=== PATIENT | female | born 1990 | race Caucasian/White ===

== ENCOUNTER 2017-03-21 13:21 | Emergency (ER) | payer BC, MEDICAID, SELFPAY ==
[2017-03-21 13:29] VITALS: BMI 22.3
[2017-03-21 13:32] VITALS: BP 115/68; PULSE 62; RESP 18; TEMP 36.4; O2SAT 97; BMI 22.3
[2017-03-21 13:39] LABS: POC Glucose,Bedside 328 mg/dL
--- NOTE | 2017-03-21 13:42 | HMH.EDGENADL ---
ED Disposition Clinical Impression: Hyperglycemia Disposition: Home, Self-Care Condition on Discharge: Good Instructions: DI for Hyperglycemia -- Adult Additional Instructions: Manage your blood sugar as per instructions from your repair mechanic and call them for follow-up. - Critical Care Critical Care Time: No Attestation: On 03/21/17, the high probability of a clinically significant, sudden or life threatening deterioration of the following system(s) required my full and direct attention, intervention and personal management. The time I documented below is in addition to time spent performing reported procedures but includes the following listed in this critical care notation. Medical Decision Making Vital Signs: 03/21/17 13:32 Temperature 97.6 F Temperature Source Oral Pulse Rate [Right Brachial] 62 Respiratory Rate 18 Blood Pressure [Right Arm] 115/68 Blood Pressure Mean [Right Arm] 83 Blood Pressure Source [Right Arm] Automatic Cuff Blood Pressure Position [Right Arm] Sitting 02 Sat by Pulse Oximetry 97 - Lab Data Lab Results 03/21/17 13:30: POC Glucose 328 03/21/17 13:34: Urine Color Yellow, Urine Appearance Sl cloudy, Urine pH 6.0, Ur Specific [place] 1.015, Urine Protein Negative, Urine Glucose (UA) 3+, Urine Ketones Trace, Urine Blood 1+, Urine Nitrate Negative, Urine Bilirubin Negative, Urine Urobilinogen 0.2, Ur Leukocyte Esterase Negative, Urine WBC Occasional, Ur Squamous Epith Cells 10-20, Urine Bacteria Trace 03/21/17 13:34: Urine HCG, Qual Negative, Influenza Type A Ag Negative, Influenza Type B Ag Negative 03/21/17 13:34: Sodium 137, Potassium 3.9, Chloride 102, Carbon Dioxide 29, Anion Gap 9.9, BUN 11, Creatinine 0.81, Estimated Creat Clear 99, Estimated GFR 86, Est GFR ( Amer) 104, Glucose 336 H, Calcium 8.9, Total Bilirubin 0.9, AST 15, ALT 21, Alkaline Phosphatase 89, Total Protein 7.1, Albumin 4.1, Globulin 3.0, Albumin/Globulin Ratio 1.4 03/21/17 13:34: Acetone Level None detected 03/21/17 13:34: WBC 7.5, RBC 4.56, Hgb 12.9, Hct 39.3, MCV 86.2, MCH 28.3, MCHC 32.8, RDW 12.4, Plt Count 220, MPV 7.7, Neut % (Auto) 71.8, Lymph % (Auto) 22.0, [place] % (Auto) 3.7, Eos % (Auto) 1.9, Baso % (Auto) 0.7, Neut # (Auto) 5.4, Lymph # (Auto) 1.6, [place] # (Auto) 0.3, Eos # (Auto) 0.1, Baso # (Auto) 0.1 03/21/17 13:34: Phosphorus 2.8, Magnesium 1.5 03/21/17 14:30: VBG pH 7.34, VBG pCO2 44.3, VBG pO2 48.5 H, VBG HCO3 23.5, VBG Total CO2 24.8, VBG O2 Saturation 84.1 H, VBG Base Excess -2.3 Result diagrams: 03/21/17 13:34 03/21/17 13:34 Orders (Tests/Meds): ED MEDICATIONS Discontinued Medications Generic Name Dose Route Start Last Admin Trade Name Lorenza PRN Reason Stop Dose Admin Insulin Human Lispro 5 unit 03/21/17 14:10 03/21/17 15:11 Humalog 100 Units/Ml 3ml Vial (Ssi) SQ 03/21/17 14:11 Not Given ONCE ONE Sodium Chloride 1,000 ml 03/21/17 14:10 03/21/17 14:28 Sod Chloride 0.9% 1000ml Bag IV 03/21/17 14:11 1,000 ml BOLUS ONE Administration ORDERS Category Date Time Status POC Glucose,Bedside Stat Lab 03/21/17 13:30 Ordered Venous Blood Gas Stat RT 03/21/17 13:41 Ordered - Raz Inquiry Pt receiving controlled substance: No Medical Decision Making Narrative: Patient states that sugar for her current blood sugar of 336 would be 5 units. 3:15 PM: The patient's blood sugar is 250. She says she feels she can manage this from home. She feels better. General Adult HPI - General Chief complaint: Weakness Stated complaint: high blood sugar Mode of Arrival: Ambulatory Limitations: No Limitations Description of Symptoms (Recalled from ER Triage Doc. by RN): large amount of ketones yesterday; possible flu - History of Present Illness HPI narrative: The patient complains of elevated blood sugar and body aches for the past couple of days. She is a type I diabetic and has an insulin pump. She has changed her insulin, giving herself addition
[2017-03-21 13:50] LABS: Microscopic, Urine URINE MICROSCOPIC (MICROSCOPIC)
[2017-03-21 13:52] LABS: Appearance,Urine SL CLOUDY (Clear); Bilirubin,Urine Negative (Negative); Blood, Urine 1+ (Negative); Color,Urine YELLOW (Yellow); Glucose,Urine (UA) 3+ (Negative); Ketones,Urine TRACE (Negative); Leukocyte Esterase,Urine Negative (Negative); Nitrate,Urine Negative (Negative); Protein,Urine Negative (Negative); Specific Gravity, Urine 1.015 (1.005-1.030); Urobilinogen,Urine 0.2 EU/dl (0.2)
[2017-03-21 13:55] LABS: Basophils # 0.1 K/mm3 (0-0.2); Basophils % 0.7 % (0.1-2.0); Eosinophils # 0.1 K/mm3 (0.0-0.4); Eosinophils % 1.9 % (0.1-12.0); Hematocrit 39.3 % (37.0-47.0); Hemoglobin 12.9 g/dL (12.2-16.2); Lymphocytes # 1.6 K/mm3 (0.7-4.5); Mean Corpuscular HGB Conc 32.8 g/dL (31.8-35.4); Mean Corpuscular Hemoglobin 28.3 pg (27.0-31.2); Mean Corpuscular Volume 86.2 fl (81-99); Mean Platelet Volume 7.7 fl (7.4-10.4); Monocytes # 0.3 K/mm3 (0.1-1.0); Monocytes % 3.7 % (1.7-9.3); Neutrophils # 5.4 K/mm3 (1.8-7.8); Neutrophils % 71.8 % (37.0-80.0); Platelet Count 220 K/mm3 (142-424); Red Blood Count 4.56 M/mm3 (4.20-5.40); Red Cell Distribution Width 12.4 % (11.5-17.5); White Blood Count 7.5 K/mm3 (4.8-10.8)
[2017-03-21 13:58] LABS: Bacteria,Urine Trace /lpf; WBC,Urine Occasional #/hpf (0-3)
[2017-03-21 14:00] LABS: Magnesium 1.5 mg/dL (1.4-2.2); Phosphorous 2.8 mg/dL (2.4-4.9); Urine Pregnancy, HCG Qual. Negative (Negative)
[2017-03-21 14:04] LABS: Alanine Aminotransferase 21 U/L (12-78); Albumin Level 4.1 gm/dL (3.4-5.0); Albumin/Globulin Ratio 1.4 (1.1-1.8); Alkaline Phosphatase 89 U/L (46-116); Anion Gap 9.9 mEq/L (5-15); Aspartate Amino Transferase 15 U/L (15-37); Bilirubin,Total 0.9 mg/dL (0.2-1.0); Blood Urea Nitrogen 11 mg/dL (7-18); Calcium 8.9 mg/dL (8.5-10.1); Carbon Dioxide 29 mmol/L (21.0-32.0); Chloride 102 mmol/L (98-107); Creatinine Clearance Estimated 99 mL/min (0-300); Creatinine,Serum 0.81 mg/dL (0.55-1.02); Estimated Glomerular Filt Rate 86 ml/min (>60); GFR (African American) 104 ML/MIN (>60); Glucose 336 mg/dL (74-106); Potassium 3.9 mmoL/L (3.5-5.1); Sodium 137 mmol/L (136-145); Total Protein,Serum 7.1 gm/dL (6.4-8.2)
[2017-03-21 14:05] LABS: Acetone, Serum (Rapid) None Detected (None Detect)
[2017-03-21 15:03] LABS: VBG Base Excess -2.3 mmol/L (-2.4-2.3); VBG HCO3 23.5 mmol/L (23-30); VBG Oxygen Saturation 84.1 % (50-70); VBG PCO2 44.3 mmol/L (35-51); VBG PH 7.34 mmol/L (7.31-7.41); VBG PO2 48.5 mmol/L (28-40); VBG Total CO2 24.8 mmol/L (23-27)
[2017-03-21 15:22] VITALS: BP 132/85; PULSE 75; RESP 18; TEMP 37
[2017-03-21 15:23] LABS: POC Glucose,Bedside 251 mg/dL
== END 2017-03-21 15:21 | disposition home or self-care (01) ==
PROVIDERS: Emergency Provider Emergency Medicine; Family Provider Internal Medicine Adolescent Medicine
DX: E11.65 Type 2 diabetes mellitus with hyperglycemia (principal); Z79.4 Long term (current) use of insulin; F17.210 Nicotine dependence, cigarettes, uncomplicated; Z88.0 Allergy status to penicillin; Z88.6 Allergy status to analgesic agent; Z91.040 Latex allergy status
CPT/HCPCS: 80053; 81001; 81025; 82009; 82803; 82962; 83735; 84100; 85025; 87275; 87276; 96365; 99282

== ENCOUNTER → 2017-05-19 14:41 | Outpatient (CLI) | payer BC, MEDICAID, SELFPAY ==
[2017-05-19 15:08] LABS: Basophils # 0.1 K/mm3 (0-0.2); Basophils % 0.7 % (0.1-2.0); Eosinophils # 0.1 K/mm3 (0.0-0.4); Eosinophils % 1.1 % (0.1-12.0); Hematocrit 39.9 % (37.0-47.0); Hemoglobin 13.1 g/dL (12.2-16.2); Lymphocytes # 2.1 K/mm3 (0.7-4.5); Mean Corpuscular HGB Conc 32.9 g/dL (31.8-35.4); Mean Corpuscular Hemoglobin 29.1 pg (27.0-31.2); Mean Corpuscular Volume 88.3 fl (81-99); Mean Platelet Volume 7.7 fl (7.4-10.4); Monocytes # 0.4 K/mm3 (0.1-1.0); Monocytes % 4.3 % (1.7-9.3); Neutrophils # 5.6 K/mm3 (1.8-7.8); Neutrophils % 67.9 % (37.0-80.0); Platelet Count 286 K/mm3 (142-424); Red Blood Count 4.52 M/mm3 (4.20-5.40); Red Cell Distribution Width 12.3 % (11.5-17.5); White Blood Count 8.2 K/mm3 (4.8-10.8)
[2017-05-19 19:31] LABS: Thyroid Stimulating Hormone 2.13 uIU/ml (0.358-3.740)
[2017-05-19 19:43] LABS: Hemoglobin A1C 6.4 % (0.0-7.0)
[2017-05-19 22:06] LABS: Amphetamine/Metha Screen,Urine Negative ng/mL (<1000); Barbiturates Screen,Urine Negative ng/mL (<200); Benzodiazepines Screen,Urine Negative ng/mL (200); Cannabinoid Screen,Urine Negative ng/mL (<50); Cocaine Screen,Urine Negative ng/g (<300); Methadone Screen,Urine Negative ng/mL (<300); Opiate Screen,Urine Negative ng/mL (<300); Phencyclidine Screen,Urine Negative ng/mL (<25)
[2017-05-21 08:25] LABS: HIV Screen 4th Generation wRfx Non Reactive (Non Reactive)
[2017-05-22 15:11] LABS: Hepatitis B Surface Antigen Negative (Negative); Rubella Antibodies, IgG 1.53 index (Immune >0.99)
== END ==
PROVIDERS: Family Provider Internal Medicine Adolescent Medicine; PCP Internal Medicine Adolescent Medicine; Visit Provider Obstetrics & Gynecology
DX: Z34.90 Encounter for supervision of normal pregnancy, unspecified, unspecified trimester (principal); N94.89 Other specified conditions associated with female genital organs and menstrual cycle; N93.0 Postcoital and contact bleeding
CPT/HCPCS: 36415; 80305; 83036; 84443; 85025; 86703; 86762; 86850; 87340; G0432

== ENCOUNTER → 2017-05-26 13:54 | Outpatient (CLI) | payer BC, MEDICAID, SELFPAY ==
[2017-05-26 15:41] LABS: HCG,Quantitative 11814 mIU/mL
== END ==
PROVIDERS: Family Provider Internal Medicine Adolescent Medicine; PCP Internal Medicine Adolescent Medicine; Visit Provider Obstetrics & Gynecology
DX: Z34.90 Encounter for supervision of normal pregnancy, unspecified, unspecified trimester (principal)
CPT/HCPCS: 36415; 84702

== ENCOUNTER 2017-05-28 21:25 | Emergency (ER) | payer BC, MEDICAID, SELFPAY ==
[2017-05-28 21:39] VITALS: BP 126/70; PULSE 106; RESP 20; TEMP 36.7; O2SAT 100; BMI 23.1
[2017-05-28 21:51] LABS: Microscopic, Urine URINE MICROSCOPIC (MICROSCOPIC)
[2017-05-28 21:52] LABS: Appearance,Urine CLEAR (Clear); Bilirubin,Urine Negative (Negative); Blood, Urine Negative (Negative); Color,Urine YELLOW (Yellow); Glucose,Urine (UA) 2+ (Negative); Ketones,Urine Negative (Negative); Leukocyte Esterase,Urine Negative (Negative); Nitrate,Urine Negative (Negative); Protein,Urine Negative (Negative); Specific Gravity, Urine 1.015 (1.005-1.030); Urobilinogen,Urine 0.2 EU/dl (0.2)
[2017-05-28 21:55] LABS: Strep Scrn Group A (Rapid) Positive (Negative)
[2017-05-28 22:05] LABS: Bacteria,Urine Trace /lpf; Squamous Epithelial Cell,Urine 20-50 #/hpf (0-5); WBC,Urine Occasional #/hpf (0-3)
--- NOTE | 2017-05-28 22:08 | HMH.EDFEV ---
ED Disposition Clinical Impression: Acute streptococcal pharyngitis, First trimester , IDDM (insulin dependent diabetes mellitus), Penicillin allergy Disposition: Home, Self-Care Condition on Discharge: Fair Additional Instructions: 1- star zithromax . 2- follow up with Dr Salvador in AM for a trans vag as scheduled. 3- return if abdominal pain or vaginal bleeding starts. 4- drink plenty of liquids and water. I discussed the above with Dr Lomas agrees with the treatment plan and follow up Prescriptions: Azithromycin [Zithromax 250mg tab] 250 mg PO DIRECTED #6 tab Referrals: Rao Olson MD [Primary Care Provider] - - Critical Care Critical Care Time: No Attestation: On 05/28/17, the high probability of a clinically significant, sudden or life threatening deterioration of the following system(s) required my full and direct attention, intervention and personal management. The time I documented below is in addition to time spent performing reported procedures but includes the following listed in this critical care notation. Medical Decision Making - Raz Inquiry Pt receiving controlled substance: No Raz was queried for this patient: No Vital Signs: 05/28/17 21:39 Temperature 98.0 F Temperature Source Oral Pulse Rate [Right Radial] 106 H Respiratory Rate 20 Blood Pressure [Right Arm] 126/70 Blood Pressure Mean [Right Arm] 88 02 Sat by Pulse Oximetry 100 - Lab Data Lab Results 05/28/17 21:45: Urine Color Yellow, Urine Appearance Clear, Urine pH 7.0, Ur Specific [place] 1.015, Urine Protein Negative, Urine Glucose (UA) 2+, Urine Ketones Negative, Urine Blood Negative, Urine Nitrate Negative, Urine Bilirubin Negative, Urine Urobilinogen 0.2, Ur Leukocyte Esterase Negative, Urine RBC None, Urine WBC Occasional, Ur Squamous Epith Cells 20-50, Urine Bacteria Trace 05/28/17 21:45: Influenza Type A Ag Negative, Influenza Type B Ag Negative, Group A Strep Rapid Positive A Medical Decision Narrative: Patient was tested positive for strep throat. Fever HPI - General Chief Complaint: Fever Stated Complaint: 7 WK PREG, SORE THROAT,FEVER Time Seen by Provider: 05/28/17 22:00 Mode of Arrival: Family Vehicle Limitations: No Limitations Description of Symptoms (Recalled from ER Triage Doc. by RN): fever, sore throat. pt states she is being seen in the morning by ob for a possible tubal . - History of Present Illness HPI Narrative: 27 years old white female IDDM, 4 a 3 para 0. Is currently 7 weeks being followed by Dr. Salvador with serial quantitative hCG and transvaginal ultrasound scheduled for tomorrow at 1 PM. The patient has multiple medication allergies including penicillin. Today at 10 am, she developed sore throat and 2 hours ago she developed fever of 103. She took Tylenol and came to the ED. She denies having abdominal pain or vaginal bleeding. MD complaint: fever Onset (ago): hour(s) (2 hours.) Context: sick contacts Associated symptoms: other (sore throat. ) Relieving factors: acetaminophen Exacerbating factors: nothing Treatments prior to arrival fever: acetaminophen - Related Data Home Medications Medication Instructions Recorded Confirmed escitalopram 10 mg tablet 10 mg PO QDAY 03/30/17 insulin lispro protamine-lispro 50 unit SUB-Q QDAY ml 03/30/17 100 unit/mL (50-50) subcutaneous pen ondansetron HCl 4 mg tablet 4 mg PO ONCE PRN tab 03/30/17 docusate sodium 100 mg capsule 100 mg PO QHS 05/19/17 1 tab PO QHS 05/19/17 vitamin,calcium,edxsonnz-kxeg-tvosx acid tablet Previous Rx's Medication Instructions Recorded ferrous sulfate 325 mg (65 mg 325 mg PO DAILY 30 Days #30 tab 05/19/17 iron) tablet Azithromycin [Zithromax 250mg 250 mg PO DIRECTED #6 tab 05/28/17 tab] Allergies Allergy/AdvReac Type Severity Reaction Status Date / Time codeine [CODEINE] Donavon
--- NOTE | 2017-05-28 22:12 | ED_ITS ---
ED Disposition Clinical Impression: Acute streptococcal pharyngitis, First trimester , IDDM (insulin dependent diabetes mellitus), Penicillin allergy Disposition: Home, Self-Care Condition on Discharge: Fair Additional Instructions: 1- star zithromax . 2- follow up with Dr Salvador in AM for a trans vag as scheduled. 3- return if abdominal pain or vaginal bleeding starts. 4- drink plenty of liquids and water. I discussed the above with Dr Lomas agrees with the treatment plan and follow up Prescriptions: Azithromycin [Zithromax 250mg tab] 250 mg PO DIRECTED #6 tab Referrals: Rao Olson MD [Primary Care Provider] - - Critical Care Critical Care Time: No Attestation: On 05/28/17, the high probability of a clinically significant, sudden or life threatening deterioration of the following system(s) required my full and direct attention, intervention and personal management. The time I documented below is in addition to time spent performing reported procedures but includes the following listed in this critical care notation. Medical Decision Making - Raz Inquiry Pt receiving controlled substance: No Raz was queried for this patient: No Vital Signs: 05/28/17 21:39 Temperature 98.0 F Temperature Source Oral Pulse Rate [Right Radial] 106 H Respiratory Rate 20 Blood Pressure [Right Arm] 126/70 Blood Pressure Mean [Right Arm] 88 02 Sat by Pulse Oximetry 100 - Lab Data Lab Results 05/28/17 21:45: Urine Color Yellow, Urine Appearance Clear, Urine pH 7.0, Ur Specific [place] 1.015, Urine Protein Negative, Urine Glucose (UA) 2+, Urine Ketones Negative, Urine Blood Negative, Urine Nitrate Negative, Urine Bilirubin Negative, Urine Urobilinogen 0.2, Ur Leukocyte Esterase Negative, Urine RBC None , Urine WBC Occasional, Ur Squamous Epith Cells 20-50, Urine Bacteria Trace 05/28/17 21:45: Influenza Type A Ag Negative, Influenza Type B Ag Negative, Group A Strep Rapid Positive A Medical Decision Narrative: Patient was tested positive for strep throat. Fever HPI - General Chief Complaint: Fever Stated Complaint: 7 WK PREG, SORE THROAT,FEVER Time Seen by Provider: 05/28/17 22:00 Mode of Arrival: Family Vehicle Limitations: No Limitations Description of Symptoms (Recalled from ER Triage Doc. by RN): fever, sore throat. pt states she is being seen in the morning by ob for a possible tubal . - History of Present Illness HPI Narrative: 27 years old white female IDDM, 4 a 3 para 0. Is currently 7 weeks being followed by Dr. Salvador with serial quantitative hCG and transvaginal ultrasound scheduled for tomorrow at 1 PM. The patient has multiple medication allergies including penicillin. Today at 10 am, she developed sore throat and 2 hours ago she developed fever of 103. She took Tylenol and came to the ED. She denies having abdominal pain or vaginal bleeding. MD complaint: fever Onset (ago): hour(s) (2 hours.) Context: sick contacts Associated symptoms: other (sore throat. ) Relieving factors: acetaminophen Exacerbating factors: nothing Treatments prior to arrival fever: acetaminophen - Related Data Home Medications Medication Instructions Recorded Confirmed escitalopram 10 mg tablet 10 mg PO QDAY 03/30/17 insulin lispro protamine-lispro 50 unit SUB-Q QDAY ml 03/30/17 100 unit/mL (50-50)
[2017-05-28 22:27] VITALS: BP 133/77; PULSE 94; RESP 18; TEMP 36.8; O2SAT 98
== END 2017-05-28 22:29 | disposition home or self-care (01) ==
PROVIDERS: Emergency Provider Emergency Medicine; Family Provider Internal Medicine Adolescent Medicine; PCP Internal Medicine Adolescent Medicine
DX: J02.0 Streptococcal pharyngitis (principal); E11.9 Type 2 diabetes mellitus without complications; Z34.90 Encounter for supervision of normal pregnancy, unspecified, unspecified trimester; Z79.84 Long term (current) use of oral hypoglycemic drugs; Z88.0 Allergy status to penicillin; Z88.6 Allergy status to analgesic agent; Z91.040 Latex allergy status
CPT/HCPCS: 81001; 87275; 87276; 87430; 99282

== ENCOUNTER → 2017-05-29 12:59 | Outpatient (CLI) | payer BC, MEDICAID, SELFPAY ==
--- NOTE | 2017-05-29 13:15 | US_ITS ---
US transvaginal HISTORY: ITS.REASON: w/ possible threatened ORDERING PHYSICIAN: Cesar Salvador MD PATIENT AGE: 27 years COMPARISON: None FINDINGS: There is an intrauterine gestational sac which measures 1.5 x 1.2 cm. No pole or yolk sac is evident. There is some fluid noted around the gestational sac and may be related to some blood. No adnexal mass or cul-de-sac fluid apparent. IMPRESSION: There is an empty gestational sac suggestion of fluid around the gestational sac which could be due to surrounding blood. Cannot confirm viability. Consider follow-up ultrasound and serial beta hCGs for confirmation
[2017-05-29 14:21] LABS: HCG,Quantitative 13477 mIU/mL
== END ==
PROVIDERS: Family Provider Internal Medicine Adolescent Medicine; PCP Internal Medicine Adolescent Medicine; Visit Provider Obstetrics & Gynecology
DX: O20.0 Threatened abortion (principal)
CPT/HCPCS: 36415; 76830; 84702

== ENCOUNTER 2017-06-01 10:30 | Day surgery (SDC) | payer BC, MEDICAID, SELFPAY ==
[2017-06-01] VITALS (13 sets, daily range): BP systolic 91–116; BP diastolic 47–71; PULSE 74–89; RESP 16–18; TEMP 36.3–37.2; O2SAT 97–99; BMI 23.1
[2017-06-01 11:18] LABS: POC Glucose,Bedside 98 mg/dL (70-110)
--- NOTE | 2017-06-01 12:19 | SUR.PREOP ---
Addendum entered by Domonique Petersen RN 06/01/17 12:45: PT ASSISTED TO BR, VOIDED W/OUT DIFF, NO C/O'S VOICED 06/01/17 AT 1230 Original Note: PT DOING WELL, NO C/O'S, FAMILY AT BEDSIDE. O2 SAT 96%RA
[2017-06-01 13:13] LABS: POC Glucose,Bedside 52 mg/dL (70-110)
[2017-06-01 14:00] LABS: POC Glucose,Bedside 114 mg/dL (70-110)
[2017-06-01 14:38] LABS: POC Glucose,Bedside 124 mg/dL (70-110)
--- NOTE | 2017-06-01 15:17 | P.PN_ITS ---
[facility] Anesthesia Checklist - Patient Identification Patient Identification: Arm Band - Structural Data Admitted From: Home Planned Operative Procedure/s: d&e Consent for Planned Operative Procedure(s) Verified: Yes Verified Documents: Surgical Consent, History and Physical - Additional verifications Anesthesia Reactions: No - Airway Assessment C-Spine Mobility Assessed: Yes (mp2) TMJ Mobility Assessed: Yes Dentition: Good Dentition - Neurological Assessment Level of Consciousness: Awake, Alert - Anesthesia Plan Anesthesia Risk discussed: Yes Anesthesia Plan: Verified ASA Class: III Anesthesia Type: General [facility] Anesthesia HX I have reviewed the patient's past medical history: Yes Medical History: Reports:: Diabetes Mellitus Type 1 (IDDM-HAS PUMP), Gastroesophageal Reflux Disease(GERD) Denies:: Cancer, Internal Pacemaker, MRSA, Seizures Other Medical History: Reports: Other Other Surgeries: Yes: Dilation and Curettage, Hernia Repair, Other. No: Pacemaker Amputation: No Fractures: Yes *Family Hx:: Hypertension, Heart Attack, Stroke, Cancer
--- NOTE | 2017-06-01 15:17 | HMH.ANESI ---
[facility] Anesthesia Record Part I Intake, IV Amount: 800 Estimated blood loss (mL): 100 Urine output (mL): 100 Blood Pressure: 116/71 SaO2: 99 Pulse Rate: 82 Respiratory Rate: 16 Temperature: 97.4 F Patient is:: Drowsy, Stable Stable to PACU at:: 14:30
--- NOTE | 2017-06-01 15:18 | HMH.ANESII ---
[facility] Anesthesia Record Part II Discharge Time: 15:00 Destination: [facility] PACU nurse assessment reviewed?: Yes Patient Condition:: Good Anesthesia Complications:: None
--- NOTE | 2017-06-01 15:19 | P.PN_ITS ---
[facility] Anesthesia Record Part II Discharge Time: 15:00 Destination: [facility] PACU nurse assessment reviewed?: Yes Patient Condition:: Good Anesthesia Complications:: None
--- NOTE | 2017-06-01 15:25 | HMH.OPNOTE ---
Date of procedure: 06/01/17 Pre-op Diagnosis:: Missed spontaneous Post-op Diagnosis:: Missed spontaneous Procedure performed:: Dilatation and suction curettage Surgeon:: Cesar Salvador MD SENIOR PLANNING ANALYST:: Gutierrez Nguyen Anesthesia: GETA Estimated blood loss (mL): 100 Operative findings:: Missed spontaneous Operative note:: After the patient was prepped and draped in the usual fashion, and general anesthesia was administered examination under anesthesia revealed an 8 week size boggy uterus, with no adnexal masses. A weighted speculum was placed within the posterior fourchette of the vagina, and the anterior lip of the cervix was grasped with a single-tooth tenaculum. The uterus was sounded in an anteverted direction to 9 cm, and easily dilated to #20 Hegar dilators. A sharp curette was introduced into the endometrial cavity, with retrieval of a moderate amount of products of conception. This was followed by suction with a #7 curved suction tip, and again by sharp curettage and suction, until it was felt that the cavity was clean. The instruments were then removed. Intravenous Pitocin was begun, and the uterus was involuting well at the close of the procedure. The sponge and needle count was correct. Estimated blood loss was 100 cc. The patient tolerated the procedure well, and was taken to PACU in excellent condition. Her blood type is O Rh+, and therefore she is not a candidate for RhoGam. She will be discharged today, if her vital signs are stable. Condition: stable Disposition: same day Specimens:: Products of conception Complications:: None
--- NOTE | 2017-06-01 15:28 | P.OP_ITS ---
Date of procedure: 06/01/17 Pre-op Diagnosis:: Missed spontaneous Post-op Diagnosis:: Missed spontaneous Procedure performed:: Dilatation and suction curettage Surgeon:: Cesar Salvador MD CASH APPLICATION CLERK:: Gutierrez Nguyen Anesthesia: GETA Estimated blood loss (mL): 100 Operative findings:: Missed spontaneous Operative note:: After the patient was prepped and draped in the usual fashion, and general anesthesia was administered examination under anesthesia revealed an 8 week size boggy uterus, with no adnexal masses. A weighted speculum was placed within the posterior fourchette of the vagina, and the anterior lip of the cervix was grasped with a single-tooth tenaculum. The uterus was sounded in an anteverted direction to 9 cm, and easily dilated to #20 Hegar dilators. A sharp curette was introduced into the endometrial cavity, with retrieval of a moderate amount of products of conception. This was followed by suction with a #7 curved suction tip, and again by sharp curettage and suction, until it was felt that the cavity was clean. The instruments were then removed. Intravenous Pitocin was begun, and the uterus was involuting well at the close of the procedure. The sponge and needle count was correct. Estimated blood loss was 100 cc. The patient tolerated the procedure well, and was taken to PACU in excellent condition. Her blood type is O Rh+, and therefore she is not a candidate for RhoGam. She will be discharged today, if her vital signs are stable. Condition: stable Disposition: same day Specimens:: Products of conception Complications:: None
[2017-06-01 15:39] LABS: Hematocrit 31.4 % (37.0-47.0); Hemoglobin 10.5 g/dL (12.2-16.2)
--- NOTE | 2017-06-01 15:45 | PC.NURSE ---
straight in/out catheter performed during prep prior to procedure
--- NOTE | 2017-06-01 15:49 | PC.NURSE ---
06/01/17 1509 Pt may popsicle well with no n/v while in PACU. Pt's FSBS was checked upon arrival to PACU with result of 124/ NON PROFIT JOB TITLES aware/no new orders
== END 2017-06-01 15:55 | disposition home or self-care (01) ==
LOC: OR 10:31
PROVIDERS: Family Provider Internal Medicine Adolescent Medicine; PCP Internal Medicine Adolescent Medicine; Visit Provider Obstetrics & Gynecology
PROC: (CPT 59812; principal; 2017-06-01 12:30)
DX: O02.1 Missed abortion (principal)
CPT/HCPCS: 59812; 36415; 82962; 85014; 85018; 96374; J0131; J1956; J2405

== ENCOUNTER → 2017-06-03 12:29 | Outpatient (CLI) | payer BC, MEDICAID, SELFPAY ==
--- NOTE | 2017-06-03 12:35 | NVE_ITS ---
Venous Exam Indications: 729.5 Pain in limb. IMPRESSIONS 1. There is no evidence of significant reflux. 2. Deep vein thrombosis involving the deep vein of the left upper extremity basilic vein. History: Risk factors: Recent surgery: RECENT IV L FOREARM. Left upper extremity venous duplex. Doppler flow study including spectral analysis, color and lee scale imaging. Location: Vascular laboratory. Patient status: Outpatient. CRITICAL FINDINGS - Reported to: Madeleine - Read back and verified. - 06/03/17 - 1250 - Dvt basilic vein. Patient taken to ED for tx per Dr. Salvador Tables: Venous flow and imaging: + + + Location Flow properties + + + Left internal jugular Normal phasicity; spontaneous; compressible + + + Left subclavian Normal phasicity; spontaneous; normal augmentation; compressible + + + Left axillary Normal phasicity; spontaneous; normal augmentation; compressible + + + Left brachial Normal phasicity; spontaneous; normal augmentation; compressible + + + Left cephalic Normal phasicity; spontaneous; normal augmentation; compressible + + + Left basilic Diminished phasicity; diminished spontaneity; diminished augmentation; partially compressible + + + Left radial Compressible + + + Left ulnar Compressible + + + Right subclavian Normal phasicity; spontaneous; normal augmentation; compressible + + + (Report amended ) Electronically signed by: Bernabe Diana [id number]
== END ==
PROVIDERS: PCP Internal Medicine Adolescent Medicine; Visit Provider Emergency Medicine
DX: I82.A12 Acute embolism and thrombosis of left axillary vein (principal)
CPT/HCPCS: 93971

== ENCOUNTER 2017-06-03 12:59 | Emergency (ER) | payer BC, MEDICAID, SELFPAY ==
[2017-06-03 13:02] VITALS: BP 125/73; PULSE 87; RESP 18; TEMP 36.9; O2SAT 96; BMI 22.3
--- NOTE | 2017-06-03 13:23 | HMH.EDGENADL ---
ED Disposition Clinical Impression: Deep venous thrombosis of left upper extremity Qualifiers: Affected thrombotic vein of extremity: axillary Chronicity: acute Qualified Code(s): I82.A12 - Acute embolism and thrombosis of left axillary vein Disposition: Admitted As Inpatient Condition on Discharge: Good Additional Instructions: Please follow-up with Dr. Olson in the office on Thursday, call today in order to schedule a follow-up appointment. Prosper (in the pharmacy) will follow up with you on Thursday, as you are now enrolled in the coumadin clinic. Prescriptions: Enoxaparin Sodium [Lovenox 100mg/mL syringe] 90 mg SQ DAILY 2 Days #2 syringe Oxycodone HCl/Acetaminophen [Percocet 7.5/325mg tablet] 1 tab PO QIDP PRN #8 tab PRN Reason: Moderate Pain Warfarin Sodium [Coumadin 5mg tablet] 5 mg PO DAILY #3 tab Referrals: Rao Olson MD [Primary Care Provider] - Time of Disposition: 13:48 - Critical Care Critical Care Time: No Attestation: On 06/03/17, the high probability of a clinically significant, sudden or life threatening deterioration of the following system(s) required my full and direct attention, intervention and personal management. The time I documented below is in addition to time spent performing reported procedures but includes the following listed in this critical care notation. Medical Decision Making - Medical Records Medical records reviewed: Yes: I reviewed the patient's medical records. - Raz Inquiry Pt receiving controlled substance: No Vital Signs: 06/03/17 13:02 06/03/17 14:11 Temperature 98.5 F 98.5 F Temperature Source Temporal Artery Scan Pulse Rate 79 Pulse Rate [Right Brachial] 87 Respiratory Rate 18 16 Blood Pressure 127/78 Blood Pressure [Right Arm] 125/73 Blood Pressure Mean [Right Arm] 90 Blood Pressure Source [Right Arm] Automatic Cuff Blood Pressure Position [Right Arm] Sitting 02 Sat by Pulse Oximetry 96 Oxygen Delivery Method Room Air - Lab Data Lab results reviewed: Yes: I reviewed the patient's lab results. Lab Results 06/03/17 13:45: PT 10.5, INR 0.97, APTT 27.3 Orders (Tests/Meds): ED MEDICATIONS Discontinued Medications Generic Name Dose Route Start Last Admin Trade Name Freq PRN Reason Stop Dose Admin Enoxaparin Sodium 60 mg 06/03/17 13:38 06/03/17 14:00 Lovenox 60mg/0.6ml Syringe SQ 06/03/17 13:39 Not Given ONCE ONE Enoxaparin Sodium 90 mg 06/04/17 09:00 Lovenox 100mg/Ml Syringe 1.5 mg/kg (90 mg) 07/04/17 08:59 SQ DAILY [place] Enoxaparin Sodium 90 mg 06/04/17 14:01 Lovenox 100mg/Ml Syringe 1.5 mg/kg (90 mg) 06/04/17 14:02 SQ DAILY ONE Enoxaparin Sodium 90 mg 06/03/17 14:06 06/03/17 14:07 Lovenox 100mg/Ml Syringe SQ 06/03/17 14:07 90 mg ONCE ONE Administration Warfarin Sodium 5 mg 06/03/17 13:39 06/03/17 13:59 Coumadin 5mg Tablet PO 06/03/17 13:40 5 mg ONCE ONE Administration - Physician Consults Physician Consulted: Dr Salvador Time: 13:40 Reason -: Pt condition, Gynocological Eval/Care Comment/Response: Advised of my findings and presentation, recommend to consult with Dr. Olson. The jail keeper recommended there is no contraindication to starting oral anticoagulation (Coumadin), given the current context (s/p D&E). Additional Consult: Dr Olson Time: 13:43 Reason -: Pt condition Comment/Response: recommended to bridge Lovenox with Coumadin, and get the patient into the coumadin clinic. case d/w Cristobal in the Coumadin clinic, will overlap 1.5mg/kg of Lovenox, and Coumadin 5mg daily, to see Dr Olson on Thursday. - Reevaluation(s) Time: 13:45 Reevaluation #1: Medically stable, no acute distress, complaining with left upper extremity pain. General Adult HPI - General Chief complaint: PAIN Stated complaint: blood clot in left arm Time Seen by Provider: 06/03/17 13:26 Mode of Arrival: Ambulatory Limitations: No Limitations Description of
--- NOTE | 2017-06-03 13:26 | ED_ITS ---
ED Disposition Clinical Impression: Deep venous thrombosis of left upper extremity Qualifiers: Affected thrombotic vein of extremity: axillary Chronicity: acute Qualified Code(s): I82.A12 - Acute embolism and thrombosis of left axillary vein Disposition: Admitted As Inpatient Condition on Discharge: Good Additional Instructions: Please follow-up with Dr. Olson in the office on Thursday, call today in order to schedule a follow-up appointment. Prosper (in the pharmacy) will follow up with you on Thursday, as you are now enrolled in the coumadin clinic. Prescriptions: Enoxaparin Sodium [Lovenox 100mg/mL syringe] 90 mg SQ DAILY 2 Days #2 syringe Oxycodone HCl/Acetaminophen [Percocet 7.5/325mg tablet] 1 tab PO QIDP PRN # 8 tab PRN Reason: Moderate Pain Warfarin Sodium [Coumadin 5mg tablet] 5 mg PO DAILY #3 tab Referrals: Rao Olson MD [Primary Care Provider] - Time of Disposition: 13:48 - Critical Care Critical Care Time: No Attestation: On 06/03/17, the high probability of a clinically significant, sudden or life threatening deterioration of the following system(s) required my full and direct attention, intervention and personal management. The time I documented below is in addition to time spent performing reported procedures but includes the following listed in this critical care notation. Medical Decision Making - Medical Records Medical records reviewed: Yes: I reviewed the patient's medical records. - Raz Inquiry Pt receiving controlled substance: No Vital Signs: 06/03/17 13:02 06/03/17 14:11 Temperature 98.5 F 98.5 F Temperature Source Temporal Artery Scan Pulse Rate 79 Pulse Rate [Right Brachial] 87 Respiratory Rate 18 16 Blood Pressure 127/78 Blood Pressure [Right Arm] 125/73 Blood Pressure Mean [Right Arm] 90 Blood Pressure Source [Right Arm] Automatic Cuff Blood Pressure Position [Right Arm] Sitting 02 Sat by Pulse Oximetry 96 Oxygen Delivery Method Room Air - Lab Data Lab results reviewed: Yes: I reviewed the patient's lab results. Lab Results 06/03/17 13:45: PT 10.5, INR 0.97, APTT 27.3 Orders (Tests/Meds): ED MEDICATIONS Discontinued Medications Generic Name Dose Route Start Last Admin Trade Name Freq PRN Reason Stop Dose Admin Enoxaparin Sodium 60 mg 06/03/17 13:38 06/03/17 14:00 Lovenox 60mg/0.6ml Syringe SQ 06/03/17 13:39 Not Given ONCE ONE Enoxaparin Sodium 90 mg 06/04/17 09:00 Lovenox 100mg/Ml Syringe 1.5 mg/kg (90 mg) 07/04/17 08:59 SQ DAILY [place] Enoxaparin Sodium 90 mg 06/04/17 14:01 Lovenox 100mg/Ml Syringe 1.5 mg/kg (90 mg) 06/04/17 14:02 SQ DAILY ONE Enoxaparin Sodium 90 mg 06/03/17 14:06 06/03/17 14:07 Lovenox 100mg/Ml Syringe SQ 06/03/17 14:07 90 mg ONCE ONE Administration Warfarin Sodium 5 mg 06/03/17 13:39 06/03/17 13:59 Coumadin 5mg Tablet PO 06/03/17 13:40 5 mg ONCE ONE Administration - Physician Consults Physician Consulted: Dr Salvador Time: 13:40 Reason -: Pt condition, Gynocological Eval/Care Comment/Response: Advised of my findings and presentation, recommend to consult with Dr. Olson. The women's lacrosse coach recommended there is no contraindication to starting oral anticoagulation (Coumadin), given the
--- NOTE | 2017-06-03 13:28 | PC.NURSE ---
speaking with Dr Salvador at this time
--- NOTE | 2017-06-03 13:29 | PC.NURSE ---
Nurse speaking with Dr. Olson's office at this time. Dr Salvador advised ER MD to speak with him concerning treatment
[2017-06-03 14:11] VITALS: BP 127/78; PULSE 79; RESP 16; TEMP 36.9; O2SAT 97
[2017-06-03 14:17] LABS: Activated Partial Thrombo Time 27.3 seconds (23.6-34.0); INR 0.97 (0.9-1.1); Prothrombin Time 10.5 seconds (9.4-11.8)
== END 2017-06-03 14:13 | disposition admitted as inpatient to this hospital (09) ==
PROVIDERS: Emergency Provider Emergency Medicine; Family Provider Internal Medicine Adolescent Medicine; PCP Internal Medicine Adolescent Medicine
DX: I82.A12 Acute embolism and thrombosis of left axillary vein (principal); K21.9 Gastro-esophageal reflux disease without esophagitis; E10.9 Type 1 diabetes mellitus without complications; Z88.0 Allergy status to penicillin; Z91.040 Latex allergy status; Z88.6 Allergy status to analgesic agent
CPT/HCPCS: 85610; 85730; 96372; 99282

== ENCOUNTER 2017-06-05 10:51 | Outpatient (CLI) | payer BC, MEDICAID, SELFPAY ==
[2017-06-05 12:12] LABS: PHA INR Fingerstick 1.2 (0.9-1.1)
== END 2017-06-05 13:23 | disposition home or self-care (01) ==
LOC: ACC 10:51
PROVIDERS: PCP Internal Medicine Adolescent Medicine; Visit Provider Internal Medicine Adolescent Medicine
DX: Z79.01 Long term (current) use of anticoagulants (principal); Z51.81 Encounter for therapeutic drug level monitoring; I82.622 Acute embolism and thrombosis of deep veins of left upper extremity
CPT/HCPCS: 85610; 99211; G0463

== ENCOUNTER 2017-06-08 11:26 | Outpatient (POV) | payer BC, MEDICAID, SELFPAY ==
[2017-06-08 14:01] LABS: PHA INR Fingerstick 2.3 (0.9-1.1)
== END 2017-06-08 14:53 | disposition home or self-care (01) ==
LOC: SC 11:27
PROVIDERS: Family Provider Internal Medicine Adolescent Medicine; PCP Internal Medicine Adolescent Medicine; Visit Provider Nurse Practitioner Acute Care
DX: Z51.81 Encounter for therapeutic drug level monitoring (principal); Z79.01 Long term (current) use of anticoagulants; I82.622 Acute embolism and thrombosis of deep veins of left upper extremity
CPT/HCPCS: 85610; 99211; G0463

== ENCOUNTER 2017-06-11 14:49 | Outpatient (CLI) | payer BC, MEDICAID, SELFPAY ==
[2017-06-11 15:50] LABS: PHA INR Fingerstick 2.6 (0.9-1.1)
== END 2017-06-12 14:57 | disposition home or self-care (01) ==
PROVIDERS: PCP Internal Medicine Adolescent Medicine; Visit Provider Internal Medicine Adolescent Medicine
DX: Z79.01 Long term (current) use of anticoagulants (principal); Z51.81 Encounter for therapeutic drug level monitoring; I82.A12 Acute embolism and thrombosis of left axillary vein
CPT/HCPCS: 85610; 99211; G0463

== ENCOUNTER → 2017-06-12 15:12 | Outpatient (CLI) | payer BC, MEDICAID, SELFPAY ==
[2017-06-12 15:40] LABS: Basophils # 0.1 K/mm3 (0-0.2); Basophils % 0.7 % (0.1-2.0); Eosinophils # 0.1 K/mm3 (0.0-0.4); Eosinophils % 2.1 % (0.1-12.0); Hematocrit 39.7 % (37.0-47.0); Hemoglobin 13.1 g/dL (12.2-16.2); Lymphocytes # 1.9 K/mm3 (0.7-4.5); Lymphocytes % 29.7 K/mm3 (10-50); Mean Corpuscular Hemoglobin 29.1 pg (27.0-31.2); Mean Corpuscular Volume 88.3 fl (81-99); Mean Platelet Volume 7.9 fl (7.4-10.4); Monocytes # 0.3 K/mm3 (0.1-1.0); Monocytes % 4.1 % (1.7-9.3); Neutrophils # 4.1 K/mm3 (1.8-7.8); Neutrophils % 63.4 % (37.0-80.0); Platelet Count 269 K/mm3 (142-424); Red Cell Distribution Width 12.2 % (11.5-17.5); White Blood Count 6.5 K/mm3 (4.8-10.8)
[2017-06-12 18:07] LABS: Alanine Aminotransferase 95 U/L (12-78); Albumin Level 3.8 gm/dL (3.4-5.0); Albumin/Globulin Ratio 1.1 (1.1-1.8); Alkaline Phosphatase 107 U/L (46-116); Aspartate Amino Transferase 32 U/L (15-37); Bilirubin,Total 0.2 mg/dL (0.2-1.0); Blood Urea Nitrogen 11 mg/dL (7-18); Carbon Dioxide 29 mmol/L (21.0-32.0); Chloride 101 mmol/L (98-107); Creatinine,Serum 0.69 mg/dL (0.55-1.02); Estimated Glomerular Filt Rate 103 ml/min (>60); GFR (African American) 124 ML/MIN (>60); Globulin 3.6 gm/dl (1.3-3.2); Glucose 216 mg/dL (74-106); Sodium 139 mmol/L (136-145); Total Protein,Serum 7.4 gm/dL (6.4-8.2)
[2017-06-16 15:05] LABS: Antinuclear Antibodies, IFA Negative (.)
== END ==
PROVIDERS: Family Provider Internal Medicine Adolescent Medicine; PCP Internal Medicine Adolescent Medicine; Visit Provider Nurse Practitioner Family
DX: I82.622 Acute embolism and thrombosis of deep veins of left upper extremity (principal); N96 Recurrent pregnancy loss
CPT/HCPCS: 36415; 80053; 81241; 85025; 86038; 86148

== ENCOUNTER 2017-06-18 10:41 | Outpatient (CLI) | payer BC, MEDICAID, SELFPAY ==
--- NOTE | 2017-06-18 10:53 | FL_ITS ---
FL hysterosalpingography CLINICAL INDICATION: ITS.REASON: frequent miscarriages ORDERING PHYSICIAN: Cesar Salvador MD PATIENT AGE: 27 years Fluoroscopy time: 1 minute and 11 seconds FINDINGS: The exam is performed by Dr. Salvador. Airborne Operations Superintendent exam is unremarkable. Contrast is injected into the cervical os showing normal-appearing uterus. The fallopian tubes have an unremarkable appearance with no immediate spillage into the peritoneum. The uterus has normal shape. No evidence of uterine didelphys. There is some minimal irregularity along the uterine fundus on the left but may be related to incomplete filling IMPRESSION: Essentially unremarkable hysterosalpingogram
[2017-06-18 12:05] LABS: Prothrombin Time 59.3 seconds (9.4-11.8)
[2017-06-18 13:45] LABS: PHA INR Fingerstick 4.6 (0.9-1.1)
== END 2017-06-18 13:48 | disposition home or self-care (01) ==
PROVIDERS: Family Provider Internal Medicine Adolescent Medicine; PCP Internal Medicine Adolescent Medicine; Visit Provider Obstetrics & Gynecology
DX: O03.9 Complete or unspecified spontaneous abortion without complication (principal)
CPT/HCPCS: 36415; 74740; 85610; 99211; G0463

== ENCOUNTER 2017-06-25 16:09 | Outpatient (CLI) | payer BC, MEDICAID, SELFPAY ==
[2017-06-25 16:32] LABS: PHA INR Fingerstick 1.7 (0.9-1.1)
== END 2017-06-25 16:33 | disposition home or self-care (01) ==
LOC: ACC 16:11
PROVIDERS: PCP Internal Medicine Adolescent Medicine; Visit Provider Internal Medicine Adolescent Medicine
DX: Z79.01 Long term (current) use of anticoagulants (principal); Z51.81 Encounter for therapeutic drug level monitoring; I82.A12 Acute embolism and thrombosis of left axillary vein
CPT/HCPCS: 85610; 99211; G0463

== ENCOUNTER 2017-07-07 13:26 | Outpatient (CLI) | payer BC, MEDICAID, SELFPAY ==
[2017-07-07 14:13] LABS: PHA INR Fingerstick 1.8 (0.9-1.1)
== END 2017-07-07 14:15 | disposition home or self-care (01) ==
LOC: ACC 13:26
PROVIDERS: Family Provider Internal Medicine Adolescent Medicine; PCP Internal Medicine Adolescent Medicine; Visit Provider Internal Medicine Adolescent Medicine
DX: Z79.01 Long term (current) use of anticoagulants (principal); Z51.81 Encounter for therapeutic drug level monitoring; Z86.718 Personal history of other venous thrombosis and embolism
CPT/HCPCS: 85610; 99211; G0463

== ENCOUNTER → 2017-07-23 16:02 | Outpatient (CLI) | payer BC, MEDICAID, SELFPAY ==
[2017-07-24 08:33] LABS: PHA INR Fingerstick 1.7 (0.9-1.1)
== END ==
PROVIDERS: Family Provider Internal Medicine Adolescent Medicine; PCP Internal Medicine Adolescent Medicine; Visit Provider Internal Medicine Adolescent Medicine
DX: Z79.01 Long term (current) use of anticoagulants (principal); Z51.81 Encounter for therapeutic drug level monitoring; I82.622 Acute embolism and thrombosis of deep veins of left upper extremity
CPT/HCPCS: 85610; 99211; G0463

== ENCOUNTER 2017-08-05 09:21 | Outpatient (CLI) | payer BC, MEDICAID, SELFPAY ==
[2017-08-05 10:29] LABS: PHA INR Fingerstick 1.2 (0.9-1.1)
== END 2017-08-05 11:28 | disposition home or self-care (01) ==
LOC: ACC 09:22
PROVIDERS: Family Provider Internal Medicine Adolescent Medicine; PCP Internal Medicine Adolescent Medicine; Visit Provider Internal Medicine Adolescent Medicine
DX: Z79.01 Long term (current) use of anticoagulants (principal); Z51.81 Encounter for therapeutic drug level monitoring; I82.622 Acute embolism and thrombosis of deep veins of left upper extremity
CPT/HCPCS: 85610; 99211; G0463

== ENCOUNTER → 2017-08-10 16:21 | Outpatient (CLI) | payer BC, MEDICAID, SELFPAY ==
[2017-08-10 19:08] LABS: Hemoglobin A1C 6.2 % (0.0-7.0)
[2017-08-10 20:34] LABS: HCG,Quantitative 855 mIU/mL
[2017-08-13 06:26] LABS: Protein S Antigen, Total 55 % (60-150); Protein S, Free 55 % (57-157)
[2017-08-14 15:46] LABS: Protein C Antigen 98 % (60-150)
== END ==
PROVIDERS: Visit Provider Obstetrics & Gynecology
DX: Z34.90 Encounter for supervision of normal pregnancy, unspecified, unspecified trimester (principal)
CPT/HCPCS: 36415; 83036; 84702; 85302; 85305

== ENCOUNTER → 2017-08-24 12:18 | Outpatient (CLI) | payer BC, MEDICAID, SELFPAY ==
[2017-08-24 12:36] LABS: Basophils % 0.7 % (0.1-2.0); Eosinophils # 0.1 K/mm3 (0.0-0.4); Eosinophils % 1.7 % (0.1-12.0); Hematocrit 39.5 % (37.0-47.0); Hemoglobin 12.9 g/dL (12.2-16.2); Lymphocytes # 1.4 K/mm3 (0.7-4.5); Lymphocytes % 24.4 K/mm3 (10-50); Mean Corpuscular HGB Conc 32.7 g/dL (31.8-35.4); Mean Corpuscular Hemoglobin 28.1 pg (27.0-31.2); Mean Corpuscular Volume 85.9 fl (81-99); Mean Platelet Volume 7.8 fl (7.4-10.4); Monocytes # 0.2 K/mm3 (0.1-1.0); Monocytes % 4.1 % (1.7-9.3); Neutrophils # 3.9 K/mm3 (1.8-7.8); Neutrophils % 69.2 % (37.0-80.0); Platelet Count 214 K/mm3 (142-424); Red Cell Distribution Width 13.4 % (11.5-17.5); White Blood Count 5.7 K/mm3 (4.8-10.8)
[2017-08-24 14:47] LABS: Anion Gap 15.9 mEq/L (5-15); Blood Urea Nitrogen 9 mg/dL (7-18); Calcium 9.7 mg/dL (8.5-10.1); Carbon Dioxide 24 mmol/L (21.0-32.0); Chloride 103 mmol/L (98-107); Creatinine,Serum 0.57 mg/dL (0.55-1.02); Estimated Glomerular Filt Rate 128 ml/min (>60); GFR (African American) 155 ML/MIN (>60); Glucose 177 mg/dL (74-106); Potassium 3.9 mmoL/L (3.5-5.1); Sodium 139 mmol/L (136-145)
[2017-08-24 15:16] LABS: HCG,Quantitative 4480 mIU/mL
== END ==
PROVIDERS: Visit Provider Obstetrics & Gynecology
DX: C34.90 Malignant neoplasm of unspecified part of unspecified bronchus or lung (principal)
CPT/HCPCS: 36415; 80048; 84702; 85025

== ENCOUNTER → 2017-08-28 09:46 | Outpatient (CLI) | payer BC, MEDICAID, SELFPAY ==
[2017-08-28 12:27] LABS: HCG,Quantitative 24978 mIU/mL
== END ==
PROVIDERS: Visit Provider Obstetrics & Gynecology
DX: Z34.90 Encounter for supervision of normal pregnancy, unspecified, unspecified trimester (principal); O20.0 Threatened abortion
CPT/HCPCS: 36415; 84702

== ENCOUNTER 2017-09-17 10:28 | Outpatient (CLI) | payer BC, MEDICAID, SELFPAY ==
[2017-09-17 10:43] VITALS: BMI 25.9
[2017-09-17 10:44] VITALS: BP 124/70; PULSE 90; RESP 16; TEMP 36.9; O2SAT 100; BMI 25.9
[2017-09-17 11:14] LABS: Basophils % 0.3 % (0.1-2.0); Eosinophils # 0.1 K/mm3 (0.0-0.4); Eosinophils % 1.1 % (0.1-12.0); Hematocrit 39.4 % (37.0-47.0); Hemoglobin 12.6 g/dL (12.2-16.2); Lymphocytes # 1.8 K/mm3 (0.7-4.5); Lymphocytes % 21.1 K/mm3 (10-50); Mean Corpuscular Hemoglobin 27.1 pg (27.0-31.2); Mean Corpuscular Volume 84.6 fl (81-99); Mean Platelet Volume 7.8 fl (7.4-10.4); Monocytes # 0.4 K/mm3 (0.1-1.0); Monocytes % 4.3 % (1.7-9.3); Neutrophils # 6.3 K/mm3 (1.8-7.8); Neutrophils % 73.2 % (37.0-80.0); Platelet Count 225 K/mm3 (142-424); Red Blood Count 4.65 M/mm3 (4.20-5.40); Red Cell Distribution Width 13.1 % (11.5-17.5); White Blood Count 8.7 K/mm3 (4.8-10.8)
[2017-09-17 11:31] LABS: Anion Gap 14.5 mEq/L (5-15); Blood Urea Nitrogen 7 mg/dL (7-18); Carbon Dioxide 25 mmol/L (21.0-32.0); Chloride 105 mmol/L (98-107); Creatinine Clearance Estimated 168 mL/min (0-300); Creatinine,Serum 0.55 mg/dL (0.55-1.02); Estimated Glomerular Filt Rate 134 ml/min (>60); GFR (African American) 162 ML/MIN (>60); Glucose 57 mg/dL (74-106); Potassium 3.5 mmoL/L (3.5-5.1); Sodium 141 mmol/L (136-145)
== END 2017-09-17 11:50 | disposition home or self-care (01) ==
LOC: OBOUT 10:30 → OB 10:32
PROVIDERS: Visit Provider Obstetrics & Gynecology
DX: O21.0 Mild hyperemesis gravidarum (principal); Z3A.10 10 weeks gestation of pregnancy; E16.2 Hypoglycemia, unspecified
CPT/HCPCS: 80048; 85025; 96360; 96367

== ENCOUNTER 2017-09-21 17:12 | Observation (INO) ==
[2017-09-21 17:55] LABS: Basophils % 0.4 % (0.1-2.0); Eosinophils # 0.1 K/mm3 (0.0-0.4); Eosinophils % 0.9 % (0.1-12.0); Hematocrit 37.3 % (37.0-47.0); Hemoglobin 12.1 g/dL (12.2-16.2); Lymphocytes % 19.5 K/mm3 (10-50); Mean Corpuscular HGB Conc 32.5 g/dL (31.8-35.4); Mean Corpuscular Volume 83.3 fl (81-99); Mean Platelet Volume 7.6 fl (7.4-10.4); Monocytes # 0.5 K/mm3 (0.1-1.0); Monocytes % 4.8 % (1.7-9.3); Neutrophils # 7.6 K/mm3 (1.8-7.8); Neutrophils % 74.3 % (37.0-80.0); Platelet Count 232 K/mm3 (142-424); Red Blood Count 4.47 M/mm3 (4.20-5.40); Red Cell Distribution Width 13.1 % (11.5-17.5); White Blood Count 10.3 K/mm3 (4.8-10.8)
[2017-09-21 18:05] LABS: Albumin Level 3.8 gm/dL (3.4-5.0); Anion Gap 12.6 mEq/L (5-15); Bilirubin,Total 0.3 mg/dL (0.2-1.0); Calcium 9.3 mg/dL (8.5-10.1); Globulin 3.9 gm/dl (1.3-3.2); Potassium 3.6 mmoL/L (3.5-5.1); Total Protein,Serum 7.7 gm/dL (6.4-8.2)
--- NOTE | 2017-09-21 18:35 | Consult Report ---
*Admission Date: 09/21/17 *Chief complaint: Hyperemesis gravidarum-consult for glucose management *History of present illness: 27-year-old white female with type 1 diabetes, currently maintained on insulin pump through endocrinology at [facility]. She is currently 12 weeks , was treated at [facility] office today, vomiting was noted, mild dehydration symptoms noted, admitted to hospital for hyperemesis gravidarum. Reports vomiting when she tries to eat most anything. Has been very concerned with nocturnal hypoglycemia in the 40 range. Reports that she has been bolusing herself before eating as she has been instructed on her pump but then is unable to finish her meals and then become somewhat weak. [facility] History Medical History: Reports:: Anxiety, Diabetes Mellitus Type 1, Gastroesophageal Reflux Disease(GERD) Denies:: Cancer, Diabetes Mellitus Type 2, Internal Pacemaker, MRSA, Seizures Other Medical History: Reports: Other Other Surgeries: Yes: Dilation and Curettage, Hernia Repair, Other. No: C- section, Pacemaker Amputation: No Fractures: Yes - *Social History Educational Level: Completed High School Smoking Status: Never smoker Tobacco Type: cigarettes # Packs/Day (cigarettes): 1 Alcohol Intake: never Alcohol Intake Frequency:: a few times a month Substance Use Type: denies use Occupational Status: employed Housing: house Household Members: significant other - Psychiatric History Expresses thoughts of harming self/others: None Suicide Plan Description: No Plan Pschychiatric History:: Reports:: Anxiety *Family Hx:: No significant family history, Heart Attack, Hypertension Review of Systems - Review of Systems Review of systems:: pertinent systems reviewed and negative unless documented below - Constitutional Denies body ache(s), Denies chills, Denies fever(s) - Eyes Denies blind spots, Denies blurry vision - ENT Denies bleeding gums - *Cardiovascular Denies chest pain, Denies chest pain at rest, Denies shortness of breath when lying down - *Respiratory Denies change in phlegm color, Denies chest congestion - *Gastrointestinal Reports abdominal pain, Reports belching, Reports heartburn, Reports feeling full early, Denies coffee ground vomit, Denies incontinent of stools, Denies vomiting blood, Denies bright, red blood in stools, Denies pain with swallowing Meds Home Medications Medication Instructions Recorded Confirmed Type Insulin Lispro [HumaLOG 100 100 units SQ CONT 06/01/17 06/01/17 History units/mL 3mL vial (SSI)] enoxaparin 100 mg/mL subcutaneous 100 mg SUB-Q DAILY ml 08/10/17 History syringe Allergies Allergy/AdvReac Type Severity Reaction Status Date / Time morphine Allergy Severe Chest Pain Verified 09/21/17 15:50 codeine [CODEINE] Allergy Unknown I-HIVES Verified 09/21/17 15:50 latex [LATEX] Allergy Unknown I-RASH Verified 09/21/17 15:50 Penicillins [PENICILLINS] Allergy Unknown I-HIVES Verified 09/21/17 15:50 Exam Vital signs and Labs for Last 24 Hours: Laboratory Results - last 24 hr 09/21/17 17:40: WBC 10.3, RBC 4.47, Hgb 12.1 L, Hct 37.3, MCV 83.3, MCH 27.0, MCHC 32.5, RDW 13.1, Plt Count 232, MPV 7.6, Neut % (Auto) 74.3, Lymph % (Auto) 19.5, [place] % (Auto) 4.8, Eos % (Auto) 0.9, Baso % (Auto) 0.4, Neut # (Auto) 7.6 , Lymph # (Auto) 2.0, [place] # (Auto) 0.5, Eos # (Auto) 0.1, Baso # (Auto) 0.0 09/21/17 17:40: Sodium 142, Potassium 3.6, Chloride 106, Carbon Dioxide 27, Anion Gap 12.6, BUN 7, Creatinine 0.57, Estimated Creat Clear 161, Estimated GFR 128, Est GFR ( Amer) 155, Glucose 95, Calcium 9.3, Total Bilirubin 0.3, AST 11 L, ALT 30, Alkaline Phosphatase 86, Total Protein 7.7, Albumin 3.8, Globulin 3.9 H, Albumin/Globulin Ratio 1.0 L 09/21/17 17:40: Hemoglobin A1c 6.2 I & O for Last 24 hours: Intake & Output 09/19/17 09/20/17 09/21/17 09/22/17 11:59 11:59 11:59 11:59 Weight 150 lb Narrative: Patient is alert, lying in bed with her significant other. Heart rate regular. Oropharynx clear, no JVD. Anterior lung fitzpatrick are clear, insulin pump site looks good. Abdomen is soft, slightly tender in the diffuse muscular regions from vomiting. No rebound or guarding. No distal edema or clubbing. Of note she has just eaten a chicken salad sandwich and potato chips and has felt slightly sick. Internal Medicine - CN: Reslt - Labs CBC & Chem 7: 09/21/17 17:40 09/21/17 17:40 Labs: Short CBC 09/21/17 Range/Units 17:40 WBC 10.3 (4.8-10.8) K/mm3 Hgb 12.1 L (12.2-16.2) g/dL Hct 37.3 (37.0-47.0) % Plt Count 232 (142-424) K/mm3 BMP 09/21/17 17:40 Sodium 142 Potassium 3.6 Chloride 106 Carbon Dioxide 27 BUN 7 Creatinine 0.57 Glucose 95 Calcium 9.3 Liver Function 09/21/17 Range/Units 17:40 Total Bilirubin 0.3 (0.2-1.0) mg/dL AST 11 L (15-37) U/L ALT 30 (12-78) U/L Alkaline Phosphatase 86 (46-116) U/L Albumin 3.8 (3.4-5.0) gm/dL Assessment and Plan (1) Diabetes type 1, controlled Current visit: Yes Status: Acute Qualifiers: Qualified Code(s): E10.9 - Type 1 diabetes mellitus without complications Category: Medical Code(s): E10.9 - Type 1 diabetes mellitus without complications I reviewed labs. A1c is 6.2%, glucose level 95. CBC unremarkable. I recommend clear liquids overnight. I had patient turned down her bolus insulin pump to 40 units over a 24-hour period instead of 48. We will monitor fingerstick blood sugar every 6 hours. Overall I think her strategy with the hyperemesis should be to not prebolus with insulin but await bolusing until after the meal to see what her actual carbohydrate intake is.
--- NOTE | 2017-09-21 22:19 | Progress Note ---
Internal Medicine - PN: Subj *Date: 09/21/17 *Time: 22:17 (This 27-year-old white female at 10 weeks of gestation was admitted with hyperemesis gravidarum. She is a type I diabetic. Her blood sugar is 91 at this time. She is being treated with intravenous fluids, clear liquids, and IV Phenergan as needed. Her primary care physician, Dr. Olson, is monitoring her blood sugar and electrolytes. She is scheduled for a screening ultrasound tomorrow morning.) Exam Vital signs and Labs for Last 24 Hours: Temp Pulse Resp BP Pulse Ox 98.5 F 71 18 120/60 99 09/21/17 21:34 09/21/17 21:34 09/21/17 21:34 09/21/17 21:34 09/21/17 21:34 Laboratory Results - last 24 hr 09/21/17 17:40: WBC 10.3, RBC 4.47, Hgb 12.1 L, Hct 37.3, MCV 83.3, MCH 27.0, MCHC 32.5, RDW 13.1, Plt Count 232, MPV 7.6, Neut % (Auto) 74.3, Lymph % (Auto) 19.5, [place] % (Auto) 4.8, Eos % (Auto) 0.9, Baso % (Auto) 0.4, Neut # (Auto) 7.6 , Lymph # (Auto) 2.0, [place] # (Auto) 0.5, Eos # (Auto) 0.1, Baso # (Auto) 0.0 09/21/17 17:40: Sodium 142, Potassium 3.6, Chloride 106, Carbon Dioxide 27, Anion Gap 12.6, BUN 7, Creatinine 0.57, Estimated Creat Clear 161, Estimated GFR 128, Est GFR ( Amer) 155, Glucose 95, Calcium 9.3, Total Bilirubin 0.3, AST 11 L, ALT 30, Alkaline Phosphatase 86, Total Protein 7.7, Albumin 3.8, Globulin 3.9 H, Albumin/Globulin Ratio 1.0 L 09/21/17 17:40: Hemoglobin A1c 6.2 I & O for Last 24 hours: Intake & Output 09/19/17 09/20/17 09/21/17 09/22/17 11:59 11:59 11:59 11:59 Weight 150 lb Assessment and Plan (1) Diabetes type 1, controlled Current visit: Yes Status: Acute Qualifiers: Qualified Code(s): E10.9 - Type 1 diabetes mellitus without complications Category: Medical Code(s): E10.9 - Type 1 diabetes mellitus without complications
--- NOTE | 2017-09-22 06:37 | Progress Note ---
Internal Medicine - PN: Subj *Date: 09/22/17 *Time: 06:36 (The patient is somewhat less nauseous and has tolerated chicken soup. Her insulin pump has been adjusted per Dr. Olson. An OB ultrasound is ordered this morning. Impression: Improving.) Exam Vital signs and Labs for Last 24 Hours: Temp Pulse Resp BP Pulse Ox 98.5 F 71 18 120/60 99 09/21/17 21:34 09/21/17 21:34 09/21/17 21:34 09/21/17 21:34 09/21/17 21:34 Laboratory Results - last 24 hr 09/21/17 17:40: WBC 10.3, RBC 4.47, Hgb 12.1 L, Hct 37.3, MCV 83.3, MCH 27.0, MCHC 32.5, RDW 13.1, Plt Count 232, MPV 7.6, Neut % (Auto) 74.3, Lymph % (Auto) 19.5, [place] % (Auto) 4.8, Eos % (Auto) 0.9, Baso % (Auto) 0.4, Neut # (Auto) 7.6 , Lymph # (Auto) 2.0, [place] # (Auto) 0.5, Eos # (Auto) 0.1, Baso # (Auto) 0.0 09/21/17 17:40: Sodium 142, Potassium 3.6, Chloride 106, Carbon Dioxide 27, Anion Gap 12.6, BUN 7, Creatinine 0.57, Estimated Creat Clear 161, Estimated GFR 128, Est GFR ( Amer) 155, Glucose 95, Calcium 9.3, Total Bilirubin 0.3, AST 11 L, ALT 30, Alkaline Phosphatase 86, Total Protein 7.7, Albumin 3.8, Globulin 3.9 H, Albumin/Globulin Ratio 1.0 L 09/21/17 17:40: Hemoglobin A1c 6.2 I & O for Last 24 hours: Intake & Output 09/19/17 09/20/17 09/21/17 09/22/17 11:59 11:59 11:59 11:59 Weight 150 lb Assessment and Plan (1) Diabetes type 1, controlled Current visit: Yes Status: Acute Qualifiers: Qualified Code(s): E10.9 - Type 1 diabetes mellitus without complications Category: Medical Code(s): E10.9 - Type 1 diabetes mellitus without complications
[2017-09-22 07:20] LABS: Albumin Level 3.3 gm/dL (3.4-5.0); Anion Gap 11.5 mEq/L (5-15); Bilirubin,Total 0.3 mg/dL (0.2-1.0); Calcium 8.7 mg/dL (8.5-10.1); Globulin 3.4 gm/dl (1.3-3.2); Potassium 3.5 mmoL/L (3.5-5.1); Total Protein,Serum 6.7 gm/dL (6.4-8.2)
[2017-09-22 07:34] LABS: Basophils % 0.5 % (0.1-2.0); Eosinophils # 0.2 K/mm3 (0.0-0.4); Eosinophils % 1.9 % (0.1-12.0); Hematocrit 38.8 % (37.0-47.0); Hemoglobin 12.5 g/dL (12.2-16.2); Lymphocytes # 2.1 K/mm3 (0.7-4.5); Lymphocytes % 24.5 K/mm3 (10-50); Mean Corpuscular HGB Conc 32.2 g/dL (31.8-35.4); Mean Corpuscular Hemoglobin 27.3 pg (27.0-31.2); Mean Corpuscular Volume 84.8 fl (81-99); Mean Platelet Volume 7.5 fl (7.4-10.4); Monocytes # 0.4 K/mm3 (0.1-1.0); Monocytes % 4.9 % (1.7-9.3); Neutrophils # 5.8 K/mm3 (1.8-7.8); Neutrophils % 68.2 % (37.0-80.0); Platelet Count 230 K/mm3 (142-424); Red Blood Count 4.58 M/mm3 (4.20-5.40); Red Cell Distribution Width 13.3 % (11.5-17.5); White Blood Count 8.4 K/mm3 (4.8-10.8)
--- NOTE | 2017-09-22 12:47 | Progress Note ---
Internal Medicine - PN: Subj *Date: 09/22/17 *Time: 12:46 (The patient is feeling better, with less nausea. Dr. Olson has adjusted her insulin. The patient will be discharged today. She is to remain at home for the rest of this week and has been given a work note. She is going to have a prescription for Diclegis and is to continue on her iron and vitamins. She has an appointment at with Dr. Peterson in 1 week and is to return to my office in 2 weeks.) Exam Vital signs and Labs for Last 24 Hours: Temp Pulse Resp BP Pulse Ox 98.5 F 71 18 120/60 99 09/21/17 21:34 09/21/17 21:34 09/21/17 21:34 09/21/17 21:34 09/21/17 21:34 Laboratory Results - last 24 hr 09/21/17 17:40: WBC 10.3, RBC 4.47, Hgb 12.1 L, Hct 37.3, MCV 83.3, MCH 27.0, MCHC 32.5, RDW 13.1, Plt Count 232, MPV 7.6, Neut % (Auto) 74.3, Lymph % (Auto) 19.5, [place] % (Auto) 4.8, Eos % (Auto) 0.9, Baso % (Auto) 0.4, Neut # (Auto) 7.6 , Lymph # (Auto) 2.0, [place] # (Auto) 0.5, Eos # (Auto) 0.1, Baso # (Auto) 0.0 09/21/17 17:40: Sodium 142, Potassium 3.6, Chloride 106, Carbon Dioxide 27, Anion Gap 12.6, BUN 7, Creatinine 0.57, Estimated Creat Clear 161, Estimated GFR 128, Est GFR ( Amer) 155, Glucose 95, Calcium 9.3, Total Bilirubin 0.3, AST 11 L, ALT 30, Alkaline Phosphatase 86, Total Protein 7.7, Albumin 3.8, Globulin 3.9 H, Albumin/Globulin Ratio 1.0 L 09/21/17 17:40: Hemoglobin A1c 6.2 09/22/17 06:56: WBC 8.4, RBC 4.58, Hgb 12.5, Hct 38.8, MCV 84.8, MCH 27.3, MCHC 32.2, RDW 13.3, Plt Count 230, MPV 7.5, Neut % (Auto) 68.2, Lymph % (Auto) 24.5 , [place] % (Auto) 4.9, Eos % (Auto) 1.9, Baso % (Auto) 0.5, Neut # (Auto) 5.8, Lymph # (Auto) 2.1, [place] # (Auto) 0.4, Eos # (Auto) 0.2, Baso # (Auto) 0.0 09/22/17 06:56: Sodium 141, Potassium 3.5, Chloride 106, Carbon Dioxide 27, Anion Gap 11.5, BUN 5 L D, Creatinine 0.51 L, Estimated Creat Clear 180, Estimated GFR 146, Est GFR ( Amer) 176, Glucose 41 L D, Calcium 8.7, Total Bilirubin 0.3, AST 10 L, ALT 28, Alkaline Phosphatase 76, Total Protein 6.7, Albumin 3.3 L D, Globulin 3.4 H, Albumin/Globulin Ratio 1.0 L 09/22/17 07:48: POC Glucose 97 I & O for Last 24 hours: Intake & Output 09/20/17 09/21/17 09/22/17 09/23/17 11:59 11:59 11:59 11:59 Weight 150 lb Assessment and Plan (1) Diabetes type 1, controlled Current visit: Yes Status: Acute Qualifiers: Qualified Code(s): E10.9 - Type 1 diabetes mellitus without complications Category: Medical Code(s): E10.9 - Type 1 diabetes mellitus without complications
--- NOTE | 2017-09-22 13:00 | Discharge Summary ---
General - General Admission date:: 09/21/17 Discharge date: 09/22/17 (This 27-year-old white female was admitted at 10 weeks of gestation with severe nausea and vomiting, refractory to Phenergan, either oral or by rectal suppository. She was treated with IV fluids and IV Phenergan. An ultrasound revealed a normal single viable intrauterine , appropriate for dates. Her lab work was essentially normal, but her blood sugar was quite low (she a type I diabetic with an insulin pump). Dr. Olson was consulted and adjusted her parameters. She is now feeling somewhat better and is being discharged on likely just 10 mg twice a day on her iron and vitamins. She is being given appropriate instructions as to diabetic diet, and is to stay off work the remainder of this week. She has an appointment with Dr. Peterson and in 1 week, and is to follow-up with me in 2 weeks. She is not a smoker.) HPI HPI: 27-year-old white female with type 1 diabetes, currently maintained on insulin pump through endocrinology at [facility]. She is currently 12 weeks , was treated at [facility] office today, vomiting was noted, mild dehydration symptoms noted, admitted to hospital for hyperemesis gravidarum. Reports vomiting when she tries to eat most anything. Has been very concerned with nocturnal hypoglycemia in the 40 range. Reports that she has been bolusing herself before eating as she has been instructed on her pump but then is unable to finish her meals and then become somewhat weak. Objective Vital signs: Temp Pulse Resp BP Pulse Ox 98.5 F 71 18 120/60 99 09/21/17 21:34 09/21/17 21:34 09/21/17 21:34 09/21/17 21:34 09/21/17 21:34 Results Labs on day of discharge: Labs from last 24 hours 09/22/17 09/22/17 09/22/17 07:48 06:56 06:56 WBC 8.4 RBC 4.58 Hgb 12.5 Hct 38.8 MCV 84.8 MCH 27.3 MCHC 32.2 RDW 13.3 Plt Count 230 MPV 7.5 Neut % (Auto) 68.2 Lymph % (Auto) 24.5 [place] % (Auto) 4.9 Eos % (Auto) 1.9 Baso % (Auto) 0.5 Neut # (Auto) 5.8 Lymph # (Auto) 2.1 [place] # (Auto) 0.4 Eos # (Auto) 0.2 Baso # (Auto) 0.0 Sodium 141 Potassium 3.5 Chloride 106 Carbon Dioxide 27 Anion Gap 11.5 BUN 5 L D Creatinine 0.51 L Estimated Creat Clear 180 Estimated GFR 146 Est GFR ( Amer) 176 Glucose 41 L D POC Glucose 97 Hemoglobin A1c Calcium 8.7 Total Bilirubin 0.3 AST 10 L ALT 28 Alkaline Phosphatase 76 Total Protein 6.7 Albumin 3.3 L D Globulin 3.4 H Albumin/Globulin Ratio 1.0 L 09/21/17 09/21/17 09/21/17 17:40 17:40 17:40 WBC 10.3 RBC 4.47 Hgb 12.1 L Hct 37.3 MCV 83.3 MCH 27.0 MCHC 32.5 RDW 13.1 Plt Count 232 MPV 7.6 Neut % (Auto) 74.3 Lymph % (Auto) 19.5 [place] % (Auto) 4.8 Eos % (Auto) 0.9 Baso % (Auto) 0.4 Neut # (Auto) 7.6 Lymph # (Auto) 2.0 [place] # (Auto) 0.5 Eos # (Auto) 0.1 Baso # (Auto) 0.0 Sodium 142 Potassium 3.6 Chloride 106 Carbon Dioxide 27 Anion Gap 12.6 BUN 7 Creatinine 0.57 Estimated Creat Clear 161 Estimated GFR 128 Est GFR ( Amer) 155 Glucose 95 POC Glucose Hemoglobin A1c 6.2 Calcium 9.3 Total Bilirubin 0.3 AST 11 L ALT 30 Alkaline Phosphatase 86 Total Protein 7.7 Albumin 3.8 Globulin 3.9 H Albumin/Globulin Ratio 1.0 L DS: Diagnosis - Discharge Diagnosis (1) Diabetes type 1, controlled Status: Acute Discharge Plan - Patient Discharge Instructions DIET: diabetic diet - Follow up Plan Disposition: Home, Self-[facility] Medications: Home Medications Medication Instructions Recorded Confirmed Type Insulin Lispro [HumaLOG 100 100 units SQ CONT 06/01/17 09/22/17 History units/mL 3mL vial (SSI)] enoxaparin 100 mg/mL subcutaneous 100 mg SUB-Q DAILY ml 08/10/17 09/22/17 History syringe Vit #76/Iron,Carb/FA 1 each PO DAILY 09/21/17 09/22/17 History [Prenatabs Rx Tablet] Pyridoxine HCl (Vitamin B6) 25 mg PO TID 09/21/17 09/22/17 History [Vitamin B-6] Prescriptions/Medication Reconciliation: Continue enoxaparin 100 mg/mL subcutaneous syringe 100 mg SUB-Q DAILY ml Doxylamine/Pyridoxine HCl [Diclegis 10mg-10mg tablet] 1 each PO BID #60 tablet. Insulin Lispro [HumaLOG 100 units/mL 3mL vial (SSI)] 100 units SQ CONT Vit #76/Iron,Carb/FA [Prenatabs Rx Tablet] 1 each PO DAILY Discontinued promethazine 25 mg rectal suppository 25 mg AK Q6H PRN #12 each PRN Reason: nausea and vomiting Pyridoxine HCl (Vitamin B6) [Vitamin B-6] 25 mg PO TID
--- NOTE | 2017-09-23 09:18 | Progress Note ---
Internal Medicine - PN: Subj *Date: 09/22/17 *Time: 09:15 Interval history: Late Entry: Saw patient in the AM of 09/22 - much better, no vomiting. FSBS is better and no hypoglycemia noted. Exam Vital signs and Labs for Last 24 Hours: Temp Pulse Resp BP Pulse Ox 98.5 F 71 18 120/60 99 09/21/17 21:34 09/21/17 21:34 09/21/17 21:34 09/21/17 21:34 09/21/17 21:34 I & O for Last 24 hours: Intake & Output 09/20/17 09/21/17 09/22/17 09/23/17 11:59 11:59 11:59 11:59 Weight 150 lb - Constitutional no acute distress - *Routine Respiratory Exam Present: CTA bilaterally - *Routine Cardiovascular Exam Present: RRR, Normal S1, Normal S2 Assessment and Plan (1) Diabetes type 1, controlled Status: Acute Qualifiers: Qualified Code(s): E10.9 - Type 1 diabetes mellitus without complications Category: Medical Code(s): E10.9 - Type 1 diabetes mellitus without complications - Assessment and plan all Dx Assessment and Plan for all problems:: Better - discussed with patient lowering her daily pump infusion to 36 units per day and bolusing AFTER meals instead of before to gauge her PO intake. Agree with d/c and f.u with CREDIT SUPPORT COUNSELOR next week.
== END 2017-09-22 14:20 | disposition home or self-care (01) ==
LOC: OB
PROVIDERS: ADMIT Obstetrics & Gynecology; ATTEND Obstetrics & Gynecology
CPT/HCPCS: 36415; 76830; 80053; 82962; 83036; 85025; 96360; 96361; 96367; G0378

== ENCOUNTER → 2017-11-02 13:38 | Outpatient (CLI) | payer BC, MEDICAID, SELFPAY ==
[2017-11-06 00:08] LABS: AFP Value 21.7 ng/mL (.); DIA MoM 0.82 (.); DIA Value 135.61 pg/mL (.); DSR (Second Trimester) 1 IN 3186 (.); Gest. Age on Collection Date 16.6 WEEKS (.); Maternal Age At EDD 26.9 yr (.); OSBR Risk 1 IN 10000 (.); Results Report (.); hCG MoM 0.92 (.); hCG Value 30621 mIU/mL (.); uE3 MoM 0.76 (.); uE3 Value 0.68 ng/mL (.)
[2017-11-06 13:13] LABS: Gestat. Age Based On EDD (.)
== END ==
PROVIDERS: Family Provider Internal Medicine Adolescent Medicine; PCP Internal Medicine Adolescent Medicine; Visit Provider Obstetrics & Gynecology
DX: O26.20 Pregnancy care for patient with recurrent pregnancy loss, unspecified trimester (principal); Z34.90 Encounter for supervision of normal pregnancy, unspecified, unspecified trimester; Z3A.16 16 weeks gestation of pregnancy
CPT/HCPCS: 36415; 82106

== ENCOUNTER 2017-12-15 16:18 | Outpatient (CLI) | payer BC, MEDICAID, SELFPAY ==
[2017-12-15 16:26] VITALS: BP 122/75; PULSE 78; RESP 18; TEMP 36.7; O2SAT 100; BMI 26.6
[2017-12-15 17:00] LABS: Fetal Membrane Rupture (Rapid) Negative (Negative)
== END 2017-12-15 17:24 | disposition home or self-care (01) ==
LOC: OBOUT 16:20 → OB 16:21
PROVIDERS: PCP Internal Medicine Adolescent Medicine; Visit Provider Obstetrics & Gynecology
DX: O26.892 Other specified pregnancy related conditions, second trimester (principal); Z3A.22 22 weeks gestation of pregnancy
CPT/HCPCS: 59025; 84112

== ENCOUNTER → 2018-04-20 15:13 | Outpatient (CLI) | payer BC, MEDICAID, SELFPAY ==
[2018-04-20 15:43] LABS: INR 2.49 (0.9-1.1)
== END ==
PROVIDERS: PCP Internal Medicine Medical Oncology; Visit Provider Internal Medicine Hematology & Oncology
DX: D68.59 Other primary thrombophilia (principal)
CPT/HCPCS: 36415; 85610

== ENCOUNTER 2019-07-21 20:22 | Emergency (ER) | payer MEDICAID, SELFPAY ==
[2019-07-21 20:36] VITALS: BP 124/87; PULSE 79; RESP 18; TEMP 36.8; O2SAT 97; BMI 28.3
[2019-07-21 20:36] LABS: Apearance,Urine Cloudy (Clear); Color,Urine Dark Yellow (Yellow); PH,Urine 5.5 (5.0-8.5)
[2019-07-21 20:37] LABS: Bilirubin,Urine Negative (Negative); Blood, Urine 1+ (Negative); Glucose,Urine (UA) Negative (Negative); Ketones,Urine Negative (Negative); Protein,Urine Negative (Negative); UTC Leukocyte Esterase,Urine 1+ (Negative); UTC Nitrate,Urine Positive (Negative); Urobilinogen,Urine 0.2 EU/dl (0.2)
--- NOTE | 2019-07-21 20:41 | HMH.EDUTC ---
[facility] [place] Clinical Impression: UTI (urinary tract infection) Qualifiers: Urinary tract infection type: site unspecified Hematuria presence: with hematuria Qualified Code(s): N39.0 - Urinary tract infection, site not specified Disposition: Home, Self-Care Condition on Discharge: Good Instructions: Urinary Tract Infection Additional Instructions: Drink plenty of fluids. Take tylenol or ibuprofen for pain or fever. Take the medications as directed. Follow up with your regular doctor. GO TO THE ER FOR ANY WORSENING SYMPTOMS Prescriptions: Ondansetron [Zofran 4mg ODT] 4 mg PO Q8HP PRN #10 tab.rapdis PRN Reason: Nausea Transmission Status: Received by [id number] Sulfamethoxazole/Trimethoprim [Bactrim DS tablet] 1 each PO BID 7 Days #14 tab Transmission Status: Received by [facility] Fluconazole [Diflucan 150mg tab] 150 mg PO ONCE #1 tab Transmission Status: Received by [facility] Phenazopyridine HCl [Pyridium 200mg Tablet] 200 pow PO TID #6 tab Transmission Status: Received by [id number] Referrals: Rao Olson MD [Primary Care Provider] - Time of Disposition: 20:47 Medical Decision Making - Medical Records Medical records reviewed: No: I reviewed the patient's medical records. - Raz Inquiry Pt receiving controlled substance: No Vital Signs: 07/21/19 20:36 07/21/19 20:50 Temperature 98.2 F 98.2 F Temperature Source Oral Pulse Rate 79 Pulse Rate [Right Radial] 79 Respiratory Rate 18 18 Blood Pressure 124/87 Blood Pressure [Right Arm] 124/87 Blood Pressure Mean [Right Arm] 99 Blood Pressure Source [Right Arm] Automatic Cuff Blood Pressure Position [Right Arm] Sitting 02 Sat by Pulse Oximetry 97 Oxygen Delivery Method Room Air - Lab Data Lab results reviewed: Yes: I reviewed the patient's lab results. Lab Results 07/21/19 20:36: Urine Color Dark yellow, Urine Appearance Cloudy, Urine pH 5.5, Ur Specific [place] 1.030, Urine Protein Negative, Urine Glucose (UA) Negative, Urine Ketones Negative, Urine Blood 1+, Urine Nitrate Positive A, Urine Bilirubin Negative, Urine Urobilinogen 0.2, Ur Leukocyte Esterase 1+ A Orders (Tests/Meds): ED MEDICATIONS Discontinued Medications Generic Name Dose Route Start Last Admin Trade Name Lorenza PRN Reason Stop Dose Admin Ondansetron HCl 4 mg 07/21/19 20:43 07/21/19 20:49 Zofran 4mg Odt SL 07/21/19 20:44 4 mg ONCE ONE Administration Phenazopyridine HCl 200 mg 07/21/19 20:40 07/21/19 20:49 Pyridium 200mg Tablet PO 07/21/19 20:41 200 mg ONCE ONE Administration Trimethoprim/Sulfamethoxazole 1 each 07/21/19 20:40 07/21/19 20:49 Bactrim Ds Tablet PO 07/21/19 20:41 1 each ONCE ONE Administration Protocol [facility] [place] - General Stated complaint: back pain,possible UTI Time Seen by Provider: 07/21/19 20:41 Mode of Arrival: Ambulatory Source of Information: Patient Limitations: No Limitations Description of Symptoms (Recalled from Triage Doc. by RN): PT C/O POSSIBLE UTI HEENT Symptoms (Recalled from RN notes): No Resp Symptoms (Recalled from RN notes): No Skin Symptoms (Recalled from RN notes): No MS Symptoms (Recalled from RN notes): No Functional Status (Recalled from RN notes): N/A - History of Present Illness Provider Complaint: She c/o low back pain on the left side and burning while urinating. Her symptoms began yesterday, but they have got worse this evening. She is a type 1 diabetic. - Related Data Home Medications Medication Instructions Recorded Confirmed Insulin Lispro [HumaLOG 100 100 units SQ CONT 06/01/17 04/15/18 units/mL 3mL vial (SSI)] Vit,Calc76/Iron/Folic 1 each PO DAILY 09/21/17 04/15/18 [Prenatabs Rx Tablet] aspirin 81 mg tablet,delayed 81 mg PO DAILY 10/12/17 04/15/18 release heparin (porcine) 5,000 unit/mL (1 5,000 unit SQ Q12H 04/15/18 04/15/18 mL) injection cartridge me
[2019-07-21 20:50] VITALS: BP 124/87; PULSE 79; RESP 18; TEMP 36.8; O2SAT 97
== END 2019-07-21 20:52 | disposition home or self-care (01) ==
PROVIDERS: Emergency Provider Nurse Practitioner Family; PCP Internal Medicine Adolescent Medicine
DX: N30.00 Acute cystitis without hematuria (principal); K21.9 Gastro-esophageal reflux disease without esophagitis; E10.9 Type 1 diabetes mellitus without complications; Z79.4 Long term (current) use of insulin; Z88.0 Allergy status to penicillin; Z88.5 Allergy status to narcotic agent; Z91.040 Latex allergy status; Z90.49 Acquired absence of other specified parts of digestive tract
CPT/HCPCS: 81003; 87086; 87088; 87186; 99201

== ENCOUNTER 2019-08-16 10:20 | Emergency (ER) | payer MEDICAID, SELFPAY ==
[2019-08-16 10:22] VITALS: BP 131/92; PULSE 89; RESP 18; TEMP 36.2; O2SAT 97; BMI 25.7
--- NOTE | 2019-08-16 10:40 | PC.NURSE ---
fsbs 275
[2019-08-16 10:55] LABS: Basophils # 0.1 K/mm3 (0-0.2); Basophils % 0.9 % (0.1-2.0); Eosinophils # 0.2 K/mm3 (0.0-0.4); Eosinophils % 3.2 % (0.1-12.0); Hematocrit 38.5 % (37.0-47.0); Hemoglobin 12.6 g/dL (12.2-16.2); Lymphocytes # 1.8 K/mm3 (0.7-4.5); Lymphocytes % 27.9 % (10-50); Mean Corpuscular HGB Conc 32.8 g/dL (31.8-35.4); Mean Corpuscular Hemoglobin 27.7 pg (27.0-31.2); Mean Corpuscular Volume 84.3 fl (81-99); Mean Platelet Volume 7.5 fl (7.4-10.4); Monocytes # 0.3 K/mm3 (0.1-1.0); Monocytes % 4.3 % (1.7-9.3); Neutrophils # 4.1 K/mm3 (1.8-7.8); Neutrophils % 63.9 % (37.0-80.0); Platelet Count 263 K/mm3 (142-424); Red Blood Count 4.57 M/mm3 (4.20-5.40); Red Cell Distribution Width 13.4 % (11.5-17.5); White Blood Count 6.4 K/mm3 (4.8-10.8)
--- NOTE | 2019-08-16 10:55 | PC.NURSE ---
BLOOD AND URINE SENT TO LAB
[2019-08-16 10:57] LABS: Microscopic, Urine URINE MICROSCOPIC (MICROSCOPIC)
[2019-08-16 10:59] LABS: Appearance,Urine CLEAR (Clear); Bilirubin,Urine Negative (Negative); Blood, Urine TRACE-I (Negative); Color,Urine YELLOW (Yellow); Glucose,Urine (UA) 3+ (Negative); Ketones,Urine 1+ (Negative); Leukocyte Esterase,Urine Negative (Negative); Nitrate,Urine Negative (Negative); Protein,Urine Negative (Negative); Specific Gravity, Urine 1.015 (1.005-1.030); Urobilinogen,Urine 0.2 EU/dl (0.2)
[2019-08-16 11:02] LABS: Acetone, Serum (Rapid) None Detected (None Detect)
[2019-08-16 11:09] LABS: Chloride 100 mmol/L (98-107)
[2019-08-16 11:10] LABS: Potassium 3.9 mmoL/L (3.5-5.1); Sodium 135 mmol/L (136-145)
[2019-08-16 11:12] LABS: Blood Urea Nitrogen 10 mg/dl (7-17); Creatinine Clearance Estimated 129 mL/min (50-200); Estimated Glomerular Filt Rate 100 ml/min (>60); GFR (African American) 121 ML/MIN (>60)
[2019-08-16 11:13] LABS: Alanine Aminotransferase 25 U/L (12-78); Albumin Level 4.3 g/dl (3.5-5.0); Albumin/Globulin Ratio 1.6 (1.1-1.8); Alkaline Phosphatase 101 U/L (38-126); Anion Gap 13.9 mEq/L (5-15); Aspartate Amino Transferase 25 U/L (14-36); Bilirubin,Total 0.7 mg/dl (0.2-1.3); Calcium 9.1 mg/dl (8.4-10.2); Carbon Dioxide 25 mmol/L (22.0-30.0); Globulin 2.7 g/dL (1.3-3.2); Glucose 283 mg/dl (74-100)
[2019-08-16 11:14] LABS: Bacteria,Urine Trace /lpf
--- NOTE | 2019-08-16 11:23 | HMH.EDGENADL ---
ED Disposition Clinical Impression: Hyperglycemia, Ketonuria Disposition: Home, Self-Care Condition on Discharge: Good Instructions: DI for Hyperglycemia -- Adult Additional Instructions: Contact your picker/puller for further management of your insulin/diabetes. Referrals: Rao Olson MD [Primary Care Provider] - - Critical Care Critical Care Time: No Attestation: On 08/16/19, the high probability of a clinically significant, sudden or life threatening deterioration of the following system(s) required my full and direct attention, intervention and personal management. The time I documented below is in addition to time spent performing reported procedures but includes the following listed in this critical care notation. Medical Decision Making - Medical Records Medical records reviewed: Yes: I reviewed the patient's medical records. - Raz Inquiry Pt receiving controlled substance: No Vital Signs: 08/16/19 10:22 08/16/19 11:56 Temperature 97.2 F L 97.9 F Temperature Source Oral Pulse Rate 76 Pulse Rate [Radial] 89 Respiratory Rate 18 16 Blood Pressure 118/73 Blood Pressure [Right Arm] 131/92 H Blood Pressure Mean [Right Arm] 105 Blood Pressure Source [Right Arm] Automatic Cuff Blood Pressure Position [Right Arm] Sitting 02 Sat by Pulse Oximetry 97 Oxygen Delivery Method Room Air - Lab Data Lab results reviewed: Yes: I reviewed the patient's lab results. Lab Results 08/16/19 10:44: WBC 6.4, RBC 4.57, Hgb 12.6, Hct 38.5, MCV 84.3, MCH 27.7, MCHC 32.8, RDW 13.4, Plt Count 263, MPV 7.5, Neut % (Auto) 63.9, Lymph % (Auto) 27.9, Kay % (Auto) 4.3, Eos % (Auto) 3.2, Baso % (Auto) 0.9, Neut # (Auto) 4.1, Lymph # (Auto) 1.8, Kay # (Auto) 0.3, Eos # (Auto) 0.2, Baso # (Auto) 0.1 08/16/19 10:44: Sodium 135 L, Potassium 3.9, Chloride 100, Carbon Dioxide 25, Anion Gap 13.9, BUN 10, Creatinine 0.70, Estimated Creat Clear 129, Estimated GFR 100, Est GFR ( Amer) 121, Glucose 283 H, Calcium 9.1, Total Bilirubin 0.7, AST 25, ALT 25, Alkaline Phosphatase 101, Total Protein 7.0, Albumin 4.3, Globulin 2.7, Albumin/Globulin Ratio 1.6, Acetone Level None detected 08/16/19 10:50: Urine Color Yellow, Urine Appearance Clear, Urine pH 6.0, Ur Specific [place] 1.015, Urine Protein Negative, Urine Glucose (UA) 3+, Urine Ketones 1+, Urine Blood Trace-i, Urine Nitrate Negative, Urine Bilirubin Negative, Urine Urobilinogen 0.2, Ur Leukocyte Esterase Negative, Urine RBC 3-5, Urine WBC 5-10, Ur Squamous Epith Cells 5-10, Urine Bacteria Trace Result diagrams: 08/16/19 10:44 08/16/19 10:44 Orders (Tests/Meds): ED MEDICATIONS Discontinued Medications Generic Name Dose Route Start Last Admin Trade Name Casimiroq PRN Reason Stop Dose Admin Sodium Chloride 1,000 mls @ 999 mls/hr 08/16/19 11:05 08/16/19 11:05 Sod Chlor 0.9% 1000ml Bag IV 08/16/19 12:05 999 mls/hr .Q1H1M ONE Administration General Adult HPI - General Chief complaint: Hyper/Hypoglycemia Stated complaint: high ketones and high blood sugar Time Seen by Provider: 08/16/19 11:24 Mode of Arrival: Ambulatory Limitations: No Limitations Description of Symptoms (Recalled from ER Triage Doc. by RN): States her glucose has been elevated for a couple days. It is going down but says she has ketones. States she had a wisdom tooth taken out last week. - History of Present Illness HPI narrative: Patient states that she is type I diabetic with an insulin pump and has been having trouble controlling her blood sugar for the past 2 to 3 days, it has been as high as 5-600. She says that this morning she also had large ketones in her urine, so she gave herself an injection of 10 units of insulin with a syringe in addition to the insulin being infused with her pump. She says she has a call into her picker/puller. She says that because of her urine ketones she knew she needed to come in and get flushed out . She says she had her wisdom tooth
[2019-08-16 11:56] VITALS: BP 118/73; PULSE 76; RESP 16; TEMP 36.6; O2SAT 98
[2019-08-17 06:31] LABS: POC Glucose,Bedside 275 (70-110)
== END 2019-08-16 11:58 | disposition home or self-care (01) ==
PROVIDERS: Emergency Provider Emergency Medicine; PCP Internal Medicine Adolescent Medicine
DX: E11.65 Type 2 diabetes mellitus with hyperglycemia (principal); K31.84 Gastroparesis; K21.9 Gastro-esophageal reflux disease without esophagitis; F41.9 Anxiety disorder, unspecified; Z90.49 Acquired absence of other specified parts of digestive tract; Z79.4 Long term (current) use of insulin; Z79.899 Other long term (current) drug therapy; Z88.0 Allergy status to penicillin; Z88.5 Allergy status to narcotic agent; Z91.040 Latex allergy status
CPT/HCPCS: 80053; 81001; 82009; 82962; 85025; 96365; 99282

== ENCOUNTER 2019-08-29 16:36 | Emergency (ER) | payer MEDICAID, SELFPAY ==
[2019-08-29 16:37] VITALS: BP 139/87; PULSE 78; RESP 20; TEMP 36.8; O2SAT 100; BMI 25.7
--- NOTE | 2019-08-29 16:59 | HMH.EDUTC ---
[facility] – [place] Disposition Clinical Impression: Positive blood test Disposition: Home, Self-Care Condition on Discharge: Good Instructions: Eating for Appropriate Weight Gain During , Common Discomforts and Bodily Changes During , Home and Clinic Tests Additional Instructions: Follow up with [facility] as advised by your OBGYN Return if needed Straight to ER if any life threatening symptoms Follow up with OBGYN as needed/instructed by OBGYN Referrals: Rao Olson MD [Primary Care Provider] - As needed Time of Disposition: 17:21 Medical Decision Making - Raz Inquiry Pt receiving controlled substance: No Raz was queried for this patient: No Vital Signs: 08/29/19 16:37 08/29/19 17:21 Temperature 98.3 F 98.3 F Temperature Source Oral Oral Pulse Rate 78 Pulse Rate [Right Radial] 78 Respiratory Rate 20 20 Blood Pressure 139/87 Blood Pressure [Right Arm] 139/87 Blood Pressure Mean [Right Arm] 104 Blood Pressure Source Automatic Cuff Blood Pressure Source [Right Arm] Automatic Cuff Blood Pressure Position Sitting Blood Pressure Position [Right Arm] Sitting 02 Sat by Pulse Oximetry 100 Oxygen Delivery Method Room Air Room Air - Lab Data Lab results reviewed: Yes: I reviewed the patient's lab results. Lab Results 08/29/19 16:49: Serum HCG, Qual Positive Orders (Tests/Meds): ORDERS Category Date Time Status Beta HCG, Quant [HCG,Quantitative] Stat Lab 08/29/19 17:16 Ordered - Reevaluation(s) Time: 17:25 Reevaluation #1: Discussed results with patient and requested Quant. Quant ordered and patient states that she was unable to wait for results she would call back for results/ Patient instructed to call OBGYN at and follow further instructions per them. [facility] – [place] HPI - General Stated complaint: blood preg test Time Seen by Provider: 08/29/19 16:59 Mode of Arrival: Ambulatory Source of Information: Patient Limitations: No Limitations Description of Symptoms (Recalled from Triage Doc. by RN): PT STATES THAT SHE HAD A FAINT POSITIVE URINE PREG THIS AM AND IS REQUESTING A BLOOD TEST D/T A BLOOD CLOTTING DISORDER THAT REQUIRES HER TO BE PLACED ON BLOOD THINNERS DURING HEENT Symptoms (Recalled from RN notes): No Resp Symptoms (Recalled from RN notes): No Skin Symptoms (Recalled from RN notes): No MS Symptoms (Recalled from RN notes): No Functional Status (Recalled from RN notes): N/A - History of Present Illness Provider Complaint: Patient states she took a home test at home this morning and showed a faint positive State that she has a clotting disorder and if she is she has to take Lovenox injections and she spoke to her OBGYN and they told her to come to the [facility] and get a blood test and if it is positive to call the office and come to to get started on injections - Related Data Home Medications Medication Instructions Recorded Confirmed Insulin Lispro [HumaLOG 100 100 units SQ CONT 06/01/17 04/15/18 units/mL 3mL vial (SSI)] Vit,Calc76/Iron/Folic 1 each PO DAILY 09/21/17 04/15/18 [Prenatabs Rx Tablet] aspirin 81 mg tablet,delayed 81 mg PO DAILY 10/12/17 04/15/18 release heparin (porcine) 5,000 unit/mL (1 5,000 unit SQ Q12H 04/15/18 04/15/18 mL) injection cartridge metoclopramide HCl 10 mg tablet 10 mg PO Q6H 04/15/18 04/15/18 sertraline 50 mg tablet 50 mg PO DAILY 04/15/18 04/15/18 Previous Rx's Medication Instructions Recorded Azithromycin [Z-Jeison 250mg Tab*] 250 mg PO UD DOSE PK #6 tab 12/09/17 Azithromycin [Z-Jeison 250mg Tab*] 250 mg PO UD DOSE PK #6 tab 05/06/18 Fluconazole [Diflucan 150mg tab] 150 mg PO ONCE #1 tab 07/21/19 Ondansetron [Zofran 4mg ODT] 4 mg PO Q8HP PRN #10 tab.rapdis 07/21/19 Phenazopyridine HCl [Pyridium 200 pow PO TID #6 tab 07/21/19 200mg Tablet] Sulfamethoxazole/Trimethoprim 1 each PO BID 7 Days #14 tab 07/21/19 [Bactrim DS tablet]
[2019-08-29 17:14] LABS: HCG Qualitative, Serum Positive (Negative)
[2019-08-29 17:21] VITALS: BP 139/87; PULSE 78; RESP 20; TEMP 36.8; O2SAT 100
[2019-08-29 17:43] LABS: HCG,Quantitative 28 mIU/ml (0-5.42)
== END 2019-08-29 17:29 | disposition home or self-care (01) ==
PROVIDERS: Emergency Provider Nurse Practitioner; PCP Internal Medicine Adolescent Medicine
DX: Z32.01 Encounter for pregnancy test, result positive (principal); E10.9 Type 1 diabetes mellitus without complications; Z79.4 Long term (current) use of insulin; K21.9 Gastro-esophageal reflux disease without esophagitis; Z91.040 Latex allergy status; Z90.49 Acquired absence of other specified parts of digestive tract; Z79.899 Other long term (current) drug therapy; Z88.0 Allergy status to penicillin; Z88.5 Allergy status to narcotic agent
CPT/HCPCS: 84702; 84703; 99201

== ENCOUNTER 2019-08-31 13:37 | Emergency (ER) | payer MEDICAID, SELFPAY ==
[2019-08-31 13:38] VITALS: BP 124/78; PULSE 79; RESP 18; TEMP 36.8; O2SAT 98; BMI 30.9
[2019-08-31 14:23] LABS: HCG,Quantitative 91 mIU/ml (0-5.42)
[2019-08-31 14:30] VITALS: BP 124/78; PULSE 79; RESP 18; TEMP 36.8; O2SAT 98
--- NOTE | 2019-08-31 14:35 | HMH.EDUTC ---
[facility] – [place] Disposition Clinical Impression: Qualifiers: Weeks of gestation: less than 8 weeks Qualified Code(s): Z3A.01 - Less than 8 weeks gestation of Disposition: Home, Self-Care Condition on Discharge: Good Instructions: Diet Additional Instructions: Follow up with your ob doctor. We will send her the results of your blood test. Referrals: Rao Olson MD [Primary Care Provider] - Time of Disposition: 14:37 Medical Decision Making - Medical Records Medical records reviewed: No: I reviewed the patient's medical records. - Raz Inquiry Pt receiving controlled substance: No Vital Signs: 08/31/19 13:38 08/31/19 14:30 Temperature 98.3 F 98.3 F Temperature Source Oral Pulse Rate 79 Pulse Rate [Right Radial] 79 Respiratory Rate 18 18 Blood Pressure 124/78 Blood Pressure [Right Arm] 124/78 Blood Pressure Mean [Right Arm] 93 Blood Pressure Source [Right Arm] Automatic Cuff Blood Pressure Position [Right Arm] Sitting 02 Sat by Pulse Oximetry 98 Oxygen Delivery Method Room Air - Lab Data Lab results reviewed: Yes: I reviewed the patient's lab results. Lab Results 08/31/19 13:47: HCG, Quant 91 H [facility] – [place] HPI - General Stated complaint: blood work per Ирина SALGADO Dr Time Seen by Provider: 08/31/19 13:40 Mode of Arrival: Ambulatory Source of Information: Patient Limitations: No Limitations Description of Symptoms (Recalled from Triage Doc. by RN): PT NEEDING REPEAT HCG QUANT LEVEL DRAWN HEENT Symptoms (Recalled from RN notes): No Resp Symptoms (Recalled from RN notes): No Skin Symptoms (Recalled from RN notes): No MS Symptoms (Recalled from RN notes): No Functional Status (Recalled from RN notes): N/A - History of Present Illness Provider Complaint: She is here to have her quantified beta HCG drawn. 2 days ago it was 28. 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 She denies any complaints. She denies any vaginal bleeding or abdominal or back pain. - Related Data Home Medications Medication Instructions Recorded Confirmed Insulin Lispro [HumaLOG 100 100 units SQ CONT 06/01/17 04/15/18 units/mL 3mL vial (SSI)] Vit,Calc76/Iron/Folic 1 each PO DAILY 09/21/17 04/15/18 [Prenatabs Rx Tablet] aspirin 81 mg tablet,delayed 81 mg PO DAILY 10/12/17 04/15/18 release heparin (porcine) 5,000 unit/mL (1 5,000 unit SQ Q12H 04/15/18 04/15/18 mL) injection cartridge metoclopramide HCl 10 mg tablet 10 mg PO Q6H 04/15/18 04/15/18 sertraline 50 mg tablet 50 mg PO DAILY 04/15/18 04/15/18 Previous Rx's Medication Instructions Recorded Azithromycin [Z-Jeison 250mg Tab*] 250 mg PO UD DOSE PK #6 tab 12/09/17 Azithromycin [Z-Jeison 250mg Tab*] 250 mg PO UD DOSE PK #6 tab 05/06/18 Fluconazole [Diflucan 150mg tab] 150 mg PO ONCE #1 tab 07/21/19 Ondansetron [Zofran 4mg ODT] 4 mg PO Q8HP PRN #10 tab.rapdis 07/21/19 Phenazopyridine HCl [Pyridium 200 pow PO TID #6 tab 07/21/19 200mg Tablet] Sulfamethoxazole/Trimethoprim 1 each PO BID 7 Days #14 tab 07/21/19 [Bactrim DS tablet] Allergies Allergy/AdvReac Type Severity Reaction Status Date / Time morphine Allergy Severe Chest Pain Verified 07/05/18 12:49 codeine [CODEINE] Allergy Unknown I-HIVES Verified 07/05/18 12:49 latex [LATEX] Allergy Unknown I-RASH Verified 07/05/18 12:49 Penicillins [PENICILLINS] Allergy Unknown I-HIVES Verified 07/05/18 12:49 - Worker's Comp Is this a Worker's Comp case?: No [facility] History - Hepatitis A Screen Drug use history?: No High risk sexual behaviors?: No History of sexually transmitted infection?: No Currently employed?: No Childcare worker?: No Do you have indoor plumbing?: Yes Do you have electricity?: Yes Attestation statement:: This patient has been screened for Hepatitis A risk factors. I have reviewed the patient's past medical history: Yes Medical History: Reports:: Anxiety, Diabetes
== END 2019-08-31 14:30 | disposition home or self-care (01) ==
PROVIDERS: Emergency Provider Nurse Practitioner Family; PCP Internal Medicine Adolescent Medicine
DX: Z34.01 Encounter for supervision of normal first pregnancy, first trimester (principal); F41.9 Anxiety disorder, unspecified; E10.9 Type 1 diabetes mellitus without complications; K21.9 Gastro-esophageal reflux disease without esophagitis; Z90.49 Acquired absence of other specified parts of digestive tract; Z88.0 Allergy status to penicillin; Z88.5 Allergy status to narcotic agent
CPT/HCPCS: 84702; 99201

== ENCOUNTER 2020-02-19 10:09 | Outpatient (CLI) | payer MEDICAID, SELFPAY ==
[2020-02-19 10:28] VITALS: BMI 25.9
[2020-02-19 10:30] VITALS: BP 108/64; PULSE 87; RESP 20; TEMP 36.9; O2SAT 97
[2020-02-19 10:49] VITALS: BP 108/67; PULSE 89; RESP 18; TEMP 36.7; O2SAT 99; BMI 25.7
[2020-02-19 10:53] VITALS: BMI 25.7
[2020-02-19 11:09] LABS: Appearance,Urine CLEAR (Clear); Bilirubin,Urine Negative (Negative); Blood, Urine Negative (Negative); Color,Urine YELLOW (Yellow); Glucose,Urine (UA) Negative (Negative); Ketones,Urine Negative (Negative); Leukocyte Esterase,Urine Negative (Negative); Microscopic, Urine URINE MICROSCOPIC (MICROSCOPIC); Nitrate,Urine Negative (Negative); PH,Urine 8.5 (5.0-8.5); Protein,Urine Negative (Negative); Urobilinogen,Urine 0.2 EU/dl (0.2)
[2020-02-19 11:16] LABS: Bacteria,Urine 1+ /lpf
[2020-02-19 11:21] LABS: Barbiturates Screen,Urine Negative ng/ml (<200)
[2020-02-19 11:22] LABS: Amphetamine/Metha Screen,Urine Negative ng/ml (<1000); Benzodiazepines Screen,Urine Negative ng/ml (<200)
[2020-02-19 11:23] LABS: Cocaine Screen,Urine Negative ng/ml (<300)
[2020-02-19 11:24] LABS: Cannabinoid Screen,Urine Negative ng/ml (<50); Methadone Screen,Urine Negative ng/ml (<300)
[2020-02-19 11:25] LABS: Opiate Screen,Urine Negative ng/ml (<300)
[2020-02-19 11:26] LABS: Phencyclidine Screen,Urine Negative ng/ml (<25)
== END 2020-02-19 11:39 | disposition home or self-care (01) ==
LOC: OBOUT 10:12 → OB 10:13
PROVIDERS: PCP Physician Assistant; Visit Provider Obstetrics & Gynecology
DX: O26.892 Other specified pregnancy related conditions, second trimester (principal); Z3A.28 28 weeks gestation of pregnancy; R10.2 Pelvic and perineal pain
CPT/HCPCS: 59025; 80305; 81001; G0463

== ENCOUNTER 2020-03-14 20:06 | Emergency (ER) | payer MEDICAID, SELFPAY ==
[2020-03-14 20:16] VITALS: BP 122/75; PULSE 118; RESP 18; TEMP 36.9; O2SAT 100; BMI 25.7
--- NOTE | 2020-03-14 20:20 | PC.NURSE ---
heart tones noted at 155 BPM per Doppler
[2020-03-14 20:30] VITALS: BP 109/76; PULSE 110; RESP 17; O2SAT 99
[2020-03-14 20:36] LABS: Basophils # 0.2 K/mm3 (0-0.2); Basophils % 2.5 % (0.1-2.0); Eosinophils % 0.4 % (0.1-12.0); Hematocrit 31.6 % (37.0-47.0); Hemoglobin 10.5 g/dL (12.2-16.2); Lymphocytes # 2.1 K/mm3 (0.7-4.5); Lymphocytes % 26.3 % (10-50); Mean Corpuscular HGB Conc 33.3 g/dL (31.8-35.4); Mean Corpuscular Hemoglobin 25.7 pg (27.0-31.2); Mean Corpuscular Volume 77.2 fl (81-99); Mean Platelet Volume 10.6 fl (7.4-10.4); Monocytes # 0.3 K/mm3 (0.1-1.0); Monocytes % 4.3 % (1.7-9.3); Neutrophils # 5.3 K/mm3 (1.8-7.8); Neutrophils % 66.5 % (37.0-80.0); Platelet Count 236 K/mm3 (142-424); Red Blood Count 4.09 M/mm3 (4.20-5.40); Red Cell Distribution Width 16.5 % (11.5-17.5); White Blood Count 7.9 K/mm3 (4.8-10.8)
[2020-03-14 20:38] LABS: Chloride 104 mmol/L (98-107); Potassium 3.5 mmoL/L (3.5-5.1); Sodium 134 mmol/L (136-145)
[2020-03-14 20:41] LABS: Alanine Aminotransferase 12 U/L (12-78); Albumin Level 3.5 g/dl (3.5-5.0); Albumin/Globulin Ratio 1.1 (1.1-1.8); Alkaline Phosphatase 106 U/L (38-126); Anion Gap 9.5 mEq/L (5-15); Aspartate Amino Transferase 29 U/L (14-36); Bilirubin,Total 0.4 mg/dl (0.2-1.3); Blood Urea Nitrogen 5 mg/dl (7-17); Calcium 8.5 mg/dl (8.4-10.2); Carbon Dioxide 24 mmol/L (22.0-30.0); Creatinine Clearance Estimated 150 mL/min (50-200); Estimated Glomerular Filt Rate 119 ml/min (>60); GFR (African American) 144 ML/MIN (>60); Globulin 3.1 g/dL (1.3-3.2); Glucose 118 mg/dl (74-100); Total Protein,Serum 6.6 g/dl (6.3-8.2)
[2020-03-14 20:44] LABS: Amylase 59 U/L (30-110); Lipase 48 U/L (23-300)
[2020-03-14 20:44] LABS: Microscopic, Urine URINE MICROSCOPIC (MICROSCOPIC)
--- NOTE | 2020-03-14 20:47 | HMH.EDPREG ---
ED Disposition Clinical Impression: Tingling in extremities, IDDM (insulin dependent diabetes mellitus) Qualifiers: Weeks of gestation: 27 weeks Qualified Code(s): Z3A.27 - 27 weeks gestation of Disposition: Home, Self-Care Condition on Discharge: Good Instructions: DI for -- Discomforts and Remedies Additional Instructions: call ob in am Referrals: Chuck Agudelo PA [Primary Care Provider] - - Critical Care Critical Care Time: No Attestation: On 03/14/20, the high probability of a clinically significant, sudden or life threatening deterioration of the following system(s) required my full and direct attention, intervention and personal management. The time I documented below is in addition to time spent performing reported procedures but includes the following listed in this critical care notation. Medical Decision Making - Medical Records Medical records reviewed: Yes: I reviewed the patient's medical records. - Raz Inquiry Pt receiving controlled substance: No Vital Signs: 03/14/20 20:16 03/14/20 20:30 03/14/20 21:00 Temperature 98.5 F Temperature Source Oral Pulse Rate [Right] 118 H 110 H 104 H Respiratory Rate 18 17 18 Blood Pressure [Left Arm] 122/75 109/76 L 118/77 Blood Pressure Mean [Left Arm] 90 87 90 Blood Pressure Source [Left Arm] Automatic Cuff Automatic Cuff Automatic Cuff Blood Pressure Position [Left Arm] Supine Supine Supine 02 Sat by Pulse Oximetry 100 99 97 Oxygen Delivery Method Room Air Room Air Room Air 03/14/20 21:30 Temperature Temperature Source Pulse Rate [Right] 98 H Respiratory Rate 17 Blood Pressure [Left Arm] 119/74 Blood Pressure Mean [Left Arm] 89 Blood Pressure Source [Left Arm] Automatic Cuff Blood Pressure Position [Left Arm] Supine 02 Sat by Pulse Oximetry 98 Oxygen Delivery Method Room Air - Lab Data Lab results reviewed: Yes: I reviewed the patient's lab results. Lab Results 03/14/20 20:15: WBC 7.9, RBC 4.09 L, Hgb 10.5 L, Hct 31.6 L, MCV 77.2 L, MCH 25.7 L, MCHC 33.3, RDW 16.5, Plt Count 236, MPV 10.6 H, Neut % (Auto) 66.5, Lymph % (Auto) 26.3, [place] % (Auto) 4.3, Eos % (Auto) 0.4, Baso % (Auto) 2.5 H, Neut # (Auto) 5.3, Lymph # (Auto) 2.1, [place] # (Auto) 0.3, Eos # (Auto) 0.0, Baso # (Auto) 0.2 03/14/20 20:15: Sodium 134 L, Potassium 3.5, Chloride 104, Carbon Dioxide 24, Anion Gap 9.5, BUN 5 L, Creatinine 0.60, Estimated Creat Clear 150, Estimated GFR 119, Est GFR ( Amer) 144, Glucose 118 H, Calcium 8.5, Total Bilirubin 0.4, AST 29, ALT 12, Alkaline Phosphatase 106, Total Protein 6.6, Albumin 3.5, Globulin 3.1, Albumin/Globulin Ratio 1.1, HCG, Quant 01244 H 03/14/20 20:15: Amylase 59, Lipase 48 03/14/20 20:15: Acetone Level None detected 03/14/20 20:35: Urine Color Yellow, Urine Appearance Clear, Urine pH 7.0, Ur Specific [place] 1.010, Urine Protein Negative, Urine Glucose (UA) Negative, Urine Ketones Negative, Urine Blood Negative, Urine Nitrate Negative, Urine Bilirubin Negative, Urine Urobilinogen 0.2, Ur Leukocyte Esterase Negative, Urine WBC Occasional, Urine Bacteria 1+ 03/14/20 20:35: Urine Opiates Screen Negative, Urine Methadone Screen Negative, Ur Barbituates Screen Negative, Ur Phencyclidine Scrn Negative, Ur Amphetamines Screen Negative, U Benzodiazepines Scrn Negative, Urine Cocaine Screen Negative, U Marijuana (THC) Screen Negative Result diagrams: 03/14/20 20:15 03/14/20 20:15 Orders (Tests/Meds): ED MEDICATIONS Generic Name Dose Route Start Last Admin Trade Name Freq PRN Reason Stop Dose Admin Sodium Chloride 1,000 mls @ 999 mls/hr 03/14/20 20:45 03/14/20 20:46 Sod Chlor 0.9% 1000ml Bag IV 03/14/20 21:45 999 mls/hr .Q1H1M [place] Administration Discontinued Medications Generic Name Dose Route Start Last Admin Trade Name Freq PRN Reason Stop Dose Admin Ondansetron HCl 4 mg 03/14/20 20:42 03/14/20 20:46 Ondansetron 4mg/2ml Vial IV 03/14/20 20:43 4 mg ONCE O
[2020-03-14 20:57] LABS: Appearance,Urine CLEAR (Clear); Bilirubin,Urine Negative (Negative); Blood, Urine Negative (Negative); Color,Urine YELLOW (Yellow); Glucose,Urine (UA) Negative (Negative); Ketones,Urine Negative (Negative); Leukocyte Esterase,Urine Negative (Negative); Nitrate,Urine Negative (Negative); Protein,Urine Negative (Negative); Urobilinogen,Urine 0.2 EU/dl (0.2)
[2020-03-14 21:00] VITALS: BP 118/77; PULSE 104; RESP 18; O2SAT 97
[2020-03-14 21:08] LABS: Benzodiazepines Screen,Urine Negative ng/ml (<200)
[2020-03-14 21:09] LABS: Amphetamine/Metha Screen,Urine Negative ng/ml (<1000)
[2020-03-14 21:10] LABS: Barbiturates Screen,Urine Negative ng/ml (<200); Cannabinoid Screen,Urine Negative ng/ml (<50)
[2020-03-14 21:11] LABS: Cocaine Screen,Urine Negative ng/ml (<300)
[2020-03-14 21:12] LABS: Methadone Screen,Urine Negative ng/ml (<300); Opiate Screen,Urine Negative ng/ml (<300)
[2020-03-14 21:13] LABS: Phencyclidine Screen,Urine Negative ng/ml (<25)
[2020-03-14 21:30] VITALS: BP 119/74; PULSE 98; RESP 17; TEMP 36.9; O2SAT 98
[2020-03-14 21:32] LABS: Bacteria,Urine 1+ /lpf; WBC,Urine Occasional #/hpf (0-3)
[2020-03-14 21:35] LABS: Acetone, Serum (Rapid) None Detected (None Detect)
[2020-03-14 22:22] LABS: T4 (Thyroxine) 17.9 ug/dl (5.53-11.0)
[2020-03-14 22:36] LABS: Thyroid Stimulating Hormone 1.89 uIU/mL (0.465-4.68)
--- NOTE | 2020-03-14 23:56 | PC.NURSE ---
When this Rn went to have pt sign discharge paperwork pt was not in room and IV had been removed and was laying on the bed. Elmer and made aware.
[2020-03-15 00:59] LABS: POC Glucose,Bedside 75 (70-110)
== END 2020-03-14 21:31 | disposition home or self-care (01) ==
PROVIDERS: Emergency Provider Emergency Medicine; PCP Physician Assistant
DX: R20.2 Paresthesia of skin (principal); Z3A.27 27 weeks gestation of pregnancy; E10.69 Type 1 diabetes mellitus with other specified complication; Z79.4 Long term (current) use of insulin; F41.9 Anxiety disorder, unspecified; K21.9 Gastro-esophageal reflux disease without esophagitis; Z88.0 Allergy status to penicillin; Z88.5 Allergy status to narcotic agent; Z91.040 Latex allergy status
CPT/HCPCS: 80053; 80305; 81001; 82009; 82150; 82962; 83690; 84436; 84443; 84702; 85025; 96365; 96375; 99283; J2405

== ENCOUNTER 2020-03-19 16:51 | Outpatient (CLI) | payer MEDICAID, SELFPAY ==
[2020-03-19 17:10] VITALS: BMI 26.7
[2020-03-19 17:37] LABS: Microscopic, Urine URINE MICROSCOPIC (MICROSCOPIC)
[2020-03-19 17:41] LABS: Appearance,Urine CLEAR (Clear); Bilirubin,Urine Negative (Negative); Blood, Urine Negative (Negative); Color,Urine YELLOW (Yellow); Glucose,Urine (UA) 2+ (Negative); Ketones,Urine Negative (Negative); Leukocyte Esterase,Urine Negative (Negative); Nitrate,Urine Negative (Negative); PH,Urine 7.5 (5.0-8.5); Protein,Urine Negative (Negative); Specific Gravity, Urine 1.015 (1.005-1.030); Urobilinogen,Urine 0.2 EU/dl (0.2)
[2020-03-19 17:45] VITALS: RESP 20; TEMP 36.8; O2SAT 99; BMI 26.7
[2020-03-19 17:52] LABS: Barbiturates Screen,Urine Negative ng/ml (<200)
[2020-03-19 17:53] LABS: Amphetamine/Metha Screen,Urine Negative ng/ml (<1000); Benzodiazepines Screen,Urine Negative ng/ml (<200)
[2020-03-19 17:54] LABS: Methadone Screen,Urine Negative ng/ml (<300)
[2020-03-19 17:55] LABS: Cannabinoid Screen,Urine Negative ng/ml (<50); Cocaine Screen,Urine Negative ng/ml (<300)
[2020-03-19 17:56] LABS: Opiate Screen,Urine Negative ng/ml (<300)
[2020-03-19 17:57] LABS: Phencyclidine Screen,Urine Negative ng/ml (<25)
[2020-03-19 18:08] LABS: Bacteria,Urine 2+ /lpf
[2020-03-19 19:20] LABS: Fetal Fibronectin (Rapid) Negative (Negative)
== END 2020-03-19 20:15 | disposition home or self-care (01) ==
LOC: OBOUT 16:53 → OB 16:54
PROVIDERS: PCP Physician Assistant; Referring Provider Student in an Organized Health Care Education/Training Program; Visit Provider Nurse Practitioner Obstetrics & Gynecology
DX: O47.03 False labor before 37 completed weeks of gestation, third trimester (principal); Z3A.32 32 weeks gestation of pregnancy
CPT/HCPCS: 59025; 80305; 81001; 82731; 87086; 96365; 96367; G0463; J2405

== ENCOUNTER → 2020-03-23 17:04 | Outpatient (CLI) | payer MEDICAID, SELFPAY ==
[2020-03-23 17:50] LABS: Basophils % 0.5 % (0.1-2.0); Eosinophils # 0.1 K/mm3 (0.0-0.4); Hematocrit 32.8 % (37.0-47.0); Hemoglobin 10.4 g/dL (12.2-16.2); Lymphocytes % 26.4 % (10-50); Mean Corpuscular HGB Conc 31.8 g/dL (31.8-35.4); Mean Corpuscular Hemoglobin 25.1 pg (27.0-31.2); Mean Platelet Volume 9.2 fl (7.4-10.4); Monocytes # 0.4 K/mm3 (0.1-1.0); Monocytes % 5.6 % (1.7-9.3); Neutrophils # 4.9 K/mm3 (1.8-7.8); Neutrophils % 66.5 % (37.0-80.0); Platelet Count 213 K/mm3 (142-424); Red Blood Count 4.15 M/mm3 (4.20-5.40); Red Cell Distribution Width 14.8 % (11.5-17.5); White Blood Count 7.4 K/mm3 (4.8-10.8)
[2020-03-23 17:52] LABS: Creatinine,Urine Random 92 mg/dL (Not Estab.)
[2020-03-23 18:00] LABS: D-Dimer 1.67 ug/mL (0.0-0.5)
[2020-03-23 18:17] LABS: Activated Partial Thrombo Time 21.6 seconds (23.6-34.0); Fibrinogen 406 mg/dL (204-500); INR 0.92 (0.9-1.1); Prothrombin Time 10.3 seconds (9.4-11.8)
[2020-03-23 19:25] LABS: Anion Gap 9.2 mEq/L (5-15); Blood Urea Nitrogen 5 mg/dl (7-17); Carbon Dioxide 26 mmol/L (22.0-30.0); Chloride 101 mmol/L (98-107); Estimated Glomerular Filt Rate 100 ml/min (>60); GFR (African American) 121 ML/MIN (>60); Glucose 177 mg/dl (74-100); Potassium 4.2 mmoL/L (3.5-5.1); Sodium 132 mmol/L (136-145)
[2020-03-23 20:04] LABS: Alanine Aminotransferase 7 U/L (12-78); Aspartate Amino Transferase 20 U/L (14-36); Uric Acid 4.2 mg/dl (2.5-6.2)
== END ==
PROVIDERS: Visit Provider Student in an Organized Health Care Education/Training Program
DX: Z34.83 Encounter for supervision of other normal pregnancy, third trimester (principal); Z3A.33 33 weeks gestation of pregnancy
CPT/HCPCS: 36415; 80048; 82570; 84155; 84450; 84460; 84550; 85025; 85378; 85384; 85610; 85730

== ENCOUNTER 2020-03-31 17:25 | Outpatient (CLI) | payer MEDICAID, SELFPAY ==
[2020-03-31 18:12] VITALS: BMI 26.9
[2020-03-31 18:18] VITALS: BP 124/86; PULSE 101; RESP 18; TEMP 36.7; O2SAT 97; BMI 26.9
[2020-03-31 18:20] LABS: Microscopic, Urine URINE MICROSCOPIC (MICROSCOPIC)
[2020-03-31 18:22] LABS: Appearance,Urine CLEAR (Clear); Bilirubin,Urine Negative (Negative); Blood, Urine Negative (Negative); Color,Urine YELLOW (Yellow); Glucose,Urine (UA) Negative (Negative); Ketones,Urine Negative (Negative); Leukocyte Esterase,Urine Negative (Negative); Nitrate,Urine Negative (Negative); Protein,Urine Negative (Negative); Urobilinogen,Urine 0.2 EU/dl (0.2)
[2020-03-31 18:28] LABS: Bacteria,Urine 2+ /lpf; WBC,Urine Occasional #/hpf (0-3)
[2020-03-31 18:31] LABS: Fetal Membrane Rupture (Rapid) Negative (Negative)
[2020-03-31 18:35] LABS: Amphetamine/Metha Screen,Urine Negative ng/ml (<1000); Benzodiazepines Screen,Urine Negative ng/ml (<200)
[2020-03-31 18:36] LABS: Barbiturates Screen,Urine Negative ng/ml (<200)
[2020-03-31 18:37] LABS: Cannabinoid Screen,Urine Negative ng/ml (<50); Cocaine Screen,Urine Negative ng/ml (<300)
[2020-03-31 18:38] LABS: Methadone Screen,Urine Negative ng/ml (<300); Opiate Screen,Urine Negative ng/ml (<300)
[2020-03-31 18:39] LABS: Phencyclidine Screen,Urine Negative ng/ml (<25)
[2020-03-31 18:50] LABS: Fetal Fibronectin (Rapid) Negative (Negative)
== END 2020-03-31 20:35 | disposition home or self-care (01) ==
LOC: OBOUT 17:27 → OB 17:28
PROVIDERS: PCP Physician Assistant; Visit Provider Nurse Practitioner Obstetrics & Gynecology
DX: O47.03 False labor before 37 completed weeks of gestation, third trimester (principal); Z3A.34 34 weeks gestation of pregnancy
CPT/HCPCS: 59025; 80305; 81001; 82731; 84112; 87086; G0463

== ENCOUNTER 2020-06-18 11:45 | Emergency (ER) | payer MEDICAID, SELFPAY ==
[2020-06-18 11:45] VITALS: BP 139/77; PULSE 78; RESP 20; TEMP 37.1; O2SAT 98; BMI 25.0
--- NOTE | 2020-06-18 12:03 | HMH.EDUTC ---
[facility] – [place] Disposition Clinical Impression: Skin lesion of breast Disposition: Home, Self-Care Condition on Discharge: Good Instructions: Mupirocin Additional Instructions: Clean area with antibacterial soap and water and apply medication as prescribed Follow up with Family Doctor on Wed if no improvement and immediately if any worsening of symptoms Return if needed Straight to ER if any life threatening symptoms Prescriptions: Mupirocin Calcium [Mupirocin 2% Cream 15gm] 1 applicatio TP TID 10 Days #1 tube Transmission Status: Received by [id number] Referrals: Chuck Agudelo PA [Primary Care Provider] - As needed Time of Disposition: 12:24 Medical Decision Making - Raz Inquiry Pt receiving controlled substance: No Raz was queried for this patient: No Vital Signs: 06/18/20 11:45 06/18/20 12:25 Temperature 98.7 F 98.7 F Temperature Source Oral Pulse Rate 78 Pulse Rate [Right Brachial] 78 Respiratory Rate 20 20 Blood Pressure 139/77 Blood Pressure [Right Arm] 139/77 Blood Pressure Mean [Right Arm] 97 Blood Pressure Source [Right Arm] Automatic Cuff Blood Pressure Position [Right Arm] Sitting 02 Sat by Pulse Oximetry 98 Oxygen Delivery Method Room Air Medical Decision Narrative: Medication discussed with pharmacy and discussed with patient importance of follow up with PCP on Wed if no improvement and immediately if any worsening Discussed with patient that we could check blood work but patient had 2 small children with her and declined at this time States that she will try medication and follow up if no improvement and she will make appointment with OBGYN for follow up due to the spotting and irregular bleeding since giving [facility] – [place] HPI - General Stated complaint: sores on both breasts Time Seen by Provider: 06/18/20 12:03 Mode of Arrival: Ambulatory Source of Information: Patient Limitations: No Limitations Description of Symptoms (Recalled from Triage Doc. by RN): PATIENT STATES SHE HAS SORES ON BILATERAL BREAST X 1 MONTH. SHE IS CURRENTLY BREAST FEEDING 2 CHILDREN. ALSO C/O SPOTTING AND CRAMPING X 3 WEEKS. STATES FSBS HAVE BEEN HIGHER THAN NORMAL WELL HEENT Symptoms (Recalled from RN notes): No Resp Symptoms (Recalled from RN notes): No Skin Symptoms (Recalled from RN notes): Yes MS Symptoms (Recalled from RN notes): No Functional Status (Recalled from RN notes): WNL - History of Present Illness Provider Complaint: Patient state that she is a diabetic and has trouble healing with wounds at times State that she noticed on each side of her breast a small sore like area and she has been using over the counter Neosporin State that it has not healed and her FSBS has been a little elevated and she was worried they may have been infected so she came in wanting to have them checked and get on medication before the infection got worse States that she made appointment with OBGYN due to irregular spotting since giving 10 wks ago - Related Data Home Medications Medication Instructions Recorded Confirmed Insulin Lispro [HumaLOG 100 100 units SQ CONT 06/01/17 03/31/20 units/mL 3mL vial (SSI)] Vit,Calc76/Iron/Folic 1 each PO DAILY 09/21/17 03/31/20 [Prenatabs Rx Tablet] aspirin 81 mg tablet,delayed 81 mg PO DAILY 10/12/17 04/15/18 release heparin (porcine) 5,000 unit/mL (1 5,000 unit SQ TID 04/15/18 03/31/20 mL) injection cartridge metoclopramide HCl 10 mg tablet 10 mg PO Q6H 04/15/18 04/15/18 sertraline 50 mg tablet 50 mg PO DAILY 04/15/18 04/15/18 Ferrous Sulfate [Ferrous Sulfate 325 mg PO BID 03/31/20 03/31/20 325mg Tab] Previous Rx's Medication Instructions Recorded Azithromycin [Z-Jeison 250mg Tab*] 250 mg PO UD DOSE PK #6 tab 12/09/17 Azithromycin [Z-Jeison 250mg Tab*] 250 mg PO UD DOSE PK #6 tab 05/06/18 Fluconazole [Diflucan 150mg tab] 150 mg PO ONCE #1 tab 07/21/19 Ondansetron [Zofran 4mg ODT] 4 mg PO Q8HP PRN #10 tab.[place]ha
[2020-06-18 12:25] VITALS: BP 139/77; PULSE 78; RESP 20; TEMP 37.1; O2SAT 98
== END 2020-06-18 12:28 | disposition home or self-care (01) ==
PROVIDERS: Emergency Provider Nurse Practitioner; PCP Physician Assistant
DX: N64.9 Disorder of breast, unspecified (principal); E10.9 Type 1 diabetes mellitus without complications; K21.9 Gastro-esophageal reflux disease without esophagitis; Z79.4 Long term (current) use of insulin; Z88.0 Allergy status to penicillin; Z88.5 Allergy status to narcotic agent; Z91.040 Latex allergy status; Z79.899 Other long term (current) drug therapy
CPT/HCPCS: 99202; G0463

== ENCOUNTER 2020-07-06 20:48 | Emergency (ER) | payer MEDICAID, SELFPAY ==
[2020-07-06 20:56] VITALS: BP 119/75; PULSE 85; RESP 18; TEMP 37.2; O2SAT 99; BMI 24.9
--- NOTE | 2020-07-06 21:06 | HMH.EDUTC ---
[facility] [place] Disposition Clinical Impression: Pharyngitis Qualifiers: Pharyngitis/tonsillitis etiology: unspecified etiology Qualified Code(s): J02.9 - Acute pharyngitis, unspecified Disposition: Home, Self-Care Condition on Discharge: Good Instructions: Sore Throat, DI for Pharyngitis/Tonsillopharyngitis -- Adult Additional Instructions: Drink plenty of fluids. Take tylenol for pain or fever. Follow up with your regular doctor. GO TO THE ER FOR ANY WORSENING SYMPTOMS Prescriptions: Azithromycin [Z-Jeison 250mg Tab*] 250 mg PO UD DOSE PK #6 tab Transmission Status: Received by [id number] Referrals: Chuck Agudelo PA [Primary Care Provider] - Forms: Work/School Release Time of Disposition: 21:10 Medical Decision Making - Medical Records Medical records reviewed: No: I reviewed the patient's medical records. - Raz Inquiry Pt receiving controlled substance: No Vital Signs: 07/06/20 20:56 Temperature 99 F Temperature Source Oral Pulse Rate [Left] 85 Respiratory Rate 18 Blood Pressure [Right Arm] 119/75 Blood Pressure Mean [Right Arm] 89 Blood Pressure Source [Right Arm] Automatic Cuff Blood Pressure Position [Right Arm] Sitting 02 Sat by Pulse Oximetry 99 Oxygen Delivery Method Room Air - Lab Data Lab results reviewed: Yes: I reviewed the patient's lab results. Lab Results 07/06/20 21:05: Strep Scn Rapid Clinic Negative Orders (Tests/Meds): ORDERS Category Date Time Status Covid-19 Nasal PCR ([facility]) Routine Lab 07/06/20 21:05 Received Strep Screen Confirmation Stat Micro 07/06/20 21:05 Received [facility] [place] HPI - General Stated complaint: sore throat,body aches Time Seen by Provider: 07/06/20 21:06 Mode of Arrival: Ambulatory Source of Information: Patient Limitations: No Limitations Description of Symptoms (Recalled from Triage Doc. by RN): sore throat, body aches, OLIVEROS and chilling. HEENT Symptoms (Recalled from RN notes): Yes (sore throat and OLIVEROS) Resp Symptoms (Recalled from RN notes): No Skin Symptoms (Recalled from RN notes): No MS Symptoms (Recalled from RN notes): No Functional Status (Recalled from RN notes): body aches, chilling - History of Present Illness Provider Complaint: She states that she has had a sore throat for the past 1 day. She denies fever but she has been chilling. - Related Data Home Medications Medication Instructions Recorded Confirmed Insulin Lispro [HumaLOG 100 100 units SQ CONT 06/01/17 03/31/20 units/mL 3mL vial (SSI)] Vit,Calc76/Iron/Folic 1 each PO DAILY 09/21/17 03/31/20 [Prenatabs Rx Tablet] aspirin 81 mg tablet,delayed 81 mg PO DAILY 10/12/17 04/15/18 release heparin (porcine) 5,000 unit/mL (1 5,000 unit SQ TID 04/15/18 03/31/20 mL) injection cartridge metoclopramide HCl 10 mg tablet 10 mg PO Q6H 04/15/18 04/15/18 sertraline 50 mg tablet 50 mg PO DAILY 04/15/18 04/15/18 Ferrous Sulfate [Ferrous Sulfate 325 mg PO BID 03/31/20 03/31/20 325mg Tab] Previous Rx's Medication Instructions Recorded Azithromycin [Z-Jeison 250mg Tab*] 250 mg PO UD DOSE PK #6 tab 12/09/17 Azithromycin [Z-Jeison 250mg Tab*] 250 mg PO UD DOSE PK #6 tab 05/06/18 Fluconazole [Diflucan 150mg tab] 150 mg PO ONCE #1 tab 07/21/19 Ondansetron [Zofran 4mg ODT] 4 mg PO Q8HP PRN #10 tab.rapdis 07/21/19 Phenazopyridine HCl [Pyridium 200 pow PO TID #6 tab 07/21/19 200mg Tablet] Sulfamethoxazole/Trimethoprim 1 each PO BID 7 Days #14 tab 07/21/19 [Bactrim DS tablet] Mupirocin Calcium [Mupirocin 2% 1 applicatio TP TID 10 Days #1 tube 06/18/20 Cream 15gm] Azithromycin [Z-Jeison 250mg Tab*] 250 mg PO UD DOSE PK #6 tab 07/06/20 Allergies Allergy/AdvReac Type Severity Reaction Status Date / Time morphine Allergy Severe Chest Pain Verified 07/06/20 21:07 codeine [CODEINE] Allergy Unknown I-HIVES Verified 07/06/20 21:07 latex [LATEX] Allergy Unknown I-RASH Verified 07/06/20 21:07 Penicillins [PENICILLINS] Allergy Unk
[2020-07-06 21:09] LABS: UTC Strep Screen (Rapid) Negative (Negative)
[2020-07-06 21:12] VITALS: BP 117/72; PULSE 85; RESP 18; TEMP 37.2
== END 2020-07-06 21:13 | disposition home or self-care (01) ==
PROVIDERS: Emergency Provider Nurse Practitioner Family; PCP Physician Assistant
DX: J02.9 Acute pharyngitis, unspecified (principal); K21.9 Gastro-esophageal reflux disease without esophagitis; F41.9 Anxiety disorder, unspecified; E10.9 Type 1 diabetes mellitus without complications; Z88.5 Allergy status to narcotic agent; Z91.040 Latex allergy status; Z79.899 Other long term (current) drug therapy; Z88.0 Allergy status to penicillin
CPT/HCPCS: 87880; 99202; G0463; U0003

== ENCOUNTER → 2020-10-10 17:40 | Outpatient (CLI) | payer MEDICAID, SELFPAY | PROVIDERS: Visit Provider Nurse Practitioner Family | DX: Z20.822 Contact with and (suspected) exposure to COVID-19 (principal) | CPT/HCPCS: U0003 ==

== ENCOUNTER 2020-11-05 16:19 | Emergency (ER) | payer MEDICAID, SELFPAY ==
--- NOTE | 2020-11-05 17:02 | XR_ITS ---
PROCEDURE INFORMATION: Exam: XR Right Wrist Exam date and time: 11/05/2020 5:02 PM Age: 30 years old Clinical indication: Pain; Wrist; Right; Patient HX: Fall TECHNIQUE: Imaging protocol: XR Right wrist. Views: 3 or more views. COMPARISON: No relevant prior studies available. FINDINGS: Bones/joints: Bones appear intact and normally aligned with normal mineralization. No significant arthritic deformities. There are no lytic skeletal lesions seen. Soft tissues: Deep soft tissue swelling. No radiopaque foreign bodies. No pathologic soft tissue calcification. IMPRESSION: 1. No acute fracture or dislocation. 2. Deep soft tissue swelling, correlate for sprain or contusion.
[2020-11-05 17:15] VITALS: BP 131/86; PULSE 77; RESP 19; TEMP 37; O2SAT 98; BMI 25.7
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
[2020-11-05 17:43] VITALS: BP 131/86; PULSE 77; RESP 19; TEMP 37; O2SAT 98
== END 2020-11-05 17:54 | disposition home or self-care (01) ==
PROVIDERS: Emergency Provider Nurse Practitioner; PCP Physician Assistant
DX: S63.501A Unspecified sprain of right wrist, initial encounter (principal); W01.0XXA Fall on same level from slipping, tripping and stumbling without subsequent striking against object, initial encounter; Y92.480 Sidewalk as the place of occurrence of the external cause; E10.9 Type 1 diabetes mellitus without complications; F41.9 Anxiety disorder, unspecified; K21.9 Gastro-esophageal reflux disease without esophagitis; Z88.0 Allergy status to penicillin; Z88.5 Allergy status to narcotic agent; Z91.040 Latex allergy status
CPT/HCPCS: 29125; 73110; 99202; G0463

== ENCOUNTER 2020-11-17 10:15 | Emergency (ER) | payer MEDICAID, SELFPAY ==
[2020-11-17 10:49] VITALS: BP 104/74; PULSE 83; RESP 16; TEMP 36.6; O2SAT 98; BMI 25.7
[2020-11-17 10:58] LABS: Apearance,Urine Cloudy (Clear); Color,Urine Dark Yellow (Yellow)
[2020-11-17 10:59] LABS: Bilirubin,Urine 1+ (Negative); Blood, Urine Trace (Negative); Glucose,Urine (UA) Negative (Negative); Ketones,Urine TRACE (Negative); PH,Urine 5.5 (5.0-8.5); Protein,Urine 1+ (Negative); Specific Gravity, Urine > 1.030 (1.005-1.030); Urobilinogen,Urine 0.2 EU/dl (0.2)
[2020-11-17 11:00] LABS: UTC Leukocyte Esterase,Urine 1+ (Negative); UTC Nitrate,Urine Negative (Negative)
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
[2020-11-17 11:36] VITALS: BP 104/74; PULSE 83; RESP 18; TEMP 36.6
== END 2020-11-17 11:41 | disposition home or self-care (01) ==
PROVIDERS: Emergency Provider Nurse Practitioner Family; PCP Physician Assistant
DX: N30.00 Acute cystitis without hematuria (principal); B96.20 Unspecified Escherichia coli [E. coli] as the cause of diseases classified elsewhere; E10.9 Type 1 diabetes mellitus without complications; K21.9 Gastro-esophageal reflux disease without esophagitis; Z88.0 Allergy status to penicillin; Z88.5 Allergy status to narcotic agent; Z91.040 Latex allergy status
CPT/HCPCS: 81003; 87086; 87088; 87186; 99202; G0463

== ENCOUNTER 2020-12-22 20:30 | Emergency (ER) | payer MEDICAID, SELFPAY ==
[2020-12-22 20:54] VITALS: BP 116/66; PULSE 74; RESP 16; TEMP 36.7; O2SAT 100; BMI 25.7
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
[2020-12-22 21:18] LABS: Urine Pregnancy, HCG Qual. Negative (Negative)
[2020-12-22 22:31] VITALS: BP 110/75; PULSE 60; RESP 16; O2SAT 97
--- NOTE | 2020-12-22 22:40 | PC.NURSE ---
DR. OLIVARES IN TO SEE PATIENT.
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
[2020-12-22 23:09] VITALS: BP 110/75; PULSE 60; RESP 16; TEMP 36.7; O2SAT 97
== END 2020-12-22 23:10 | disposition home or self-care (01) ==
PROVIDERS: Emergency Provider Emergency Medicine; PCP Physician Assistant
DX: S06.0X0A Concussion without loss of consciousness, initial encounter (principal); S16.1XXA Strain of muscle, fascia and tendon at neck level, initial encounter; S20.219A Contusion of unspecified front wall of thorax, initial encounter; W17.89XA Other fall from one level to another, initial encounter; Y92.89 Other specified places as the place of occurrence of the external cause; K21.9 Gastro-esophageal reflux disease without esophagitis; E10.9 Type 1 diabetes mellitus without complications; Z88.0 Allergy status to penicillin; Z88.5 Allergy status to narcotic agent
CPT/HCPCS: 70450; 71045; 72125; 72170; 81025; 99282

== ENCOUNTER → 2021-01-01 10:49 | Outpatient (CLI) | payer MEDICAID, SELFPAY ==
--- NOTE | 2021-01-01 10:52 | US_ITS ---
PROCEDURE: US SOFT TISSUE HEAD AND NECK CLINICAL INDICATION: LYMPHADENOPATHY Patient states nodes swollen bilateral neck COMPARISON: CT CT CERVICAL SPINE WO CON from 12/22/2020 FINDINGS: Numerous sonographic images were obtained of the regions in question by the patient, demonstrating bilateral normal-sized lymph nodes. Limited images of the parotid and submandibular glands appear unremarkable. IMPRESSION: No evidence of lymphadenopathy in the neck. Dictated by: Jessica Rendon MD 01/02/2021 15:55 Jessica Rendon MD in [place] 01/02/2021 15:55
== END ==
PROVIDERS: PCP Physician Assistant; Visit Provider Physician Assistant
DX: R59.1 Generalized enlarged lymph nodes (principal)
CPT/HCPCS: 76536

== ENCOUNTER → 2021-01-10 20:07 | Outpatient (CLI) | payer MEDICAID, SELFPAY | PROVIDERS: Visit Provider Nurse Practitioner Family | DX: Z20.822 Contact with and (suspected) exposure to COVID-19 (principal); J02.9 Acute pharyngitis, unspecified | CPT/HCPCS: C9803; U0003; U0005 ==

== ENCOUNTER 2021-01-13 13:06 | Emergency (ER) | payer MEDICAID, SELFPAY ==
[2021-01-13 14:59] VITALS: BP 0/0; PULSE 0; RESP 0; TEMP -17.7; TEMP 0
== END 2021-01-13 15:00 | disposition left against medical advice (07) ==
LOC: UTC 13:07
PROVIDERS: Emergency Provider Nurse Practitioner Family; PCP Physician Assistant
DX: Z53.21 Procedure and treatment not carried out due to patient leaving prior to being seen by health care provider (principal)

== ENCOUNTER → 2021-01-13 13:15 | Outpatient (CLI) | payer MEDICAID, SELFPAY | PROVIDERS: PCP Physician Assistant; Visit Provider Nurse Practitioner Family | DX: Z20.822 Contact with and (suspected) exposure to COVID-19 (principal) | CPT/HCPCS: C9803; U0003; U0005 ==

== ENCOUNTER 2021-01-19 12:40 | Emergency (ER) | payer MEDICAID, SELFPAY ==
[2021-01-19 12:50] VITALS: BP 124/74; PULSE 64; RESP 19; TEMP 36.8; O2SAT 100; BMI 25.7
[2021-01-19 13:24] LABS: UTC Pregnancy Test, Urine Negative (Negative)
--- NOTE | 2021-01-19 13:25 | HMH.EDUTC ---
[facility] [place] Clinical Impression: Yeast infection of the vagina Disposition: Home, Self-Care Condition on Discharge: Good Instructions: DI for Vaginal Yeast Infection Additional Instructions: follow up with pcp if no improvement may need more testing if worsening return or be seen in ed Prescriptions: Mupirocin [Bactroban 2% Ointment 22gm tube] 1 applicatio TP BID 14 Days #1 gm Transmission Status: Pending to [id number] Fluconazole [Diflucan 150mg tab] 150 mg PO ONCE 1 Days #2 tab Transmission Status: Pending to [facility] Referrals: Chuck Agudelo PA [Primary Care Provider] - Time of Disposition: 13:44 Medical Decision Making - Raz Inquiry Pt receiving controlled substance: No Vital Signs: 01/19/21 12:50 Temperature 98.3 F Temperature Source Oral Pulse Rate [Right Brachial] 64 Respiratory Rate 19 Blood Pressure [Right Arm] 124/74 Blood Pressure Mean [Right Arm] 90 Blood Pressure Source [Right Arm] Automatic Cuff Blood Pressure Position [Right Arm] Sitting 02 Sat by Pulse Oximetry 100 Oxygen Delivery Method Room Air - Lab Data Lab Results 01/19/21 13:00: [facility]st Clinic Negative [facility] [place] - General Chief complaint: Urgent [facility] Stated complaint: possible yeast infection Time Seen by Provider: 01/19/21 13:25 Mode of Arrival: Ambulatory Source of Information: Patient Limitations: No Limitations Description of Symptoms (Recalled from Triage Doc. by RN): PATIENT C/O POSSIBLE YEAST INFECTION WITH SORES TO GENITAL AREA AND POSSIBLE HEENT Symptoms (Recalled from RN notes): No Resp Symptoms (Recalled from RN notes): No Skin Symptoms (Recalled from RN notes): No MS Symptoms (Recalled from RN notes): No Functional Status (Recalled from RN notes): WNL - History of Present Illness Provider Complaint: 30 yr old female presents for yeast infection and sores to vagina. pt states she could also be . pt states she is a dm and has freq yeast infections and this feels like her normal yeast infection - Related Data Home Medications Medication Instructions Recorded Confirmed Insulin Lispro [HumaLOG 100 100 units SQ CONT 06/01/17 01/10/21 units/mL 3mL vial (SSI)] aspirin 81 mg tablet,delayed 81 mg PO DAILY 10/12/17 01/10/21 release metoclopramide HCl 10 mg tablet 10 mg PO Q6H 04/15/18 01/10/21 sertraline 50 mg tablet 50 mg PO DAILY 04/15/18 01/10/21 Ferrous Sulfate [Ferrous Sulfate 325 mg PO BID 03/31/20 01/10/21 325mg Tab] enoxaparin 60 mg/0.6 mL 60 mg SQ DAILY 01/10/21 01/10/21 subcutaneous syringe Previous Rx's Medication Instructions Recorded azithromycin 250 mg tablet 250 mg PO QDAY 5 Days #6 tab 01/10/21 Fluconazole [Diflucan 150mg tab] 150 mg PO ONCE 1 Days #2 tab 01/19/21 Mupirocin [Bactroban 2% Ointment 1 applicatio TP BID 14 Days #1 gm 01/19/21 22gm tube] Allergies Allergy/AdvReac Type Severity Reaction Status Date / Time morphine Allergy Severe Chest Pain Verified 10/10/20 18:22 codeine [CODEINE] Allergy Unknown I-HIVES Verified 10/10/20 18:22 latex [LATEX] Allergy Unknown I-RASH Verified 10/10/20 18:22 Penicillins [PENICILLINS] Allergy Unknown I-HIVES Verified 10/10/20 18:22 - Worker's Comp Is this a Worker's Comp case?: No [facility] History - Hepatitis A Screen Drug use history?: No High risk sexual behaviors?: No History of sexually transmitted infection?: No Currently employed?: No Childcare worker?: No Do you have indoor plumbing?: Yes Do you have electricity?: Yes Attestation statement:: This patient has been screened for Hepatitis A risk factors. 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
[2021-01-19 13:40] VITALS: BP 124/74; PULSE 64; RESP 19; TEMP 36.8; O2SAT 100
== END 2021-01-19 13:45 | disposition home or self-care (01) ==
PROVIDERS: Emergency Provider Nurse Practitioner Family; PCP Physician Assistant
DX: B37.3 Candidiasis of vulva and vagina (principal); E10.9 Type 1 diabetes mellitus without complications; Z32.02 Encounter for pregnancy test, result negative; F41.9 Anxiety disorder, unspecified; K21.9 Gastro-esophageal reflux disease without esophagitis; Z88.0 Allergy status to penicillin; Z88.5 Allergy status to narcotic agent; Z79.4 Long term (current) use of insulin
CPT/HCPCS: 81025; 99202; G0463

== ENCOUNTER → 2021-01-22 13:55 | Outpatient (CLI) | payer MEDICAID, SELFPAY ==
--- NOTE | 2021-01-22 13:59 | XR_ITS ---
PROCEDURE: XR CHEST PORTABLE CLINICAL HISTORY: COVID TESTING The COMPARISON: CR CXR1 CHEST-PORTABLE from 05/25/2015 CR CXR CHEST(2 VIEWS-NOT PORTABLE) from 05/20/[address] angio chest from 06/02/2017 CR XR CHEST AP from 12/22/2020 FINDINGS: The cardiomediastinal silhouette and pulmonary vascularity are within normal limits. Lungs are clear. No acute bony findings. IMPRESSION: No acute findings. Dictated by: Bernabe Diana MD 01/22/2021 14:31 Bernabe Diana MD in [place] 01/22/2021 14:31
== END ==
PROVIDERS: PCP Physician Assistant; Visit Provider Physician Assistant
DX: R06.02 Shortness of breath (principal); R05.9 Cough, unspecified
CPT/HCPCS: 71045

== ENCOUNTER 2021-03-12 16:41 | Emergency (ER) | payer MEDICAID, SELFPAY ==
[2021-03-12 17:25] VITALS: BP 118/77; PULSE 71; RESP 20; TEMP 37; O2SAT 98; BMI 25.7
--- NOTE | 2021-03-12 17:52 | HMH.EDUTC ---
[facility] [place] Clinical Impression: UTI (urinary tract infection) Qualifiers: Urinary tract infection type: site unspecified Hematuria presence: without hematuria Qualified Code(s): N39.0 - Urinary tract infection, site not specified Disposition: Home, Self-Care Condition on Discharge: Good Instructions: DI for Urinary Tract Infection (UTI), Nitrofurantoin Additional Instructions: *Increase fluids. Water not Soda or Tea *Start antibiotic immediately and be sure to take as ordered for the FULL length of time although you should start to see improvement over the next 48 hours *Be SURE to follow up anytime for new or worsening symptoms with your family doctor. AND in 48 hours for urine culture results with your family doctor, if you do not have a doctor then you may call back to the [facility] for urine culture results and further treatment. We do recommend that you choose and establish care with a Primary Care Physician. AND follow up with them in 10-14 days to repeat UA to ensure infection is resolved and blood no longer present *Be sure to let your PCP know that we sent urine cultures from the [facility] so they can follow up to ensure that you area the on the correct antibiotic Call your doctor office and make appointment for 48 hours (2 days from today) to follow up and get the results of your urine culture and further treatment Prescriptions: Nitrofurantoin Monohyd/M-Cryst [Macrobid 100 mg Capsule] 100 mg PO BID 5 Days #10 cap Transmission Status: Pending to [id number] Referrals: Chuck Agudelo PA [Primary Care Provider] - As needed Time of Disposition: 18:02 Medical Decision Making - Raz Inquiry Pt receiving controlled substance: No Raz was queried for this patient: No Vital Signs: 03/12/21 17:25 Temperature 98.6 F Temperature Source Oral Pulse Rate [Right Brachial] 71 Respiratory Rate 20 Blood Pressure [Right Arm] 118/77 Blood Pressure Mean [Right Arm] 90 Blood Pressure Source [Right Arm] Automatic Cuff Blood Pressure Position [Right Arm] Sitting 02 Sat by Pulse Oximetry 98 Oxygen Delivery Method Room Air Medical Decision Narrative: Patient states that she has taken Macrobid in the past without reaction or complication Denies history of Kidney stones discussed about transfer to the ED and patient declined at this time and denies pain in abdomen [facility] [place] - General Stated complaint: Possible UTI,Back and stomach pain Time Seen by Provider: 03/12/21 17:52 Mode of Arrival: Ambulatory Source of Information: Patient Limitations: No Limitations Description of Symptoms (Recalled from Triage Doc. by RN): PATIENT C/O LOWER BACK AND LOWER ABDOMINAL PAIN HEENT Symptoms (Recalled from RN notes): No Resp Symptoms (Recalled from RN notes): No Skin Symptoms (Recalled from RN notes): No MS Symptoms (Recalled from RN notes): No Functional Status (Recalled from RN notes): WNL - History of Present Illness Provider Complaint: Patient states that she gets UTI's often and states that yesterday she notice she was having achy like pain in her right flank area State that feels like it does when she is getting a UTI State that she has taken otc AZO but still having the achy like pain like she gets with UTI and feeling of urgency and frequency States that she is a diabetic and wanted to come in and get treated before it got too bad - Related Data Home Medications Medication Instructions Recorded Confirmed Insulin Lispro [HumaLOG 100 100 units SQ CONT 06/01/17 01/28/21 units/mL 3mL vial (SSI)] aspirin 81 mg tablet,delayed 81 mg PO DAILY 10/12/17 01/28/21 release metoclopramide HCl 10 mg tablet 10 mg PO Q6H 04/15/18 01/28/21 sertraline 50 mg tablet 50 mg PO DAILY 04/15/18 01/28/21 Ferrous Sulfate [Ferrous Sulfate 325 mg PO BID 03/31/20 01/28/21 325mg Tab] enoxaparin 60 mg/0.6 mL 60 mg SQ DAILY 01/10/21 01/28/21 subcutaneous syringe Previous Rx's Medication Instructions Recorded Ramiro
[2021-03-12 18:06] VITALS: BP 118/77; PULSE 71; RESP 20; TEMP 37; O2SAT 98
[2021-03-12 19:41] LABS: Apearance,Urine Clear (Clear); Blood, Urine Negative (Negative); Color,Urine Dark Yellow (Yellow); Glucose,Urine (UA) Negative (Negative); Ketones,Urine Negative (Negative); PH,Urine 6.5 (5.0-8.5); Protein,Urine Negative (Negative); Specific Gravity, Urine >= 1.030 (1.005-1.030)
[2021-03-12 19:42] LABS: Bilirubin,Urine Negative (Negative); UTC Leukocyte Esterase,Urine Negative (Negative); UTC Nitrate,Urine Negative (Negative); Urobilinogen,Urine 1 EU/dl (0.2)
== END 2021-03-12 18:13 | disposition home or self-care (01) ==
PROVIDERS: Emergency Provider Nurse Practitioner; PCP Physician Assistant
DX: N39.0 Urinary tract infection, site not specified (principal); B02.9 Zoster without complications; Z88.0 Allergy status to penicillin; Z88.5 Allergy status to narcotic agent
CPT/HCPCS: 81003; 99202; G0463

== ENCOUNTER 2021-03-20 20:18 | Emergency (ER) | payer MEDICAID, SELFPAY ==
[2021-03-20 20:32] VITALS: BP 149/85; PULSE 80; RESP 16; TEMP 36.8; O2SAT 98; BMI 25.7
--- NOTE | 2021-03-20 20:56 | HMH.EDUTC ---
[facility] [place] Clinical Impression: Exposure to COVID-19 virus Disposition: Home, Self-Care Condition on Discharge: Good Instructions: DI for COVID-19 (Suspected or Confirmed ), Preventing the Spread of Coronavirus Discharge Instructions Additional Instructions: *Monitor Temp, Over the counter Motrin or Tylenol as directed/as needed Tylenol every 4 hours and Motrin every 6 hours (as long as your family doctor has told you that you can take it) for fever or pain. and straight to ER if unable to lower temp less than 101.0 after medication given *Warm salt water gargles may help to soothe the throat *Throat Lozenges *Warm fluids like tea with honey may help to soothe the throat *Sleep elevated *Humidifier/Vaporizer Follow up IMMEDIATELY for new or worsening symptoms or no Noticeable improvement over the next 48-72 hours. 911 for difficulty breathing or swallowing You were tested for today for COVID19 your test result should be back in the next 24-48 hours, you may check your results on the [facility] if you have trouble logging on you may call support to help you You was given a handout with instructions for Self Quarantine and Self isolation for while you wait on test results and what to do if they are positive If you are positive the Health Dept will be contacting you also Make sure to take your Vitamins Vit. C Vit D and Zinc if you can take them Referrals: Provider,Referral, [Primary Care Provider] - As needed Time of Disposition: 21:07 Medical Decision Making - Raz Inquiry Pt receiving controlled substance: No Raz was queried for this patient: No Vital Signs: 03/20/21 20:32 Temperature 98.3 F Temperature Source Temporal Artery Scan Pulse Rate [Left] 80 Respiratory Rate 16 Blood Pressure [Right Arm] 149/85 H Blood Pressure Mean [Right Arm] 106 02 Sat by Pulse Oximetry 98 - Lab Data Lab results reviewed: Yes: I reviewed the patient's lab results. Orders (Tests/Meds): ORDERS Category Date Time Status Covid-19 Nasal PCR ([facility]) Routine Lab 03/20/21 20:40 Received Medical Decision Narrative: Patient also requesting urine state that she was recently treated for shingles and UTI and still having some achy like feeling in her right side of back but rash is now gone [facility] [place] HPI - General Stated complaint: COVID TEST, WITH BODY ACHES,DIARRHEA EXPOSED Time Seen by Provider: 03/20/21 21:04 Mode of Arrival: Ambulatory Source of Information: Patient Limitations: No Limitations Description of Symptoms (Recalled from Triage Doc. by RN): pt states she was exposed to covid three days ago. pt c/o a OLIVEROS and body aches. HEENT Symptoms (Recalled from RN notes): Yes Resp Symptoms (Recalled from RN notes): No Skin Symptoms (Recalled from RN notes): No MS Symptoms (Recalled from RN notes): No Functional Status (Recalled from RN notes): wnl - History of Present Illness Provider Complaint: Patient state that she was around someone about 3 days ago that has since tested positive for COVID state that she is having body aches, headache and fatigue States that she was worried and wanted to get tested for COVID - Related Data Home Medications Medication Instructions Recorded Confirmed Insulin Lispro [HumaLOG 100 100 units SQ CONT 06/01/17 01/28/21 units/mL 3mL vial (SSI)] aspirin 81 mg tablet,delayed 81 mg PO DAILY 10/12/17 01/28/21 release metoclopramide HCl 10 mg tablet 10 mg PO Q6H 04/15/18 01/28/21 sertraline 50 mg tablet 50 mg PO DAILY 04/15/18 01/28/21 Ferrous Sulfate [Ferrous Sulfate 325 mg PO BID 03/31/20 01/28/21 325mg Tab] enoxaparin 60 mg/0.6 mL 60 mg SQ DAILY 01/10/21 01/28/21 subcutaneous syringe Previous Rx's Medication Instructions Recorded Fluconazole [Diflucan 150mg tab] 150 mg PO ONCE 1 Days #2 tab 01/19/21 Mupirocin [Bactroban 2% Ointment 1 applicatio TP BID 14 Days #1 gm 01/19/21 22gm tube] Acyclovir 800 mg PO 5XDAY 7 Days #35
[2021-03-20 20:57] VITALS: BP 149/85; PULSE 80; RESP 16; TEMP 36.8
[2021-03-20 21:01] LABS: UTC Pregnancy Test, Urine Negative (Negative)
[2021-03-20 21:02] LABS: Apearance,Urine Clear (Clear); Color,Urine Dark Yellow (Yellow)
[2021-03-20 21:03] LABS: Bilirubin,Urine Negative (Negative); Blood, Urine Trace (Negative); Glucose,Urine (UA) Negative (Negative); Ketones,Urine Negative (Negative); Protein,Urine Trace (Negative); UTC Leukocyte Esterase,Urine Negative (Negative); UTC Nitrate,Urine Negative (Negative); Urobilinogen,Urine 0.2 EU/dl (0.2)
== END 2021-03-20 21:20 | disposition home or self-care (01) ==
PROVIDERS: Emergency Provider Nurse Practitioner
DX: U07.1 COVID-19 (principal); N39.0 Urinary tract infection, site not specified; B02.9 Zoster without complications; F41.9 Anxiety disorder, unspecified; K21.9 Gastro-esophageal reflux disease without esophagitis; Z88.0 Allergy status to penicillin
CPT/HCPCS: 81003; 81025; 99203; C9803; G0463; U0003; U0005

== ENCOUNTER 2021-03-24 21:53 | Emergency (ER) | payer MEDICAID, SELFPAY ==
[2021-03-24 21:54] VITALS: BP 126/75; PULSE 104; RESP 16; TEMP 37.4; O2SAT 95; BMI 25.7
[2021-03-24 22:00] VITALS: BP 107/73; RESP 15; O2SAT 97
--- NOTE | 2021-03-24 22:02 | XR_ITS ---
PROCEDURE INFORMATION: Exam: XR Chest Exam date and time: 03/24/2021 10:02 PM Age: 30 years old Clinical indication: Pain; Fever and shortness of breath; Chest pressure; Patient HX: PT C/O fever, c. P. , SOB; Additional info: Chest pain with inspiration TECHNIQUE: Imaging protocol: XR of the chest. Views: 2 views. Total images: 2 COMPARISON: CR XR CHEST PORTABLE 01/22/2021 2:06 PM FINDINGS: Lungs: Mild peribronchial thickening and perihilar stranding suggesting possible bronchitis. Normal pulmonary expansion. Pulmonary vasculature grossly normal. No gross pulmonary infiltrates. Pleural spaces: No pleural effusion. No pneumothorax. Heart/Mediastinum: Heart size normal. No tracheal/mediastinal shift. Bones/joints: No acute osseous abnormalities are identified. IMPRESSION: Mild peribronchial thickening and perihilar stranding suggesting possible bronchitis. No gross pulmonary infiltrates.
--- NOTE | 2021-03-24 22:02 | ECG_ITS ---
APPROVED REPORT Exam: Resting ECG HR:101 bpm ECG Measurements Heart Rate 101 AXES ME 126 P 43 QRSd 74 QRS 18 QT 344 T 27 QTc 446 Conclusion Sinus tachycardia Otherwise normal ECG Electronically signed by : Rao Olson MD 03/26/2021 19:59:12
--- NOTE | 2021-03-24 22:06 | HMH.EDGENADL ---
ED Disposition Clinical Impression: COVID-19, Viral infection Disposition: Home, Self-Care Condition on Discharge: Good Additional Instructions: Please follow-up with your primary care provider, it is very important to continue to take your Lovenox shots at home. Referrals: Provider,Referral, [Primary Care Provider] - - Critical Care Critical Care Time: No Attestation: On , the high probability of a clinically significant, sudden or life threatening deterioration of the following system(s) required my full and direct attention, intervention and personal management. The time I documented below is in addition to time spent performing reported procedures but includes the following listed in this critical care notation. Medical Decision Making - Medical Records Medical records reviewed: Yes: I reviewed the patient's medical records. - Raz Inquiry Pt receiving controlled substance: No Vital Signs: 03/24/21 21:54 03/24/21 22:00 03/24/21 22:37 Temperature 99.3 F Temperature Source Oral Pulse Rate [Right Brachial] 104 H Respiratory Rate 16 15 25 H Blood Pressure 107/73 L 123/60 Blood Pressure [Right Arm] 126/75 Blood Pressure Mean [Right Arm] 92 Blood Pressure Source [Right Arm] Automatic Cuff Blood Pressure Position [Right Arm] Sitting 02 Sat by Pulse Oximetry 95 97 96 Oxygen Delivery Method Room Air Room Air Room Air - Lab Data Lab Results 03/24/21 21:55: SARS-CoV-2 (PCR) Detected A, Influenza A Untype (PCR) Not detected, Influenza Type B (PCR) Not detected 03/24/21 21:57: WBC 6.0, RBC 4.68, Hgb 12.9, Hct 40.6, MCV 86.7, MCH 27.5, MCHC 31.7 L, RDW 14.3, Plt Count 225, MPV 8.2, Neut % (Auto) 80.1 H, Lymph % (Auto) 9.3 L, [place] % (Auto) 8.5, Eos % (Auto) 0.7, Baso % (Auto) 1.3, Neut # (Auto) 4.8, Lymph # (Auto) 0.6 L, [place] # (Auto) 0.5, Eos # (Auto) 0.0, Baso # (Auto) 0.1 03/24/21 21:57: Sodium 137, Potassium 3.5, Chloride 102, Carbon Dioxide 26, Anion Gap 12.5, BUN 9, Creatinine 0.80, Estimated Creat Clear 111, Estimated GFR 85, Est GFR ( Amer) 103, Glucose 107 H, Calcium 9.4, Total Bilirubin 0.4, AST 45 H, ALT 31, Alkaline Phosphatase 113, Troponin I < 0.01, Total Protein 7.8, Albumin 4.9, Globulin 2.9, Albumin/Globulin Ratio 1.7 03/24/21 21:57: D-Dimer 0.82 H 03/24/21 21:57: Serum HCG, Qual Negative 03/24/21 22:16: Urine HCG, Qual Negative Result diagrams: 03/24/21 21:57 03/24/21 21:57 Orders (Tests/Meds): ED MEDICATIONS Discontinued Medications Generic Name Dose Route Start Last Admin Trade Name Freq PRN Reason Stop Dose Admin Iopamidol 70 ml 03/24/21 23:35 03/24/21 23:37 Iopamidol-370 (76%);100ml Bottle IV 03/24/21 23:36 70 ml ONCE ONE Administration Sodium Chloride 50 ml 03/24/21 23:35 03/24/21 23:36 0.9 % Sodium Chloride 50 Ml Vial IV 03/24/21 23:36 40 ml ONCE ONE Administration Sodium Chloride 10 ml 03/24/21 23:35 03/24/21 23:36 Sodium Chloride 0.9% 10ml Syr (Rad Only) IV 03/24/21 23:36 10 ml ONCE ONE Administration ORDERS Category Date Time Status Troponin I Q3H Lab 03/25/21 01:15 Ordered Troponin I Q3H Lab 03/25/21 04:15 Ordered Medical Decision Narrative: Patient is a 30-year-old female presents to the ED today for evaluation of atypical chest pain, shortness of breath, viral syndrome symptoms. Patient is well-appearing the nurse evaluation, initial vital signs showed mild tachycardia, patient with no hypoxia, no hypotension. Will further evaluate with CBC, CMP, troponin, EKG, chest x-ray, D-dimer, COVID-19 test. Patient is already on anticoagulation with Lovenox, however is at very high risk for DVT PE especially since she has had DVT and PE on Lovenox. D-dimer elevated, unable to rule out PE of the years criteria or age-adjusted D-dimer, given this we will obtain a CT image, patient has consented to this. CT image independently reviewed and interpreted with no evidence of pulmonary embolism. No evidence
[2021-03-24 22:09] LABS: Influenza A, PCR Not Detected (NotDetected); Influenza B, PCR Not Detected (NotDetected)
[2021-03-24 22:21] LABS: Basophils # 0.1 K/mm3 (0-0.2); Basophils % 1.3 % (0.1-2.0); Eosinophils % 0.7 % (0.1-12.0); Hematocrit 40.6 % (37.0-47.0); Hemoglobin 12.9 g/dL (12.2-16.2); Lymphocytes # 0.6 K/mm3 (0.7-4.5); Lymphocytes % 9.3 % (10-50); Mean Corpuscular HGB Conc 31.7 g/dL (31.8-35.4); Mean Corpuscular Hemoglobin 27.5 pg (27.0-31.2); Mean Corpuscular Volume 86.7 fl (81-99); Mean Platelet Volume 8.2 fl (7.4-10.4); Monocytes # 0.5 K/mm3 (0.1-1.0); Monocytes % 8.5 % (1.7-9.3); Neutrophils # 4.8 K/mm3 (1.8-7.8); Neutrophils % 80.1 % (37.0-80.0); Platelet Count 225 K/mm3 (142-424); Red Blood Count 4.68 M/mm3 (4.20-5.40); Red Cell Distribution Width 14.3 % (11.5-17.5)
[2021-03-24 22:23] LABS: Alanine Aminotransferase 31 U/L (12-78); Albumin Level 4.9 g/dl (3.5-5.0); Albumin/Globulin Ratio 1.7 (1.1-1.8); Alkaline Phosphatase 113 U/L (38-126); Anion Gap 12.5 mEq/L (5-15); Aspartate Amino Transferase 45 U/L (14-36); Bilirubin,Total 0.4 mg/dl (0.2-1.3); Blood Urea Nitrogen 9 mg/dl (7-17); Calcium 9.4 mg/dl (8.4-10.2); Carbon Dioxide 26 mmol/L (22.0-30.0); Chloride 102 mmol/L (98-107); Creatinine Clearance Estimated 111 mL/min (50-200); Estimated Glomerular Filt Rate 85 ml/min (>60); GFR (African American) 103 ML/MIN (>60); Globulin 2.9 g/dL (1.3-3.2); Glucose 107 mg/dl (74-100); Potassium 3.5 mmoL/L (3.5-5.1); Sodium 137 mmol/L (136-145); Total Protein,Serum 7.8 g/dl (6.3-8.2)
[2021-03-24 22:28] LABS: D-Dimer 0.82 ug/mL (0.0-0.5)
[2021-03-24 22:37] VITALS: BP 123/60; RESP 25; O2SAT 96
[2021-03-24 22:38] LABS: Coronavirus 19, PCR Detected (NotDetected)
[2021-03-24 22:38] LABS: Troponin I < 0.01 ng/ml (0.00-0.034)
--- NOTE | 2021-03-24 22:43 | CT_ITS ---
PROCEDURE INFORMATION: Exam: CTA Chest With Contrast Exam date and time: 03/24/2021 10:43 PM Age: 30 years old Clinical indication: Fever and shortness of breath; Patient HX: Covid , fever, SOB, c. P. ; Additional info: High dimer, HX of protein CS deficiency TECHNIQUE: Imaging protocol: Computed tomographic angiography of the chest with contrast. 3D rendering (Not supervised by radiologist): MIP and/or 3D reconstructed images were created by the technologist. Total images: 286 Radiation optimization: All CT scans at this facility use at least one of these dose optimization techniques: automated exposure control; mA and/or kV adjustment per patient size (includes targeted exams where dose is matched to clinical indication); or iterative reconstruction. Contrast material: ISOVUE 370; Contrast volume: 70 ml; Contrast route: INTRAVENOUS (IV); COMPARISON: [facility] CT angio chest 06/02/2017 11:47 PM FINDINGS: Pulmonary arteries: The pulmonary arteries enhance appropriately with no evidence of pulmonary embolism. Aorta: The aorta enhances appropriately without evidence of dissection or aneurysm. No mediastinal hematoma. Soft tissue density in the anterior mediastinum without mass effect, consistent with normal thymic tissue in this age group. Thyroid: The visualized thyroid gland demonstrates no gross abnormality. Lungs: No acute tracheobronchial abnormalities. No gross pulmonary infiltrates or edema pattern. Mild atelectasis in the lung bases. Granulomatous calcification in the posterolateral left pulmonary apex unchanged. No pulmonary mass lesions are identified. Pleural spaces: No pleural effusion. No pneumothorax. Heart: Heart size normal. No pericardial effusion. Mediastinal space: The esophagus is largely contracted but demonstrates no gross abnormality. Lymph nodes: No supraclavicular or axillary adenopathy. No mediastinal or hilar adenopathy. Liver: 2.1 x 1.9 cm indeterminate slightly hyperdense or hyperenhancing lesion in the right hepatic lobe on series 5, image 84. Nonemergent evaluation with multiphasic pre and postcontrast MRI of the liver recommended. Gallbladder and bile ducts: Prior cholecystectomy. Bones/joints: No acute osseous abnormalities are identified. Soft tissues: The soft tissues of the chest wall demonstrate no acute abnormality. IMPRESSION: 1. No evidence of pulmonary embolism or aortic dissection. No acute intrathoracic process is identified. 2. 2.1 x 1.9 cm indeterminate lesion in the right hepatic lobe. Recommend nonemergent evaluation with multiphasic pre and postcontrast MRI of the liver. 3. Additional nonemergent findings detailed above.
--- NOTE | 2021-03-24 22:46 | PC.NURSE ---
call placed to [facility] for notification of ct chest. requested preg test. serum added.
[2021-03-24 23:04] LABS: Urine Pregnancy, HCG Qual. Negative (Negative)
[2021-03-24 23:06] LABS: HCG Qualitative, Serum Negative (Negative)
[2021-03-24 23:37] VITALS: BP 111/69; PULSE 96; RESP 29; O2SAT 100
[2021-03-25] VITALS: BP 115/74; PULSE 100; RESP 18; O2SAT 98
[2021-03-25 00:25] VITALS: BP 113/74; PULSE 97; RESP 16; TEMP 36.7; O2SAT 99
== END 2021-03-25 00:30 | disposition home or self-care (01) ==
PROVIDERS: Emergency Provider Student in an Organized Health Care Education/Training Program
DX: U07.1 COVID-19 (principal); K21.9 Gastro-esophageal reflux disease without esophagitis; F41.9 Anxiety disorder, unspecified; E10.9 Type 1 diabetes mellitus without complications; Z88.0 Allergy status to penicillin; Z88.5 Allergy status to narcotic agent; Z91.040 Latex allergy status; Z86.718 Personal history of other venous thrombosis and embolism; Z79.01 Long term (current) use of anticoagulants
CPT/HCPCS: 71046; 71275; 80053; 81025; 84484; 84703; 85025; 85378; 93005; 96372; 99283; C9803; Q9967; U0003; U0005

== ENCOUNTER 2021-06-18 16:39 | Emergency (ER) | payer MEDICAID, SELFPAY ==
[2021-06-18 18:00] VITALS: BP 127/86; PULSE 86; RESP 22; TEMP 37; O2SAT 100; BMI 26.5
--- NOTE | 2021-06-18 19:09 | HMH.EDUTC ---
[facility] [place]: Follicul[place] Disposition: Home, Self-Care Condition on Discharge: Good Instructions: DI for Folliculitis Additional Instructions: Continue the antibiotics that were prescribed by your telemedicine visit. Follow up with your primary care physician. GO TO THE ER FOR ANY WORSENING SYMPTOMS OR CONCERNS Referrals: Chuck Agudelo PA [Primary Care Provider] - Time of Disposition: 19:26 Medical Decision Making - Medical Records Medical records reviewed: No: I reviewed the patient's medical records. - Raz Inquiry Pt receiving controlled substance: No Vital Signs: 06/18/21 18:00 06/18/21 19:24 Temperature 98.6 F 98.6 F Temperature Source Oral Pulse Rate 86 Pulse Rate [Right Brachial] 86 Respiratory Rate 22 22 Blood Pressure 127/86 Blood Pressure [Right Arm] 127/86 Blood Pressure Mean [Right Arm] 99 Blood Pressure Source [Right Arm] Automatic Cuff Blood Pressure Position [Right Arm] Sitting 02 Sat by Pulse Oximetry 100 Oxygen Delivery Method Room Air Orders (Tests/Meds): ORDERS Category Date Time Status Wound Culture and Gram Stain Stat Micro 06/18/21 19:27 [place]dered [facility] [place] - General Stated complaint: sores R arm & chest Time Seen by Provider: 06/18/21 18:30 Mode of Arrival: Ambulatory Source of Information: Patient Limitations: No Limitations Description of Symptoms (Recalled from Triage Doc. by RN): PATEINT C/O RASH TO RIGHT SHOULDER AND CHEST X 1 WEEK HEENT Symptoms (Recalled from RN notes): No Resp Symptoms (Recalled from RN notes): No Skin Symptoms (Recalled from RN notes): Yes MS Symptoms (Recalled from RN notes): No Functional Status (Recalled from RN notes): WNL - History of Present Illness Provider Complaint: She states that she has had multiple scabbed wounds on her right upper arm. She denies any known injury. She did a telemedicine call last night with her pcp and was started on mupirocin and bactrim. She is a type 1 diabetic. She denies any fever or chills. - Related Data Home Medications Medication Instructions Recorded Confirmed Insulin Lispro [HumaLOG 100 100 units SQ CONT 06/01/17 01/28/21 units/mL 3mL vial (SSI)] aspirin 81 mg tablet,delayed 81 mg PO DAILY 10/12/17 01/28/21 release metoclopramide HCl 10 mg tablet 10 mg PO Q6H 04/15/18 01/28/21 sertraline 50 mg tablet 50 mg PO DAILY 04/15/18 01/28/21 Ferrous Sulfate [Ferrous Sulfate 325 mg PO BID 03/31/20 01/28/21 325mg Tab] enoxaparin 60 mg/0.6 mL 60 mg SQ DAILY 01/10/21 01/28/21 subcutaneous syringe Previous Rx's Medication Instructions Recorded Fluconazole [Diflucan 150mg tab] 150 mg PO ONCE 1 Days #2 tab 01/19/21 Mupirocin [Bactroban 2% Ointment 1 applicatio TP BID 14 Days #1 gm 01/19/21 22gm tube] Acyclovir 800 mg PO 5XDAY 7 Days #35 tab 03/12/21 Nitrofurantoin Monohyd/M-Cryst 100 mg PO BID 5 Days #10 cap 03/12/21 [Macrobid 100 mg Capsule] Enoxaparin Sodium [Lovenox 60 mg SQ DAILY #20 ml 03/25/21 60mg/0.6mL syringe] Allergies Allergy/AdvReac Type Severity Reaction Status Date / Time morphine Allergy Severe Chest Pain Verified 01/28/21 17:22 codeine [CODEINE] Allergy Unknown I-HIVES Verified 01/28/21 17:22 latex [LATEX] Allergy Unknown I-RASH Verified 01/28/21 17:22 Penicillins [PENICILLINS] Allergy Unknown I-HIVES Verified 01/28/21 17:22 - Worker's Comp Is this a Worker's Comp case?: No [facility] History - Hepatitis A Screen Drug use history?: No High risk sexual behaviors?: No History of sexually transmitted infection?: No Currently employed?: No Childcare worker?: No Do you have indoor plumbing?: Yes Do you have electricity?: Yes Attestation statement:: This patient has been screened for Hepatitis A risk factors. I have reviewed the patient's past medical history: Yes Medical History: Reports:: Anxiety, Diabetes Mellitus Type 1, Gastroesophageal Reflux Disease(GERD) Denies:: Cancer, D
[2021-06-18 19:24] VITALS: BP 127/86; PULSE 86; RESP 22; TEMP 37; O2SAT 100
== END 2021-06-18 19:40 | disposition home or self-care (01) ==
PROVIDERS: Emergency Provider Nurse Practitioner Family; PCP Physician Assistant
DX: L02.421 Furuncle of right axilla (principal); L02.223 Furuncle of chest wall; E10.9 Type 1 diabetes mellitus without complications; K21.9 Gastro-esophageal reflux disease without esophagitis; F41.9 Anxiety disorder, unspecified; Z88.0 Allergy status to penicillin; Z79.899 Other long term (current) drug therapy
CPT/HCPCS: 87070; 87205; 99212; G0463

== ENCOUNTER → 2021-07-31 14:31 | Outpatient (CLI) | payer MEDICAID, SELFPAY ==
--- NOTE | 2021-07-31 14:38 | XR_ITS ---
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 Views: 4 or 5 views. COMPARISON: CR XR PELVIS 1-2V 12/22/2020 9:57 PM FINDINGS: Bones/joints: There is a normal count of 5 [id number] lumbar type vertebrae. Minimal roto levo scoliotic curvature in the lumbar spine. No evidence of spondylolysis. No acute fracture or listhesis. Minimal posterior disc space narrowing throughout. Very minimal anterior spondylosis L3-L4 . No significant arthritic deformities. Visualized pelvic bones are unremarkable. Soft tissues: No acute findings in the paraspinous soft tissues. Intraperitoneal space: A surgical clip projected over the right upper quadrant, correlate for cholecystectomy. Other findings: Electronic devices projected over the left lower pelvis. IMPRESSION: 1. No acute findings. No fracture or listhesis. 2. Minimal rotolevoscoliotic lumbar curvature, which could be chronic versus muscle spasm. Minimal degenerative changes. 3. Additional nonemergency and chronic findings as above.
== END ==
PROVIDERS: PCP Physician Assistant; Visit Provider Physician Assistant
DX: M54.42 Lumbago with sciatica, left side (principal); G89.29 Other chronic pain
CPT/HCPCS: 72110

== ENCOUNTER → 2021-08-23 13:43 | Outpatient (CLI) | payer MEDICAID, SELFPAY ==
--- NOTE | 2021-08-23 13:46 | US_ITS ---
FINAL REPORT TECHNIQUE: Ultrasound images of the kidneys and bladder were obtained. CLINICAL HISTORY: HEMATURIA FINDINGS: The right kidney measures 11.9 cm in length. It is normal in echogenicity. There is no hydronephrosis. The left kidney measures 11.0 cm in length. It is normal in echogenicity. There is no hydronephrosis. There is borderline splenomegaly measuring 12.7 cm. IMPRESSION: Borderline splenomegaly. Reviewed, Interpreted and Dictated by Joe Hankins III, MD Transcribed by Anne Huggins Authenticated and [facility]
== END ==
PROVIDERS: PCP Physician Assistant; Visit Provider Internal Medicine
DX: R31.9 Hematuria, unspecified (principal)
CPT/HCPCS: 76770

== ENCOUNTER 2021-08-30 16:07 | Emergency (ER) | payer MEDICAID, SELFPAY ==
[2021-08-30 16:20] VITALS: BP 122/74; PULSE 80; RESP 18; TEMP 36.9; O2SAT 97; BMI 25.7
--- NOTE | 2021-08-30 16:53 | HMH.EDUTC ---
[facility] [place] Disposition Clinical Impression: Exposure to COVID-19 virus, Viral upper respiratory infection Disposition: Home, Self-Care Condition on Discharge: Good Instructions: Sore Throat, DI for COVID-19 (Suspected or Confirmed ), Preventing the Spread of Coronavirus Discharge Instructions Additional Instructions: *Monitor Temp, Over the counter Motrin or Tylenol as directed/as needed Tylenol every 4 hours and Motrin every 6 hours (as long as your family doctor has told you that you can take it) for fever or pain. and straight to ER if unable to lower temp less than 101.0 after medication given *Warm salt water gargles may help to soothe the throat *Throat Lozenges *Warm fluids like tea with honey may help to soothe the throat *Sleep elevated *Humidifier/Vaporizer Your throat swab was sent for culture. Those results are typically sent to your primary care. Be sure to follow up in 2-3 days with your family doctor/primary care physician if no improvement so they can review those result and treat if necessary. If you don?t have a primary care doctor, I recommend you get one but in the mean time, you will have to return to a walk in clinic Follow up IMMEDIATELY for new or worsening symptoms or no Noticeable improvement over the next 48-72 hours. 911 for difficulty breathing or swallowing You were tested for today for COVID19 your test result should be back in the next 24-48 hours, you may check your results on the [facility] my Health Portal Make sure to take your Vitamins Vit. C Vit D and Zinc if you can take them Referrals: Provider,Referral, [Primary Care Provider] - As needed Time of Disposition: 16:56 Medical Decision Making - Raz Inquiry Pt receiving controlled substance: No Raz was queried for this patient: No Vital Signs: 08/30/21 16:20 Temperature 98.5 F Temperature Source Oral Pulse Rate [Left Brachial] 80 Respiratory Rate 18 Blood Pressure [Left Arm] 122/74 Blood Pressure Mean [Left Arm] 90 Blood Pressure Source [Left Arm] Automatic Cuff Blood Pressure Position [Left Arm] Sitting 02 Sat by Pulse Oximetry 97 Oxygen Delivery Method Room Air - Lab Data Lab results reviewed: Yes: I reviewed the patient's lab results. Lab Results 08/30/21 16:25: Group A Strep Rapid Negative Orders (Tests/Meds): ORDERS Category Date Time Status Covid-19 Nasal PCR ([facility]) Routine Lab 08/30/21 16:25 Received Strep Screen Confirmation Stat Micro 08/30/21 16:25 Received [facility] UTC HPI - General Stated complaint: FEVER SORE THROAT BODY ACHES RUNNY NOSE Time Seen by Provider: 08/30/21 16:53 Mode of Arrival: Ambulatory Source of Information: Patient Limitations: No Limitations Description of Symptoms (Recalled from Triage Doc. by RN): PATIENT C/O SORE THROAT, RUNNY NOSE, BODY ACHES, AND FEVER. RECENTLY EXPOSED TO COVID HEENT Symptoms (Recalled from RN notes): Yes Resp Symptoms (Recalled from RN notes): No Skin Symptoms (Recalled from RN notes): No MS Symptoms (Recalled from RN notes): No Functional Status (Recalled from RN notes): WNL - History of Present Illness Provider Complaint: Patient states that she was recently around someone that tested positive for COVID States that yesterday she started having symptoms States that she is having sorethroat, bodyaches, chills and headache States that she came in today wanted to get checked for COVID and strep throat - Related Data Home Medications Medication Instructions Recorded Confirmed Insulin Lispro [HumaLOG 100 100 units SQ CONT 06/01/17 01/28/21 units/mL 3mL vial (SSI)] aspirin 81 mg tablet,delayed 81 mg PO DAILY 10/12/17 01/28/21 release metoclopramide HCl 10 mg tablet 10 mg PO Q6H 04/15/18 01/28/21 sertraline 50 mg tablet 50 mg PO DAILY 04/15/18 01/28/21 Ferrous Sulfate [Ferrous Sulfate 325 mg PO BID 03/31/20 01/28/21 325mg Tab] enoxaparin 60 mg/0.6 mL 60 mg SQ DAILY 01/10/21 01/28/21 subcutaneous syringe Previous Rx's [facility]
[2021-08-30 16:54] LABS: Strep Scrn Group A (Rapid) Negative (Negative)
[2021-08-30 17:03] VITALS: BP 122/74; PULSE 80; RESP 18; TEMP 36.9; O2SAT 97
== END 2021-08-30 17:09 | disposition home or self-care (01) ==
PROVIDERS: Emergency Provider Nurse Practitioner
DX: U07.1 COVID-19; R50.9 Fever, unspecified; J02.9 Acute pharyngitis, unspecified; R09.89 Other specified symptoms and signs involving the circulatory and respiratory systems
CPT/HCPCS: 87430; 99212; C9803; G0463; U0003; U0005

== ENCOUNTER 2021-09-08 15:18 | Emergency (ER) | payer MEDICAID, SELFPAY ==
--- NOTE | 2021-09-08 15:43 | XR_ITS ---
PROCEDURE INFORMATION: Exam: XR Chest Exam date and time: 09/08/2021 3:41 PM Age: 31 years old Clinical indication: Cough; Additional info: Cough, pain TECHNIQUE: Imaging protocol: Radiologic exam of the chest. Views: 2 views. COMPARISON: CR XR CHEST 2V 03/24/2021 10:03 PM FINDINGS: Lungs: No acute pulmonary findings. No pulmonary consolidation. Lung volumes within normal limits. Pleural spaces: Unremarkable. No significant pleural effusion. No pneumothorax. Heart/Mediastinum: The cardiac silhouette is normal. Bones/joints: There is no evidence of acute fracture. Other findings: Overlying clothing artifacts. IMPRESSION: No acute findings.
--- NOTE | 2021-09-08 16:45 | HMH.EDUTC ---
[facility] [place] Clinical Impression: COVID-19, Bronchiolitis Type 1 diabetes Qualifiers: Diabetes mellitus complication status: without complication Qualified Code(s): E10.9 - Type 1 diabetes mellitus without complications Disposition: Home, Self-Care Condition on Discharge: Good Instructions: DI for Bronchiolitis, DI for COVID-19 (Suspected or Confirmed ), Preventing the Spread of Coronavirus Discharge Instructions Additional Instructions: Drink plenty of fluids. Take tylenol or ibuprofen for pain or fever. Take the medications as directed. Follow up with your regular doctor. GO TO THE ER FOR ANY WORSENING SYMPTOMS The cough medication (promethazine dm) will make you drowsy, so don't drive or operate heavy machinery after taking it. Prescriptions: Promethazine/Dextromethorphan [Promethazine-Dm Syrup] 5 ml PO Q6HP PRN #240 ml PRN Reason: Cough [facility] Ondansetron [Zofran 4mg ODT] 4 mg PO Q8HP PRN #12 tab PRN Reason: Nausea Transmission Status: Received by [facility] Benzonatate [Benzonatate 100mg cap] 100 mg PO TIDP PRN #30 cap PRN Reason: Cough Transmission Status: Received by [facility] Azithromycin [Z-Jeison 250mg Tab*] 250 mg PO UD DOSE PK #6 tab Transmission Status: Received by [id number] Referrals: Chuck Agudelo PA [Primary Care Provider] - Time of Disposition: 17:18 Medical Decision Making - Medical Records Medical records reviewed: No: I reviewed the patient's medical records. - Raz Inquiry Pt receiving controlled substance: No Vital Signs: 09/08/21 16:49 09/08/21 17:27 Temperature 98.2 F 98.2 F Temperature Source Oral Pulse Rate 61 Pulse Rate [Left] 61 Respiratory Rate 17 17 Blood Pressure 123/68 Blood Pressure [Right Arm] 123/68 Blood Pressure Mean [Right Arm] 86 02 Sat by Pulse Oximetry 100 - Lab Data Lab results reviewed: Yes: I reviewed the patient's lab results. [facility] [place] - General Stated complaint: congestion,cough Time Seen by Provider: 09/08/21 16:45 - History of Present Illness Provider Complaint: She was diagnosed with covid-19 last week. She states that she was starting to feel much better, but 2 days ago she began running a fever again. She is having body aches also. - Related Data Home Medications Medication Instructions Recorded Confirmed Insulin Lispro [HumaLOG 100 100 units SQ CONT 06/01/17 01/28/21 units/mL 3mL vial (SSI)] aspirin 81 mg tablet,delayed 81 mg PO DAILY 10/12/17 01/28/21 release metoclopramide HCl 10 mg tablet 10 mg PO Q6H 04/15/18 01/28/21 sertraline 50 mg tablet 50 mg PO DAILY 04/15/18 01/28/21 Ferrous Sulfate [Ferrous Sulfate 325 mg PO BID 03/31/20 01/28/21 325mg Tab] enoxaparin 60 mg/0.6 mL 60 mg SQ DAILY 01/10/21 01/28/21 subcutaneous syringe Previous Rx's Medication Instructions Recorded Fluconazole [Diflucan 150mg tab] 150 mg PO ONCE 1 Days #2 tab 01/19/21 Mupirocin [Bactroban 2% Ointment 1 applicatio TP BID 14 Days #1 gm 01/19/21 22gm tube] Acyclovir 800 mg PO 5XDAY 7 Days #35 tab 03/12/21 Nitrofurantoin Monohyd/M-Cryst 100 mg PO BID 5 Days #10 cap 03/12/21 [Macrobid 100 mg Capsule] Enoxaparin Sodium [Lovenox 60 mg SQ DAILY #20 ml 03/25/21 60mg/0.6mL syringe] Ondansetron [Zofran 4mg ODT] 4 mg PO Q8HP PRN #20 tab 07/13/21 Azithromycin [Z-Jeison 250mg Tab*] 250 mg PO UD DOSE PK #6 tab 09/08/21 Benzonatate [Benzonatate 100mg 100 mg PO TIDP PRN #30 cap 09/08/21 cap] Ondansetron [Zofran 4mg ODT] 4 mg PO Q8HP PRN #12 tab 09/08/21 Promethazine/Dextromethorphan 5 ml PO Q6HP PRN #240 ml 09/08/21 [Promethazine-Dm Syrup] Allergies Allergy/AdvReac Type Severity Reaction Status Date / Time morphine Allergy Severe Chest Pain Verified 09/08/21 16:56 codeine [CODEINE] Allergy Unknown I-HIVES Verified 09/08/21 16:56 latex [LATEX] Allergy Unknown I-RASH Verified
[2021-09-08 16:49] VITALS: BP 123/68; PULSE 61; RESP 17; TEMP 36.8; O2SAT 100; BMI 25.7
[2021-09-08 17:27] VITALS: BP 123/68; PULSE 61; RESP 17; TEMP 36.8
== END 2021-09-08 17:29 | disposition home or self-care (01) ==
PROVIDERS: Emergency Provider Nurse Practitioner Family; PCP Physician Assistant
DX: U07.1 COVID-19 (principal); J21.8 Acute bronchiolitis due to other specified organisms; E10.9 Type 1 diabetes mellitus without complications
CPT/HCPCS: 71046; 99212; G0463

== ENCOUNTER 2021-09-22 23:07 | Emergency (ER) | payer MEDICAID, SELFPAY ==
--- NOTE | 2021-09-22 23:00 | ECG_ITS ---
APPROVED REPORT Exam: Resting ECG HR:67 bpm ECG Measurements Heart Rate 67 AXES NC 144 P 65 QRSd 86 QRS 61 QT 382 T 63 QTc 397 Conclusion SINUS RHYTHM WITH SINUS ARRHYTHMIA NORMAL ECG UNCONFIRMED REPORT Electronically signed by : Rao Olson MD 09/23/2021 13:46:41
[2021-09-22 23:07] VITALS: BP 127/79; PULSE 69; RESP 18; TEMP 36.8; O2SAT 99; BMI 25.7
[2021-09-22 23:16] LABS: Coronavirus 19, PCR Not Detected (NotDetected); Influenza A, PCR Not Detected (NotDetected); Influenza B, PCR Not Detected (NotDetected)
[2021-09-22 23:22] LABS: Microscopic, Urine URINE MICROSCOPIC (MICROSCOPIC)
[2021-09-22 23:23] LABS: Appearance,Urine CLEAR (Clear); Bilirubin,Urine Negative (Negative); Blood, Urine TRACE-I (Negative); Color,Urine YELLOW (Yellow); Glucose,Urine (UA) Negative (Negative); Ketones,Urine Negative (Negative); Leukocyte Esterase,Urine Negative (Negative); Nitrate,Urine Negative (Negative); Protein,Urine Negative (Negative); Specific Gravity, Urine <= 1.005 (1.005-1.030); Urobilinogen,Urine 0.2 EU/dl (0.2)
--- NOTE | 2021-09-22 23:24 | PC.NURSE ---
at updating pt on POC
[2021-09-22 23:26] LABS: Urine Pregnancy, HCG Qual. Negative (Negative)
--- NOTE | 2021-09-22 23:26 | CT_ITS ---
PROCEDURE INFORMATION: Exam: CT Abdomen And Pelvis With Contrast Exam date and time: 09/22/2021 11:43 PM Age: 31 years old Clinical indication: Abdominal pain; Epigastric; Prior surgery; Surgery date: 6+ months; Surgery type: Gb; Additional info: Upper abd pain, n/v TECHNIQUE: Imaging protocol: Computed tomography of the abdomen and pelvis with contrast. Radiation optimization: All CT scans at this facility use at least one of these dose optimization techniques: automated exposure control; mA and/or kV adjustment per patient size (includes targeted exams where dose is matched to clinical indication); or iterative reconstruction. Contrast material: ISOVUE; Contrast volume: 75 ml; Contrast route: IV; [facility] con 06/02/2017 11:41 PM FINDINGS: Lungs: Unchanged right middle lobe nodule image 5 series 3. No further imaging follow-up is warranted for this. Minimal bibasilar atelectasis. Liver: Mild fatty infiltration of the liver along the falciform ligament. Gallbladder and bile ducts: Gallbladder is absent. Pancreas: Normal. No ductal dilation. Spleen: Normal. No splenomegaly. Adrenal glands: Normal. No mass. Kidneys and ureters: Normal. No hydronephrosis. Stomach and bowel: Unremarkable. No obstruction. No mucosal thickening. Appendix: No evidence of appendicitis. Intraperitoneal space: Unremarkable. No free air. No significant fluid collection. Vasculature: Unremarkable. No abdominal aortic aneurysm. Lymph nodes: Unremarkable. No enlarged lymph nodes. Urinary bladder: Nonspecific urinary bladder wall thickening. Reproductive: Unremarkable as visualized. Bones/joints: Unremarkable. No acute fracture. Soft tissues: Tiny fat containing umbilical hernia. IMPRESSION: Nonspecific urinary bladder wall thickening. Please exclude infection.
[2021-09-22 23:33] LABS: Basophils # 0.1 K/mm3 (0-0.2); Basophils % 0.7 % (0.1-2.0); Eosinophils # 0.2 K/mm3 (0.0-0.4); Eosinophils % 2.8 % (0.1-12.0); Hematocrit 34.6 % (37.0-47.0); Hemoglobin 11.7 g/dL (12.2-16.2); Lymphocytes # 2.5 K/mm3 (0.7-4.5); Lymphocytes % 33.1 % (10-50); Mean Corpuscular HGB Conc 33.9 g/dL (31.8-35.4); Mean Corpuscular Hemoglobin 27.8 pg (27.0-31.2); Mean Platelet Volume 7.4 fl (7.4-10.4); Monocytes # 0.4 K/mm3 (0.1-1.0); Monocytes % 4.9 % (1.7-9.3); Neutrophils # 4.5 K/mm3 (1.8-7.8); Neutrophils % 58.6 % (37.0-80.0); Platelet Count 264 K/mm3 (142-424); Red Blood Count 4.22 M/mm3 (4.20-5.40); Red Cell Distribution Width 12.9 % (11.5-17.5); White Blood Count 7.7 K/mm3 (4.8-10.8)
[2021-09-22 23:39] LABS: Alanine Aminotransferase 18 U/L (12-78); Albumin Level 4.2 g/dl (3.5-5.0); Alkaline Phosphatase 98 U/L (38-126); Aspartate Amino Transferase 35 U/L (14-36); Bilirubin,Unconjugated 0.3 mg/dL (0.0-1.1); Chloride 104 mmol/L (98-107); Potassium 3.4 mmoL/L (3.5-5.1); Sodium 139 mmol/L (136-145)
[2021-09-22 23:42] LABS: Amylase 39 U/L (30-110); Anion Gap 8.4 mEq/L (5-15); Blood Urea Nitrogen 14 mg/dl (7-17); Carbon Dioxide 30 mmol/L (22.0-30.0); Creatinine Clearance Estimated 126 mL/min (50-200); Estimated Glomerular Filt Rate 98 ml/min (>60); GFR (African American) 119 ML/MIN (>60); Lipase 33 U/L (23-300)
[2021-09-22 23:43] LABS: Calcium 9.7 mg/dl (8.4-10.2); Glucose 178 mg/dl (74-100)
--- NOTE | 2021-09-22 23:44 | HMH.EDCP ---
ED Disposition Clinical Impression: Atypical chest pain, Sphincter of Oddi dysfunction Disposition: Home, Self-Care Condition on Discharge: Good Instructions: DI for Atypical Chest Pain Additional Instructions: call pcp and gi for follow up Prescriptions: Dicyclomine HCl [Bentyl 10mg capsule] 10 mg PO TID #30 cap Transmission Status: Pending to [id number] Referrals: Provider,Referral, [Primary Care Provider] - - Critical Care Critical Care Time: No Attestation: On 09/22/21, the high probability of a clinically significant, sudden or life threatening deterioration of the following system(s) required my full and direct attention, intervention and personal management. The time I documented below is in addition to time spent performing reported procedures but includes the following listed in this critical care notation. Medical Decision Making - Medical Records Medical records reviewed: Yes: I reviewed the patient's medical records. - Raz Inquiry Pt receiving controlled substance: No Vital Signs: 09/22/21 23:07 09/23/21 00:07 09/23/21 00:37 Temperature 98.3 F Temperature Source Oral Pulse Rate 57 L 52 L Pulse Rate [Right] 69 Respiratory Rate 18 19 17 Blood Pressure 103/60 L 106/71 L Blood Pressure [Right Arm] 127/79 Blood Pressure Mean [Right Arm] 95 Blood Pressure Source [Right Arm] Automatic Cuff 02 Sat by Pulse Oximetry 99 96 97 Oxygen Delivery Method Room Air Room Air Room Air - Lab Data Lab results reviewed: Yes: I reviewed the patient's lab results. Lab Results 09/22/21 23:10: SARS-CoV-2 (PCR) Not detected, Influenza A Untype (PCR) Not detected, Influenza Type B (PCR) Not detected 09/22/21 23:14: WBC 7.7, RBC 4.22, Hgb 11.7 L, Hct 34.6 L, MCV 82.0, MCH 27.8, MCHC 33.9, RDW 12.9, Plt Count 264, MPV 7.4, Neut % (Auto) 58.6, Lymph % (Auto) 33.1, [place] % (Auto) 4.9, Eos % (Auto) 2.8, Baso % (Auto) 0.7, Neut # (Auto) 4.5, Lymph # (Auto) 2.5, [place] # (Auto) 0.4, Eos # (Auto) 0.2, Baso # (Auto) 0.1 09/22/21 23:14: Sodium 139, Potassium 3.4 L, Chloride 104, Carbon Dioxide 30, Anion Gap 8.4, BUN 14, Creatinine 0.70, Estimated Creat Clear 126, Estimated GFR 98, Est GFR ( Amer) 119, Glucose 178 H, Calcium 9.7, C-Reactive Protein 0.8, Amylase 39, Lipase 33 09/22/21 23:14: ESR 18 09/22/21 23:14: Total Bilirubin < 0.1 L, Direct Bilirubin 0.0, Conjugated Bilirubin 0.0, Indirect Bilirubin 0.1, Unconjugated Bilirubin 0.3, AST 35, ALT 18, Alkaline Phosphatase 98, Total Protein 7.0, Albumin 4.2, Procalcitonin < 0.030 09/22/21 23:17: Urine Color Yellow, Urine Appearance Clear, Urine pH 6.0, Ur Specific [place] <= 1.005, Urine Protein Negative, Urine Glucose (UA) Negative, Urine Ketones Negative, Urine Blood Trace-i, Urine Nitrate Negative, Urine Bilirubin Negative, Urine Urobilinogen 0.2, Ur Leukocyte Esterase Negative, Urine RBC 3-5, Urine WBC 10-20, Ur Squamous Epith Cells 3-5 09/22/21 23:17: Urine HCG, Qual Negative Result diagrams: 09/22/21 23:14 09/22/21 23:14 Orders (Tests/Meds): ED MEDICATIONS Generic Name Dose Route Start Last Admin Trade Name Freq PRN Reason Stop Dose Admin Sodium Chloride 1,000 mls @ 999 mls/hr 09/22/21 23:30 09/22/21 23:37 Sod Chlor 0.9% 1000ml Bag IV 09/23/21 00:30 999 mls/hr .Q1H1M [place] Administration Sodium Chloride 8 ml 09/22/21 23:26 09/22/21 23:37 Sodium Chloride 0.9% 10ml Vial IV 10/22/21 23:25 8 ml NEEDED PRN Administration dilute pepcid Discontinued Medications Generic Name Dose Route Start Last Admin Trade Name Freq PRN Reason Stop Dose Admin Famotidine 20 mg 09/22/21 23:26 09/22/21 23:37 Famotidine 20mg/2ml Vial IV 09/22/21 23:27 20 mg ONCE ONE Administration Metoclopramide HCl 10 mg 09/22/21 23:26 09/22/21 23:37 Metoclopramide Hcl 10mg/2ml Vial IVP 09/22/21 23:27 10 mg ONCE ONE Administration ORDERS Category Date Time Status Urine Culture Stat Micro 09/22/21 23:17
[2021-09-22 23:45] LABS: Bilirubin,Total < 0.1 mg/dl (0.2-1.3)
[2021-09-22 23:48] LABS: C-Reactive Protein 0.8 mg/L (0-4)
[2021-09-22 23:58] LABS: Procalcitonin < 0.030 ng/mL (0.0-2.0)
[2021-09-22 23:59] LABS: Bilirubin,Indirect 0.1 mg/dL (0.0-0.9); Erythrocyte Sedimentation Rate 18 mm/hr (0-20)
[2021-09-23 00:07] VITALS: BP 103/60; PULSE 57; RESP 19; O2SAT 96
[2021-09-23 00:37] VITALS: BP 106/71; PULSE 52; RESP 17; O2SAT 97
--- NOTE | 2021-09-23 00:52 | PC.NURSE ---
MD at BS speaking with pt about results and POC
[2021-09-23 01:13] VITALS: BP 111/67; PULSE 60; RESP 17; TEMP 36.7; O2SAT 98
== END 2021-09-23 01:26 | disposition home or self-care (01) ==
PROVIDERS: Emergency Provider Emergency Medicine
DX: R07.89 Other chest pain (principal); K83.4 Spasm of sphincter of Oddi; Z88.5 Allergy status to narcotic agent; Z88.0 Allergy status to penicillin; Z88.6 Allergy status to analgesic agent; Z91.040 Latex allergy status; K21.9 Gastro-esophageal reflux disease without esophagitis; F41.9 Anxiety disorder, unspecified; M51.26 Other intervertebral disc displacement, lumbar region; E10.43 Type 1 diabetes mellitus with diabetic autonomic (poly)neuropathy; K31.84 Gastroparesis
CPT/HCPCS: 74177; 80048; 80076; 81001; 81025; 82150; 83690; 84145; 85025; 85651; 86140; 87086; 93005; 96365; 96375; 99284; C9803; U0003; U0005

== ENCOUNTER → 2021-10-04 07:34 | Outpatient (CLI) | payer MEDICAID, SELFPAY ==
--- NOTE | 2021-10-04 07:41 | CT_ITS ---
FINAL REPORT TECHNIQUE: Axial imaging of the chest is obtained after the administration of contrast. 3-D MIP reformatted images were also obtained and reviewed per PE protocol. CLINICAL HISTORY: CHEST PAIN COMPARISON: CT abdomen and pelvis dated 09/23/2021. FINDINGS: The pulmonary arteries are well filled. There is no evidence of pulmonary embolus. There is no aortic dissection or intimal flap. There is no mediastinal, hilar, or axillary lymphadenopathy. There is a sub pleural right midlung pulmonary nodule on image 51 which is unchanged as compared to the recent abdomen and pelvis CT. The lungs are otherwise clear. There is no pleural or pericardial effusion. Limited evaluation of the upper abdomen is without acute abnormality. There is no acute osseous abnormality. IMPRESSION: No evidence of pulmonary embolism or aortic dissection. No acute intrathoracic abnormality. Pulmonary nodule, likely of no significance in a patient of this age. Reviewed, Interpreted and Dictated by Daisy Cordero MD Transcribed by Melissa Wen Authenticated and [facility]
== END ==
PROVIDERS: PCP Physician Assistant; Visit Provider Physician Assistant
DX: R07.9 Chest pain, unspecified (principal); R91.1 Solitary pulmonary nodule
CPT/HCPCS: 71275; Q9967

== ENCOUNTER 2021-10-11 16:41 | Emergency (ER) | payer MEDICAID, SELFPAY ==
[2021-10-11 17:00] VITALS: BP 131/76; PULSE 83; RESP 22; TEMP 36.8; O2SAT 98; BMI 23.5
[2021-10-11 17:17] LABS: UTC Strep Screen (Rapid) Negative (Negative)
--- NOTE | 2021-10-11 17:29 | HMH.EDUTC ---
[facility] [place] Disposition Clinical Impression: Throat irritation Disposition: Home, Self-Care Condition on Discharge: Good Instructions: Sore Throat Additional Instructions: *Monitor Temp, Over the counter Motrin or Tylenol as directed/as needed Tylenol every 4 hours and Motrin every 6 hours (as long as your family doctor has told you that you can take it) for fever or pain. and straight to ER if unable to lower temp less than 101.0 after medication given *Warm salt water gargles may help to soothe the throat *Throat Lozenges *Warm fluids like tea with honey may help to soothe the throat *Sleep elevated *Humidifier/Vaporizer Your throat swab was sent for culture. Those results are typically sent to your primary care. Be sure to follow up in 2-3 days with your family doctor/primary care physician if no improvement so they can review those result and treat if necessary. If you don?t have a primary care doctor, I recommend you get one but in the mean time, you will have to return to a walk in clinic Follow up IMMEDIATELY for new or worsening symptoms or no Noticeable improvement over the next 48-72 hours. 911 for difficulty breathing or swallowing Follow up with Family Doctor for further testing and evaluation Referrals: Provider,Referral, MD [Primary Care Provider] - As needed Time of Disposition: 18:00 Medical Decision Making - Raz Inquiry Pt receiving controlled substance: No Raz was queried for this patient: No Vital Signs: 10/11/21 17:00 10/11/21 17:57 Temperature 98.2 F 98.2 F Temperature Source Oral Pulse Rate 83 Pulse Rate [Left Brachial] 83 Respiratory Rate 22 22 Blood Pressure 131/76 Blood Pressure [Left Arm] 131/76 Blood Pressure Mean [Left Arm] 94 Blood Pressure Source [Left Arm] Automatic Cuff Blood Pressure Position [Left Arm] Sitting 02 Sat by Pulse Oximetry 98 Oxygen Delivery Method Room Air - Lab Data Lab results reviewed: Yes: I reviewed the patient's lab results. Lab Results 10/11/21 17:06: Strep Scn Rapid Clinic Negative Orders (Tests/Meds): ORDERS Category Date Time Status Strep Screen Confirmation Stat Micro 10/11/21 17:06 Received [facility] [place] HPI - General Stated complaint: Throat,sore on outside of Neck Time Seen by Provider: 10/11/21 17:29 Mode of Arrival: Ambulatory Source of Information: Patient Limitations: No Limitations Description of Symptoms (Recalled from Triage Doc. by RN): PATIENT C/O SORE THROAT X 2 DAYS HEENT Symptoms (Recalled from RN notes): Yes Resp Symptoms (Recalled from RN notes): No Skin Symptoms (Recalled from RN notes): No MS Symptoms (Recalled from RN notes): No Functional Status (Recalled from RN notes): WNL - History of Present Illness Provider Complaint: Pateint states that she has been having sore throat for a couple of days States that she is not having any trouble swallowing or anything States that she has had issues with GERD on and off and has been taking omeprazole for the last several days States that her throat feels a little sore to the touch and she was worried that she may have strep - Related Data Home Medications Medication Instructions Recorded Confirmed Insulin Lispro [HumaLOG 100 100 units SQ CONT 06/01/17 01/28/21 units/mL 3mL vial (SSI)] aspirin 81 mg tablet,delayed 81 mg PO DAILY 10/12/17 01/28/21 release metoclopramide HCl 10 mg tablet 10 mg PO Q6H 04/15/18 01/28/21 sertraline 50 mg tablet 50 mg PO DAILY 04/15/18 01/28/21 Ferrous Sulfate [Ferrous Sulfate 325 mg PO BID 03/31/20 01/28/21 325mg Tab] enoxaparin 60 mg/0.6 mL 60 mg SQ DAILY 01/10/21 01/28/21 subcutaneous syringe Previous Rx's Medication Instructions Recorded Fluconazole [Diflucan 150mg tab] 150 mg PO ONCE 1 Days #2 tab 01/19/21 Mupirocin [Bactroban 2% Ointment 1 applicatio TP BID 14 Days #1 gm 01/19/21 22gm tube] Acyclovir 800 mg PO 5XDAY 7 Days #35 tab 03/12/21 Nitrofurantoin Monohyd/M-Cryst 100 mg PO BID
[2021-10-11 17:57] VITALS: BP 131/76; PULSE 83; RESP 22; TEMP 36.8; O2SAT 98
== END 2021-10-11 18:03 | disposition home or self-care (01) ==
PROVIDERS: Emergency Provider Nurse Practitioner
DX: J02.9 Acute pharyngitis, unspecified (principal)
CPT/HCPCS: 87880; 99212; G0463

== ENCOUNTER → 2021-10-14 10:44 | Outpatient (CLI) | payer MEDICAID, SELFPAY ==
[2021-10-14 11:29] LABS: Urine Pregnancy, HCG Qual. Negative (Negative)
== END ==
PROVIDERS: PCP Physician Assistant; Visit Provider Internal Medicine
DX: Z01.812 Encounter for preprocedural laboratory examination (principal); Z20.822 Contact with and (suspected) exposure to COVID-19; Z13.810 Encounter for screening for upper gastrointestinal disorder
CPT/HCPCS: 81025; C9803; U0003; U0005

== ENCOUNTER 2021-10-16 09:49 | Day surgery (SDC) | payer MEDICAID, SELFPAY ==
[2021-10-16 10:18] VITALS: BP 139/78; PULSE 80; RESP 17; TEMP 36.4; O2SAT 100; BMI 25.7
[2021-10-16 10:25] LABS: POC Glucose,Bedside 166 (70-110)
--- NOTE | 2021-10-16 11:20 | P.PN_ITS ---
[facility] [place] Anesthesia Checklist - Patient Identification Patient Identification: Arm Band - Structural Data Admitted From: Home Planned Operative Procedure/s: EGD Consent for Planned Operative Procedure(s) Verified: Yes - NPO Status Verified Time NPO: 09:20 (Juice) - Additional verifications Anesthesia Reactions: No Hx Blood Transfusions: No - Airway Assessment C-Spine Mobility Assessed: Yes TMJ Mobility Assessed: Yes Dentition: Poor Dentition - Neurological Assessment Level of Consciousness: Awake Hx Seizures: No Numbness or tingling in extremities: No - Anesthesia Plan Anesthesia Risk discussed: Yes Anesthesia Plan: Verified ASA Class: II Anesthesia Type: MAC [facility] [place] History I have reviewed the patient's past medical history: Yes Medical History: Reports:: Anxiety, Diabetes Mellitus Type 1, Gastroesophageal Reflux Disease(GERD), MRSA Denies:: Cancer, Diabetes Mellitus Type 2, Internal Pacemaker, Seizures *Have you ever received a pneumonia vaccine?: No *Have you received a flu vaccine this season?: Yes Other Medical History: Reports: Other (Protein C and S deficiency) Anesthesia experience/problems:: None Laterality Cases: Left: Other Other Surgeries: Yes: Cholecystectomy, , Dilation and Curettage, Hernia Repair, Other. No: Pacemaker Amputation: No Fractures: No - *Social History Last grade of school completed: Advanced degree Smoking Status: Never smoker Tobacco Type: cigarettes # Packs/Day (cigarettes): 1 Alcohol Intake: never Alcohol Intake Frequency:: holidays/special occasions only Substance Use Type: denies use *Occupational Status:: employed Housing: house Household Members: significant other, children *Travel in the last 8 weeks: None - Psychiatric History Pschychiatric History:: Reports:: Anxiety Family Hx:: Unable to obtain
[2021-10-16 11:33] VITALS: O2SAT 100
[2021-10-16 11:47] VITALS: BP 111/52; PULSE 88; RESP 18; TEMP 36.1; O2SAT 95
--- NOTE | 2021-10-16 11:47 | HMH.SCOPE ---
- Procedure: Date: 10/16/21 Patient Date of :: 1990 Procedure Performed:: EGD Indications:: The patient is a 31 year old who presents for EGD evaluation of GERD, food regurgitations after eating, nausea, abdominal pain. She has a history of DM type 2 and gastroparesis. She is not compliant with a gastroparesis diet. Performing Provider:: Yogesh Carlson MD Referring Provider:: Chuck Norman MD Sedation:: See RN records Procedure:: The gastroscope was gently passed through the incisoral orifice into the oral cavity and under direct visualization the esophagus was intubated. The endoscope was passed down the esophagus, through the stomach, and into the duodenum. Color, texture, mucosa, and anatomy of the esophagus, stomach, and duodenum were carefully examined with the scope. Findings:: Oropharynx: normal Esophagus: Linear furrowing of distal esophagus. Biopsies obtained EG Junction: intact at 40 cm Cardia: normal Fundus: Moderate gastritis. Biopsies obtained Body: Moderate gastritis. Biopsies obtained Antrum: normal Duodenal bulb: normal Duodenum (second and third portion): normal Impression: 1. Linear furrowing distal esophagus 2. Moderate gastritis Recommendations:: Await pathology results Increase omeprazole to 40 mg daily Recommend gastroparesis diet. Refer to dietitian if she has not seen dietitian for gastroparesis diet education Complications:: None Estimated blood obtained (mL): 0
[2021-10-16 11:58] VITALS: BP 110/49; PULSE 78; RESP 18; O2SAT 96
[2021-10-16 12:08] VITALS: BP 114/58; PULSE 78; RESP 18; O2SAT 97
[2021-10-16 12:21] VITALS: BP 120/66; PULSE 71; RESP 18; O2SAT 99
== END 2021-10-16 12:21 | disposition home or self-care (01) ==
PROVIDERS: Internal Medicine Gastroenterology; PCP Physician Assistant; Visit Provider Internal Medicine
PROC: 0DJ08ZZ Inspection of Upper Intestinal Tract, Via Natural or Artificial Opening Endoscopic (ICD-10-PCS; CPT 43235; principal; 2021-10-16 11:30)
DX: K21.00 Gastro-esophageal reflux disease with esophagitis, without bleeding (principal); K31.84 Gastroparesis; E11.9 Type 2 diabetes mellitus without complications
CPT/HCPCS: 43239; 82962

== ENCOUNTER 2021-10-21 10:45 | Emergency (ER) | payer MEDICAID, SELFPAY ==
[2021-10-21 11:20] VITALS: BP 120/82; PULSE 74; RESP 17; TEMP 37.1; O2SAT 100; BMI 25.7
[2021-10-21 11:29] LABS: Adenovirus,PCR Not Detected (NotDetected); Bordetella Pertussis Not Detected (NotDetected); Chlamydophila Pneumoniae, PCR Not Detected (NotDetected); Coronavirus 19, PCR Not Detected (NotDetected); Coronavirus 229E Not Detected (NotDetected); Coronavirus NL63 Not Detected (NotDetected); Coronavirus OC43 Not Detected (NotDetected); Coronovirus HKU1,PCR Not Detected (NotDetected); Human Metapneumovirus Not Detected (NotDetected); Influenza A, PCR Not Detected (NotDetected); Influenza AH1, 2009 Not Detected (NotDetected); Influenza AH1, PCR Not Detected (NotDetected); Influenza AH3,PCR Not Detected (NotDetected); Influenza B, PCR Not Detected (NotDetected); Mycoplasma Pneumoniae, PCR Not Detected (NotDetected); Parainfluenza 1, PCR Not Detected (NotDetected); Parainfluenza 2, PCR Not Detected (NotDetected); Parainfluenza 3, PCR Not Detected (NotDetected); Parainfluenza 4, PCR Not Detected (NotDetected); Respiratory Syncytial Virus Not Detected (NotDetected)
--- NOTE | 2021-10-21 11:37 | HMH.EDUTC ---
[facility] [place] Clinical Impression: Viral syndrome Disposition: Home, Self-Care Condition on Discharge: Good Instructions: DI for Viral Upper Respiratory Infection -- Adult Additional Instructions: *Monitor Temp, Over the counter Motrin or Tylenol as directed/as needed Tylenol every 4 hours and Motrin every 6 hours (as long as your family doctor has told you that you can take it) for fever or pain. and straight to ER if unable to lower temp less than 101.0 after medication given *Warm salt water gargles may help to soothe the throat *Throat Lozenges *Warm fluids like tea with honey may help to soothe the throat *Sleep elevated *Humidifier/Vaporizer Follow up IMMEDIATELY for new or worsening symptoms or no Noticeable improvement over the next 48-72 hours. 911 for difficulty breathing or swallowing You were tested for today for full upper Respirtory panel with COVID19 your test result should be back in the next 24-48 hours, you check your results on the [facility] My Health Portal Make sure to take your Vitamins Vit. C Vit D and Zinc if you can take them Referrals: Chuck Agudelo PA [Primary Care Provider] - As needed Time of Disposition: 11:38 Medical Decision Making - Raz Inquiry Pt receiving controlled substance: No Raz was queried for this patient: No Vital Signs: 10/21/21 11:20 Temperature 98.8 F Temperature Source Oral Pulse Rate [Right Brachial] 74 Respiratory Rate 17 Blood Pressure [Right Arm] 120/82 Blood Pressure Mean [Right Arm] 94 Blood Pressure Source [Right Arm] Automatic Cuff Blood Pressure Position [Right Arm] Sitting 02 Sat by Pulse Oximetry 100 Oxygen Delivery Method Room Air Orders (Tests/Meds): ORDERS Category Date Time Status Full Resp Panel w/COVID ([facility]) Routine Lab 10/21/21 11:10 Received [facility] [place] HPI - General Stated complaint: runny nose, cough, fever Time Seen by Provider: 10/21/21 11:37 Mode of Arrival: Ambulatory Source of Information: Patient Limitations: No Limitations Description of Symptoms (Recalled from Triage Doc. by RN): PATIENT C/O RUNNY NOSE, COUGH, FEVER, AND BODY ACHES X 3 DAYS HEENT Symptoms (Recalled from RN notes): Yes Resp Symptoms (Recalled from RN notes): Yes Skin Symptoms (Recalled from RN notes): No MS Symptoms (Recalled from RN notes): No Functional Status (Recalled from RN notes): WNL - History of Present Illness Provider Complaint: Patient states that she has not felt well for about 3 days States that she has been having runny nose, cough and fever also feeling achy all over States that children just started [employer] and is sick as well - Related Data Home Medications Medication Instructions Recorded Confirmed Insulin Lispro [HumaLOG 100 100 units SQ CONT 06/01/17 10/16/21 units/mL 3mL vial (SSI)] Allergies Allergy/AdvReac Type Severity Reaction Status Date / Time morphine Allergy Severe Chest Pain Verified 10/16/21 10:14 codeine [CODEINE] Allergy Unknown I-HIVES Verified 10/16/21 10:14 latex [LATEX] Allergy Unknown I-RASH Verified 10/16/21 10:14 Penicillins [PENICILLINS] Allergy Unknown I-HIVES Verified 10/16/21 10:14 - Worker's Comp Is this a Worker's Comp case?: No [facility] History - Hepatitis A Screen Attestation statement:: This patient has been screened for Hepatitis A risk factors. I have reviewed the patient's past medical history: Yes Medical History: Reports:: Anxiety, Diabetes Mellitus Type 1, Gastroesophageal Reflux Disease(GERD), MRSA Denies:: Cancer, Diabetes Mellitus Type 2, Internal Pacemaker, Seizures Other Medical History: Reports: Other (Protein C and S deficiency) Comment: Lumbago-sciatica due to displacement of lumbar intervertebral disc. Gastroparesis. Insulin pump as of 03/2015. Endometriosis Laterality Cases: Left: Other Other Surgeries: Yes: Cholecystectomy, , Dilation and Curettage, Hernia Repair, Other. No: Pacemaker Amputation: No Fractures: No Comment: LT eye
[2021-10-21 11:51] VITALS: BP 120/82; PULSE 74; RESP 17; TEMP 37.1; O2SAT 100
[2021-10-21 15:55] LABS: Rhinovirus/Enterovirus Detected (NotDetected)
== END 2021-10-21 11:59 | disposition home or self-care (01) ==
PROVIDERS: Emergency Provider Nurse Practitioner; PCP Physician Assistant
DX: B34.9 Viral infection, unspecified (principal); R05.9 Cough, unspecified; R50.9 Fever, unspecified; R09.89 Other specified symptoms and signs involving the circulatory and respiratory systems; Z20.822 Contact with and (suspected) exposure to COVID-19
CPT/HCPCS: 87581; 87632; 87798; 99212; C9803; G0463; U0003; U0005

== ENCOUNTER 2021-11-06 09:47 | Emergency (ER) | payer MEDICAID, SELFPAY ==
[2021-11-06 10:01] VITALS: BP 123/78; PULSE 78; RESP 16; TEMP 36.7; O2SAT 99; BMI 25.7
--- NOTE | 2021-11-06 10:03 | XR_ITS ---
FINAL REPORT CLINICAL HISTORY: cough COMPARISON: September 08, 2021 FINDINGS: Two views of the chest were obtained. The heart size and pulmonary vascularity are within normal limits. The mediastinum is normal. No acute pulmonary abnormality is identified. There is no pneumothorax. The bony thorax is intact. IMPRESSION: No active cardiopulmonary disease. Reviewed, Interpreted and Dictated by Joe Hankins III, MD Transcribed by Katerina Everett Authenticated and [facility]
[2021-11-06 10:11] LABS: UTC Strep Screen (Rapid) Negative (Negative)
--- NOTE | 2021-11-06 10:29 | EXP.UTC ---
Discharge Plan Disposition Patient Disposition: Home, Self-Care Condition: Good Prescriptions Prescriptions: New benzonatate [benzonatate] 100 mg capsule 100 mg PO TIDP PRN (Reason: Cough) Qty: 30 0RF ondansetron 4 mg Tablet,Disintegrating 4 mg PO Q8H PRN (Reason: Nausea) Qty: 20 0RF No Action insulin lispro 100/ML solution 100 units SQ CONT Label Comments: Referrals Follow up/Referrals: Chuck Agudelo PA [Primary Care Provider] - See instructions Clinical Impressions Clinical Impression: Diabetes type 1, controlled, Acute viral syndrome, Amenorrhea Instructions Patient Instructions: DI for Viral Syndrome, Preventing the Spread of Coronavirus Discharge Instructions Discharge ED Provider: Satinder Albarran [facility] General Stated complaint: sore throat, runny nose, fever Mode of Arrival: Ambulatory Source of Information: Patient Limitations: No Limitations Time Seen by Provider: 11/06/21 10:29 Description of Symptoms (Recalled from Triage Doc. by RN): pt comes in with c/o sore throat, fever, nasal drainage, racing heart. pt states that she began to have a racing heart this am. other symptoms began 3 days ago. HEENT Symptoms (Recalled from RN notes): Yes Resp Symptoms (Recalled from RN notes): Yes Skin Symptoms (Recalled from RN notes): No MS Symptoms (Recalled from RN notes): No Functional Status (Recalled from RN notes): n/a History of Present Illness Provider Complaint: She states that for the past 2 days she has felt bad, had a cough and chest and sinus congestion. She is a type 1 diabetic. She states that her blood sugars have been running higher than normal (up in the 200's at times). She has had a low grade fever and she has felt bad too. She has had periods of feeling like her heart is running away. She denies any syncopal feeling or passing out. Related Data Home Medications Medication Instructions Recorded Confirmed insulin lispro 100 unit/mL 100 units SQ CONT Diabetes 06/01/17 10/16/21 subcutaneous solution Previous Rx's Medication Instructions Recorded benzonatate 100 mg capsule 100 mg PO TIDP PRN Cough #30 caps 11/06/21 ondansetron 4 mg disintegrating 4 mg PO Q8H PRN Nausea #20 tabs 11/06/21 tablet Allergies Allergy/AdvReac Type Severity Reaction Status Date / Time morphine Allergy Severe Chest Pain Verified 11/06/21 10:09 codeine [CODEINE] Allergy Unknown I-HIVES Verified 11/06/21 10:09 latex [LATEX] Allergy Unknown I-RASH Verified 11/06/21 10:09 Penicillins [PENICILLINS] Allergy Unknown I-HIVES Verified 11/06/21 10:09 Worker's Comp Is this a Worker's Comp case?: No PFSH PFSH Social History Smoking Status: Never smoker second hand exposure: No alcohol intake: never substance use type: denies use current occupational status: employed Travel in the last 8 weeks: None household members: significant other and children housing: house 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 caffeine: Yes ROS Obtained: Yes All systems reviewed & no additional complaints except as documented Constitutional Constitutional: Reports chills and Reports fever(s) Eyes Eyes: Denies eye discharge ENT Ears, Nose, Mouth, and Throat: Reports as per HPI Cardiovascular Cardiovascular: Denies chest pain Respiratory Respiratory: Denies chest congestion and Reports cough Gastrointestinal Gastrointestingal: Reports nausea; Denies abdominal pain, constipation, cramping, diarrhea or vomiting Musculoskeletal Musculoskeletal: Denies arthralgias Integumentary/Breasts Skin/Breast: Denies rash Neurologic Neurologic: Denies paresthesias Physical Exam General General appearance: alert and in no apparent distress Head Head exam: atraumatic, normocephalic and normal inspection Eye Eye exam: Present normal appearance, PERRL and EOMI ENT ENT exam: Present mucous membranes moist and normal external ear exam Expanded ENT E
--- NOTE | 2021-11-06 10:55 | ECG_ITS ---
APPROVED REPORT Exam: Resting ECG HR:72 bpm ECG Measurements Heart Rate 72 AXES DC 139 P 67 QRSd 87 QRS 29 QT 365 T 33 QTc 389 Conclusion SINUS RHYTHM NORMAL ECG UNCONFIRMED REPORT Electronically signed by : Rao Olson MD 11/07/2021 11:22:24
[2021-11-06 11:17] VITALS: BP 123/78; PULSE 78; RESP 16; TEMP 36.7
[2021-11-06 11:42] LABS: Basophils # 0.1 K/mm3 (0-0.2); Basophils % 1.1 % (0.1-2.0); Eosinophils # 0.2 K/mm3 (0.0-0.4); Eosinophils % 2.6 % (0.1-12.0); Hematocrit 40.6 % (37.0-47.0); Hemoglobin 12.9 g/dL (12.2-16.2); Lymphocytes # 1.8 K/mm3 (0.7-4.5); Lymphocytes % 27.2 % (10-50); Mean Corpuscular HGB Conc 31.9 g/dL (31.8-35.4); Mean Corpuscular Hemoglobin 27.3 pg (27.0-31.2); Mean Corpuscular Volume 85.8 fl (81-99); Monocytes # 0.3 K/mm3 (0.1-1.0); Monocytes % 4.1 % (1.7-9.3); Neutrophils # 4.3 K/mm3 (1.8-7.8); Platelet Count 248 K/mm3 (142-424); Red Blood Count 4.73 M/mm3 (4.20-5.40); White Blood Count 6.6 K/mm3 (4.8-10.8)
[2021-11-06 11:44] LABS: Anion Gap 6.9 mEq/L (5-15); Blood Urea Nitrogen 6 mg/dl (7-17); Calcium 9.1 mg/dl (8.4-10.2); Carbon Dioxide 28 mmol/L (22.0-30.0); Chloride 106 mmol/L (98-107); Creatinine Clearance Estimated 147 mL/min (50-200); Estimated Glomerular Filt Rate 117 ml/min (>60); GFR (African American) 142 ML/MIN (>60); Glucose 175 mg/dl (74-100); Magnesium 1.6 mg/dl (1.6-2.3); Phosphorous 3.4 mg/dl (2.5-4.5); Potassium 3.9 mmoL/L (3.5-5.1); Sodium 137 mmol/L (136-145)
[2021-11-06 12:25] LABS: HCG Qualitative, Serum Negative (Negative)
== END 2021-11-06 11:18 | disposition home or self-care (01) ==
PROVIDERS: Emergency Provider Nurse Practitioner Family; PCP Physician Assistant
DX: E10.9 Type 1 diabetes mellitus without complications (principal); B34.9 Viral infection, unspecified; N91.2 Amenorrhea, unspecified
CPT/HCPCS: 71046; 80048; 83735; 84100; 84703; 85025; 87880; 93005; 99212; G0463

== ENCOUNTER 2021-11-20 11:40 | Emergency (ER) | payer MEDICAID, SELFPAY ==
--- NOTE | 2021-11-20 12:02 | EXP.UTC ---
Discharge Plan Disposition Patient Disposition: Home, Self-Care Condition: Fair Prescriptions Prescriptions: New enoxaparin [Lovenox] 60 mg/0.6 mL syringe 60 mg SQ DAILY 10 Days Qty: 6 0RF Rx Instructions: Take lovenox 60 mg sq daily. No Action insulin lispro 100/ML solution 100 units SQ CONT Label Comments: benzonatate [benzonatate] 100 mg capsule 100 mg PO TIDP PRN (Reason: Cough) Qty: 30 0RF ondansetron 4 mg Tablet,Disintegrating 4 mg PO Q8H PRN (Reason: Nausea) Qty: 20 0RF Referrals Follow up/Referrals: Chuck Agudelo PA [Primary Care Provider] - See instructions Activity Restrictions/Add. Instructions Additional Instructions/Restrictions: Follow up with your primary care physician and your primary care physician as soon as you can get in. I went ahead and prescribed you the lovenox that you usually take when you're . Clinical Impressions Clinical Impression: with history of infertility Instructions Patient Instructions: Diet Discharge ED Provider: Satinder Albarran [place] HPI General Stated complaint: test Time Seen by Provider: 11/20/21 12:02 History of Present Illness Provider Complaint: She is here to have a serum test drawn. She is around 2 weeks late on her period. She has a history of type 1 diabetes and she has a clotting disorder. She needs to be placed on blood thinners [place] by her pcp if she is , so she was sent here to be seen and get the blood drawn. She has had negative urine test at home. Related Data Home Medications Medication Instructions Recorded Confirmed insulin lispro 100 unit/mL 100 units SQ CONT Diabetes 06/01/17 10/16/21 subcutaneous solution Previous Rx's Medication Instructions Recorded benzonatate 100 mg capsule 100 mg PO TIDP PRN Cough #30 caps 11/06/21 ondansetron 4 mg disintegrating 4 mg PO Q8H PRN Nausea #20 tabs 11/06/21 tablet enoxaparin 60 mg/0.6 mL 60 mg (0.6 mL) SQ DAILY 10 days #6 11/21/21 subcutaneous syringe (Lovenox) mL Allergies Allergy/AdvReac Type Severity Reaction Status Date / Time morphine Allergy Severe Chest Pain Verified 11/06/21 10:09 codeine [CODEINE] Allergy Unknown I-HIVES Verified 11/06/21 10:09 latex [LATEX] Allergy Unknown I-RASH Verified 11/06/21 10:09 Penicillins [PENICILLINS] Allergy Unknown I-HIVES Verified 11/06/21 10:09 [facility] Social History Smoking Status: Never smoker second hand exposure: No alcohol intake: never substance use type: denies use current occupational status: employed Travel in the last 8 weeks: None household members: significant other and children housing: house 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 caffeine: Yes ROS Obtained: Yes All systems reviewed & no additional complaints except as documented Constitutional Constitutional: Reports system reviewed and no additional complaints, except as documented, Denies chills and Denies fever(s) Eyes Eyes: Denies eye discharge ENT Ears, Nose, Mouth, and Throat: Denies dysphagia, Denies sore throat and Denies throat swelling Cardiovascular Cardiovascular: Denies chest pain and Denies dyspnea Respiratory Respiratory: Denies chest congestion, Denies cough and Denies dyspnea Gastrointestinal Gastrointestingal: Denies abdominal pain, constipation, diarrhea, dysphagia, nausea or vomiting Musculoskeletal Musculoskeletal: Denies arthralgias Integumentary/Breasts Skin/Breast: Denies rash Neurologic Neurologic: Denies paresthesias Allergic/Immunologic Allergic/Immunologic: Denies throat swelling Physical Exam General General appearance: alert and in no apparent distress Head Head exam: atraumatic, normocephalic and normal inspection Eye Eye exam: Present normal appearance, PERRL and EOMI ENT ENT exam: Present normal exam, normal oropharynx, mucous membranes moist, TM's normal bila
[2021-11-20 12:13] VITALS: BP 129/81; PULSE 80; RESP 17; TEMP 36.7; O2SAT 98; BMI 25.7
[2021-11-20 12:47] VITALS: BP 129/81; PULSE 80; RESP 17; TEMP 36.7
[2021-11-20 12:52] LABS: HCG Qualitative, Serum Positive (Negative)
[2021-11-20 13:11] LABS: HCG,Quantitative 10518 mIU/ml (0-5.42)
== END 2021-11-20 12:48 | disposition home or self-care (01) ==
PROVIDERS: Emergency Provider Nurse Practitioner Family; PCP Physician Assistant
DX: Z32.01 Encounter for pregnancy test, result positive (principal); O09.01 Supervision of pregnancy with history of infertility, first trimester
CPT/HCPCS: 84702; 84703; 99212; G0463

== ENCOUNTER → 2021-11-25 09:21 | Outpatient (CLI) | payer MEDICAID, SELFPAY ==
[2021-11-25 09:50] LABS: Basophils # 0.1 K/mm3 (0-0.2); Eosinophils # 0.1 K/mm3 (0.0-0.4); Eosinophils % 1.7 % (0.1-12.0); Hematocrit 39.2 % (37.0-47.0); Hemoglobin 12.8 g/dL (12.2-16.2); Lymphocytes # 1.6 K/mm3 (0.7-4.5); Mean Corpuscular HGB Conc 32.6 g/dL (31.8-35.4); Mean Corpuscular Volume 85.7 fl (81-99); Mean Platelet Volume 7.9 fl (7.4-10.4); Monocytes # 0.3 K/mm3 (0.1-1.0); Monocytes % 3.6 % (1.7-9.3); Neutrophils # 6.3 K/mm3 (1.8-7.8); Neutrophils % 74.7 % (37.0-80.0); Platelet Count 309 K/mm3 (142-424); Red Blood Count 4.58 M/mm3 (4.20-5.40); Red Cell Distribution Width 14.1 % (11.5-17.5); White Blood Count 8.4 K/mm3 (4.8-10.8)
[2021-11-26 07:19] LABS: HIV Screen 4th Generation wRfx Non Reactive (Non Reactive); Hepatitis B Surface Antigen Negative (Negative); Hepatitis C Antibody <0.1 s/co ratio (0.0-0.9)
[2021-11-26 08:15] LABS: Rubella Antibodies, IgG 1.83 index (Immune >0.99)
[2021-11-26 11:34] LABS: Rapid Plasma Reagin Ab Titer Non Reactive (NonRea<1:1)
== END ==
PROVIDERS: PCP Physician Assistant; Visit Provider Obstetrics & Gynecology
DX: Z34.90 Encounter for supervision of normal pregnancy, unspecified, unspecified trimester (principal)
CPT/HCPCS: 36415; 84702; 85025; 86592; 86703; 86762; 86850; 87340; 87380; G0432

== ENCOUNTER → 2021-11-29 13:56 | Outpatient (CLI) | payer MEDICAID, SELFPAY ==
--- NOTE | 2021-11-29 13:56 | US_ITS ---
FINAL REPORT CLINICAL HISTORY: for dates FINDINGS: PELVIC ULTRASOUND A single living intrauterine is present. A gestational sac and pole are seen. Cardiac activity is confirmed at 118 beats per minute. Estimated gestational age is 6 weeks 5 days based on a crown-rump length of 7 mm. The right ovary measures 3.1 cm. The left ovary measures 3.3 cm. There is a 1.9 cm isoechoic rounded structure in the right ovary that may represent a hemorrhagic cyst. IMPRESSION: Single living intrauterine with a gestational age of 6 weeks 5 days. Reviewed, Interpreted and Dictated by Gordon Gomez MD Transcribed by Rich Mulligan Authenticated and [facility]
== END ==
PROVIDERS: PCP Physician Assistant; Visit Provider Obstetrics & Gynecology
DX: N92.6 Irregular menstruation, unspecified (principal)
CPT/HCPCS: 76801

== ENCOUNTER → 2021-12-10 11:00 | Outpatient (CLI) | payer MEDICAID, SELFPAY ==
[2021-12-12 21:15] LABS: Neisseria gonorrhoeae, NAA Negative (Negative)
== END ==
PROVIDERS: Visit Provider Obstetrics & Gynecology
DX: Z34.90 Encounter for supervision of normal pregnancy, unspecified, unspecified trimester (principal)
CPT/HCPCS: 87491; 87591

== ENCOUNTER 2022-03-14 19:07 | Emergency (ER) | payer MEDICAID, SELFPAY ==
[2022-03-14 19:45] VITALS: BP 120/78; PULSE 83; RESP 19; TEMP 36.8; O2SAT 100; BMI 25.9
--- NOTE | 2022-03-14 20:07 | EXP.UTC ---
Discharge Plan Disposition Patient Disposition: Home, Self-Care Condition: Good Prescriptions Prescriptions: No Action enoxaparin [Lovenox] 60 mg/0.6 mL syringe 60 mg SQ DAILY 30 Days Qty: 18 10RF Rx Instructions: Take lovenox 60 mg sq daily. Gummies 400 mcg-35 mg- 25 mg-5 mg tablet,chewable PO ondansetron 4 mg tablet,disintegrating 4 mg PO Q8H PRN (Reason: ) 30 Days Qty: 30 4RF insulin lispro 100/ML solution 100 units SQ CONT Label Comments: ondansetron 4 mg Tablet,Disintegrating 4 mg PO Q8H PRN (Reason: Nausea) Qty: 20 0RF Referrals Follow up/Referrals: Chuck Castañeda PA [Primary Care Provider] - See instructions Activity Restrictions/Add. Instructions Additional Instructions/Restrictions: *Monitor Temp, Over the counter Motrin or Tylenol as directed/as needed Tylenol every 4 hours and Motrin every 6 hours (as long as your family doctor has told you that you can take it) for fever or pain. and straight to ER if unable to lower temp less than 101.0 after medication given *Warm salt water gargles may help to soothe the throat *Throat Lozenges? *Warm fluids like tea with honey may help to soothe the throat? *Sleep elevated *Humidifier/Vaporizer Follow up IMMEDIATELY for new or worsening symptoms or no Noticeable improvement over the next 48-72 hours. 911 for difficulty breathing or swallowing Clinical Impressions Clinical Impression: Viral upper respiratory infection Instructions Patient Instructions: DI for Viral Upper Respiratory Infection -- Adult Discharge ED Provider: Cara Mojica [facility] [place] General Stated complaint: bilateral ear pain, sore throat, body aches, fever Time Seen by Provider: 03/14/22 20:07 History of Present Illness Provider Complaint: Patient states that she was around someone with the Flu State that she has been sick since Thursday and is 21wks OB States that she has been having pressure in her ears and nasal congestion Related Data Home Medications Medication Instructions Recorded Confirmed insulin lispro 100 unit/mL 100 units SQ CONT Diabetes 06/01/17 03/10/22 subcutaneous solution PNV 153-FA 400 mcg-om3 35 mg-dha tab PO 02/03/22 03/10/22 25 mg-epa 5 mg-fish oil chew tablet ( Gummies) Previous Rx's Medication Instructions Recorded ondansetron 4 mg disintegrating 4 mg PO Q8H PRN Nausea #20 tabs 11/06/21 tablet enoxaparin 60 mg/0.6 mL 60 mg (0.6 mL) SQ DAILY 30 days 11/25/21 subcutaneous syringe (Lovenox) #18 mL ondansetron 4 mg disintegrating 4 mg PO Q8H PRN 30 days 12/16/21 tablet #30 tabs Allergies Allergy/AdvReac Type Severity Reaction Status Date / Time morphine Allergy Severe Chest Pain Verified 03/10/22 13:38 codeine [CODEINE] Allergy Unknown I-HIVES Verified 03/10/22 13:38 latex [LATEX] Allergy Unknown I-RASH Verified 03/10/22 13:38 Penicillins [PENICILLINS] Allergy Unknown I-HIVES Verified 03/10/22 13:38 [facility] Disclaimer: The information contained in this section may have been updated after the patient was seen, as this information can be updated by other users. Medical History (Updated 03/14/22 @ 20:30 by Cara Mojica APRN) Anticoagulated on heparin Deep venous thrombosis of left upper extremity Diabetes Diabetes type 1, controlled Protein C deficiency Protein S deficiency Type 1 diabetes Surgical History History of delivery History of esophagogastroduodenoscopy (EGD) Social History (Updated 03/14/22 @ 20:07 by Devika Byrd RN) Smoking Status: Never smoker second hand exposure: No alcohol intake: never substance use type: denies use current occupational status: employed Travel in the last 8 weeks: None household members: significant other and children housing: house 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
[2022-03-14 20:20] VITALS: BP 120/78; PULSE 83; RESP 19; TEMP 36.8; O2SAT 100
[2022-03-14 20:21] LABS: UTC Influenza A Antigen Negative (Negative); UTC Influenza B Antigen Negative (Negative)
== END 2022-03-14 20:42 | disposition home or self-care (01) ==
PROVIDERS: Emergency Provider Nurse Practitioner; PCP Physician Assistant
DX: J06.9 Acute upper respiratory infection, unspecified (principal)
CPT/HCPCS: 87804; 99212; G0463

== ENCOUNTER 2022-07-29 12:23 | Emergency (ER) | payer MEDICAID, SELFPAY ==
[2022-07-29 12:25] VITALS: BP 118/76; PULSE 89; RESP 18; TEMP 36.8; O2SAT 100; BMI 25.4
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
[2022-07-29 13:59] VITALS: BP 118/75; PULSE 87; RESP 19; TEMP 36.8; O2SAT 99
== END 2022-07-29 14:02 | disposition home or self-care (01) ==
PROVIDERS: Emergency Provider Nurse Practitioner; PCP Physician Assistant
DX: S92.515A Nondisplaced fracture of proximal phalanx of left lesser toe(s), initial encounter for closed fracture (principal); E10.9 Type 1 diabetes mellitus without complications; Z79.01 Long term (current) use of anticoagulants; W22.8XXA Striking against or struck by other objects, initial encounter
CPT/HCPCS: 73630; 99212; 99214; G0463

== ENCOUNTER → 2022-08-05 11:26 | Outpatient (CLI) | payer MEDICAID, SELFPAY ==
--- NOTE | 2022-08-05 11:29 | XR_ITS ---
FINAL REPORT CLINICAL HISTORY: left 5th toe pain. COMPARISON: 07/29/2022 FINDINGS: LEFT FOOT Three views of the left foot demonstrate the fracture of the proximal phalanx of the left 5th toe, noted on the previous exam of 07/29. There is no intra-articular extension of the fracture. No significant changes noted since the prior exam.. The visualized joint spaces are normally aligned. The soft tissues are unremarkable. IMPRESSION: No change in the left 5th toe proximal phalanx fracture. Reviewed, Interpreted and Dictated by Gordon Gomez MD Transcribed by Oksana Jordan Authenticated and [facility]
== END ==
PROVIDERS: PCP Physician Assistant; Visit Provider Podiatrist
DX: M79.672 Pain in left foot (principal); S92.912A Unspecified fracture of left toe(s), initial encounter for closed fracture
CPT/HCPCS: 73630

== ENCOUNTER 2022-08-28 19:47 | Emergency (ER) | payer MEDICAID, SELFPAY ==
[2022-08-28 19:55] VITALS: BP 141/85; PULSE 77; RESP 20; TEMP 36.8; O2SAT 99; BMI 26.1
--- NOTE | 2022-08-28 20:05 | EXP.UTC ---
Discharge Plan Disposition Patient Disposition: Home, Self-Care Condition: Good Prescriptions Prescriptions: New sulfamethoxazole-trimethoprim [Bactrim DS] 800-160 mg Tablet 1 tab PO BID Qty: 20 0RF No Action enoxaparin [Lovenox] 60 mg/0.6 mL syringe 60 mg SQ DAILY 30 Days Qty: 18 10RF Rx Instructions: Take lovenox 60 mg sq daily. Gummies 400 mcg-35 mg- 25 mg-5 mg tablet,chewable PO insulin lispro 100/ML solution 100 units SQ CONT Label Comments: mupirocin 2 % ointment 1 applic topical TID 10 Days Qty: 22 0RF Rx Instructions: as directed Referrals Follow up/Referrals: Chuck Castañeda PA [Primary Care Provider] - See instructions Activity Restrictions/Add. Instructions Additional Instructions/Restrictions: Apply warm wet compresses to the affected sites three or four times per day for 15 minutes as tolerated. Take the antibiotics as directed. Continue the cephalexin that you are already on. Start the new antibiotic that we prescribed. Follow up with your regular doctor. Don't shave your underarms until this is well healed. Wait at least 1 to 2 months. GO TO THE ER FOR ANY WORSENING SYMPTOMS OR CONCERNS Clinical Impressions Clinical Impression: Abdominal wall cellulitis Instructions Patient Instructions: Cellulitis Discharge ED Provider: Satinder Albarran [facility] General Stated complaint: poss inf spot on abd Time Seen by Provider: 08/28/22 20:05 History of Present Illness Provider Complaint: She states that she has a red infected area on her abdomen. She is a type 1 diabetic. She believes this infection is caused by the site she inserted her insulin pump at last time. Related Data Home Medications Medication Instructions Recorded Confirmed insulin lispro 100 unit/mL 100 units SQ CONT Diabetes 06/01/17 08/05/22 subcutaneous solution PNV 153-FA 400 mcg-om3 35 mg-dha tab PO 02/03/22 08/05/22 25 mg-epa 5 mg-fish oil chew tablet ( Gummies) Previous Rx's Medication Instructions Recorded enoxaparin 60 mg/0.6 mL 60 mg (0.6 mL) SQ DAILY 30 days 11/25/21 subcutaneous syringe (Lovenox) #18 mL mupirocin 2 % topical ointment 1 applic topical TID 10 days #07/29/23 grams sulfamethoxazole 800 1 tab PO BID #20 tabs 08/28/22 mg-trimethoprim 160 mg tablet (Bactrim DS) Allergies Allergy/AdvReac Type Severity Reaction Status Date / Time codeine [CODEINE] Allergy Unknown I-HIVES Verified 08/05/22 10:43 latex [LATEX] Allergy Unknown I-RASH Verified 08/05/22 10:43 Penicillins [PENICILLINS] Allergy Unknown I-HIVES Verified 08/05/22 10:43 PFSH [facility] Disclaimer: The information contained in this section may have been updated after the patient was seen, as this information can be updated by other users. 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
[2022-08-28 20:26] VITALS: BP 141/85; PULSE 77; RESP 20; TEMP 36.8; O2SAT 99
== END 2022-08-28 20:29 | disposition home or self-care (01) ==
PROVIDERS: Emergency Provider Nurse Practitioner Family; PCP Physician Assistant
DX: L03.311 Cellulitis of abdominal wall (principal); E10.9 Type 1 diabetes mellitus without complications; Z79.01 Long term (current) use of anticoagulants; Z86.718 Personal history of other venous thrombosis and embolism
CPT/HCPCS: 96372; 99212; 99214; G0463; J0696

== ENCOUNTER 2022-11-18 16:31 | Emergency (ER) | payer MEDICAID, SELFPAY ==
[2022-11-18 17:40] VITALS: BP 131/86; PULSE 86; RESP 19; TEMP 36.9; O2SAT 98; BMI 26.9
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
[2022-11-18 19:00] VITALS: BP 131/86; PULSE 86; RESP 19; TEMP 36.9; O2SAT 98
== END 2022-11-18 19:02 | disposition home or self-care (01) ==
PROVIDERS: Emergency Provider Nurse Practitioner; PCP Physician Assistant
DX: S00.12XA Contusion of left eyelid and periocular area, initial encounter (principal); R51.9 Headache, unspecified; E10.9 Type 1 diabetes mellitus without complications; D68.59 Other primary thrombophilia; Z79.4 Long term (current) use of insulin; Z79.01 Long term (current) use of anticoagulants; W20.8XXA Other cause of strike by thrown, projected or falling object, initial encounter
CPT/HCPCS: 70150; 99212; 99213; G0463

== ENCOUNTER → 2022-12-29 08:52 | Outpatient (CLI) | payer MEDICAID, SELFPAY ==
--- NOTE | 2022-12-29 08:56 | XR_ITS ---
FINAL REPORT CLINICAL HISTORY: left 5th toe injury COMPARISON: 08/05/2022 FINDINGS: LEFT FOOT: Three views of the left foot were obtained. There is a subacute to chronic fracture of the fifth proximal phalanx which appears to be partially fused. Fracture line is still visible. No other fracture identified. The joint spaces are intact. There is no soft tissue abnormality. IMPRESSION: Subacute to chronic fifth proximal phalanx fracture. Reviewed, Interpreted and Dictated by Joe Hankins III, MD Transcribed by Trini Jeong Authenticated and [facility]
== END ==
PROVIDERS: Visit Provider Podiatrist
DX: M79.675 Pain in left toe(s) (principal); S92.912A Unspecified fracture of left toe(s), initial encounter for closed fracture
CPT/HCPCS: 73630

== ENCOUNTER 2023-02-02 14:41 | Emergency (ER) | payer MEDICAID, SELFPAY ==
[2023-02-02 15:10] VITALS: BP 122/87; PULSE 74; RESP 18; TEMP 37.1; O2SAT 97; BMI 26.7
--- NOTE | 2023-02-02 15:29 | EXP.UTC ---
Discharge Plan Disposition Patient Disposition: Home, Self-Care Condition: Good Prescriptions Prescriptions: New ondansetron 4 mg Tablet,Disintegrating 4 mg PO Q8H PRN (Reason: Nausea) Qty: 12 0RF No Action Gummies 400 mcg-35 mg- 25 mg-5 mg tablet,chewable PO insulin lispro 100/ML solution 100 units SQ CONT Patient Comments: omeprazole 40 mg capsule,delayed release(DR/EC) 40 mg PO DAILY Patient Comments: TAKE 1 CAPSULE BY MOUTH ONCE DAILY Referrals Follow up/Referrals: Chuck Castañeda PA [Primary Care Provider] - See instructions Activity Restrictions/Add. Instructions Additional Instructions/Restrictions: Take tylenol for pain. Take the medications as directed. Follow up with your regular doctor. Follow up with the general surgeon (Dr. Anthony). I put in a referral but you need to call his office and schedule an appointment. GO TO THE ER FOR ANY WORSENING SYMPTOMS Clinical Impressions Clinical Impression: Hernia, umbilical Instructions Patient Instructions: Acute Abdominal Pain, DI for Abdominal Pain-Adult Discharge ED Provider: Satinder Albarran [facility] General Stated complaint: stomach pain, nausea Time Seen by Provider: 02/02/23 15:29 History of Present Illness Provider Complaint: She c/o having a knot that she can palpate for the past 2 weeks. She denies any bowel issues. She denies any changes in her blood sugars. Related Data Home Medications Medication Instructions Recorded Confirmed insulin lispro 100 unit/mL 100 units SQ CONT Diabetes 06/01/17 02/02/23 subcutaneous solution PNV 153-FA 400 mcg-om3 35 mg-dha tab PO 02/03/22 12/31/22 25 mg-epa 5 mg-fish oil chew tablet ( Gummies) omeprazole 40 mg capsule,delayed 40 mg PO DAILY 02/02/23 02/02/23 release Previous Rx's Medication Instructions Recorded ondansetron 4 mg disintegrating 4 mg PO Q8H PRN Nausea #12 tabs 02/02/23 tablet Allergies Allergy/AdvReac Type Severity Reaction Status Date / Time codeine [CODEINE] Allergy Unknown I-HIVES Verified 02/02/23 15:37 latex [LATEX] Allergy Unknown I-RASH Verified 02/02/23 15:37 Penicillins [PENICILLINS] Allergy Unknown I-HIVES Verified 02/02/23 15:37 PFSH PFSH Disclaimer: The information contained in this section may have been updated after the patient was seen, as this information can be updated by other users. 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 caffeine: Yes ROS Obtained: Yes All systems reviewed & no additional complaints except as documented Constitutional Constitutional: Denies chills and Denies fever(s) Eyes Eyes: Denies eye discharge ENT Ears, Nose, Mouth, and Throat: Denies dizziness, Denies otalgia and Denies sore throat Cardiovascular Cardiovascular: Denies chest pain Respiratory Respiratory: Denies shortness of breath, Denies chest congestion, Denies cough, Denies stridor and Denies wheezing Gastrointestinal Gastrointestingal: Reports as per HPI; Denies nausea or vomiting Genitourinary Female Genitourinary: Denies dysuria, Denies urinary frequency, Denies urinary incontinence, Denies urinary hesitancy and Denies urinary urgency Musculoskeletal Musculoskeletal: Reports system review
[2023-02-02 15:51] LABS: Apearance,Urine Clear (Clear); Color,Urine Yellow (Yellow); Glucose,Urine (UA) 250 (Negative); Protein,Urine Negative (Negative); Specific Gravity, Urine 1.025 (1.005-1.030)
[2023-02-02 15:52] LABS: Bilirubin,Urine Negative (Negative); Blood, Urine Negative (Negative); Ketones,Urine Negative (Negative); UTC Leukocyte Esterase,Urine Negative (Negative); UTC Nitrate,Urine Negative (Negative); UTC Pregnancy Test, Urine Negative (Negative); Urobilinogen,Urine 1 EU/dl (0.2)
[2023-02-02 16:01] VITALS: BP 122/87; PULSE 74; RESP 18; TEMP 37.1; O2SAT 97
== END 2023-02-02 16:01 | disposition home or self-care (01) ==
PROVIDERS: Emergency Provider Nurse Practitioner Family; PCP Physician Assistant
DX: K42.9 Umbilical hernia without obstruction or gangrene (principal); E10.9 Type 1 diabetes mellitus without complications; Z86.718 Personal history of other venous thrombosis and embolism; Z79.01 Long term (current) use of anticoagulants; Z79.4 Long term (current) use of insulin
CPT/HCPCS: 81003; 81025; 99212; 99214; G0463

== ENCOUNTER 2023-02-09 13:30 | Emergency (ER) | payer MEDICAID, SELFPAY ==
[2023-02-09 14:30] VITALS: BP 127/81; PULSE 71; RESP 18; TEMP 36.8; O2SAT 98; BMI 28.9
--- NOTE | 2023-02-09 14:42 | EXP.UTC ---
Discharge Plan Disposition Patient Disposition: Home, Self-Care Condition: Good Prescriptions Prescriptions: No Action Gummies 400 mcg-35 mg- 25 mg-5 mg tablet,chewable PO insulin lispro 100/ML solution 100 units SQ CONT Patient Comments: ondansetron 4 mg Tablet,Disintegrating 4 mg PO Q8H PRN (Reason: Nausea) Qty: 12 0RF Referrals Follow up/Referrals: Provider,Referral, MD [Primary Care Provider] - See instructions Activity Restrictions/Add. Instructions Additional Instructions/Restrictions: *Monitor Temp, Over the counter Motrin or Tylenol as directed/as needed Tylenol every 4 hours and Motrin every 6 hours (as long as your family doctor has told you that you can take it) for fever or pain. and straight to ER if unable to lower temp less than 101.0 after medication given *Warm salt water gargles may help to soothe the throat *Throat Lozenges? *Warm fluids like tea with honey may help to soothe the throat? *Sleep elevated *Humidifier/Vaporizer Follow up IMMEDIATELY for new or worsening symptoms or no Noticeable improvement over the next 48-72 hours. 911 for difficulty breathing or swallowing You were tested for today for COVID19 your test result should be back in the next 24 hours You may check for your results on the [facility] My Health Portal if your COVID test is positive you must Quarantine for 5 days Clinical Impressions Clinical Impression: Exposure to COVID-19 virus Instructions Patient Instructions: DI for COVID-19 (Suspected or Confirmed ) Discharge ED Provider: Cara Mojica [facility] HPI General Stated complaint: exposed to Covid Mode of Arrival: Ambulatory Source of Information: Patient Limitations: No Limitations Time Seen by Provider: 02/09/23 14:42 Description of Symptoms (Recalled from Triage Doc. by RN): Was exposed to covid. Symptoms has OLIVEROS, and diarrhea. HEENT Symptoms (Recalled from RN notes): Yes Resp Symptoms (Recalled from RN notes): No Skin Symptoms (Recalled from RN notes): No MS Symptoms (Recalled from RN notes): No Functional Status (Recalled from RN notes): n/a History of Present Illness Provider Complaint: Patient states that brother recently tested positive for COVID States that now she is having symptoms States that she is having body aches, chills, headache and diarrhea and wanted to get tested Related Data Home Medications Medication Instructions Recorded Confirmed insulin lispro 100 unit/mL 100 units SQ CONT Diabetes 06/01/17 02/05/23 subcutaneous solution PNV 153-FA 400 mcg-om3 35 mg-dha tab PO 02/03/22 02/05/23 25 mg-epa 5 mg-fish oil chew tablet ( Gummies) Previous Rx's Medication Instructions Recorded ondansetron 4 mg disintegrating 4 mg PO Q8H PRN Nausea #12 tabs 02/02/23 tablet Allergies Allergy/AdvReac Type Severity Reaction Status Date / Time codeine [CODEINE] Allergy Unknown I-HIVES Verified 02/05/23 09:10 latex [LATEX] Allergy Unknown I-RASH Verified 02/05/23 09:10 Penicillins [PENICILLINS] Allergy Unknown I-HIVES Verified 02/05/23 09:10 Worker's Comp Is this a Worker's Comp case?: No [facility] Disclaimer: The information contained in this section may have been updated after the patient was seen, as this information can be updated by other users. Medical History Anticoagulated on heparin Deep venous thrombosis of left upper extremity Diabetes Diabetes type 1, controlled Protein C deficiency Protein S deficiency Type 1 diabetes Surgical History History of delivery History of esophagogastroduodenoscopy (EGD) Social History Smoking Status: Never smoker second hand exposure: No alcohol intake: never substance use type: denies use current occupational
[2023-02-09 15:10] VITALS: BP 127/81; PULSE 71; RESP 18; TEMP 36.8; O2SAT 98
== END 2023-02-09 15:10 | disposition home or self-care (01) ==
PROVIDERS: Emergency Provider Nurse Practitioner
DX: R51.9 Headache, unspecified (principal); R19.7 Diarrhea, unspecified; M79.18 Myalgia, other site; R68.83 Chills (without fever); E10.9 Type 1 diabetes mellitus without complications; Z79.4 Long term (current) use of insulin
CPT/HCPCS: 87635; 99212; 99213; G0463

== ENCOUNTER → 2023-02-11 08:36 | Outpatient (CLI) | payer MEDICAID, SELFPAY ==
[2023-02-11 09:23] LABS: Blood Urea Nitrogen 11 mg/dl (7-17); Estimated Glomerular Filt Rate 98 ml/min (>60); GFR (African American) 118 ML/MIN (>60)
== END ==
PROVIDERS: PCP Physician Assistant; Visit Provider Surgery
DX: K42.9 Umbilical hernia without obstruction or gangrene (principal)
CPT/HCPCS: 36415; 82565; 84520

== ENCOUNTER → 2023-02-23 08:17 | Outpatient (CLI) | payer MEDICAID, SELFPAY ==
--- NOTE | 2023-02-23 08:17 | CT_ITS ---
FINAL REPORT TECHNIQUE: After the administration of oral and intravenous contrast, axial images were obtained through the abdomen and pelvis by computed tomography. The study was performed with techniques to keep radiation dose as low as reasonably achievable, (ALARA). Individual dose reduction techniques using automated exposure control or adjustment of mA and/or kV according to the patient's size were employed. CLINICAL HISTORY: abdominal pain, concern for hernia, double hernia sx 1997, cholecystectomy 2018 COMPARISON: 09/23/2021 FINDINGS: Abdomen: There is a soft tissue nodule in the anterior aspect of the right middle lobe, measuring 4 mm in size, stable since the prior CT examination. The liver parenchyma is homogeneous. The gallbladder has been surgically resected. The spleen, pancreas, adrenals and kidneys appear unremarkable. The aorta is normal in caliber. There is no free fluid or adenopathy. Pelvis: The appendix is not identified. The uterus is anteverted. The urinary bladder is poorly distended. A large amount of stool is present in the colon. There is no free fluid or adenopathy. No evidence of a focal hernia is identified. IMPRESSION: No acute intra-abdominal process. Prior cholecystectomy. Large amount of stool present in the colon. Reviewed, Interpreted and Dictated by Gordon Gomez MD Transcribed by Oksana Jordan Authenticated and [facility]
== END ==
PROVIDERS: PCP Physician Assistant; Visit Provider Surgery
DX: K42.9 Umbilical hernia without obstruction or gangrene (principal)
CPT/HCPCS: 74177; Q9967

== ENCOUNTER 2023-04-08 11:21 | Emergency (ER) | payer MEDICAID, SELFPAY ==
[2023-04-08 11:22] VITALS: BP 105/78; PULSE 87; RESP 18; TEMP 36.6; O2SAT 100; BMI 26.7
--- NOTE | 2023-04-08 11:38 | ECG_ITS ---
APPROVED REPORT Exam: Resting ECG HR:77 bpm ECG Measurements Heart Rate 77 AXES AL 146 P 83 QRSd 80 QRS 75 QT 379 T 64 QTc 410 Conclusion SINUS RHYTHM LEFT ATRIAL Abnormality Late R wave progression ABNORMAL ECG UNCONFIRMED REPORT Electronically signed by : Rao Olson MD 04/08/2023 22:39:14
[2023-04-08 11:39] LABS: VBG Base Excess -4.2 mmol/L (-2.4-2.3); VBG HCO3 22.2 mmol/L (23-30); VBG Oxygen Saturation 49.1 % (50-70); VBG PCO2 46.1 mmol/L (35-51); VBG PO2 27.7 mmol/L (28-40); VBG Total CO2 23.6 mmol/L (23-27)
[2023-04-08 11:45] LABS: Basophils # 0.1 K/mm3 (0-0.2); Basophils % 2.3 % (0.1-2.0); Eosinophils # 0.1 K/mm3 (0.0-0.4); Eosinophils % 1.2 % (0.1-12.0); Hematocrit 41.7 % (37.0-47.0); Hemoglobin 13.8 g/dL (12.2-16.2); Lymphocytes # 1.4 K/mm3 (0.7-4.5); Lymphocytes % 24.5 % (10-50); Mean Corpuscular Hemoglobin 27.4 pg (27.0-31.2); Mean Corpuscular Volume 83.1 fl (81-99); Mean Platelet Volume 8.1 fl (7.4-10.4); Monocytes # 0.4 K/mm3 (0.1-1.0); Monocytes % 6.9 % (1.7-9.3); Neutrophils # 3.7 K/mm3 (1.8-7.8); Platelet Count 219 K/mm3 (142-424); Red Blood Count 5.02 M/mm3 (4.20-5.40); Red Cell Distribution Width 14.2 % (11.5-17.5); White Blood Count 5.7 K/mm3 (4.8-10.8)
[2023-04-08] MEDS: LACTATED RINGERS 1000ML 1,000 ML 999 ML IV ×2 (11:50→13:17)
[2023-04-08 12:00] VITALS: BP 109/74; PULSE 80; RESP 20; O2SAT 96
[2023-04-08 12:00] LABS: Lactic Acid 0.6 mmol/L (0.7-2.1)
[2023-04-08 12:01] LABS: Alanine Aminotransferase 27 U/L (12-78); Albumin Level 4.2 g/dl (3.5-5.0); Albumin/Globulin Ratio 1.3 (1.1-1.8); Alkaline Phosphatase 107 U/L (38-126); Anion Gap 10.4 mEq/L (5-15); Aspartate Amino Transferase 34 U/L (14-36); Bilirubin,Total 0.5 mg/dl (0.2-1.3); Blood Urea Nitrogen 8 mg/dl (7-17); Calcium 8.7 mg/dl (8.4-10.2); Carbon Dioxide 28 mmol/L (22.0-30.0); Chloride 102 mmol/L (98-107); Creatinine Clearance Estimated 114 mL/min (50-200); Estimated Glomerular Filt Rate 84 ml/min (>60); GFR (African American) 101 ML/MIN (>60); Globulin 3.2 g/dL (1.3-3.2); Glucose 207 mg/dl (74-100); HCG Qualitative, Serum Negative (Negative); Potassium 3.4 mmoL/L (3.5-5.1); Sodium 137 mmol/L (136-145); Total Protein,Serum 7.4 g/dl (6.3-8.2)
[2023-04-08 12:08] LABS: Microscopic, Urine URINE MICROSCOPIC (MICROSCOPIC)
[2023-04-08 12:12] LABS: Appearance,Urine CLEAR (Clear); Bilirubin,Urine Negative (Negative); Blood, Urine TRACE-I (Negative); Glucose,Urine (UA) Negative (Negative); Ketones,Urine 1+ (Negative); Leukocyte Esterase,Urine Negative (Negative); Nitrate,Urine Negative (Negative); PH,Urine 6.5 (5.0-8.5); Protein,Urine Negative (Negative); Specific Gravity, Urine <= 1.005 (1.005-1.030); Urobilinogen,Urine 0.2 EU/dl (0.2)
[2023-04-08 12:30] LABS: Color,Urine Straw (Yellow)
[2023-04-08 12:31] LABS: Bacteria,Urine Trace /lpf; WBC,Urine Occasional #/hpf (0-3)
[2023-04-08] MEDS: ACETAMINOPHEN 1,000MG/100ML VIAL 1000 MG IV (12:31)
[2023-04-08] MEDS: KETOROLAC 30MG/ML VIAL 15 MG IV (12:32)
[2023-04-08] MEDS: ONDANSETRON 4MG/2ML VIAL 4 MG IV (12:32)
[2023-04-08 12:42] LABS: Magnesium 1.9 mg/dl (1.6-2.3); Phosphorous 2.7 mg/dl (2.5-4.5)
[2023-04-08 12:52] LABS: Coronavirus 19, PCR Not Detected (NotDetected); Influenza A, PCR Not Detected (NotDetected); Influenza B, PCR Not Detected (NotDetected)
--- NOTE | 2023-04-08 13:06 | HMH.EDGENADL ---
Discharge Plan Disposition Patient Disposition: Home, Self-Care Condition: Good Prescriptions Prescriptions: New ondansetron 4 mg tablet,disintegrating 4 mg PO Q8H PRN (Reason: nausea and vomiting) 4 Days Qty: 12 0RF No Action Gummies 400 mcg-35 mg- 25 mg-5 mg tablet,chewable PO insulin lispro 100/ML solution 100 units SQ CONT Patient Comments: ondansetron 4 mg Tablet,Disintegrating 4 mg PO Q8H PRN (Reason: Nausea) Qty: 12 0RF Referrals Follow up/Referrals: Maribel Hale APRN [Primary Care Provider] - See instructions Activity Restrictions/Add. Instructions Additional Instructions/Restrictions: You were evaluated in the emergency department today. At this time, it is felt that you were dehydrated given your likely infectious gastroenteritis. Please pickle solution maker your prescription for Zofran and take as needed for nausea and vomiting. Make sure that you are staying orally hydrated. Eat a very bland diet until your symptoms have resolved. Follow-up with your primary care provider over the next week for reassessment. Clinical Impressions Clinical Impression: Dehydration, Nausea, vomiting and diarrhea, Acute gastroenteritis Instructions Patient Instructions: DI for Viral Gastroenteritis -- Adult, DI for Diarrhea and Traveler's Diarrhea -- Adult, DI for Nausea -- Adult Discharge ED Provider: Angela Pearce General Adult HPI General Chief complaint: Nausea/Vomiting/Diarrhea Stated complaint: poss DKA Time Seen by Provider: 04/08/23 11:23 Mode of Arrival: Ambulatory Source of Information: Patient Limitations: No Limitations Description of Symptoms (Recalled from ER Triage Doc. by RN): Patient reports nausea, vomiting and diarrhea since Thursday. States she was tested for flu and it was negative however her children and boyfriend tested positive for flu. Patient is a type 1 diabetic and states she has been testing her ketones that were small yesterday and were large this morning. States all of her glucose checks have been normal. History of Present Illness HPI narrative: This patient is a 32-year-old female with history of insulin-dependent diabetes presenting to the emergency department for evaluation with concern for nausea, vomiting, and diarrhea. She states that everyone at home has had the flu, but she tested negative on Thursday. She has been sick for approximately 5 days now. She states that anytime she eats or drink anything it goes straight through her comes back up. No hematemesis, melena, hematochezia. She tested her ketones at home and noted that she had high ketones in her urine, which she has never had before. She notes that she has been using her insulin despite being ill, and her blood sugar has been controlled. No other concerns noted at this time. No localizable abdominal pain, dysuria, or other issues. Related Data Home Medications Medication Instructions Recorded Confirmed insulin lispro 100 unit/mL 100 units SQ CONT Diabetes 06/01/17 02/26/23 subcutaneous solution PNV 153-FA 400 mcg-om3 35 mg-dha tab PO 02/03/22 02/26/23 25 mg-epa 5 mg-fish oil chew tablet ( Gummies) Previous Rx's Medication Instructions Recorded ondansetron 4 mg disintegrating 4 mg PO Q8H PRN Nausea #12 tabs 02/02/23 tablet ondansetron 4 mg disintegrating 4 mg PO Q8H PRN nausea and 04/08/23 tablet vomiting 4 days #12 tabs Allergies Allergy/AdvReac Type Severity Reaction Status Date / Time codeine [CODEINE] Allergy Unknown I-HIVES Verified 02/26/23 13:03 latex [LATEX] Allergy Unknown I-RASH Verified 02/26/23 13:03 Penicillins [PENICILLINS] Allergy Unknown I-HIVES Verified 02/26/23 13:03 PFSH PFSH Disclaimer: The information contained in this section may have been updated after the patient was seen, as this information can be updated by other users. 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 caffeine: Yes ROS Obtained: Yes All systems reviewed & no additional complaints except as documented Physical Exam General General appearance: alert and in no apparent distress Head Head exam: atraumatic and normocephalic Eye Eye exam: Present normal appearance, PERRL and EOMI ENT ENT exam: Present normal oropharynx, mucous membranes dry and normal external ear exam Neck Neck exam: Present normal inspection, full ROM and trachea midline; Absent tenderness Chest Chest inspection: Present normal inspection and symmetric chest wall rise; Absent tenderness Respiratory Respiratory exam: Present normal lung sounds bilaterally; Absent respiratory distress, wheezes, stridor or accessory muscle use Cardiovascular Cardiovascular exam: Present regular rate and normal rhythm Abdominal Exam Abdominal exam: Present soft; Absent distention, tenderness or guarding Extremities Exam Extremities exam: Present normal inspection, full ROM and normal capillary refill; Absent tenderness or edema Back Exam Back exam: Present normal inspection and full ROM; Absent tenderness Neurological Exam Neurological exam: Present alert, oriented X3, CN II-XII intact and normal gait; Absent motor sensory deficit Psychiatric Psychiatric exam: Present normal affect and normal mood Skin Skin exam: Present warm and dry Medical Decision Making Medical Records Medical records reviewed: Yes I reviewed the patient's medical records. Raz Inquiry Pt receiving controlled substance: No Vital Signs: 04/08/23 11:22 04/08/23 12:00 Temperature 97.8 F Temperature Source Oral Pulse Rate 80 Pulse Rate [Radial] 87 Respiratory Rate 18 20 Blood Pressure 109/74 L Blood Pressure [Right Arm] 105/78 L Blood Pressure Mean 85 Blood Pressure Mean [Right Arm] 87 Blood Pressure Source [Right Arm] Automatic Cuff Blood Pressure Position [Right Arm] Sitting 02 Sat by Pulse Oximetry 100 96 Oxygen Delivery Method Room Air Lab Data Lab results reviewed: Yes I reviewed the patient's lab results. Lab Results 04/08/23 11:24: VBG pH 7.30 L, VBG pCO2 46.1, VBG pO2 27.7 L, VBG HCO3 22.2 L, VBG Total CO2 23.6, VBG O2 Saturation 49.1 L, VBG Base Excess -4.2 L 04/08/23 11:30: WBC 5.7, RBC 5.02, Hgb 13.8, Hct 41.7, MCV 83.1, MCH 27.4, MCHC 33.0, RDW 14.2, Plt Count 219, MPV 8.1, Neut % (Auto) 65.0, Lymph % (Auto) 24.5, [place] % (Auto) 6.9, Eos % (Auto) 1.2, Baso % (Auto) 2.3 H, Neut # (Auto) 3.7, Lymph # (Auto) 1.4, [place] # (Auto) 0.4, Eos # (Auto) 0.1, Baso # (Auto) 0.1, Sodium 137, Potassium 3.4 L, Chloride 102, Carbon Dioxide 28, Anion Gap 10.4, BUN 8, Creatinine 0.80, Estimated Creat Clear 114, Estimated GFR 84, Est GFR ( Amer) 101, Glucose 207 H, Hemoglobin A1c 6.5 H, Lactate 0.6 L, Calcium 8.7, Phosphorus 2.7, Magnesium 1.9, Total Bilirubin 0.5, AST 34, ALT 27, Alkaline Phosphatase 107, Total Protein 7.4, Albumin 4.2, Globulin 3.2, Albumin/Globulin Ratio 1.3, Serum HCG, Qual Negative, Acetone Level None detected 04/08/23 11:56: Urine Color Straw, Urine Appearance Clear, Urine pH 6.5, Ur Specific [place] <= 1.005, Urine Protein Negative, Urine Glucose (UA) Negative, Urine Ketones 1+, Urine Blood Trace-i, Urine Nitrate Negative, Urine Bilirubin Negative, Urine Urobilinogen 0.2, Ur Leukocyte Esterase Negative, Urine RBC 3-5, Urine WBC Occasional, Ur Squamous Epith Cells 3-5, Urine Bacteria Trace 04/08/23 12:47: SARS-CoV-2 (PCR) Not detected, Influenza A Untype (PCR) Not detected, Influenza Type B (PCR) Not detected 04/08/23 11:30 04/08/23 11:30 Orders (Tests/Meds): ED MEDICATIONS Discontinued Medications Generic Name Dose Route Start Last Admin Trade Name Freq PRN Reason Stop Dose Admin Acetaminophen 1,000 mg 04/08/23 12:21 04/08/23 12:31 Acetaminophen 1,000mg/100ml Vial IV 04/08/23 12:22 1,000 mg ONCE ONE Administration Lactated Ringer's 1,000 mls @ 999 mls/hr 04/08/23 11:42 04/08/23 11:50 Lactated Ringer's 1000 Ml Bag IV 04/08/23 12:42 999 mls/hr .Q1H1M ONE Administration Lactated Ringer's 1,000 mls @ 999 mls/hr 04/08/23 12:21 04/08/23 13:17 Lactated Ringer's 1000 Ml Bag IV 04/08/23 13:21 999 mls/hr .Q1H1M ONE Administration Ketorolac Tromethamine 15 mg 04/08/23 12:21 04/08/23 12:32 Ketorolac 30mg/Ml Vial IV 04/08/23 12:22 15 mg ONCE ONE Administration Ondansetron HCl 4 mg 04/08/23 12:21 04/08/23 12:32 Ondansetron 4mg/2ml Vial IV 04/08/23 12:22 4 mg ONCE ONE Administration ORDERS Category Date Time Status Acetone, Serum (Rapid) Stat Lab 04/08/23 11:30 Completed Complete Blood Count Auto Diff Stat Lab 04/08/23 11:30 Completed Comprehensive Metabolic Panel Stat Lab 04/08/23 11:30 Completed HCG Qualitative, Serum Stat Lab 04/08/23 11:30 Completed Hemoglobin A1C Stat Lab 04/08/23 11:30 Completed Lactic Acid Stat Lab 04/08/23 11:30 Completed Magnesium Stat Lab 04/08/23 11:30 Completed POC Glucose,Bedside Stat Lab 04/08/23 11:24 Ordered Phosphorous Stat Lab 04/08/23 11:30 Completed Rapid PCR Covid and Flu A/B Stat Lab 04/08/23 12:47 Completed Urinalysis and Microscopic Stat Lab 04/08/23 11:56 Completed Venous Blood Gas Stat RT 04/08/23 11:24 Completed ECG initial Besson Routine Y 04/08/23 11:38 Completed ECG Data Tracing #1: I reviewed this ECG and interpreted as documented below: Sinus rhythm with a ventricular rate of [address] changes concerning for ischemia. Normal axis and intervals. ECG initial impression date: 04/08/23 ECG initial impression time: 11:39 Medical Decision Narrative: In summary, this patient is a 32-year-old female presenting to the Emergency Department for evaluation of intractable nausea, vomiting, and diarrhea and high ketone readings at home in the setting of type 1 diabetes. Differential diagnoses considered include but are not limited to DKA, HHS, starvation ketosis, dehydration, electrolyte derangements, gastroenteritis, colitis. Ruling out the most morbid conditions drove assessment. On exam, the patient has dry mucous membranes but otherwise exam is reassuring. Abdominal exam is benign. She has reassuring vital signs on cardiac telemetry. Workup included CBC, CMP, VBG, acetone, urinalysis, viral swab, and EKG. She was given a bolus of IV fluids as well as IV Zofran, Toradol, and acetaminophen for symptomatic improvement. On reassessment, patient is resting comfortably with significantly improved symptoms. She is able to tolerate oral intake without difficulty. Patient has ketonuria but she has no elevation in anion gap, no serum ketones, and labs are otherwise reassuring. I feel this is likely due to dehydration in the setting of nausea, vomiting, and diarrhea, which is likely from viral gastroenteritis. She was given total of 2 L bolus of IV fluids. With continued monitoring in the ED, she had no recurrence of vomiting and was able to keep down snacks and liquids. She states that she is feeling much better, and glucose remains under good control. A1c 6.5%. Given improvement in symptoms and reassuring workup and exam, I feel the patient is appropriate for discharge with instructions for supportive management and prescriptions for Zofran. She was given strict return precautions and was discharged after all questions were answered. Critical Care Critical Care Time Critical Care Time: No
[2023-04-08 13:29] LABS: Hemoglobin A1C 6.5 % (4.0-6.0)
[2023-04-08 13:48] LABS: Acetone, Serum (Rapid) None Detected (None Detect)
[2023-04-08 14:11] VITALS: BP 109/63; PULSE 78; RESP 16; TEMP 36.7; O2SAT 100
== END 2023-04-08 14:11 | disposition home or self-care (01) ==
PROVIDERS: Emergency Provider Emergency Medicine; PCP Nurse Practitioner Family
DX: E86.0 Dehydration (principal); R11.2 Nausea with vomiting, unspecified; K52.9 Noninfective gastroenteritis and colitis, unspecified; E10.9 Type 1 diabetes mellitus without complications; D68.59 Other primary thrombophilia
CPT/HCPCS: 80053; 81001; 82009; 82803; 83036; 83605; 83735; 84100; 84703; 85025; 87636; 93005; 96361; 96374; 96375; 99285; J0131; J2405

== ENCOUNTER 2023-05-17 16:20 | Emergency (ER) | payer MEDICAID, SELFPAY ==
--- NOTE | 2023-05-17 16:53 | EXP.UTC ---
Discharge Plan Disposition Patient Disposition: Home, Self-Care Condition: Good Prescriptions Prescriptions: New cyclobenzaprine 10 mg Tablet 10 mg PO BID PRN (Reason: Muscle Spasm) Qty: 20 0RF ibuprofen 600 mg tablet 600 mg PO Q6HP PRN (Reason: Mild Pain) Qty: 30 0RF No Action insulin lispro 100/ML solution 100 units SQ CONT Patient Comments: Referrals Follow up/Referrals: José Edwards DO [Staff Physician] - See instructions Maribel Hale APRN [Primary Care Provider] - See instructions Activity Restrictions/Add. Instructions Additional Instructions/Restrictions: Go home and rest. It would be best if you rested tomorrow too. No heavy lifting. No twisting. The muscle relaxer (cyclobenzaprine--Flexeril) will make you drowsy, so don't drive or operate heavy machinery after taking it. Follow up with your regular doctor. GO TO THE ER FOR ANY WORSENING SYMPTOMS OR CONCERN, ESPECIALLY BOWEL OR BLADDER ISSUES, SADDLE AREA NUMBNESS, FEVER, ETC Clinical Impressions Clinical Impression: Fall, Back pain, Arm pain, Leg pain Discharge ED Provider: Satinder Albarran [facility] General Stated complaint: AO05/15 fall neck, back, arm pain Time Seen by Provider: 05/17/23 16:53 History of Present Illness Provider Complaint: She states that she fell down 6 steps yesterday in an arena seeing [place] on ice. Since then she has had low back pain, coccyx pain, right leg pain, and bilateral arm pain. She denies hitting her head. She denies neck pain. Related Data Home Medications Medication Instructions Recorded Confirmed insulin lispro 100 unit/mL 100 units SQ CONT Diabetes 06/01/17 05/17/23 subcutaneous solution Previous Rx's Medication Instructions Recorded cyclobenzaprine 10 mg tablet 10 mg PO BID PRN Muscle Spasm #20 05/17/23 tabs ibuprofen 600 mg tablet 600 mg PO Q6HP PRN Mild Pain #30 05/17/23 tabs Allergies Allergy/AdvReac Type Severity Reaction Status Date / Time codeine [CODEINE] Allergy Unknown I-HIVES Verified 05/17/23 17:22 latex [LATEX] Allergy Unknown I-RASH Verified 05/17/23 17:22 Penicillins [PENICILLINS] Allergy Unknown I-HIVES Verified 05/17/23 17:22 PFSH PFSH Disclaimer: The information contained in this section may have been updated after the patient was seen, as this information can be updated by other users. 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: Yes ROS Obtained: Yes All systems reviewed & no additional complaints except as documented Constitutional Constitutional: Denies chills and Denies fever(s) Eyes Eyes: Denies eye discharge ENT Ears, Nose, Mouth, and Throat: Denies dizziness, Denies otalgia and Denies sore throat Cardiovascular Cardiovascular: Denies chest pain Respiratory Respiratory: Denies shortness of breath, Denies chest congestion, Denies cough, Denies stridor and Denies wheezing Gastrointestinal Gastrointestingal: Denies nausea or vomiting Musculoskeletal Musculoskeletal: Reports as per HPI, Reports arthralgias and Reports back pain Integumentary/Breasts Skin/Breast: Denies redness, Denies rash and Denies wounds Neurologic Neurologic: Denies dizziness and Denies paresthesias Allergic/Immunologic Allergic/Immunologic: Denies wheezing Physical Exam General General appearance: alert and in no apparent distress Head Head exam: atraumatic, normocephalic and normal inspection Eye Eye exam: Present normal appearance, PERRL and EOMI ENT ENT exam: Present normal exam, normal oropharynx, mucous membranes moist, TM's normal bilaterally and normal external ear exam Neck Neck exam: Present normal inspection, full ROM and trachea midline; Absent meningismus or lymphadenopathy Chest Chest inspection: Present normal inspection and symmetric chest wall rise; Absent tenderness Respiratory Respiratory exam: Present normal lung sounds bilaterally; Absent respiratory distress Cardiovascular Cardiovascular exam: Present regular rate and normal rhythm; Absent JVD Abdominal Exam Abdominal exam: Present soft and normal bowel sounds; Absent distention, tenderness or guarding Extremities Exam Extremities exam: Present normal inspection, full ROM and normal capillary refill; Absent calf tenderness Back Exam Back exam: Present normal inspection; Absent tenderness, CVA tenderness (R), CVA tenderness (L), muscle spasm, paraspinal tenderness, vertebral tenderness, rashes, sciatic notch tenderness (R) or sciatic notch tenderness (L) Neurological Exam Neurological exam: Present alert, oriented X3, CN II-XII intact, normal gait and reflexes normal; Absent motor sensory deficit Expanded Neurological Exam Speech: Present fluid speech Cranial nerves: Normal: EOM function (II, III, IV, ), facial sensation (V), facial palsy (VII), gag reflex (IX), spinal accessory function (XI) and tongue deviation (XII) Cerebellar function: normal gait Motor strength - LUE: 5/5 Motor strength - RUE: 5/5 Motor strength - LLE: 5/5 Motor strength - RLE: 5/5 Sensory exam upper extremity: Normal: light touch and 2 point discrimination Sensory exam lower extremity: Normal: light touch and 2 point discrimination DTR: 2+: biceps (L), biceps (R), patellar (L), patellar (R), Achilles tendon (L) and Achilles tendon (R) Spinal cord function: Absent saddle anesthesia Psychiatric Psychiatric exam: Present normal affect and normal mood Skin Skin exam: Present warm, dry, intact and normal color Lymphatic Lymphatic Findings: no adenopathy Medical Decision Making Medical Records Medical records reviewed: No I reviewed the patient's medical records. Raz Inquiry Pt receiving controlled substance: No
--- NOTE | 2023-05-17 16:57 | XR_ITS ---
PROCEDURE INFORMATION: Exam: XR Right Ankle Exam date and time: 05/17/2023 5:22 PM Age: 33 years old Clinical indication: Pain; Ankle; Right; Additional info: Fall TECHNIQUE: Imaging protocol: Radiologic exam of the right ankle. Views: 3 or more views. COMPARISON: No relevant prior studies available. FINDINGS: Bones/joints: Normal. Soft tissues: Normal. IMPRESSION: No acute findings.
--- NOTE | 2023-05-17 16:57 | XR_ITS ---
PROCEDURE INFORMATION: Exam: XR Left Wrist Exam date and time: 05/17/2023 5:13 PM Age: 33 years old Clinical indication: Pain; Wrist; Left; Additional info: Fall TECHNIQUE: Imaging protocol: Radiologic exam of the left wrist. Views: 3 or more views. COMPARISON: US CA venous doppler UE LT 06/03/2017 12:41 PM FINDINGS: Bones/joints: Normal. Soft tissues: Normal. IMPRESSION: No acute findings.
--- NOTE | 2023-05-17 16:57 | XR_ITS ---
PROCEDURE INFORMATION: Exam: XR Lumbosacral Spine Exam date and time: 05/17/2023 5:24 PM Age: 33 years old Clinical indication: Low back pain; Additional info: Fall TECHNIQUE: Imaging protocol: Radiologic exam of the lumbosacral spine. Views: 2 or 3 views. COMPARISON: CT ABDOMEN PELVIS W CON 02/23/2023 8:32 AM FINDINGS: Bones/joints: Normal. No acute fracture. Normal alignment. Soft tissues: Unremarkable. IMPRESSION: No acute findings.
--- NOTE | 2023-05-17 16:57 | XR_ITS ---
PROCEDURE INFORMATION: Exam: XR Right Forearm Exam date and time: 05/17/2023 5:19 PM Age: 33 years old Clinical indication: Pain; Lower or forearm; Right; Additional info: Fall TECHNIQUE: Imaging protocol: Radiologic exam of the right forearm. Views: 2 views. COMPARISON: CR XR WRIST RT MIN 3V 11/05/2020 5:25 PM FINDINGS: Bones/joints: Normal. Soft tissues: Normal. IMPRESSION: No acute findings.
--- NOTE | 2023-05-17 16:57 | XR_ITS ---
PROCEDURE INFORMATION: Exam: XR Left Forearm Exam date and time: 05/17/2023 5:15 PM Age: 33 years old Clinical indication: Injury or trauma; Fall; Blunt trauma (contusions or hematomas); Arm, lower; Left TECHNIQUE: Imaging protocol: Radiologic exam of the left forearm. Views: 2 views. COMPARISON: CR XR WRIST LT MIN 3V 05/17/2023 5:13 PM FINDINGS: Bones/joints: Normal. Soft tissues: Normal. IMPRESSION: No acute findings.
--- NOTE | 2023-05-17 16:57 | XR_ITS ---
PROCEDURE INFORMATION: Exam: XR Right Humerus Exam date and time: 05/17/2023 5:08 PM Age: 33 years old Clinical indication: Pain; Upper arm; Right; Additional info: Fall TECHNIQUE: Imaging protocol: Radiologic exam of the right humerus. Views: 2 or more views. COMPARISON: CR XR CERVICAL SPINE 3V 05/17/2023 5:04 PM FINDINGS: Bones/joints: Normal. Soft tissues: Normal. IMPRESSION: No acute findings.
--- NOTE | 2023-05-17 16:57 | XR_ITS ---
PROCEDURE INFORMATION: Exam: XR Sacrum and Coccyx, 2 or More Views Exam date and time: 05/17/2023 5:25 PM Age: 33 years old Clinical indication: Pain in coccyx area; Additional info: Fall TECHNIQUE: Imaging protocol: XR of the sacrum and coccyx, 2 or more views. COMPARISON: CR XR LUMBAR SPINE 2-3V 05/17/2023 5:24 PM FINDINGS: Bones/joints: Normal. No acute fracture. Soft tissues: Normal. IMPRESSION: No acute findings.
--- NOTE | 2023-05-17 16:57 | XR_ITS ---
PROCEDURE INFORMATION: Exam: XR Right Elbow Exam date and time: 05/17/2023 5:18 PM Age: 33 years old Clinical indication: Pain; Elbow; Right; Additional info: Fall TECHNIQUE: Imaging protocol: Radiologic exam of the right elbow. Views: 3 or more views. COMPARISON: CR XR HUMERUS RT 05/17/2023 5:08 PM FINDINGS: Bones/joints: Normal. Soft tissues: Normal. IMPRESSION: No acute findings.
--- NOTE | 2023-05-17 16:57 | XR_ITS ---
PROCEDURE INFORMATION: Exam: XR Left Elbow Exam date and time: 05/17/2023 5:15 PM Age: 33 years old Clinical indication: Pain; Elbow; Left; Additional info: Fall TECHNIQUE: Imaging protocol: Radiologic exam of the left elbow. Views: 3 or more views. COMPARISON: CR XR FOREARM LT 2V 05/17/2023 5:15 PM FINDINGS: Bones/joints: Normal. Soft tissues: Normal. IMPRESSION: No acute findings.
--- NOTE | 2023-05-17 16:57 | XR_ITS ---
PROCEDURE INFORMATION: Exam: XR Cervical Spine Exam date and time: 05/17/2023 5:04 PM Age: 33 years old Clinical indication: Neck pain; Additional info: Fall TECHNIQUE: Imaging protocol: Radiologic exam of the cervical spine. Views: 2 or 3 views. COMPARISON: CT CERVICAL SPINE WO CON 12/22/2020 9:55 PM FINDINGS: Bones/joints: Normal. No acute fracture. Normal alignment. Soft tissues: Unremarkable. IMPRESSION: No acute findings.
--- NOTE | 2023-05-17 16:57 | XR_ITS ---
PROCEDURE INFORMATION: Exam: XR Thoracic Spine Exam date and time: 05/17/2023 5:06 PM Age: 33 years old Clinical indication: Pain in thoracic spine; Other: Neck pain; Additional info: Fall TECHNIQUE: Imaging protocol: Radiologic exam of the thoracic spine. Views: 2 views. COMPARISON: CR XR CERVICAL SPINE 3V 05/17/2023 5:04 PM FINDINGS: Bones/joints: Scoliotic curvature of the thoracic spine. No acute fracture. Soft tissues: Unremarkable. IMPRESSION: No acute findings.
--- NOTE | 2023-05-17 16:57 | XR_ITS ---
PROCEDURE INFORMATION: Exam: XR Left Humerus Exam date and time: 05/17/2023 5:10 PM Age: 33 years old Clinical indication: Pain; Upper arm; Left; Additional info: Fall TECHNIQUE: Imaging protocol: Radiologic exam of the left humerus. Views: 2 or more views. COMPARISON: BALJIT SHOU3L [id number] VIEWS 10/01/2016 12:28 PM FINDINGS: Bones/joints: Normal. Soft tissues: Normal. IMPRESSION: No acute findings.
[2023-05-17 17:00] VITALS: BP 116/81; PULSE 77; RESP 18; TEMP 36.6; O2SAT 98; BMI 25.7
[2023-05-17 18:25] VITALS: BP 116/81; PULSE 77; RESP 18; TEMP 36.6; O2SAT 98
== END 2023-05-17 18:25 | disposition home or self-care (01) ==
PROVIDERS: Emergency Provider Nurse Practitioner Family; PCP Nurse Practitioner Family
DX: M79.601 Pain in right arm; M79.602 Pain in left arm; M54.50 Low back pain, unspecified; M79.604 Pain in right leg; M53.3 Sacrococcygeal disorders, not elsewhere classified; W10.9XXA Fall (on) (from) unspecified stairs and steps, initial encounter; E10.9 Type 1 diabetes mellitus without complications; D68.51 Activated protein C resistance; D68.59 Other primary thrombophilia; Z86.718 Personal history of other venous thrombosis and embolism
CPT/HCPCS: 72040; 72070; 72100; 72220; 73060; 73080; 73090; 73110; 73610; 99212; 99214; G0463

== ENCOUNTER 2023-05-26 16:37 | Outpatient (CLI) | payer MEDICAID, SELFPAY ==
--- NOTE | 2023-05-26 16:45 | XR_ITS ---
PROCEDURE INFORMATION: Exam: XR Right Foot Exam date and time: 05/26/2023 4:47 PM Age: 33 years old Clinical indication: Foot; Right; Patient HX: Fall down stairs Thursday, C/O 3rd toe pain TECHNIQUE: Imaging protocol: Radiologic exam of the right foot. Views: 3 or more views. COMPARISON: CR XR ANKLE RT MIN 3V 05/17/2023 5:22 PM FINDINGS: Bones/joints: No fractures, dislocations, or focal bone lesions. Soft tissues: No masses, soft tissue gas, or radiopaque foreign bodies. IMPRESSION: No acute findings in the right foot.
== END 2023-05-26 23:59 ==
LOC: RAD 16:38
PROVIDERS: PCP Nurse Practitioner Family; Visit Provider Physician Assistant
DX: M79.674 Pain in right toe(s) (principal)
CPT/HCPCS: 73630

== ENCOUNTER 2024-03-23 14:28 | Outpatient (CLI) | payer MEDICAID, SELFPAY ==
[2024-03-24 15:19] LABS: Anti-Cardio Antibody IgM 15 MPL U/mL (0-12); Anti-Cardiolipin Antibody IgG <9 GPL U/mL (0-14); Beta-2 Glycoprotein I Ab, IgG <9 (0-20); Beta-2 Glycoprotein I Ab, IgM <9 (0-32)
[2024-03-25 14:10] LABS: Anti-Thrombin III Antigen 102 % (72-124); Antithrombin Activity 141 % (75-135); Protein S Antigen, Total 78 % (60-150)
[2024-03-25 17:08] LABS: Protein C Antigen 94 % (60-150)
[2024-04-08 18:21] LABS: APTT 25.6 sec (.); Anti-Cardiolipin Antibody IgG <10 GPL (.); Anti-Cardiolipin Antibody IgM 17 MPL (.); Beta-2 Glycoprotein I Ab, IgA <10 SAU (.); Beta-2 Glycoprotein I Ab, IgG <10 SGU (.); Beta-2 Glycoprotein I Ab, IgM <10 SMU (.); Hexagonal Phase Phospholipid 4 sec (.); INR 0.9 ratio (.); Prothrombin Time 10.6 sec (.); Thrombin Time 16.9 sec (.)
[2024-04-13 11:29] LABS: Protein C Functional 108
[2024-04-13 11:30] LABS: Protein S Functional 74
== END 2024-03-23 23:59 | disposition home or self-care (01) ==
LOC: LAB 14:28
PROVIDERS: PCP Nurse Practitioner Family; Visit Provider Internal Medicine Medical Oncology
DX: I82.A12 Acute embolism and thrombosis of left axillary vein (principal); D68.59 Other primary thrombophilia
CPT/HCPCS: 36415; 85300; 85301; 85302; 85305; 85306; 85597; 85598; 85610; 85613; 85670; 85730; 86146; 86147

== ENCOUNTER 2024-08-08 18:26 | Emergency (ER) | payer MEDICAID, SELFPAY ==
[2024-08-08 18:33] VITALS: BP 153/84; PULSE 74; RESP 16; TEMP 36.6; O2SAT 100; BMI 27.4
[2024-08-08 18:53] LABS: Microscopic, Urine URINE MICROSCOPIC (MICROSCOPIC)
[2024-08-08 18:54] LABS: Appearance,Urine CLEAR (Clear); Bilirubin,Urine Negative (Negative); Blood, Urine 1+ (Negative); Color,Urine YELLOW (Yellow); Glucose,Urine (UA) Negative (Negative); Ketones,Urine Negative (Negative); Leukocyte Esterase,Urine Negative (Negative); Nitrate,Urine Negative (Negative); Protein,Urine Negative (Negative); Specific Gravity, Urine 1.025 (1.005-1.030); Urobilinogen,Urine 0.2 EU/dl (0.2)
[2024-08-08 19:27] LABS: Bacteria,Urine 1+ /lpf; Mucus,Urine 1+ /lpf; WBC,Urine Occasional #/hpf (0-3)
[2024-08-08 20:27] VITALS: BP 000/00; PULSE 0; RESP 0; TEMP -17.7; TEMP 0; O2SAT 0
--- NOTE | 2024-08-08 23:40 | ED_ITS ---
Discharge Plan Disposition Patient Disposition: Eloped Chief Complaint: Abdominal Pain Prescriptions Prescriptions: No Action gabapentin 100 mg capsule 100 mg PO TID Patient Comments: TAKE 1 TO 2 CAPSULES BY MOUTH THREE TIMES DAILY FOR 30 DAYS duloxetine 30 mg capsule,delayed release(DR/EC) 30 mg PO DAILY Patient Comments: TAKE 1 CAPSULE BY MOUTH ONCE DAILY insulin lispro 100/ML solution 100 units SQ CONT Patient Comments: Clinical Impressions Clinical Impression: Eloped from emergency department Print Language Print Language: Trinidadian Discharge ED Provider: Shreyas Jennings Adult HPI General Chief complaint: Abdominal Pain Stated complaint: stomach and rib pain Time Seen by Provider: 08/08/24 19:40 Mode of Arrival: Ambulatory Source of Information: Patient Description of Symptoms (Recalled from ER Triage Doc. by RN): Pt presents with ongoing abdominal pain radiating into her ribs that began 2 weeks ago. Pt denies any N/V/D, fever. Pt states it feels like pressure in my belly . Pt has gastroparesis and hiatal hernia History of Present Illness HPI narrative: Patient left without being seen. I was therefore unable to assess patient and form a clinical impression. Please note that first provider time was documented solely for the purposes of chart completion. Electronic medical record will not allow me to file a note for the purposes of documenting this encounter in the emergency department without first provider time but again, I did not evaluate the patient. Related Data Home Medications ?Medication ?Instructions ?Recorded ?Confirmed insulin lispro 100 unit/mL 100 units SQ CONT Diabetes 06/01/17 04/22/24 subcutaneous solution duloxetine 30 mg capsule,delayed 30 mg PO DAILY 04/22/24 release gabapentin 100 mg capsule 100 mg PO TID 03/23/2404/22 Allergies Allergy/AdvReac Type Severity Reaction Status Date / Time codeine (CODEINE) Allergy Unknown I-HIVES Verified 04/22/24 11:13 latex (LATEX) Allergy Unknown I-RASH Verified 04/22/24 11:13 Penicillins (PENICILLINS) Allergy Unknown I-HIVES Verified 04/22/24 11:13 [facility] Disclaimer: The information contained in this section may have been updated after the patient was seen, as this information can be updated by other users. Medical History Anticoagulated on heparin Protein S deficiency Protein C deficiency Type 1 diabetes Diabetes Diabetes type 1, controlled Deep venous thrombosis of left upper extremity Surgical History History of delivery History of esophagogastroduodenoscopy (EGD) Family History (Updated 03/23/24 @ 13:32 by MYRA Orellana) Other No significant family history Social History Smoking Status: Unknown if ever smoked second hand exposure: No alcohol intake: never substance use type: denies use current occupational status: employed Travel in the last 8 weeks?: None household members: significant other and children housing: house 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 caffeine: Yes Have you lived/traveled outside US in past 30 days?: No Contact w/someone who lives/traveled outside US past 30 days?: No Exposure to someone with infectious disease in past 14 days?: No Do you have a fever (greater than 100.4 F or 38 C)?: No Have you tested positive for COVID-19?: No Exposed to someone with COVID-19 in past 14 days?: No Do you have a sore throat?: No Do you have a cough?: No Do you have any weakness?: No Do you have any diarrhea?: No Are you experiencing any unusual bleeding?: No Do you have any muscle aches/pain?: No Do you have any abdominal pain?: No Are you experiencing loss of taste or smell?: No Other Medical History Have you received the Flu Vaccine for this season: Yes Have you received the Pneumonia Vaccine: No ROS Obtained: Yes other (Unobtainable) Physical Exam General General appearance: other (Unobtainable) Head Head exam: other (Unobtainable) ENT ENT exam: Present other (Unobtainable) Neck Neck exam: Present other (Unobtainable) Chest Chest inspection: Present other (Unobtainable) Respiratory Respiratory exam: Present other (Unobtainable) Cardiovascular Cardiovascular exam: Present other (Unobtainable) Abdominal Exam Abdominal exam: Present other (Unobtainable) Extremities Exam Extremities exam: Present other (Unobtainable) Back Exam Back exam: Present other (Unobtainable) Neurological Exam Neurological exam: Present other (Unobtainable) Psychiatric Psychiatric exam: Present other (Unobtainable) Medical Decision Making Medical Records Screening: Per USPSTF and CDC recommendations, given the prevalence of disease in our region, it is our hospital?s policy to screen for HIV and viral Hepatitis for all patients aged 18 and over and those with ongoing risk factors. Raz Inquiry Pt receiving controlled substance: No Vital Signs: 08/08/24 18:33 08/08/24 20:27 Temperature 98 F 0 F L Temperature Source Oral Pulse Rate 0 L Pulse Rate [Left] 74 Respiratory Rate 16 0 L Blood Pressure 000/00 L Blood Pressure [Right Arm] 153/84 H Blood Pressure Mean [Right Arm] 107 Blood Pressure Source [Right Arm] Automatic Cuff Blood Pressure Position [Right Arm] Sitting 02 Sat by Pulse Oximetry 100 Oxygen Delivery Method Room Air Lab Data Lab Results 08/08/24 18:38: Urine Color Yellow, Urine Appearance Clear, Urine pH 6.0, Ur Specific [place] 1.025, Urine Protein Negative, Urine Glucose (UA) Negative, Urine Ketones Negative, Urine Blood 1+ A, Urine Nitrate Negative, Urine Bilirubin Negative, Urine Urobilinogen 0.2, Ur Leukocyte Esterase Negative, Urine RBC 5-10, Urine WBC Occasional, Ur Squamous Epith Cells 10-20, Urine Bacteria 1+, Urine Mucus 1+ Orders (Tests/Meds): ORDERS Category Date Time Status Urinalysis and Microscopic Stat Lab 08/08/24 18:38 Completed Medical Decision Narrative: Patient left without being seen. I was therefore unable to assess patient and form a clinical impression.Please note that first provider time was documented solely for the purposes of chart completion.Electronic medical record will not allow me to file a note for the purposes of documenting this encounter in the emergency department without first provider time but again I did not see patient. Critical Care Critical Care Time Critical Care Time: No
== END 2024-08-08 19:45 | disposition left against medical advice (07) ==
PROVIDERS: Emergency Provider Emergency Medicine; PCP Nurse Practitioner Family
DX: R10.9 Unspecified abdominal pain (principal)
CPT/HCPCS: 81001; 99281

== ENCOUNTER 2024-09-08 10:26 | Outpatient (CLI) | payer BC, MEDICAID, SELFPAY ==
--- OUTSIDE RECORDS SUMMARY | 2024-09-08 10:32 | XMS_ITS | Encounter Summary ---
Author Organization [facility] Address [address] [place] [address] Care Team Providers Care Garment Form Assembler Name Role Phone Rao Olson MD Primary Care Provider + [phone] Chuck Castañeda Primary Care Provider + [phone] Reason for Referral * Consultation (Routine) - Closed Specialty Diagnoses / Procedures Referred By Dayron [email or web address] Referred To Contact Hand Surgery Diagnoses Ganglion cyst of dorsum of left wrist Chuck Castañeda PA [address] [place] [address] Phone: tel: fax: [facility] [address] [place] [address] Phone: tel: fax: Referral ID Status Reason Start Date Expiration Date Visits Re quested Visits Authorized [id number] Closed 10/04/2021 04/05/2023 1 1 Encounter Details Date Type Department Care Team (Late st Contact Info) Description 10/04/2021 [facility] [address] [place] [address] Chuck Castañeda PA [address] [place] [address] Ganglion cyst of dorsum of left wrist (Primary Dx) Social History Tobacco Use Types Packs/Day Years Used Date Smoking Tobacco: Never Alcohol Use Standard Drinks/Week Comments No 0 (1 standard drink = 0.6 oz pur e alcohol) Comments Unknown Sex and Gender Information Value Date Recorded Sex Assigned at Not on file Legal Sex Female 6:42 PM EDT Gender Identity Not on file Sexual Orientation Not on file documented as of this encounter Plan of Treatment Scheduled Referrals Name Type Priority Associated Diagnoses Order Schedule Ambulatory referral to Orthopaedics Hand Outpatient Referral Routine Ganglion cyst of dorsum of left wrist Expected: 10/04/2021 (Approximate), Expires: 04/06/2023 documented as of this encounter Visit Diagnoses Diagnosis Ganglion cyst of dorsum of left wrist- Primary documented in this encounter Care Teams Garment Form Assembler Relationship Specialty Start Date End Date Rao Olson MD [address] [place] [address] PCP - General 07/20/20 10/09/21 Chuck Castañeda PA [address] [place] [address] PCP - General 10/10/21 documented as of this encounter
--- OUTSIDE RECORDS SUMMARY | 2024-09-08 10:32 | XMS_ITS | Patient Health Record ---
Author Organization [facility] Address [address] [place] [address] Care Team Providers Care Dry Kiln Burner Name Role Phone Yvette Pretty Unavailable [phone] Allergies Allergen (clinical drug ingredient) Drug/Non Drug Allergy documented on EMR Reaction Allergy Type Onset Date Status CODEINE PHOSPHATE (CODEINE PHOSPHATE SOLN) Unspecified Drug Allergy 10/14/2017 Active MORPHINE SULFATE (MORPHINE SULFATE TABS) Unspecified Drug Allergy 01/20/2018 Active PENICILLIN V POTASSIUM (PENICILLIN V POTASSIUM TAB Unspecified Drug Allergy 10/14/2017 Active LATEX EXAM GLOVES (DISPOSABLE GLOVES) Unspecified Drug Allergy 10/14/2017 Active Reason For Referral No Information Medications Medication SIG (Take, Route, Frequency, Duration) Notes Start Date End Date Status Dexcom G6 Sensor Act elsa HumaLOG Active Enoxaparin Sodium Ac tive Ondansetron Active Omnipod DASH Pods (Gen 4) Active valACYclovir HCl Act elsa Problems Problem Type SNOMED Code ICD Code Onset Dates Problem Status W/U Status Risk Notes Problem *Follow-up for Non-Malignant conditions (code also - acquired absence of organ (Z90.-) and identify personal hx malignant neoplasm (Z85.-)) (Z09) 04/14/19 19 Active confirmed Postoperative examination Plan Of Treatment No Information Medical (General) History Medical History History ICD Code clotting disorder DVT diabetes-type 1 endometriosis uti anxiety protien S diff. gastropresis Surgical History Surgery Date(Month/Year) eye sx, doiuble hernia repai r, dxd lap, rectal abcess removed, $ D&C, gallbladder removal, Section x2
--- OUTSIDE RECORDS SUMMARY | 2024-09-08 10:32 | XMS_ITS | Clinical Summary ---
Author Organization [facility] Address [address] [place] [address] Care Team Providers Care Crop Setting Out Machine Operator Name Role Phone Chuck Castañeda Primary Care Provider Allergies Active Allergy Reactions Criticality Noted Date Comments Codeine Unknown - Patient states they do not know rxn details Low 11/15/2013 Latex Hives,Rash Medium 01/14/2014 Penicillins Hives Medium 02/27/2015 Sulfamethoxazole-Trimetho prim Other - please document in the comment field Medium 06/24/2021 Leg cramping Medications Continuous Blood Gluc Sensor (Dexcom G6 Sensor) misc CHANGE EVERY 10 DAYS 2 Active Continuous Blood Gluc Transmit (Dexcom G6 transmitter) misc CHANGE EVERY 3 MONTHS 2 Active HumaLOG 100 UNIT/ML injection USE UP TO 100 UNITS CONTINOUSLY DAILY VIA INSULIN PUMP 2 Active Family History Medical History Relation Name Comments Cardiac disorder Father Esophageal cancer Father Heart attack Father Arthritis Mother Fibromyalgia Mother Relation Name Status Comments Father Mother Social History Tobacco Use Types Packs/Day Years Used Date Smoking Tobacco: Never Smokeless Tobacco: Never Tobacco Cessation:Counseling Given: Not Answered Alcohol Use Standard Drinks/Week Comments No 0 (1 standard drink = 0.6 oz pur e alcohol) Comments Unknown Sex and Gender Information Value Date Recorded Sex Assigned at Not on file Legal Sex Female 6:42 PM EDT Gender Identity Not on file Sexual Orientation Not on file Last Filed Vital Signs Vital Sign Reading Time Taken Comments Blood Pressure 107/74 11/04/2021 9:52 AM EDT Pulse 70 11/04/2021 9:52 AM EDT Temperature 36.4 C (97.6 F) 11/04/2021 9:52 AM EDT Respiratory Rate - - Oxygen Saturation 99% 11/04/2021 9:52 AM EDT Inhaled Oxygen Concentration - - Weight 68 kg (150 lb) 11/04/2021 9:52 AM EDT Height 162.6 cm (5' 4 ) 11/04/2021 9:52 AM EDT Body Mass Index 25.75 11/04/2021 9:52 AM EDT Plan of Treatment Health Maintenance Due Date Last Done Comments [facility]-Depression Screening 1991 [facility]-/Child/Adol SDOH Screenings 1991 [facility]-IPV Vaccines (2 of 3 - 4-dose series) 08/24/1995 07/27/1995 [facility]-Obesity Intervention 1997 [facility]-Varicella Vaccines (1 of 2 - 13+ 2-dose series) 2004 HPV Vaccines (2 - 3-dose series) 06/17/2007 05/20/2007 [facility]- SDOH Screenings 2009 [facility]-Adult SDOH Screenings 2009 [facility]-Pap Smear 2012 [facility]-DTaP,Tdap,and Td Vaccines (3 - Td or Tdap) 04/06/2016 04/06/2006, 07/27/1995 [facility]-Cervical Cancer Screening 2021 [facility]-HPV/Cotest 2021 [id number] Vaccine ( - season) 2023 [facility]-Influenza Vaccine (#1) 11/07/202401/09, 01/24/2017, 12/29/2014 [facility]-Zoster Vaccines (1 of 2) 2041 [facility]-Hepatitis B Vaccines Completed 002, 02/05/2001, 12/14/2000 [facility]-HIV Screening Completed 09/01/2017 [facility]-Hepatitis C Screening Completed 2019, 08/04/2019, 06/09/2017 [facility]-Diabetes: Hemoglobin A1C Discontinued , 09/01/2017, 06/09/2017 [facility]-HIB Vaccines Aged Out No longer e ligible based on patient's age to complete this topic [facility]-Hepatitis A Vaccines Aged Out No longer eligible based on patient's age to complete this topic [facility]-Pneumococcal Vaccine: Pediatrics (0 to 5 Years) and At-Risk Patients (6 to 49 Years) Aged Out No longer eligible b ased on patient's age to complete this topic [facility]-Rotavirus Vaccines Aged Out No lo nger eligible based on patient's age to complete this topic Procedures Procedure Name Priority Date/Time Associated Diagnosis Comments HIV 1/2 ANTIBODY/ANTIGEN SCREEN WITH REFLEX TO HIV I/II DIFFERENTIATION Routine 09/01/2017 4:21 PM EDT HEMOGLOBIN A1C Routine 09/01/2017 4:21 PM EDT HEPATITIS C ANTIBODY W/REFLEX TO HCV QUANT PCR Routine 06/09/2017 2:06 PM EDT from Last 3 Months or Most Recently Relevant to Health Maintenance Results * HIV 1 & 2 Antibody/Antigen Screen (09/01/2017 4:21 PM EDT) HIV 1 Result NONREACTIVE Screening for HIV 1 and 2 antibodies is NONREACTIVE. No confirmatory testing is required. SUNQUEST 09/01/2017 4:21 PM EDT 09/01/2017 6:38 PM EDT Mona Peterson MD LAB BLOOD ORDERABLES Final Result SUNQUEST * Hemoglobin A1c (09/01/2017 4:21 PM EDT) Hemoglobin A1c 5.7 4.7 - 6.0 % SUNQUEST Comment: Glycohemoglobin Reference Range, 0 years and up: 4.7 to 6.0% . HA1C Interpretive Data: Diagnosis of Diabetes: Diabetic > or = 6.5% Pre-diabetic 5.7 to 6.4% Non-diabetic < or = 5.6% . Glycemic Targets for Type I and Type II Diabetics: Non- Adults <7.0% Adults <6.0% Children and Adolescents <7.5% . Source: [place] [employer]. Standards of medical care in diabetes, 2017. Diabetes Care.2017:40 (suppl 1):S1-S135. . HbA1c assay performed by an ion-exchange chromatography method that is certified traceable to the DCCT. 09/01/2017 4:21 PM EDT 09/01/2017 6:43 PM EDT Aide Medeiros APRN LAB BLOOD ORDERABLES Jess l Result SUNQUEST * Hepatitis C Antibody (06/09/2017 2:06 PM EDT) [facility] Hepatitis C Antibody NEGATIVE Reference Range: Negative SUNQUEST 06/09/2017 2:06 PM EDT 06/09/2017 2:19 PM EDT Aide Medeiros APRN LAB BLOOD ORDERABLES Jess l Result Performing Organization Address City/[facility]/ZIP Co de Phone Number SUNQUEST from Last 3 Months or Most Recently Relevant to Health Maintenance Insurance [facility] MEDICAID Care Teams Crop Setting Out Machine Operator Relationship Specialty Start Date End Date Chuck Castañeda PA PCP - General 10/10/21
--- NOTE | 2024-09-08 10:45 | CT_ITS ---
FINAL REPORT TECHNIQUE: Axial imaging of the abdomen and pelvis was obtained with and without intravenous contrast. Reformatted images were also obtained and reviewed. This study was performed with techniques to keep radiation doses as low as reasonably achievable (ALARA). Individualized dose reduction techniques using automated exposure control or adjustment of mA and/or kV according to the patient's size were employed. CLINICAL HISTORY: IV Contrast Only, pelvic pressure COMPARISON: 02/23/2023 FINDINGS: There is a stable nodule at the left lung base measuring 7 mm likely due to an intrafissural lymph node. There is also a pleural-based nodule in the anterior right middle lobe measuring 4 mm on image 4 of series 5 which is also stable. The liver is normal in size and attenuation. Patient is status postcholecystectomy. The spleen is unremarkable. The adrenals are normal. The pancreas is unremarkable. The kidneys enhance appropriately. Precontrast images demonstrate no nephrolithiasis. Uterus is anteverted. Appendix is not identified. There are no secondary findings of appendicitis. Urinary bladder is decompressed. There is no adenopathy or free fluid. A tampon is noted in the vagina. IMPRESSION: No acute process. Reviewed, Interpreted and Dictated by Gordon Gomez MD Transcribed by Ghada Kramer Authenticated and [facility] [place] [place]
[2024-09-08 10:47] LABS: Blood Urea Nitrogen 12 mg/dl (7-17); Creatinine,Serum 0.70 mg/dl (0.52-1.04); Estimated Glomerular Filt Rate 96 ml/min (>60); GFR (African American) 117 ML/MIN (>60)
[2024-09-08] MEDS: SODIUM CHLORIDE 0.9% 10ML SYR (RAD ONLY) 10 ML IV (11:05)
[2024-09-08] MEDS: IOPAMIDOL-370 (76%);100ML BOTTLE 75 ML IV (11:05)
--- NOTE | 2024-09-08 15:30 | US_ITS ---
PROCEDURE: US TRANSVAGINAL CLINICAL INDICATION: Pelvic pressure COMPARISON: CT CT ABDOMEN PELVIS W CON from 02/23/[address] ABDOMEN PELVIS WO/W CON from 09/08/2024 FINDINGS: Transvaginal sonographic images of the pelvis were obtained. UTERUS: 9.0cm x 6.8 cmx 5.2cm anteverted with a combined endometrial thickness of 4.9mm. A scar is seen. There is a small amount of fluid within the endometrium at the fundus. LEFT OVARY: 2.5x1.7 cmx1.8cm with a volume of 4ml. There are multiple small peripheral follicles. RIGHT OVARY: 2.7 cmx 2.1cmx1.7 cm with a volume of 5ml. There are multiple small peripheral follicles. Both ovaries are seen and appear normal. Doppler flow to both ovaries are seen. There is no fluid in the cul-de-sac. IMPRESSION: 1. Anteverted uterus normal in shape and size. The endometrium is thin. There is a small amount of fluid within the endometrium at the fundus. 2. Both ovaries are seen and appear normal. They have multiple small peripheral follicles. 3. No fluid in the cul-de-sac. Dictated by: Jesus Ceron MD 09/08/2024 14:13 Jesus Ceron MD in OV 09/08/2024 14:13
== END 2024-09-08 23:59 | disposition home or self-care (01) ==
LOC: RAD 10:27
PROVIDERS: PCP Nurse Practitioner Family; Visit Provider Obstetrics & Gynecology
DX: N83.02 Follicular cyst of left ovary (principal); N83.01 Follicular cyst of right ovary; R93.89 Abnormal findings on diagnostic imaging of other specified body structures
CPT/HCPCS: 36415; 74178; 76830; 82565; 84520; Q9967

== ENCOUNTER 2024-09-19 08:35 | Outpatient (CLI) | payer BC, MEDICAID, SELFPAY ==
--- OUTSIDE RECORDS SUMMARY | 2024-09-19 08:38 | XMS_ITS | Clinical Summary ---
Author Organization Healthcare Address [address] [place] [address] Care Team Providers Care Careers Counsellor Name Role Phone Chuck Castañeda Primary Care Provider [phone] Allergies Active Allergy Reactions Criticality Noted Date [...] Date Last Done Comments [facility]-Depression Screening 1991 [facility]-Infant/Child/Adol SDOH Screenings 1991 [facility]-IPV Vaccines (2 of 3 - 4-dose series) 08/24/1995 07/27/1995 [facility]-Obesity Intervention 1997 [facility]-Varicella Vaccines (1 of 2 - 13+ 2-dose series) 2004 HPV Vaccines (2 - 3-dose series) 06/17/2007 05/20/2007 [facility]- SDOH Screenings 2009 [facility]-Adult SDOH Screenings 2009 [facility]-Pap Smear 2012 [facility]-DTaP,Tdap,and Td Vaccines (3 - Td or Tdap) 04/06/2016 04/06/2006, 07/27/1995 [facility]-Cervical Cancer Screening 2021 [facility]-HPV/Cotest 2021 [facility]GI-XYPFO-63 Vaccine ( - season) 2023 [facility]-Influenza Vaccine [...] <6.0% Children and Adolescents <7.5% . Source: [place] [employer]. Standards of medical care in diabetes, 2017. Diabetes Care.2017:40 (suppl 1):S1-S135. . HbA1c assay performed by an ion-exchange chromatography method that is certified traceable to the DCCT. 09/01/2017 4:21 PM EDT 09/01/2017 6:43 PM EDT Aide Medeiros APRN LAB BLOOD ORDERABLES Jess l Result SUNQUEST * Hepatitis C Antibody (06/09/2017 2:06 PM EDT) [facility] Hepatitis C Antibody NEGATIVE Reference Range: Negative SUNQUEST 06/09/2017 2:06 PM EDT 06/09/2017 2:19 PM EDT Aide Medeiros APRN LAB BLOOD ORDERABLES Jess l Result Performing Organization Address City/[facility]/ZIP Co de Phone Number SUNQUEST from Last 3 Months or Most Recently Relevant to Health Maintenance Insurance [facility] MEDICAID Care Teams Careers Counsellor Relationship Specialty Start Date End Date Chuck Castañeda PA PCP - General 10/10/21
--- OUTSIDE RECORDS SUMMARY | 2024-09-19 08:38 | XMS_ITS | Patient Health Record ---
Author Organization [facility] Address [address] [place] [address] Care Team Providers Care Tree Girdler Name Role Phone Yvette Pretty Unavailable [phone] Allergies Allergen (clinical drug ingredient) Drug/Non Drug [...]
--- OUTSIDE RECORDS SUMMARY | 2024-09-19 08:38 | XMS_ITS | Encounter Summary ---
Author Organization [facility] Address [address] [place] [address] Care Team Providers Care Furniture Removalist Name Role Phone Rao Olson MD Primary Care Provider + [phone] Chuck Castañeda Primary Care Provider + [phone] Reason for Referral * Consultation (Routine) - Closed Specialty Diagnoses / Procedures Referred By Dayron [email or web address] Referred To Contact Hand Surgery Diagnoses Ganglion cyst of dorsum of left wrist Chuck Castañeda PA [address] [place] [address] Phone: tel: fax: [facility] [address] [place] [address] Phone: tel: fax: Referral ID Status Reason Start Date Expiration Date Visits Re quested Visits Authorized [id number] Closed 10/04/2021 04/05/2023 1 1 Encounter Details Date Type Department Care Team (Late st Contact Info) Description 10/04/2021 [facility] [address] [place] [address] Chuck Castañeda PA [address] [place] [address] Ganglion cyst of dorsum of [...] Primary documented in this encounter Care Teams Furniture Removalist Relationship Specialty Start Date End Date Rao Olson MD [address] [place] [address] PCP - General 07/20/20 10/09/21 Chuck Castañeda PA [address] [place] [address] PCP - General 10/10/21 documented as of this encounter
--- NOTE | 2024-09-19 08:42 | XR_ITS ---
FINAL REPORT CLINICAL HISTORY: Pain of the foot FINDINGS: LEFT FOOT Three views of the left foot demonstrate no acute fracture or dislocation. The visualized joint spaces are normally aligned. The soft tissues are unremarkable. IMPRESSION: No acute bony abnormality. Reviewed, Interpreted and Dictated by Rashard Loza MD Transcribed by Ghada Kramer Authenticated and [facility]
--- NOTE | 2024-09-19 08:42 | XR_ITS ---
FINAL REPORT CLINICAL HISTORY: Foot Pain FINDINGS: RIGHT FOOT 3 views of the right foot were obtained. There is no acute fracture or dislocation. Visualized joint spaces are normally aligned. Soft tissues are unremarkable. IMPRESSION: No acute bony abnormality. Reviewed, Interpreted and Dictated by Rashard Loza MD Transcribed by Ghada Kramer Authenticated and [facility]
== END 2024-09-19 23:59 | disposition home or self-care (01) ==
LOC: RAD 08:37
PROVIDERS: PCP Nurse Practitioner Family; Visit Provider Nurse Practitioner
DX: M79.672 Pain in left foot (principal); M79.671 Pain in right foot
CPT/HCPCS: 73630

== ENCOUNTER → 2024-11-01 09:35 | Outpatient (REF) | payer SELFPAY ==
--- OUTSIDE RECORDS SUMMARY | 2024-10-04 10:00 | XMS_ITS | Encounter Summary ---
[facility] Address [address] [place] [address] Care Team Providers Care Supervisor Salvage Name Role Phone MelgarBryni JANE Primary Care Provider Reason for Referral * MRI/CAT/PET Scan (Routine) - Pending Review Specialty Diagnoses / Procedures Referred By Contac t Referred To Contact Radiology Diagnoses Neuropathic pain Ptosis of eyelid, unspecified laterality Dysphagia, unspecified type Neck pain Procedures MRI Cervical Spine With & Without Contrast Rohini Palacio DNP, APRN [address] [place] [address] Phone: tel: fax: [address] [phone] Phone: tel: Referral ID Status Reason Start Date Expiration Date V isits Requested Visits Authorized [id number] Pending Review 10/04/2024 01/03/2026 1 1 * MRI/CAT/PET Scan (Routine) - Pending Review Specialty Diagnoses / Procedures Referred By Contac t Referred To Contact Radiology Diagnoses Neuropathic pain Ptosis of eyelid, unspecified laterality Dysphagia, unspecified type Procedures MRI Brain With & Without Contrast Rohini Palacio DNP, APRN [address] [place] [address] Phone: tel: fax: [address] [address] [place] [address] Phone: tel: Referral ID Status Reason Start Date Expiration Date V isits Requested Visits Authorized [id number] Pending Review 10/04/2024 01/03/2026 1 1 Reason for Visit * Reason Comments Small fiber neuropathy * Consultation (Routine) - Closed Specialty Diagnoses / Procedures Referred By Contac t Referred To Contact Neurology Diagnoses Bilateral hand pain Small fiber neuropathy Procedures OR OFFICE/OUTPATIENT NEW MODERATE MDM 45 MINUTES Oneyda Glover MD [address] [facility] [address] [place] [address] Phone: tel: fax: [facility] [address] [facility] [address] [place] [address] Phone: tel: fax: Referral ID Status Reason Start Date Expiration Date V isits Requested Visits Authorized [id number] Closed Specialty Services Required 08/23/2024 11/22/2025 1 1 Encounter Details Date Type Department Care Team (Late st Contact Info) Description 10/04/2024 10:00 AM EDT Office Visit [facility] [address] [phone] Rohini Palacio DNP, DRILL OPERATOR PNEUMATIC [address] [facility] [address] [place] [address] Neuropathic pain (Primary Dx); Other fatigue; Ptosis of eyelid, unspecified laterality; Dysphagia, unspecified type; Neck pain Social History Tobacco Use Types Packs/Day Years Used Date Smoking Tobacco: Never Passive Smoke Exposure: Never Smokeless Tobacco: Never Tobacco Cessation:Counseling Given: No Alcohol Use Standard Drinks/Week Comments No 0 (1 standard drink = 0.6 oz pur e alcohol) Humiliation, Afraid, Rape, and Kick questionnair e Answer Date Recorded Within the last year, have y ou been afraid of your partner or ex-partner? No 05/16/2022 Within the last year, have y ou been humiliated or emotionally abused in other ways by your partner or ex-partner? No Within the last year, have y ou been kicked, hit, slapped, or otherwise physically hurt by your partner or ex-partner? No 05/16/2022 Within the last year, have y ou been raped or forced to have any kind of sexual activity by your partner or ex-partner? No 05/16/2022 Social Connection and Isolation Panel [NHANES] A nswer Date Recorded In a typical week, how many times do you talk on the phone with family, friends, or neighbors? Twice a week 05/06/2022 How often do you get togethe r with friends or relatives? Once a week 05/06/2022 How often do you attend presybeterian or jainism serv ices? Never 05/06/2022 Do you belong to any clubs o r organizations such as presybeterian groups, unions, fraternal or athletic groups, or school groups? No 05/06/2022 How often do you attend meet ings of the clubs or organizations you belong to? Patient declined 05/06/2022 Are you , , di vorced, , never , or living with a partner? Never 05/06/2022 AUDIT-C Answer Date Recorded Q1: How often do you have a drink containing alcohol? Never 05/16/2022 Q2: How many drinks containi ng alcohol do you have on a typical day when you are drinking? Patient does not drink Q3: How often do you have si x or more drinks on one occasion? Never 05/16/2022 Overall Financial Resource Strain (CARDIA) Answe r Date Recorded How hard is it for you to pa y for the very basics like food, housing, medical care, and heating? Patient declined 05/06/2022 PHQ-2 Answer Date Recorded Retired PHQ-9: Brief Depression Severity Measure Score 7 07/30/2021 [facility] - Occupational Stress Questionnaire Answer Date Recorded Do you feel stress - tense, restless, nervous, or anxious, or unable to sleep at night because your mind is troubled all the time - these days? Only a little 05/06/2022 Exercise Vital Sign Answer Date Recorde d On average, how many days pe r week do you engage in moderate to strenuous exercise (like a brisk walk)? 3 days 05/06/2022 On average, how many minutes do you engage in exercise at this level? 20 min 05/06/2022 Hunger Vital Sign Answer Date Recorded Within the past 12 months, y ou worried that your food would run out before you got the money to buy more. Sometimes true Within the past 12 months, t he food you bought just didn't last and you didn't have money to get more. Never true 12/2022 PRAPARE - Transportation Answer Date Re corded In the past 12 months, has l ack of transportation kept you from medical appointments or from getting medications? No 04/10 In the past 12 months, has l ack of transportation kept you from meetings, work, or from getting things needed for daily living? No 05/06/2022 Housing Stability Vital Sign Answer Frandy e Recorded In the last 12 months, was t here a time when you were not able to pay the mortgage or rent on time? Yes 05/06/2022 In the last 12 months, how many places have you lived? 3 05/06/2022 In the last 12 months, was t here a time when you did not have a steady place to sleep or slept in a fpc (including now)? No 05/06/2022 Moore Depression Scale Answer Date Recorded Retired Moore Depression Score 7 08/05/2022 Retired EPD Scale: Thought of Harming Self Unrec ognized value 08/05/2022 Abuse Screen Answer Date Recorded Feels Unsafe at Home or Work/School no 06/26/2022 Feels Threatened by Someone no 06/08 Does Anyone Try to Keep You From Having Contact with Others or Doing Things Outside Your Home? no 06/26/2022 Physical Signs of Abuse Present no 06/26/2022 Housing Stability Answer Date Recorded Current Living Arrangements home 05/07 Potentially Unsafe Housing Conditions none 05/16/2022 Family and Community Support Answer Frandy e Recorded If for any reason you need h elp with day-to-day activities such as bathing, preparing meals, shopping, managing finances, etc., do you get the help you need? I don't need any help 05/16/2022 How often do you feel lonely or isolated from those around you? Never 05/16/2022 Employment Answer Date Recorded Do you want help finding or keeping work or a job? I do not need or want help 05/16/2022 Disabilities Answer Date Recorded Difficulty Concentrating, Remembering or Making Decisions no 05/16/2022 Difficulty Managing Errands Independently no 05/16/2022 Education Answer Date Recorded Do you want help with school or training? For example, starting or completing job training or getting a high school diploma, GED or equivalent No 05/16/2022 Preferred Language Turkmen 05/16/2022 Education Answer Date Recorded What is the highest level of school you have completed or the highest degree you have received? 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 Not on file Not on file Not on jak e documented as of this encounter Last Filed Vital Signs Vital Sign Reading Time Taken Comments Blood Pressure 114/76 10/04/2024 9:47 AM EDT Pulse 68 10/04/2024 9:47 AM EDT Temperature - - Respiratory Rate - - Oxygen Saturation 98% 10/04/2024 9:47 AM EDT Inhaled Oxygen Concentration - - Weight 72.4 kg (159 lb 9.6 oz) 10/04/2024 9:47 A M EDT Height 160 cm (5' 2.99 ) 10/04/2024 9:47 AM EDT Body Mass Index 28.28 10/04/2024 9:47 AM EDT documented in this encounter Progress Notes * Rohini Palacio, DNP, DRILL OPERATOR PNEUMATIC - 10/04/2024 10:00 AM EDT Neuro Office Visit Encounter Date: 10/04/2024 Patient Name: Suzie Hsieh : 1990 PCP: Maribel Melgar APRN Referring: Dr Glover Chief Complaint: Chief Complaint Patient presents with Small fiber neuropathy History of Present Illness: Suzie Hsieh is a 34 y.o. female who is here today in Neurology for neuropathy History of Present Illness The patient presents for evaluation of potential neuropathy. Numbness and Tingling/Multiple Neurologic Symptoms. Decreased sensation 2022 onset of bilat hand and feet pain, electric shocks, burning, tingling, decreased sensation. MG-ADL-8 She was referred by Dr. Le due to symptoms of pain, tingling, numbness, and shock-like sensations in her hands and feet, which have been ongoing for several years. These symptoms have escalated to the point where even light touch from her children causes discomfort. Prolonged standing is unbearable due to severe foot pain, and she often ends her day in tears from the discomfort. She also reports decreased sensation in her hands and feet, necessitating hot showers to feel warmth. She has broken her toes 8 times in the past 5 years due to lack of sensation when hitting objects. She is under the care of a headhunter and is scheduled for bone density testing in 8 to 9 weeks. She reports no falls or tick bites. She has never undergone an MRI of her brain. She has scoliosis and experiences neck pressure. She struggles with urinary incontinence, experiencing dribbling throughout the day and worsening symptoms with coughing or sneezing. She no longer feels the urge to urinate and has numbness in the perineum area. Her PROGRAM ASSOCIATE suggested pelvic floor therapy, which she is scheduled to start. She also experiences constipation, which persists despite taking stool softeners and MiraLAX. She reports brain fog, intermittent vision issues, dry eyes, and occasional double vision. She has been using bifocals for a couple of years but sometimes feels they worsen her vision. 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 The double vision does not resolve when she closes one eye and affects both eyes. Her right eyelid has been drooping more than the left for a couple of years. She occasionally struggles with speech and swallowing, leading to choking on food and water. She feels as if food gets stuck when she eats or drinks. She has low energy levels, often falling asleep during the day and unable to exercise. She experiences pain when walking and lacks strength, making it difficult to carry her children for extended periods. She reports no slurred speech but admits to occasional nasal speech and fatigue when chewing solid food. She sometimes feels short of breath while chewing and during exercise. She can comb her hair without difficulty but experiences the same sensation of not being able to breathe when brushing her teeth. PAST MEDICAL HISTORY: She has protein C and S deficiency, which is currently stable and does not require blood thinners. This condition is managed by hematology at [facility]. 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 MG-ADL-8 Progress Notes by Satinder Levine MD (08/23/2024 09:30)-Normal NCV and EMG of the upper extremities Progress Notes by Satinder Levine MD (08/30/2024 09:30)-Normal NCV and EMG of the right lower extremity and left lower extremity Labs: A1c 6.6, folate, homocysteine,MM Acid, vit b12, tsh t4, sed rate, RF, YAMILETH-neg PMH: DVT LUE, Protein C &S def, Type 1 DM, gastroparesis, anemia, Bilat CTS, concussion, scoliosis, mulitple toe fractures FH:OA, cancer, Leiden Factor V, PE, htn, stroke, throat cancer, PE SH:-tob, -eoth, -drug. Subjective Past Medical History: Past Medical History: Diagnosis Date Anxiety 2010 Depression DVT (deep vein thrombosis) in reports hx multiple DVT's in arms and legs Endometriosis 2014 Gastroparesis 2016 Hiatal hernia History of shingles Hypertension 08/2023 Neuropathy 2016 peripheral Protein C deficiency Protein S deficiency 05/2017 Protein S deficiency affecting , antepartum 10/27/2017 Recurrent loss Single liveborn, born in hospital, delivered by section 03/26/2018 Single liveborn, born in hospital, delivered by section 04/11/2020 Type [address] Glover Past Surgical History: Past Surgical History: Procedure Laterality Date SECTION N/A 03/26/2018 Procedure: SECTION PRIMARY; Surgeon: Ирина Solis MD; Location: [facility];Service: Obstetrics SECTION N/A 04/11/2020 Procedure: SECTION REPEAT; Surgeon: Ирина Solis MD; Location: [facility]; Service: Obstetrics; Laterality: N/A; SECTION Bilateral 06/23/2022 Procedure: SECTION REPEAT WITH SALPINGECTOMY; Surgeon: Luca Davies MD; Location: [facility]; Service: Obstetrics/Gynecology; Laterality: Bilateral; CHOLECYSTECTOMY 2014 DIAGNOSTIC LAPAROSCOPY 2016 for endometriosis DILATATION AND CURETTAGE 2011; 2013; 2014; 2018 HERNIA REPAIR 1992 bilateral inguinal RECTAL SURGERY 2016 Abcess REFRACTIVE SURGERY Left 1995 TOE SURGERY Bilateral 2017 repair of 5th toes, two seperate surgeries, same year Family History: Family History Problem Relation Age of Onset Arthritis Mother Anemia Mother Throat cancer Father Heart disease Father Spina bifida Father Hypertension Father Stroke Father Cancer Father Pulmonary embolism Paternal Grandmother Factor V Leiden deficiency Paternal Grandmother Social History: Social History Socioeconomic History Marital status: Single Number of children: 2 Highest education level: Associate degree: academic program Tobacco Use Smoking status: Never Passive exposure: Never Smokeless tobacco: Never Vaping Use Vaping status: Never Used Substance and Sexual Activity Alcohol use: No Drug use: No Sexual activity: Not Currently Partners: Male control/protection: Tubal ligation Medications: Current Outpatient Medications: Accu-Chek FastClix Lancets misc, Use 1 Units Daily., Disp: 100 each, Rfl: 1 azithromycin (Zithromax Z-Jeison) 250 MG tablet, Take 2 tablets by mouth on day 1, then 1 tablet dailyon days 2-5, Disp: 6 tablet, Rfl: 0 Blood Glucose Monitoring Suppl w/Device kit, Use daily to test blood sugars Dx: E10.9, Disp: 1 each, Rfl: 0 Continuous Glucose Sensor (Dexcom G6 Sensor), Use Every 10 (Ten) Days., Disp: 9 each, Rfl: 1 Continuous Glucose Transmitter (Dexcom G6 Transmitter) misc, Use 1 each Every 3 (Three) Months., Disp: 1 each, Rfl: 1 Gabapentin 10 % cream, Apply 1 Units topically 2 (Two) Times a Day. Twice daily - gabapentin 10%,, ketoprofen 20% and lidocaine 5%, Disp: 60 g, Rfl: 3 Glucose Blood (Blood Glucose Test) strip, Test blood sugars daily DX; E10.9, Disp: 100 each, Rfl: 1 HumaLOG 100 UNIT/ML injection, USE UP TO 100 UNITS DAILY IN CONTINUOUS INSULIN PUMP, Disp: 90 mL, Rfl: 1 Insulin Disposable Pump (Omnipod 5 [id number] Pods Gen 5) misc, Inject 1 Units under the skin into theappropriate area as directed Every Other Day. E10.65, Disp: 45 each, Rfl: 1 Allergies: Allergies Allergen Reactions Codeine Hives, Shortness Of Breath and Rash Latex Rash and Hives Penicillins Hives Sulfamethoxazole-Trimethoprim GI Intolerance and Other (See Comments) Leg cramping Leg cramping PHQ-9 Total Score: STEADI Fall Risk Assessment has not been completed. Objective Physical Exam: Physical Exam Constitutional: General: She is not in acute distress. Appearance: Normal appearance. She is not ill-appearing or toxic-appearing. HENT: Head: Normocephalic and atraumatic. Nose: Nose normal. Eyes: General: Right eye: No discharge. Left eye: No discharge. Extraocular Movements: EOM normalNo nystagmus. Conjunctiva/sclera: Conjunctivae normal. Pulmonary: Effort: Pulmonary effort is normal. No respiratory distress. Neurological: General: No focal deficit present. Mental Status: She is alert and oriented to person, place, and time. Mental status is at baseline. Psychiatric: Mood and Affect: Mood normal. Behavior: Behavior normal. Thought Content: Thought content normal. Judgment: Judgment normal. Neurological Exam Mental Status Alert. Oriented to person, place, and time. Cranial Nerves CN III, IV, : Abnormal extraocular movements: No nystagmus. Diminished smooth pursuit. Right ptosis. Motor Right shoulder higher than left. Gait Intoeing of left foot. Physical Exam Cranial Nerve Examination CN II: Right eye is not tracking correctly. CN III IV : Ptosis of the right eyelid. CN VII: Facial movements are symmetrical. Motor Examination Strength: Strength is normal in upper and lower extremities. Upper Extremity Drift Test: No upper extremity drift. Sensory Examination Pain and Temperature: Decreased sensation to temperature in hands and feet. Gait and Station Gait: Normal walking pattern and stability. Balance: Able to perform tandem walking. Musculoskeletal: Scoliosis noted with one shoulder higher than the other. Vital Signs: Vitals: 10/04/24 0947 BP: 114/76 Pulse: 68 SpO2: 98% Weight: 72.4 kg (159 lb 9.6 oz) Height: 160 cm (62.99 ) Body mass index is 28.28 kg/m??. Assessment / Plan Assessment/Plan: Diagnoses and all orders for this visit: 1. Neuropathic pain (Primary) - Angiotensin Converting Enzyme; Future - Anti-Myelin Oligodendrocyte Glycoprotein (MOG), Serum; Future - Neuromyelitis Optica (NMO) Auto Antibody, IgG; Future - Sedimentation Rate; Future - Acetylcholine Receptor Antibody Panel; Future - CK; Future - Heavy Metals Profile II, Urine - Urine, Clean Catch; Future - Ferritin; Future - Cryoglobulin; Future - KRISTY + PE; Future - Lyme Disease, Line Blot; Future - MRI Brain With & Without Contrast; Future - MRI Cervical Spine With & Without Contrast; Future 2. Other fatigue - Anti-Myelin Oligodendrocyte Glycoprotein (MOG), Serum; Future - Neuromyelitis Optica (NMO) Auto Antibody, IgG; Future - Acetylcholine Receptor Antibody Panel; Future - CK; Future - Heavy Metals Profile II, Urine - Urine, Clean Catch; Future - Ferritin; Future - Cryoglobulin; Future - KRISTY + PE; Future - Lyme Disease, Line Blot; Future 3. Ptosis of eyelid, unspecified laterality - Angiotensin Converting Enzyme; Future - Anti-Myelin Oligodendrocyte Glycoprotein (MOG), Serum; Future - Neuromyelitis Optica (NMO) Auto Antibody, IgG; Future - Sedimentation Rate; Future - Acetylcholine Receptor Antibody Panel; Future - CK; Future - Heavy Metals Profile II, Urine - Urine, Clean Catch; Future - Ferritin; Future - Cryoglobulin; Future - KRISTY + PE; Future - Lyme Disease, Line Blot; Future - MRI Brain With & Without Contrast; Future - MRI Cervical Spine With & Without Contrast; Future 4. Dysphagia, unspecified type - Angiotensin Converting Enzyme; Future - Anti-Myelin Oligodendrocyte Glycoprotein (MOG), Serum; Future - Neuromyelitis Optica (NMO) Auto Antibody, IgG; Future - Sedimentation Rate; Future - Acetylcholine Receptor Antibody Panel; Future - CK; Future - Heavy Metals Profile II, Urine - Urine, Clean Catch; Future - Ferritin; Future - Cryoglobulin; Future - KRISTY + PE; Future - Lyme Disease, Line Blot; Future - MRI Brain With & Without Contrast; Future - MRI Cervical Spine With & Without Contrast; Future 5. Neck pain - MRI Cervical Spine With & Without Contrast; Future Assessment & Plan 1. Potential neuropathy. Her symptoms include pain, tingling, numbness, and electric shocks in her hands and feet, along with decreased sensation and difficulty standing for long periods. Despite nerve conduction studies showing no neuropathy, her symptoms suggest possible small fiber neuropathy or another neurological condition. Additional blood work will be conducted today. An MRI of the brain and spinal cord will be ordered. If these tests return negative results, an MRI of the thoracic region may be considered. A spinal tap may also be necessary if no other cause is found. 2. Urinary incontinence. She experiences dribbling throughout the day and lacks the urge to urinate, with exacerbation during coughing or sneezing. Pelvic floor therapy has been recommended by her PROGRAM ASSOCIATE and is scheduled. 3. Constipation. She reports difficulty with bowel movements despite using stool softeners and MiraLAX. 4. Brain fog. She experiences cognitive difficulties, including feeling spaced out and having intermittent doublevision. An MRI of the brain will be ordered to investigate these symptoms further. 5. Speech and swallowing difficulties. She reports occasional slurred speech, difficulty chewing solid food, and feeling like food gets stuck when swallowing. These symptoms will be evaluated as part of the neurological workup. 6. Low energy level. She reports very low energy levels, difficulty performing daily activities, and shortness of breathduring exercise. These symptoms will be evaluated as part of the comprehensive workup. 7. Right eyelid drooping. She has a history of right eyelid drooping for the past 2-3 years, which may be related to her other neurological symptoms. A referral to an pipe production worker will be made for further evaluation. Follow-up A follow-up appointment is scheduled for 3 months from now. Patient Education: Reviewed medications, potential side effects and signs and symptoms to report. Discussed risk versus benefits of treatment plan with patient and/or family- including medications, labs and radiology that may be ordered. Addressed questions and concerns during visit. Patient and/or family verbalized un derstanding and agree with plan. Instructed to call the office with any questions and report to ER with any life-threatening symptoms. Follow Up: Return in about 3 months (around 01/04/2025) for Recheck. During this visit the following were done: Labs Reviewed [x] Labs Ordered [x] Radiology Reports Reviewed [x] Radiology Ordered [x] PCP Records Reviewed [x] Referring Provider Records Reviewed [] ER Records Reviewed [] Hospital Records Reviewed [] History Obtained From Family [] Radiology Images Reviewed [] Other Reviewed [x] Records Requested [] Patient or patient underwriting service representative verbalized consent for the use of Ambient Listening during the visit with Rohini Palacio DNP, APRN for chart documentation. 10/05/2024 10:03 EDT Rohini Palacio DNP, APRN documented in this encounter Plan of Treatment Upcoming Encounters Date Type Department Care Team (Late st Contact Info) Description 11/04/2024 9:00 AM EDT Appointment [facility] MRI AT [address] [phone] 11/04/2024 10:00 AM EDT Appointment [facility] MRI AT [address] [phone] 12/12/2024 8:30 AM EDT Office Visit [facility] NE[facility] [address] [place] [phone] Rohini Palacio DNP, APRN [address] [facility] [address] [place] [address] 12/26/2024 12:15 PM EDT Telemedicine [facility] [address] [facility] [address] [place] [phone] Oneyda Glover MD [address] [facility] [address] [place] [phone] Scheduled Orders Name Type Priority Associated Diagnoses Orde r Schedule MRI Brain With & Without Contrast Imaging Routine Neuropathic pain Ptosis of eyelid, unspecified laterality Dysphagia, unspecified type Expected: 10/05/2024, Expires: 01/04/2026 MRI Cervical Spine With & Without Contrast Imaging Routine Neuropathic pain Ptosis of eyelid, unspecified laterality Dysphagia, unspecified type Neck pain Expected: 10/05/2024, Expires: 01/04/2026 documented as of this encounter Results * Lyme Disease, Line Blot (10/04/2024 11:20 AM EDT) Lyme IgG Western Blot Interpretation Negative Negative 10/07/2024 4:11 PM EDT [facility] IgG P93 Ab. Absent 10/07/2024 4:11 PM EDT [facility] IgG P66 Ab. Absent 10/07/2024 4:11 PM EDT [facility] IgG P58 Ab. Absent 10/07/2024 4:11 PM EDT [facility] IgG P45 Ab. Absent 10/07/2024 4:11 PM EDT [facility] IgG P41 Ab. Absent 10/07/2024 4:11 PM EDT [facility] IgG P39 Ab. Absent 10/07/2024 4:11 PM EDT [facility] IgG P30 Ab. Absent 10/07/2024 4:11 PM EDT [facility] IgG P28 Ab. Absent 10/07/2024 4:11 PM EDT [facility] IgG P23 Ab. Absent 10/07/2024 4:11 PM EDT [facility] IgG P18 Ab. Absent 10/07/2024 4:11 PM EDT [facility] Lyme IgM Western Blot Interpretation Negative Negative 10/07/2024 4:11 PM EDT [facility] Comment: Please Note: Lyme immunoblot alone is not recommended for the diagnosis of Lyme disease. Current guidelines recommend the use of a two-tiered approach to Lyme serology testing to improve the sensitivity and specificity of testing. [facility] offers test code 567057 Lyme Disease Serology with Reflex to aid in the diagnosis of Lyme Disease. IgM P41 Ab. Absent 10/07/2024 4:11 PM EDT [facility] IgM P39 Ab. Absent 10/07/2024 4:11 PM EDT [facility] IgM P23 Ab. Absent 10/07/2024 4:11 PM EDT [facility] Additional Information Comment 10/07/2024 4:11 PM EDT [facility] Comment: Per CDC criteria, the Lyme IgG Immunoblot is interpreted as positive if IgG-class antibodies are detected to 5 or more B. burgdorferi proteins, and the Lyme IgM Immunoblot is interpreted as positive if IgM-class antibodies are detected to 2 or more B. burgdorferi proteins. Immunoblot patterns not meeting these criteria should not be interpreted as positive. Epitopes from certain B. burgdorferi proteins (e.g., p41) are conserved across other bacteria, which may lead to the detection of IgM-and/or IgG class antibodies on the Lyme disease immunoblots in patients without Lyme disease. Immunoblot should only be ordered on specimens that are positive or equivocal by an FDA-licensed Lyme disease antibody screening test (e.g., EIA). Results of the Lyme IgM immunoblot should not be considered in patients with 30 or more days of symptoms. Blood Venipuncture / Unknown 10/04/2024 11:20 AM EDT 10/04/2024 11:20 AM EDT Narrative [facility] - 10/07/2024 4:11 PM EDT Performed at: [address] [place] [id number] Inspector Metal Can: Charity Ignacio MD, Phone: [phone] Rohini Palacio DNP, DRILL OPERATOR PNEUMATIC LAB BLOOD ORDERABL ES Final Result [facility] [address] [place] [address], * (ABNORMAL) KRISTY + PE (10/04/2024 11:20 AM EDT) [facility] IgG 983 586 - 1602 mg/dL 10/06/2024 10:10 AM EDT [facility] IgA 142 87 - 352 mg/dL 10/06/2024 10:10 AM EDT [facility] IgM 228(H) 26 - 217 mg/dL 10/06/2024 10:10 AM EDT [facility] Total Protein 6.9 6.0 - 8.5 g/dL 10/06/2024 10:10 AM EDT [facility] Albumin 3.7 2.9 - 4.4 g/dL 10/06/2024 10:10 AM EDT [facility] Qwoqo-0-Hurmconm 0.2 0.0 - 0.4 g/dL 10/06/2024 10:10 AM EDT [facility] Ppqyr-7-Gvymmden 0.8 0.4 - 1.0 g/dL 10/06/2024 10:10 AM EDT [facility] Beta Globulin 1.1 0.7 - 1.3 g/dL 10/06/2024 10:10 AM EDT [facility] Gamma Globulin 1.1 0.4 - 1.8 g/dL 10/06/2024 10:10 AM EDT [facility] M-Ben Not Observed Not Observed g/dL 10/06/2024 10:10 AM EDT [facility] Globulin 3.2 2.2 - 3.9 g/dL 10/06/2024 10:10 AM EDT [facility] A/G Ratio 1.2 0.7 - 1.7 10/06/2024 10:10 AM EDT [facility] Immunofixation Reflex, Serum Comment 10/06/2024 10:10 AM EDT [facility] Comment:No monoclonality det ected. Please note Comment 10/06/2024 10:10 AM EDT [facility] Comment: Protein electrophoresis scan will follow via computer, mail, or steward/stewardess bath delivery. Blood Venipuncture / Unknown 10/04/2024 11:20 AM EDT 10/04/2024 11:20 AM EDT Narrative [facility] - 10/06/2024 10:10 AM EDT Performed at: - [address] [id number] Inspector Metal Can: Ji Vera PhD, Phone: [phone] Rohini Palacio DNP, DRILL OPERATOR PNEUMATIC LAB BLOOD ORDERABL ES Final Result [facility] [address] [place] [address], * Cryoglobulin (10/04/2024 11:20 AM EDT) Cryoglobulin, Ql, Serum, Rflx Comment None detected 10/10/2024 3:09 PM EDT [facility] Comment:None Detected at 72 hours Blood Venipuncture / Unknown 10/04/2024 11:20 AM EDT 10/04/2024 11:20 AM EDT Narrative [facility] - 10/10/2024 3:09 PM EDT Test(s) 252968-Myfsztgqbohu, Ql, Serum, Rflx was developed and its performance characteristics determined [facility]. It has not been cleared or approved by the Food and Drug Administration. Performed at: - [address] [id number] Inspector Metal Can: Ji Vera PhD, Phone: [phone] Rohini Palacio DNP, APRN LAB BLOOD ORDERABL ES Final Result Performing Organization Address [facility]/ZIP Co de Phone Number [facility] [address] [place] [address], [place] [phone] * Ferritin (10/04/2024 11:20 AM EDT) [facility] Ferritin 44.20 13.00 - 150.00 ng/mL 10/04/2024 7:19 PM EDT [facility] Blood Venipuncture / Unknown 10/04/2024 11:20 AM EDT 10/04/2024 11:20 AM EDT Narrative [facility] - 10/04/2024 7:19 PM EDT Results may be falsely decreased if patient taking Biotin. us Rohini Palacio DNP, APRN LAB BLOOD ORDERABL ES Final Result Performing Organization Address City/[facility]/ZIP Co de Phone Number [facility]
[address] [place] [address], [place] [phone] * Heavy Metals Profile II, Urine - Urine, Clean Catch (10/04/2024 11:20 AM EDT) Creatinine, Urine 2.66 0.30 - 3.00 g/L 10/11/2024 12:10 PM EDT [facility] Comment:Detection Limit = 0. 10 Arsenic Ur None Detected 0 - 9 ug/L 10/11/2024 12:10 PM EDT [facility] Comment:Detection Limit = 10 Lead, Urine None Detected 0 - 49 ug/L 10/11/2024 12:10 PM EDT [facility] Comment:Detection Limit = 1 Mercury, Urine None Detected 0 - 19 ug/L 10/11/2024 12:10 PM EDT [facility] Comment:Detection Limit = 1 Cadmium, Urine None Detected None detected ug/L 10/11/2024 12:10 PM EDT [facility] Comment:Detection Limit = 1. 0 Urine Urine specimen obtained by clean catch procedure / Unknown Collection / Unknown 10/04/2024 11:20 AM EDT 10/04/2024 11:20 AM EDT Narrative [facility] - 10/11/2024 12:10 PM EDT Test(s) [id number]-Vvmiwrq (Total),U; 037445-Qaej, Urine; 793138- Mercury, Urine; 064274-Yqemrlp, Urine was developed and its performance characteristics determined by [facility]. It has not been cleared or approved by the Food and Drug Administration. Performed at: 01 - [address] [id number] Inspector Metal Can: Charity Ignacio MD, Phone: [phone] Performed at: 02 - [facility] [address] [place] [id number] Inspector Metal Can: Masha Mims [facility], Phone: [phone] us Rohini Palacio DNP, DRILL OPERATOR PNEUMATIC URINE ORDERABLES F inal Result [facility] [address] [place] [address], * CK (10/04/2024 11:20 AM EDT) Creatine Kinase 99 20 - 180 U/L 10/04/2024 7:09 PM EDT [facility] Blood Venipuncture / Unknown 10/04/2024 11:20 AM EDT 10/04/2024 11:20 AM EDT Rohini Mayra Palacio DNP, DRILL OPERATOR PNEUMATIC LAB BLOOD ORDERABL ES Final Result [facility]
[address] [place] [address], * Acetylcholine Receptor Antibody Panel (10/04/2024 11:20 AM EDT) Pathologist [facility] AChR Binding Ab <0.07 0.00 - 0.24 nmol/L 10/11/2024 2:10 PM EDT [facility] Comment: Negative: 0.00 - 0.24 Borderline: 0.25 - 0.40 Positive: >0.40 AChR Blocking Abs 17 0 - 25 % 025 2:10 PM EDT [facility] Comment: Negative: 0 - 25 Borderline: 26 - 30 Positive: >30 ACHR Receptor Modulating Ab 0 0 - 45 % 10/11/2024 2:10 PM EDT [facility] Comment: Interpretive Information: Negative: 0 - 45% Positive: > 45% No single value for AChR-modulating antibody should be used as a sole basis for diagnosis or response to therapy. Blood Venipuncture / Unknown 10/04/2024 11:20 AM EDT 10/04/2024 11:20 AM EDT Narrative [facility] - 10/11/2024 2:10 PM EDT Test(s) 467261-MYyW Blocking Abs, Serum This test was developed and its performance characteristics determined by [facility]. It has not been cleared or approved by the Food and Drug Administration. Test(s) 429781-TCsL-twazqxsqvr Ab was developed and its performance characteristics determined by [facility]. It has not been cleared or approved by the Food and Drug Administration. Performed at: 01 - [address] [id number] Inspector Metal Can: Charity Ignacio MD, Phone: [phone] Rohini Palacio DNP, APRN LAB BLOOD ORDERABL ES Final Result [facility] [address] [place] [address], [place] [phone] * Sedimentation Rate (10/04/2024 11:20 AM EDT) Sed Rate 15 0 - 20 mm/hr 10/04/2024 6:41 PM EDT [facility] Blood Venipuncture / Unknown 10/04/2024 11:20 AM EDT 10/04/2024 11:20 AM EDT Rohini Palacio DNP, JANE LAB BLOOD ORDERABL ES Final Result Performing Organization Address City/[facility]/ZIP Co de Phone Number [facility]
[address] [place] [address], * Neuromyelitis Optica (NMO) Auto Antibody, IgG (10/04/2024 11:20 AM EDT) NMO/AQP4 FACS, S Negative Negative 10/11/19 8:09 PM EDT [facility] Comment: Recommend repeat testing in 6 months if clinical suspicion is high. Negative result can occur in the setting of immunosuppression. ADDITIONAL INFORMATION This test was developed and its performance characteristics determined by [facility] in a manner consistent with CLIA requirements. This test has not been cleared or approved by the [place].S. Food and Drug Administration. Blood Venipuncture / Unknown 10/04/2024 11:20 AM EDT 10/04/2024 11:20 AM EDT Narrative [facility] - 10/10/2024 8:09 PM EDT Performed at: 01 - [facility] [address] [place], [place] [id number] Inspector Metal Can: Ramon Portillo PhD, Phone: [phone] Rohini Palacio DNP, APRN LAB BLOOD ORDERABL ES Final Result Performing Organization Address City/[facility]/ZIP Co de Phone Number [facility] [address] [place] [address], [place] [phone] * Anti-Myelin Oligodendrocyte Glycoprotein (MOG), Serum (10/04/2024 11:20 AM EDT) MOG Antibody, Cell-based IFA Negative Negative 10/06/2024 11:08 PM EDT [facility] Blood Venipuncture / Unknown 10/04/2024 11:20 AM EDT 10/04/2024 11:20 AM EDT Narrative [facility] - 10/06/2024 11:08 PM EDT Test(s) [id number]-SLX Antibody, Cell-based IFA was developed and its performance characteristics determined [facility]. It has not been cleared or approved by the Food and Drug Administration. Performed at: [address] [id number] Inspector Metal Can: Charity Ignacio MD, Phone: [phone] Rohini Palacio DNP, APRN LAB BLOOD ORDERABL ES Final Result Performing Organization Address [facility] de Phone Number [facility] [address] [place] [address], [place] [phone] * Angiotensin Converting Enzyme (10/04/2024 11:20 AM EDT) Angiotensin Converting Enzyme 25 14 - 82 U/L 10/05/2024 3:10 PM EDT [facility] Blood Venipuncture / Unknown 10/04/2024 11:20 AM EDT 10/04/2024 11:20 AM EDT Narrative [facility] - 10/05/2024 3:10 PM EDT Performed at: [address] [id number] Inspector Metal Can: Ji Vrea PhD, Phone: [phone] Rohini Palacio DNP, DRILL OPERATOR PNEUMATIC LAB BLOOD ORDERABL ES Final Result [facility] [address] [place] [address], documented in this encounter Visit Diagnoses Diagnosis Neuropathic pain- Primary Other fatigue Ptosis of eyelid, unspecified laterality Dysphagia, unspecified type Neck pain Cervicalgia documented in this encounter Additional Health Concerns Assessment Noted Time PHQ-2 Depression Total Score: 2 07/31/19 22 4:07 PM EDT documented as of this encounter Care Teams Supervisor Salvage Relationship Specialty Start Date End Date Maribel Melgar APRN [address] [place] [address] PCP - General Nurse Practitioner 09/06/24 documented as of this encounter
--- OUTSIDE RECORDS SUMMARY | 2024-10-04 11:25 | XMS_ITS | Encounter Summary ---
Author Organization [facility] ystem Address [address] [place] [address] Care Team Providers Care Color Card Maker Name Role Phone Maribel Melgar TEXTILE ENGRAVER Primary Care Provider [phone] Encounter Details Date Type Department Care Team (Late st Contact Info) Description 10/04/2024 11:25 AM EDT Lab [facility] [address] [place] [address] Neuropathic pain; Ptosis of eyelid, unspecified laterality; Dysphagia, unspecified type; Other fatigue Social History Tobacco Use Types Packs/Day Years Used Date Smoking Tobacco: Never Passive Smoke Exposure: Never Smokeless Tobacco: Never Alcohol Use Standard Drinks/Week Comments [...] week 05/06/2022 How often do you attend lutheran or restorationism serv ices? Never 05/06/2022 Do you belong to any clubs o r organizations such as lutheran groups, unions, fraternal or athletic groups, or [...] Brief Depression Severity Measure Score 7 07/30/2021 [facility] - [...] place to sleep or slept in a jail (including now)? 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 file Not on file Not on jak e documented as of this encounter Plan of Treatment Upcoming Encounters Date Type Department Care Team (Late st Contact Info) Description 11/04/2024 9:00 AM EDT Appointment [facility] MRI AT [address] [phone] 11/04/2024 10:00 AM EDT Appointment [facility] MRI AT [address] [phone] 12/12/2024 8:30 AM EDT Office Visit [facility] [address] [place] [address] Rohini Palacio, DNP, TEXTILE ENGRAVER [address] [place] [address] 12/26/2024 12:15 PM EDT Telemedicine [facility] [address] [place] [phone] Oneyda Glover MD [address] [place] [phone] documented as of this encounter Procedures Procedure Name Priority Date/Time Associated Diagnosis Comments ACETYLCHOLINE RECEPTOR AB PNL Routine 10/04/2024 11:20 AM EDT Neuropathic pain Other fatigue Ptosis of eyelid, unspecified laterality Dysphagia, unspecified type ANTI-MYELIN OLIGODENDROCYTE GLYCOPROTEIN (MOG), SERUM Routine 10/04/2024 11:20 AM EDT Neuropathic pain Other fatigue Ptosis of eyelid, unspecified laterality Dysphagia, unspecified type HEAVY METALS PROFILE II, URINE Routine 10/04/2024 11:20 AM EDT Neuropathic pain Other fatigue Ptosis of eyelid, unspecified laterality Dysphagia, unspecified type NEUROMYELITIS OPTICA (NMO) AUTO AB, IGG Routine 10/04/2024 11:20 AM EDT Neuropathic pain Other fatigue Ptosis of eyelid, unspecified laterality Dysphagia, unspecified type LYME DISEASE, LINE BLOT Routine 10/05/19 11:20 AM EDT Neuropathic pain Other fatigue Ptosis of eyelid, unspecified laterality Dysphagia, unspecified type CRYOGLOBULIN Routine 10/04/2024 11:20 AM EDT Neuropathic pain Other fatigue Ptosis of eyelid, unspecified laterality Dysphagia, unspecified type SEDIMENTATION RATE Routine 10/04/2024 11 :20 AM EDT Neuropathic pain Ptosis of eyelid, unspecified laterality Dysphagia, unspecified type ANGIOTENSIN CONVERTING ENZYME Routine 10/04/2024 11:20 AM EDT Neuropathic pain Ptosis of eyelid, unspecified laterality Dysphagia, unspecified type IMMUNOFIXATION ELECTROPHORESIS Routine 10/04/2024 11:20 AM EDT Neuropathic pain Other fatigue Ptosis of eyelid, unspecified laterality Dysphagia, unspecified type FERRITIN Routine 10/04/2024 11:20 AM EDT Neuropathic pain Other fatigue Ptosis of eyelid, unspecified laterality Dysphagia, unspecified type CK Routine 10/04/2024 11:20 AM EDT Neuropathic pain Other fatigue Ptosis of eyelid, unspecified laterality Dysphagia, unspecified type documented in this encounter Results * Lyme Disease, Line [...] improve the sensitivity and specificity of testing. [facility] offers test code [id number] Lyme Disease Serology with Reflex to aid [...] - 10/07/2024 4:11 PM EDT Performed at: [address] [id number] Rn Family: Charity Ignacio MD, Phone: [phone] Rohini Palacio DNP, TEXTILE ENGRAVER LAB BLOOD ORDERABL ES Final Result [facility] [address] [place] [address], * (ABNORMAL) KRISTY + PE (10/04/2024 11:20 [...] g/dL 10/06/2024 10:10 AM EDT [facility] Gypcz-9-Retwvbmr 0.2 0.0 - 0.4 g/dL 10/06/2024 10:10 AM EDT [facility] Rzmic-6-Sugbvoss 0.8 0.4 - 1.0 g/dL 10/06/2024 10:10 [...] scan will follow via computer, mail, or senior accountant delivery. Blood Venipuncture / Unknown 10/04/2024 11:20 AM EDT 10/04/2024 11:20 AM EDT Narrative [facility] - 10/06/2024 10:10 AM EDT Performed at: 01 - [address] [id number] Rn Family: Ji Vera PhD, Phone: [phone] Rohini Palacio DNP, TEXTILE ENGRAVER LAB BLOOD ORDERABL ES Final Result [address] [address], * Cryoglobulin (10/04/2024 11:20 AM EDT) Cryoglobulin, Ql, Serum, Rflx Comment None detected 10/10/2024 3:09 PM EDT [facility] Comment:None Detected at 72 hours Blood Venipuncture / Unknown 10/04/2024 11:20 AM EDT 10/04/2024 11:20 AM EDT Narrative [facility] - 10/10/2024 3:09 PM EDT Test(s) 955204-Aegboxfadnfq, Ql, Serum, Rflx was developed and its performance characteristics determined by [facility]. It has not been cleared or approved by the Food and Drug Administration. Performed at: 01 - [address] [id number] Rn Family: Ji Vera PhD, Phone: [phone] Rohini Palacio DNP, APRN LAB BLOOD ORDERABL ES Final Result Performing Organization Address City/[facility]/ZIP Co de Phone Number [facility] [address] [place] [address], [place] [phone] * Ferritin (10/04/2024 11:20 AM EDT) Ferritin 44.20 13.00 - 150.00 ng/mL 10/04/2024 7:19 PM EDT [facility] Blood Venipuncture / Unknown 10/04/2024 11:20 AM EDT 10/04/2024 11:20 AM EDT Narrative [facility] - 10/04/2024 7:19 PM EDT Results may be falsely decreased if patient taking Biotin. Rohini Palacio DNP, APRN LAB BLOOD ORDERABL ES Final Result [facility]
[address] [place] [address], [place] [phone] * Heavy Metals Profile II, Urine - Urine, Clean Catch (10/04/2024 11:20 AM EDT) Creatinine, Urine 2.66 0.30 - 3.00 g/L 10/11/2024 12:10 PM EDT [facility] Comment:Detection Limit = 0. 10 Arsenic Ur None Detected 0 - 9 ug/L 10/11/2024 12:10 PM EDT [facility] Comment:Detection Limit = 10 Lead, Urine None Detected 0 - 49 ug/L 10/11/2024 12:10 PM EDT [facility] Comment:Detection Limit = 1 Mercury, Urine None Detected 0 - 19 ug/L 10/11/2024 12:10 PM EDT [facility] Comment:Detection Limit = 1 Cadmium, Urine None Detected None detected ug/L 10/11/2024 12:10 PM EDT [facility] Comment:Detection Limit = 1. 0 Urine Urine specimen obtained by clean catch procedure / Unknown Collection / Unknown 10/04/2024 11:20 AM EDT 10/04/2024 11:20 AM EDT Narrative [facility] - 10/11/2024 12:10 PM EDT Test(s) 111479-Fyaizhg (Total),U; 257394-Eoys, Urine; 021007- Mercury, Urine; 286231-Ylrjjhq, Urine was developed and its performance characteristics determined by [facility]. It has not been cleared or approved by the Food and Drug Administration. Performed at: 01 - [employer] [id number] Rn Family: Charity Ignacio MD, Phone: [phone] Performed at: 02 - [facility] [address] [id number] Rn Family: Masha Mims [facility], Phone: [phone] us Rohini Palacio DNP, APRN URINE ORDERABLES F inal Result Performing Organization Address City/[facility]/ZIP Co de Phone Number [facility] [address] [place] [address], [place] [phone] * CK (10/04/2024 11:20 AM EDT) [facility] Creatine Kinase 99 20 - 180 U/L 10/04/2024 7:09 PM EDT [facility] Blood Venipuncture / Unknown 10/04/2024 11:20 AM EDT 10/04/2024 11:20 AM EDT us Rohini Palacio DNP, APRN LAB BLOOD ORDERABL ES Final Result Performing Organization Address City/[facility]/ZIP Co de Phone Number [facility]
[address] [place] [address], [place] [phone] * Acetylcholine Receptor Antibody Panel (10/04/2024 11:20 AM EDT) AChR Binding Ab <0.07 0.00 - 0.24 nmol/L 10/11/2024 2:10 PM EDT [facility] Comment: Negative: 0.00 - 0.24 Borderline: 0.25 - 0.40 Positive: >0.40 AChR Blocking Abs 17 0 - 25 % 025 2:10 PM EDT [facility] Comment: Negative: 0 - 25 Borderline: 26 - 30 Positive: >30 ACHR Receptor Modulating Ab 0 0 - 45 % 10/11/2024 2:10 PM EDT [facility] Comment: Interpretive Information: Negative: 0 - 45% Positive: > 45% No single value for AChR-modulating antibody should be used as a sole basis for diagnosis or response to therapy. Blood Venipuncture / Unknown 10/04/2024 11:20 AM EDT 10/04/2024 11:20 AM EDT Narrative [facility] - 10/11/2024 2:10 PM EDT Test(s) [id number]-JDrN Blocking Abs, Serum This test was developed and its performance characteristics determined by [facility]. It has not been cleared or approved by the Food and Drug Administration. Test(s) 416689-MLpM-nbscsdxppe Ab was developed and its performance characteristics determined by [facility]. It has not been cleared or approved by the Food and Drug Administration. Performed at: - [address] [id number] Rn Family: Charity Ignacio MD, Phone: [phone] us Rohini Palacio DNP, TEXTILE ENGRAVER LAB BLOOD ORDERABL ES Final Result [facility] [address] [id number], * Sedimentation Rate (10/04/2024 11:20 AM EDT) Sed Rate 15 0 - 20 mm/hr 10/04/2024 6:41 PM EDT [facility] Blood Venipuncture / Unknown 10/04/2024 11:20 AM EDT 10/04/2024 11:20 AM EDT Rohini Palacio DNP, JANE LAB BLOOD ORDERABL ES Final Result Performing Organization Address City/[facility]/ZIP Co de Phone Number [facility]
[address] [place] [address], [place] [phone] * Neuromyelitis Optica (NMO) Auto Antibody, IgG (10/04/2024 11:20 AM EDT) NMO/AQP4 FACS, S Negative Negative 10/11/19 8:09 PM EDT [facility] Comment: Recommend repeat testing in 6 months if clinical suspicion is high. Negative result can occur in the setting of immunosuppression. ADDITIONAL INFORMATION This test was developed and its performance characteristics determined by [facility] in a manner consistent with CLIA requirements. This test has not been cleared or approved by the [place]. Food and Drug Administration. Blood Venipuncture / Unknown 10/04/2024 11:20 AM EDT 10/04/2024 11:20 AM EDT Narrative [facility] - 10/10/2024 8:09 PM EDT Performed at: 01 - [facility] [address] [id number] Rn Family: Ramon Portillo PhD, Phone: [phone] Rohini Palacio DNP, JANE LAB BLOOD ORDERABL ES Final Result Performing Organization Address City/[facility]/ZIP Co de Phone Number [facility] [address] [place] [address], [place] [phone] * Anti-Myelin Oligodendrocyte Glycoprotein (MOG), Serum (10/04/2024 11:20 AM EDT) MOG Antibody, Cell-based IFA Negative Negative 10/06/2024 11:08 PM EDT [facility] Blood Venipuncture / Unknown 10/04/2024 11:20 AM EDT 10/04/2024 11:20 AM EDT Narrative [facility] - 10/06/2024 11:08 PM EDT Test(s) 477638-QAR Antibody, Cell-based IFA was developed and its performance characteristics determined by [facility]. It has not been cleared or approved by the Food and Drug Administration. Performed at: [address] [id number] Rn Family: Chairty Ignacio MD, Phone: [phone] us Rohini Palacio DNP, APRN LAB BLOOD ORDERABL ES Final Result Performing Organization Address [facility] [place] [address], [place] [phone] * Angiotensin Converting Enzyme (10/04/2024 11:20 AM EDT) Pathologist [facility] Angiotensin Converting Enzyme 25 14 - 82 U/L 10/05/2024 3:10 PM EDT [facility] Blood Venipuncture / Unknown 10/04/2024 11:20 AM EDT 10/04/2024 11:20 AM EDT Narrative [facility] - 10/05/2024 3:10 PM EDT Performed at: [address] [id number] Rn Family: Ji Vera PhD, Phone: [phone] us Rohini Palacio DNP, APRN LAB BLOOD ORDERABL ES Final Result Performing Organization Address [facility] Co de Phone Number [address] [address], [place] [phone] documented in this encounter Visit Diagnoses Diagnosis Neuropathic pain Ptosis of eyelid, unspecified laterality Dysphagia, unspecified type Other fatigue documented in this encounter Additional Health Concerns Assessment Noted Time PHQ-2 Depression Total Score: 2 07/31/19 22 4:07 PM EDT documented as of this encounter Care Teams Color Card Maker Relationship Specialty Start Date End Date Melgar, Maribel, TEXTILE ENGRAVER [address] [place] [address] PCP - General Nurse Practitioner 09/06/24 documented as of this encounter
--- OUTSIDE RECORDS SUMMARY | 2024-11-01 09:38 | XMS_ITS | Encounter Summary ---
Author Organization [facility] ystem Address [address] [place] [address] Care Team Providers Care Pollution Control Chemist Name Role Phone Maribel Melgar JANE Primary Care Provider [phone] Encounter Details Date Type Department Care Team (Late st Contact Info) Description 10/26/2024 Telephone [facility] [address] [place] [address] Oneyda Glover MD [address] [place] [phone] Social History Tobacco Use Types Packs/Day Years [...] week 05/06/2022 How often do you attend zoroastrianism or scientologist serv ices? Never 05/06/2022 Do you belong to any clubs o r organizations such as zoroastrianism groups, unions, fraternal or athletic groups, or [...] Brief Depression Severity Measure Score 7 07/30/2021 [facility] - Occupational Stress Questionnaire Answer Date Recorded [...] place to sleep or slept in a correction (including now)? 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 * Telephone Encounter - Oneyda Glover MD - 10/26/2024 12:22 PM EDT Per patient request, Dexcom G7 sent to pharmacy She had tried sample while she was waiting on PA and likes it better than G6 [facility] documented in this encounter Plan of Treatment Upcoming Encounters Date Type Department Care Team (Late st Contact Info) Description 11/04/2024 9:00 AM EDT Appointment [facility] MRI AT [address] [phone] 11/04/2024 10:00 AM EDT Appointment [facility] MRI AT [address] [phone] 12/12/2024 8:30 AM EDT Office Visit [facility] [address] [facility] [address] [place] [phone] Rohini Palacio, DNP, DBA DEVELOPER [address] [facility] [address] [place] [address] 12/26/2024 12:15 PM EDT Telemedicine [facility] ENDOCRINOLOGY [address] [phone] Oneyda Glover MD [address] [phone] documented as of this encounter Visit Diagnoses Not on filedocumented in this encounter Additional Health Concerns Assessment Noted Time PHQ-2 Depression Total Score: 2 07/31/19 22 4:07 PM EDT documented as of this encounter Care Teams Pollution Control Chemist Relationship Specialty Start Date End Date Maribel Melgar APRN [address] [address] PCP - General Nurse Practitioner 09/06/24 documented as of this encounter
--- OUTSIDE RECORDS SUMMARY | 2024-11-01 09:38 | XMS_ITS | Encounter Summary ---
Author Organization [facility] Address [address] [place] [address] Care Team Providers Care Administrative Secretary Name Role Phone Rao Olson MD Primary Care Provider [phone] Chuck Castañeda Primary Care Provider [phone] Reason for Referral * Consultation (Routine) - Closed Specialty Diagnoses / Procedures Referred By Dayron [email or web address] Referred To Contact Hand Surgery Diagnoses Ganglion cyst of dorsum of left wrist Chuck Castañeda PA [address] [place] [address] Phone: tel: fax: [facility] [address] [place] [address] Phone: tel: fax: Referral ID Status Reason Start Date Expiration Date Visits Re quested Visits Authorized [id number] Closed 10/04/2021 04/05/2023 1 1 Encounter Details Date Type Department Care Team (Late st Contact Info) Description 10/04/2021 [facility] [address] [place] [address] Chuck Castañeda PA [address] [place] [address] Ganglion cyst of dorsum of [...] Primary documented in this encounter Care Teams Administrative Secretary Relationship Specialty Start Date End Date Rao Olson MD [address] [place] [address] PCP - General 07/20/20 10/09/21 Chuck Castañeda PA [address] [place] [address] PCP - General 10/10/21 documented as of this encounter
--- OUTSIDE RECORDS SUMMARY | 2024-11-01 09:38 | XMS_ITS | Clinical Summary ---
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 100 each 1 06/22/19 24 Active Glucose Blood (Blood Glucose Test) strip Test blood sugars daily DX; E10.9 100 each 1 06/23/19 24 Active Blood Glucose Monitoring Suppl w/Device kit Use daily to test blood sugars Dx: E10.9 1 each 06/23/19 24 Active azithromycin (Zithromax Z-Jeison) 250 MG tablet Take 2 tablets by mouth on day 1, then 1 tablet daily on days 2-5 6 tablet 04/03/19 25 Active HumaLOG 100 UNIT/ML injectionIndica tions:Type 1 diabetes mellitus without complication USE UP TO 100 UNITS DAILY IN CONTINUOUS INSULIN PUMP 90 mL 1 05/13/19 25 Active Insulin Disposable Pump (Omnipod 5 [id number] Pods Gen 5) miscIndications :Type 1 diabetes mellitus without complication Inject 1 Units under the skin into the appropriate area as directed Every Other Day. E10.65 45 each 05/13/19 25 Active Gabapentin 10 % creamIndication s:Numbness and tingling of foot Apply 1 Units topically 2 (Two) Times a Day. Twice daily - gabapentin 10%,, ketoprofen 20% and lidocaine 5% 60 g 3 08/31/19 Active Continuous Glucose Sensor (Dexcom G7 Sensor) misc Use 1 Units Every 10 (Ten) Days. 9 each 10/27/19 Active DULoxetine (CYMBALTA) 30 MG capsule Take 1 capsule by mouth Daily. 04/16/19 25 2024 Discontinued(* Therapy completed) Continuous Glucose Sensor (Dexcom G6 Sensor)Indicati ons:Type 1 diabetes mellitus without complication Use Every 10 (Ten) Days. 9 each 1 05/13/19 25 2024 Discontinued(R eorder) Continuous Glucose Transmitter (Dexcom G6 Transmitter) miscIndications :Type 1 diabetes mellitus without complication Use 1 each Every 3 (Three) Months. 1 each 05/13/19 25 2024 Discontinued Continuous Glucose Sensor (Dexcom G6 Sensor)Indicati ons:Type 1 diabetes mellitus without complication Use Every 10 (Ten) Days. 9 each 10/24/19 25 2024 Discontinued Active Problems Problem Noted Date Diagnosed Date Bilateral carpal tunnel syndrome 08/23/2024 Overview (08/23/2024): Normal emg/ncv 08/31 Bilateral hand numbness 05/12/2024 Numbness and tingling of foot 05/12/2024 Overview (08/23/2024): Normal nerve studies 08/31 Assessment & Plan (08/30/2024 1:19 PM EDT): Pain alternating with numbness, hyperasthesia Hands and feet and all over body sensitive Has tried cymbalta x 5 weeks, wellbutrin (made her feel angry) No help with gabapentin Is also having pain with activity - discussed Likely small fiber neuropathy - trial topical Also discussed hemp etc otc Pain in both feet 01/06/2024 Assessment & Plan (01/06/2024 1:18 PM EDT): Mother RA- consider xray and check inflammatory markers Recommended she get better footwear / supportive shoes Flank pain, acute 05/09/2023 Abdominal wall cellulitis 05/09/2023 Acute viral syndrome 05/09/2023 Hypercoagulable state 05/09/2023 Atypical chest pain 05/09/2023 Bronchiolitis 05/09/2023 Cervical strain, acute 05/09/2023 Chest wall contusion 05/09/2023 Concussion without loss of consciousness 024 Contusion 05/09/2023 COVID-19 05/09/2023 Deep venous thrombosis of left upper extremity 0 05/09/2023 Edema of toe 05/09/2023 Elevated level of quantitati ve hCG for gestational age in early 05/09/2023 Exposure to COVID-19 virus 05/09/2023 Folliculitis 05/09/2023 Fracture of phalanx of toe 05/09/2023 History of recurrent , antepartum 2023 Ketonuria 05/09/2023 Latex allergy 05/09/2023 Left arm pain 05/09/2023 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 05/09/2023 Pharyngitis 05/09/2023 Sinusitis 05/09/2023 Positive blood test 05/09/2023 Protein S deficiency 05/09/2023 COVID-19 virus detected 02/10/2023 Assessment & Plan (02/10/2023 12:53 PM EST): Is quarantining Discussed careful monitoring with illness, sick day management discussed Encounter for supervision of high risk with grand multiparity, antepartum 03/31/2022 Previous section 03/31/2022 Hematuria 08/14/2021 Assessment & Plan (08/14/2021 8:40 AM EDT): Check ua and u/s Consider urology referral Check protein level as well Scoliosis 07/29/2021 Rash 03/10/2021 Assessment & Plan (03/10/2021 8:09 PM EST): Triamcinolone prescribed - to use on rash and prior to placing pump Pre-existing type 1 diabetes mellitus in pregnan cy 04/09/2020 Assessment & Plan (04/13/2022 9:04 PM EST): Doing well overall Discussed a1c Results for orders placed or performed in visit on 04/10/22 POC Glycosylated Hemoglobin (Hb A1C) Specimen: Blood Result Value Ref Range Hemoglobin A1C 6.5 % Lot Number [id number] Expiration Date 01/14/24 POC Glucose, Blood Specimen: Blood Result Value Ref Range Glucose 234 (A) 70 - 130 mg/dL Lot Number [id number] Expiration Date 09/27/2022 Downloaded pump and sensor and goals reviewed Recommend carb counting, bolus prior to meal Train on OP5 as soon as she is able Is utd with eye exam No foot lesion Ur alb neg F/u 3-4 weeks Expected rise in insulin dosing from 26-28 weeks on discussed Settings for new pump printed for virtual training History of maternal deep vein thrombosis (DVT) 1 03/14/2019 Vision changes 12/08/2019 Assessment & Plan (12/08/2019 3:49 PM EDT): Has eye appt - pain and floaters OS Diabetes x 7 years 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 Assessment & Plan (06/09/2019 4:09 PM EDT): Planning implants Likely heal based on current blood sugar control Amenorrhea 03/07/2019 Assessment & Plan (03/07/2019 11:47 PM EST): Likely due to breast feeding but will check hcg Targets for pre conception hgn a1c and rationale for good glucose control prior to discussed depression 05/20/2018 Assessment & Plan (05/20/2018 12:37 PM EDT): Doing much better with zoloft Gastroparesis 02/12/2018 Type 1 diabetes mellitus without complication Assessment & Plan (08/30/2024 1:19 PM EDT): Blood sugar and 90 day average sugar reviewed Results for orders placed or performed in visit on 08/30/24 POC Glycosylated Hemoglobin (Hb A1C) Collection Time: 08/30/24 10:30 AM Specimen: Blood Result Value Ref Range Hemoglobin A1C 6.6 (A) 4.5 - 5.7 % Lot Number [id number] Expiration Date 01/12/2026 POC Glucose, Blood Collection Time: 08/30/24 10:31 AM Specimen: Blood Result Value Ref Range Glucose 120 70 - 130 mg/dL Lot Number [id number] Expiration Date 11/05/2024 Diagnosed IDDM age 21 - had gastroparesis at time of diagnosis Utd with eye exam Intol gabapentin, wellbutrin and cymbalta Trial topical - rx sent F/u 3 months Lab work done today Assessment & Plan (05/12/2024 9:22 AM EST): Blood sugars are higher Downloaded pump and reviewed Isabella higher pp Discussed carb counting and bolus prior to meals Is utd with eye exam Will be due lab work NOV 5 days of sensor data reviewed and discussed Neuropathy hands and feet- prior normal b12 and folate Emg/ncv ordered - she would like done locally and I told her I did not think they were offered there Assessment & Plan (01/06/2024 1:17 PM EDT): Blood sugar and 90 day average sugar reviewed Results for orders placed or performed in visit on 01/06/24 POC Glucose, Blood Collection Time: 01/06/24 12:31 PM Specimen: Blood Result Value Ref Range Glucose 183 (A) 70 - 130 mg/dL Lot Number [id number] Expiration Date 08/05/2024 POC Glycosylated Hemoglobin (Hb A1C) Collection Time: 01/06/24 12:31 PM Specimen: Blood Result Value Ref Range Hemoglobin A1C 6.7 (A) 4.5 - 5.7 % Lot Number [id number] Expiration Date 09/16/2025 *Note: Due to a large number of results and/or encounters for the requested time period, some results have not been displayed. A complete set of results can be found in Results Review. Average sugar is 140 Downloaded pump and sensor and discussed- 12 days of sensor data reviewed Is utd with eye exam Foot pain due to arthritis Hand pain likely carpal tunnel Ur alb neg F/u 3-4 months Good blood sugar control, some higher pp meal sugars discussed- recommended carb counting and bolusing prior to meals Assessment & Plan (06/22/2023 4:33 PM EDT): Blood sugar and 90 day average sugar reviewed Results for orders placed or performed in visit on 06/22/23 POC Glycosylated Hemoglobin (Hb A1C) Specimen: Blood Result Value Ref Range Hemoglobin A1C 6.3 (A) 4.5 - 5.7 % Lot Number [id number] Expiration Date 02/22/2025 POC Glucose, Blood Specimen: Blood Result Value Ref Range Glucose 309 (A) 70 - 130 mg/dL Lot Number [id number] Expiration Date 12/27/2023 Average sugar is good, current sugar higher Reviewed 11 days of sensor data with higher pp sugars She is also finding she has higher sugars with site change Discussed and she is at times just giving a shot to bring insulin down Is utd with eye exam No foot numbness or tingling but has callus bilaterally Will rx lachydrin Ur alb due F/u 3-4 months Assessment & Plan (02/10/2023 12:50 PM EST): Higher sugar and average sugar- outside lab work reviewed from 11/29 with A1c 7.2 Uncontrolled diabetes with hyperglycemia discussed Is on high dose insulin with op5- raised max bolus and max basal rate and lowered target Worse with pms and she has covid currently which is affecting her sugars She will update us in 1 week Assessment & Plan (06/19/2022 2:42 PM EDT): 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 Recommend delivery at 36 weeks due to increased risk of distress, IUFD Recommend admission the day prior for insulin gtt to optimize glycemic control Infant very likely to require NICU Recommend decreasing insulin pump by 70 - 80% in immediate period and then titrating as needed Will need ppx anticoagulation restarted in the period Assessment & Plan (05/28/2022 12:55 PM EDT): Blood sugar and 90 day average sugar reviewed Results for orders placed or performed in visit on 05/28/22 POC Glycosylated Hemoglobin (Hb A1C) Specimen: Blood Result Value Ref Range Hemoglobin A1C 7.2 % Lot Number [id number] Expiration Date ,024 POC Glucose, Blood Specimen: Blood Result Value Ref Range Glucose 177 (A) 70 - 130 mg/dL Lot Number [id number] Expiration Date Average sugar is 150 - uncontrolled with hyperglycemia Is utd with eye exam No neuropathy or callus Ur alb due - currently in 3rd trimester of with recent neg POC protein level Continue upload and weekly sugar review with adjustment She will also need pp settings and we discussed peripartum care today F/u 3-4 weeks Assessment & Plan (05/08/2022 2:19 PM EST): Currently uncontrolled with hyperglycemia She adjusted basal rates yesterday Is using closed loop Results for orders placed or performed in visit on 05/08/22 POC Glycosylated Hemoglobin (Hb A1C) Specimen: Blood Result Value Ref Range Hemoglobin A1C 7.1 % Lot Number [id number] Expiration Date 09/09/2023 POC Glucose, Blood Specimen: Blood Result Value Ref Range Glucose 159 (A) 70 - 130 mg/dL Lot Number [id number] Expiration Date 11/09/2022 Sugar and average sugar reviewed Rise in resistance discussed Max bolus changed to 25 u Adjust carb to 8 and correction to 27 Raised daytime rate 14 days of sensor data downloaded Assessment & Plan (02/06/2022 2:44 PM EST): Blood sugar and 90 day average sugar reviewed Results for orders placed or performed in visit on 02/06/22 POC Glucose, Blood Specimen: Blood Result Value Ref Range Glucose 173 (A) 70 - 130 mg/dL Lot Number [id number] Expiration Date 08/14/2022 Downloaded sensor and reviewed 14 days of sensor data Sugar declines overnight with fasting low blood sugar Reduced overnight basal rate Higher sugar / rising during the day Raised basal rate during the day Recommended update eye exam Check ur alb F/u 1 month Download sensor 1 week Blood sugar goals reviewed Would not advise her to deliver where the hospital does not have a NICU- she requests referral to new provider (prior OB will not take her back due to outstanding bill) Assessment & Plan (08/14/2021 8:45 AM EDT): Blood sugar and 90 day average sugar reviewed Results for orders placed or performed in visit on 08/13/21 POC Glucose, Blood Specimen: Blood Result Value Ref Range Glucose 170 (A) 70 - 130 mg/dL Lot Number [id number] Expiration Date 08/17/21 POC Glycosylated Hemoglobin (Hb A1C) Specimen: Blood Result Value Ref Range Hemoglobin A1C 6.6 % Lot Number [id number] Expiration Date 04/26/23 Pump and sensor downloaded and reviewed Higher sugar from 12 am to 9 am on review of 14 days of sensor data She is eating late some nights- moving and eating out more often Discussed accurate carb counting and bolus with adjusted correction for nighttime Is utd with eye exam Neuropathy stable No callus or ulcer Ur alb due F/u 3-4 months Assessment & Plan (03/10/2021 8:08 PM EST): Blood sugar and 90 day average sugar reviewed Results for orders placed or performed in visit on 03/07/21 POC Glycosylated Hemoglobin (Hb A1C) Specimen: Blood Result Value Ref Range Hemoglobin A1C 6.5 % Lot Number [id number] Expiration Date 11/05/2022 POC Glucose, Blood Specimen: Blood Result Value Ref Range Glucose 282 (A) 70 - 130 mg/dL Lot Number [id number] Expiration Date 07/31/2021 Are in good range overall (average sugar) Is utd with eye exam Downloaded pump and sensor and reviewed 12 days of sensor data Low overnight sugars Higher pp breakfast sugars Reduced overnight insulin dosing / basal rate Pp higher sugar will likely resolve with correction of low sugar She will let me know if continued overnight drop in blood sugar Adjustment of nighttime correction discussed Assessment & Plan (05/17/2020 8:08 AM EST): Blood sugars reviewed via dexcom with mean glucose 138 82% of blood sugars are in range and 13.5% of sugars are high 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 and we discussed adjusting these rates Request for a1c discussed and mailed to patient Is utd with eye exam No neuropathy or callus Downloaded blood sugars via dexcom and 13 days of blood sugars reviewed with higher overnight sugar and rise in basal rate for this issue (peak higher sugar from 2- 6 am) Ur alb due F/u 3-4 months Assessment & Plan (03/20/2020 8:15 PM EST): Blood sugar and 90 day average sugar reviewed Results for orders placed or performed in visit on 03/20/20 POC Glycosylated Hemoglobin (Hb A1C) Specimen: Blood Result Value Ref Range Hemoglobin A1C 6.8 % Lot Number [id number] Expiration Date 9,142,022 Average sugar is higher at 140 Raised daytime basal rates occ nocturnal low sugar Also recommended she use insulin pens Finding pod not working as well first day after changing and she is changing pod every other day due to high infusion admelog pens provided She denies floaters or vision changes No foot lesion Dip ua abnormal- see above email weekly Share code provided Insulin to carb 1:8 with correction 45-50 Discussed change correction to 30 Downloaded pump and sensor 13 days of sensor data downloaded and reviewed Sugar rises at 10 am to peak at mn and then slow decline in level 0.2% of sugars are low 81% of sugars are in target range 18% of sugars are high Raised pump rates during the day Give injections first day of site change for bolus Polyhydramnios, accelerated AC growth discussed F/u 04/17 per patient request Assessment & Plan (02/14/2020 8:01 AM EST): Blood sugar and 90 day average sugar reviewed Results for orders placed or performed in visit on 02/13/20 POC Glycosylated Hemoglobin (Hb A1C) Specimen: Blood Result Value Ref Range Hemoglobin A1C 6.5 % Lot Number [id number] Expiration Date 08/08/2020 POC Glucose, Blood Specimen: Blood Result Value Ref Range Glucose 116 70 - 130 mg/dL Lot Number [id number] Expiration Date 08/08/2020 Pump and sensor downloaded and 13 days of sensor data discussed Lowered carb and sensitivity (to provide more insulin) during the day Adjusted overnight basal rate due to low sugars between 4-6 am Upload again in 1-2 weeks Assessment & Plan (01/29/2020 2:26 PM EST): IDDM using omnipod and dexcom Reviewed sugars - good fasting and high pp sugars Adjusted insulin to carb ratio Update 1 week edc 05/09/20 F/u 4 weeks Downloaded dexcom sensor and reviewed sugars- 13 days of sensor data reviewed 78% were in target with 1% of sugars in the low range Low sugars tend to be at 3 am and 6 am Appropriate management of low sugar and need for simple sugar (15 gm) followed by protein and carb discussed Higher sugars at times following lows- above should remedy this Higher pm sugars as well and we discussed bolus for larger meals and correction F/u 3-4 weeks Assessment & Plan (12/08/2019 3:55 PM EDT): Blood sugar and 90 day average sugar reviewed Results for orders placed or performed in visit on 12/08/19 POC Glucose, Blood Specimen: Blood Result Value Ref Range Glucose 273 (A) 70 - 130 mg/dL Lot Number [id number] Expiration Date 03/08/2020 Average sugar is 6.1% Doing well overall Discussed gradually lowering work sugar Goals reviewed No neuropathy or foot lesion Downloaded dexcom sensor and reviewed 74.6% of sugars within target 13.6 days of data reviewed 1.8% of sugars are low 23.6% of sugars are high - especially at work Discussed adjusting bolus and correction gradually to bring sugars down fasting and during the day F/u 4 weeks - will schedule with next ob visit Assessment & Plan (09/08/2019 2:27 PM EDT): Blood sugar and 90 day average sugar reviewed hgn a1c 6.3% Is on omnipod pump and dexcom sensor Good glycemic control discussed Sensor data 13.5 days reviewed Is utd with eye exam No neuropathy or callus Ur alb neg F/u 3 months and then move to every 4 weeks email for any help needed with changes in insulin regimen/pump settings Did send updated insulin prescription due to higher dose Assessment & Plan (06/09/2019 4:08 PM EDT): Average sugar based on dexcom data 05/26-06/08 (13.5 days) with a1c estimate 154 Continue monitoring and pump settings were not changed- recommended higher protein content with meal Reminded her to update eye exam No foot lesion Ur alb neg - update next ov Assessment & Plan (03/07/2019 11:46 PM EST): Blood sugar and 90 day average sugar reviewed Results for orders placed or performed in visit on 03/07/19 POC Glycosylated Hemoglobin (Hb A1C) Result Value Ref Range Hemoglobin A1C 7.1 % POC Glucose Fingerstick Result Value Ref Range Glucose 202 (A) 70 - 130 mg/dL Sugar is higher and encouraged her to mix protein with every meal, work on improved carb counting accuracy, try to stick to complex carbs She is utd with eye exam No neuropathy, callus or ulcer Ur alb neg F/u 3-4 months No changes other than increased testing/ wear sensor discussed Assessment & Plan (10/21/2018 5:58 PM EDT): Blood sugar and 90 day average sugar reviewed Results for orders placed or performed in visit on 10/21/18 POC Glycosylated Hemoglobin (Hb A1C) Result Value Ref Range Hemoglobin A1C 6.4 % POC Glucose Fingerstick Result Value Ref Range Glucose 220 (A) 70 - 130 mg/dL bp is good Is utd with eye exam No neuropathy Ur alb due Baby doing well Reviewed glucose sensor and insulin pump download No pattern needed adjustment 13 days of sensor data discussed occ low sugar and occ higher sugar She is able to identify lower sugar and treat F/u 3-4 months Assessment & Plan (05/20/2018 12:35 PM EDT): Blood sugar and 90 day average sugar reviewed Results for orders placed or performed in visit on 05/20/18 POC Glycosylated Hemoglobin (Hb A1C) Result Value Ref Range Hemoglobin A1C 6.4 % POC Glucose Fingerstick Result Value Ref Range Glucose 146 (A) 70 - 130 mg/dL Doing well pp- some ppd treated with zoloft and is doing better Is utd with eye exam No neuropathy/callus or ulcer Ur alb due next ov Continue pump and sensor - settings same Higher sugar 2 am- sleeping during day (some drop in sugar for this time of day and we did reduce basal rate for this time of day due to lower sensor readings) Baby on good schedule F/u 3-4 months Assessment & Plan (03/18/2018 12:57 PM EST): Pump and sensor downloaded Blood sugars reviewed Adjusted insulin to carb and sensitivity to 7 and 20 She will share sensor data in 3-4 days She is utd with eye exam No neuropathy/callus or ulcer Ur alb negative F/u pp 4-6 weeks Peripartum management discussed along with pump setting (1 unit per hour, 1 unit per 15 gm carb and 1 unit lowers sugar 45 points). Assessment & Plan (02/12/2018 1:23 PM EST): Blood sugar and 90 day average sugar reviewed Results for orders placed or performed in visit on 02/11/18 POC Glycosylated Hemoglobin (Hb A1C) Result Value Ref Range Hemoglobin A1C 5.9 % POC Glucose Fingerstick Result Value Ref Range Glucose 168 (A) 70 - 130 mg/dL Average sugar is 120 Reviewed dexcom sensor- 13 days of data reviewed Downloaded pump as well Raised pm basal rates due to higher overnight sugars based on dexcom readings Also lowered carb ratio to 8 and sensitivity to 24 Discussed and peripartum care Pump settings provided and should be flat 1 u / hour basal with carb 15 and correction 45 She can call for help adjusting settings Reminded her to bring insulin, meter, and equipment for site change to hospital with delivery F/u 3-4 weeks and then pp She would like to continue care here pp and we discussed this as well Assessment & Plan (01/15/2018 9:27 PM EST): Blood sugar and 90 day average sugar reviewed Current sugar is 148 and hgn a1c was 6.1% She is using dexcom but there is a discrepancy between her dexcom and her readings in the pump All sugars in pump look high She is having occasional am low sugar based on 2 day sensor data Discussed this with her Goals for fasting and pp sugars reviewed Strategy for peripartum management discussed No floaters or blurred vision Does have shingles causing severe leg pain She has not been sending readings No severe lows, good awareness of lows Adjusted pump settings due to persistent high sugar, rising when not eating, not completely covered by carb counting and correction is not restoring normal sugars Cautioned her to use current settings at face value and not over compensate (discussed changes in settings I had made) Asked her to get back to habit of emailing me She is seeing OB in 2 weeks- will see back at that time Cell phone provided She would prefer drip with delivery and we discussed bringing quickset, insulin and other supplies Assessment & Plan (12/07/2017 11:44 AM EDT): Blood sugar and 90 day average sugar reviewed Results for orders placed or performed in visit on 12/07/17 POC Glycosylated Hemoglobin (Hb A1C) Result Value Ref Range Hemoglobin A1C 5.5 % POC Glucose Fingerstick Result Value Ref Range Glucose 120 70 - 130 mg/dL Average sugar is improved Downloaded insulin pump and raised all rates with the exception of the afternoon rate which we raised She is utd with eye exam No neuropathy or foot lesion Ur alb / 24 hour ur protein done F/u 4 weeks Assessment & Plan (10/27/2017 9:12 PM EDT): tdd 70 u - adjusted correction factor to better fit tdd with insulin to carb 12 and correction of 30 email provided and she will start reporting blood sugars weekly Discussed goals for fasting and pp sugar Rationale for goal and risks of macrosomia, lung immaturity, hyperbilirubinemia /jaundice, stillbirth discussed. 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 Anemia 10/27/2017 Protein S deficiency affecting , antepa rtum 10/27/2017 Assessment & Plan (03/20/2020 8:07 PM EST): Taking lovenox injections Close f/u with OB/HROB Assessment & Plan (02/14/2020 8:02 AM EST): On blood thinner Work excuse for , DM and hypercoagulable state provided Assessment & Plan (01/27/2020 12:54 PM EST): Seeing hematology- changed anticoagulation Assessment & Plan (09/08/2019 2:27 PM EDT): Off coumadin now and is on lovenox during Assessment & Plan (03/07/2019 11:54 PM EST): Now post 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, delivered by section 04/11/2020 03/05/2022 Hx of biophysical profile 04/06/2020 04/11/2020 uterine contractions in third trimester, antepartum 04/01/2020 04/11/2020 Pyuria 03/20/2020 04/11/2020 Assessment & Plan (03/20/2020 8:03 PM EST): Reviewed dip ua from ER - 2+ LE- recommended she discuss treatment with OB (safe antibiotic) - has appt today Noted uterine irritability may be related to UTI 18 weeks gestation of 12/08/2019 01/13/2020 Assessment & Plan (12/08/2019 3:49 PM EDT): Has anatomy scan coming up Less than 8 weeks gestation of 09/08/2019 01/13/2020 Assessment & Plan (09/08/2019 2:27 PM EDT): High risk due to IDDM and protein S deficiency Single liveborn, born in [facility], delivered by section 03/26/2018 01/13/2020 36 weeks gestation of 03/22/2018 03/26/2018 Decreased movement aff ecting management of in third trimester 03/07/2018 01/13/20 20 Nausea & vomiting 03/03/2018 04/11/2020 and insulin-depend ent diabetes mellitus in third trimester 02/19/2018 11/04/2019 Headache in , antep artum, second trimester 12/11/2017 04/11/2020 12/10/2017 06/25/2022 Assessment & Plan (02/06/2022 2:39 PM EST): Has [facility] appt Seeing OB in [place] F/u scheduled She would like [facility] Gastroesophageal reflux dise ase without esophagitis 10/27/2017 04/11/2020 Cholelithiasis 10/27/2017 04/11/2020 Bilateral ovarian cysts 10/27/2017 02/05/2020 Assessment & Plan (06/09/2019 4:09 PM EDT): Hospitalized with cyst rupture now improved Continue monitoring and follow up with enrollment consultant Encounters Date Type Department Care Team Description 10/31/2024 Prior Authorization [facility] [address] [place] [address] Oneyda Glover MD 10/26/2024 Telephone [facility] [address] [place] [address] Oneyda Glover MD 10/17/2024 Prior Authorization [facility] [address] [place] [address] Oneyda Glover MD 10/11/2024 Results Follow-Up [facility] [address] [facility] [address] [place] [address] Rohini Palacio DNP, JAVASCRIPT ENGINEER 10/04/2024 11:25 AM EDT Lab [facility] [address] [place] [address] Neuropathic pain; Ptosis of eyelid, unspecified laterality; Dysphagia, unspecified type; Other fatigue 10/04/2024 10:00 AM EDT Office Visit [facility] [address] [facility] [address] [place] [address] Rohini Palacio DNP, JAVASCRIPT ENGINEER Neuropathic pain (Primary Dx); Other fatigue; Ptosis of eyelid, unspecified laterality; Dysphagia, unspecified type; Neck pain 10/04/2024 Travel 08/31/2024 Results Follow-Up [facility] [address] [place] [address] Oneyda Glover MD 08/30/2024 10:00 AM EDT Office Visit [facility] [address] [place] [address] Oneyda Glover MD Numbness and tingling of foot (Primary Dx); Type 1 diabetes mellitus without complication 08/30/2024 9:30 AM EDT Procedure visit [facility] [address] [facility] [address] [place] [address] Satinder Levine MD Pain in both feet (Primary Dx) 08/30/2024 Travel 08/23/2024 9:30 AM EDT Procedure visit [facility] [address] [facility] [address] [facility] [address] [place] [address] Satinder Levine MD Bilateral hand numbness 08/23/2024 Travel from Last 3 Months Immunizations Immunization Administration Dates Next Due DTaP, Unspecified 07/27/1995 Flu Vaccine Quad PF >36MO 01/09/2018,01/24/2017, 12/29/2014 Fluzone (or Fluarix & Flulav al for VFC) >6mos 01/09/2018 HPV Quadrivalent 05/20/2007 Hep B, Adolescent or Pediatric 06/07/2001,2000,12/14/2000 MMR 03/29/2018,07/27/1995 OPV 07/27/1995 Tdap 04/28/2022,04/06/2006 Family History Medical History Relation Name Comments Cancer Father Rich Heart disease Father Rich Hypertension Father Rich Spina bifida Father Rich Stroke Father Rich Throat cancer Father Rich Anemia Mother Elizabeth Arthritis Mother Elizabeth Factor V Leiden deficiency Paternal Grandmother Pulmonary embolism Paternal Grandmother Relation Name Status Comments Father Rich Mother Elizabeth Paternal Grandmother Social History Tobacco Use Types Packs/Day Years [...] week 05/06/2022 How often do you attend hindu or restorationism serv ices? Never 05/06/2022 Do you belong to any clubs o r organizations such as hindu groups, unions, fraternal or athletic groups, or [...] Brief Depression Severity Measure Score 7 07/30/2021 [facility] [place] of Occupat ional Health - Occupational Stress [...] place to sleep or slept in a skilled nursing (including now)? 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 file Not on file Not on jak e Last Filed Vital Signs Vital Sign Reading Time Taken Comments Blood Pressure 114/76 10/04/2024 9:47 AM EDT Pulse 68 10/04/2024 9:47 AM EDT Temperature 36.3 C (97.3 F) 11/12/2022 11:53 AM EDT Respiratory Rate 16 11/12/2022 11:53 AM EDT Oxygen Saturation 98% 10/04/2024 9:47 AM EDT Inhaled Oxygen Concentration - - Weight 72.4 kg (159 lb 9.6 oz) 10/04/2024 9:47 A M EDT Height 160 cm (5' 2.99 ) 10/04/2024 9:47 AM EDT Body Mass Index 28.28 10/04/2024 9:47 AM EDT Plan of Treatment Upcoming Encounters Date Type Department Care Team (Late st Contact Info) Description 11/04/2024 9:00 AM EDT Appointment [facility] AT [address] [phone] 11/04/2024 10:00 AM EDT Appointment [facility] AT [address] [phone] 12/12/2024 8:30 AM EDT Office Visit [facility] [address] [place] [address] Rohini Palacio, DNP, JAVASCRIPT ENGINEER [address] [place] [address] 12/26/2024 12:15 PM EDT Telemedicine [facility] [address] [place] [address] Oneyda Glover MD [address] [place] [address] Health Maintenance Due Date Last Done Comments Annual Gynecologic Pelvic an d Breast Exam 1991 Pneumococcal Vaccine 0-49 (1 of 2 - PCV) 2010 DIABETIC FOOT EXAM 09/07/2020 09/08/2019, 0 09/08/2019, 09/08/2019, Additional history exists DIABETIC EYE EXAM 01/17/2021 01/18/2020 COVID-19 Vaccine (1 - 2023-2 5 season) 2023 ANNUAL PHYSICAL 11/13/2023 11/12/2022 INFLUENZA VACCINE 12/07/2024 04/22/2024, , 01/09/2018, Additional history exists HEMOGLOBIN A1C 03/01/2025 08/30/2024, 12/09, 06/22/2023, Additional history exists PAP SMEAR 08/05/2025 08/05/2022 URINE MICROALBUMIN-CREATININ E RATIO (uACR) 08/31/2025 08/31/2024, 10/21/2018 TDAP/TD VACCINES (3 - Td or Tdap) 04/28/2032 023, 04/06/2006 Hepatitis B Completed 06/07/2001, 01/09, 12/14/2000 HEPATITIS C SCREENING Completed 11/12/2022 , 07/30/2021, 10/27/2019, Additional history exists Procedures Procedure Name Priority Date/Time Associated Diagnosis Comments LYME DISEASE, LINE BLOT Routine 10/05/19 11:20 [...] of eyelid, unspecified laterality Dysphagia, unspecified type ACETYLCHOLINE RECEPTOR AB PNL Routine 10/04/2024 11:20 [...] of eyelid, unspecified laterality Dysphagia, unspecified type HOMOCYSTEINE Routine 08/30/2024 10:40 AM EDT Numbness and tingling of foot FOLATE Routine 08/30/2024 10:40 AM EDT Numbness and tingling of foot METHYLMALONIC ACID, SERUM Routine 08/30/2024 10:40 AM EDT Numbness and tingling of foot VITAMIN B12 Routine 08/30/2024 10:40 AM EDT Numbness and tingling of foot LIPID PANEL Routine 08/30/2024 10:40 AM EDT Numbness and tingling of foot MICROALBUMIN / CREATININE URINE RATIO Routine 08/30/2024 10:40 AM EDT Type 1 diabetes mellitus without complication COMPREHENSIVE METABOLIC PANEL Routine 08/30/2024 10:40 AM EDT Type 1 diabetes mellitus without complication TSH Routine 08/30/2024 10:40 AM EDT Numbness and tingling of foot T4, FREE Routine 08/30/2024 10:40 AM EDT Numbness and tingling of foot POCT GLUCOSE, BLD (NON STRIP) Routine 08/30/2024 10:31 AM EDT Type 1 diabetes mellitus without complication POCT GLYCOSYLATED HEMOGLOBIN (HGB A1C) Routine 08/30/2024 10:30 AM EDT Type 1 diabetes mellitus without complication HEPATITIS PANEL, ACUTE Routine 12:32 PM EDT Encounter for well adult exam without abnormal findings Screening for STD (sexually transmitted disease) LIQUID-BASED PAP SMEAR WITH HPV GENOTYPING REGARDLESS OF INTERPRETATION, [facility] ([facility]) Routine 08/05/2022 12:05 PM EDT follow-up SCANNED - EYE EXAM 01/18/2020 MICROALBUMIN / CREATININE URINE RATIO Routine 10/21/2018 3:42 PM EDT Type 1 diabetes mellitus without complication from Last 3 Months or Most Recently Relevant to Health Maintenance Results * Acetylcholine Receptor Antibody Panel (10/04/2024 11:20 [...] LAB - 10/11/2024 2:10 PM EDT Test(s) 175919-YBjY Blocking Abs, Serum This test was developed and its performance characteristics determined by [facility]. It has not been cleared or approved by the Food and Drug Administration. Test(s) [id number]-CQlH-mqyoutudpw Ab was developed and its performance characteristics determined by [facility]. It has not been cleared or approved by the Food and Drug Administration. Performed at: 01 - [address] [id number] Flight Attendant Ramp: Charity Ignacio MD, Phone: [phone] us Rohini Palacio DNP, JAVASCRIPT ENGINEER LAB BLOOD ORDERABL ES Final Result [facility] [address] [place] [address], [place] [phone] * Anti-Myelin Oligodendrocyte Glycoprotein (MOG), Serum (10/04/2024 11:20 AM EDT) MOG Antibody, Cell-based IFA Negative Negative 10/06/2024 11:08 PM EDT [facility] Blood Venipuncture / Unknown 10/04/2024 11:20 AM EDT 10/04/2024 11:20 AM EDT Narrative [facility] - 10/06/2024 11:08 PM EDT Test(s) [id number]-QZN Antibody, Cell-based IFA was developed and its performance characteristics determined by [facility]. It has not been cleared or approved by the Food and Drug Administration. Performed at: - [address] [id number] Flight Attendant Ramp: Charity Ignacio MD, Phone: [phone] Rohini Palacio DNP, JAVASCRIPT ENGINEER LAB BLOOD ORDERABL ES Final Result [facility] [address] [place] [address], * Heavy Metals Profile II, Urine - Urine, Clean Catch (10/04/2024 11:20 AM EDT) Pathologist [facility] Creatinine, Urine 2.66 0.30 - 3.00 g/L 10/11/2024 12:10 PM EDT [facility] Comment:Detection Limit = 0. 10 Arsenic Ur None Detected 0 - 9 ug/L 10/11/2024 12:10 PM EDT [facility] Comment:Detection Limit = 10 Lead, Urine None Detected 0 - 49 ug/L 10/11/2024 12:10 PM EDT [facility] Comment:Detection Limit = 1 Mercury, Urine None Detected 0 - 19 ug/L 10/11/2024 12:10 PM EDT [facility] Comment:Detection Limit = 1 Cadmium, Urine None Detected None detected ug/L 10/11/2024 12:10 PM EDT [facility] Comment:Detection Limit = 1. 0 Urine Urine specimen obtained by clean catch procedure / Unknown Collection / Unknown 10/04/2024 11:20 AM EDT 10/04/2024 11:20 AM EDT [facility] - 10/11/2024 12:10 PM EDT Test(s) 647704-Iatkcqv (Total),U; 828066-Nujh, Urine; 394900- Mercury, Urine; 948603-Ufqwhwe, Urine was developed and its performance characteristics determined by [facility]. It has not been cleared or approved by the Food and Drug Administration. Performed at: 01 - [address] [id number] Flight Attendant Ramp: Charity Ignacio MD, Phone: [phone] Performed at: 02 - [facility] [address] [id number] Flight Attendant Ramp: Masha Mims [facility], Phone: [phone] Rohini Palacio DNP, JAVASCRIPT ENGINEER URINE ORDERABLES F inal Result [facility] [address] [place] [address], * Neuromyelitis Optica (NMO) Auto Antibody, IgG (10/04/2024 11:20 AM EDT) NMO/AQP4 FACS, S Negative Negative 10/11/19 8:09 PM EDT [facility] Comment: Recommend repeat testing in 6 months if clinical suspicion is high. Negative result can occur in the setting of immunosuppression. ADDITIONAL INFORMATION This test was developed and its performance characteristics determined by [facility] in a manner consistent with CLIA requirements. This test has not been cleared or approved by the U.S. Food and Drug Administration. Blood Venipuncture / Unknown 10/04/2024 11:20 AM EDT 10/04/2024 11:20 AM EDT Kaylyn [facility] - 10/10/2024 8:09 PM EDT Performed at: 01 - [facility] [address] [place], [place] [id number] Flight Attendant Ramp: Ramon Portillo PhD, Phone: [phone] Rohini Palacio DNP, JAVASCRIPT ENGINEER LAB BLOOD ORDERABL ES Final Result [facility] [address] [place] [address], * Lyme Disease, Line Blot (10/04/2024 11:20 [...] improve the sensitivity and specificity of testing. [facility] offers test code [id number] Lyme Disease Serology with Reflex to aid in the diagnosis of Lyme Disease. IgM P41 Ab. Absent 10/07/2024 4:11 PM EDT [facility] IgM P39 Ab. Absent 10/07/2024 4:11 PM EDT [facility] IgM P23 Ab. Absent 10/07/2024 4:11 PM EDT [facility] Additional Information Comment 10/07/2024 4:11 PM EDT [facility] Comment: Per CDC criteria, the Lyme [...] 11:20 AM EDT 10/04/2024 11:20 AM EDT [facility] - 10/07/2024 4:11 PM EDT Performed at: [address] [id number] Flight Attendant Ramp: Charity Ignacio MD, Phone: [phone] Rohini Palacio DNP, JAVASCRIPT ENGINEER LAB BLOOD ORDERABL ES Final Result Performing Organization Address City/State/[facility] Co de Phone Number [facility] [address] [place] [address], * Cryoglobulin (10/04/2024 11:20 AM EDT) [facility] Cryoglobulin, Ql, Serum, Rflx Comment None detected 10/10/2024 3:09 PM EDT [facility] Comment:None Detected at 72 hours Blood Venipuncture / Unknown 10/04/2024 11:20 AM EDT 10/04/2024 11:20 AM EDT [facility] - 10/10/2024 3:09 PM EDT Test(s) [id number]-Pkqwmpjywipj, Ql, Serum, Rflx was developed and its performance characteristics determined by [employer]. It has not been cleared or approved by the Food and Drug Administration. Performed at: [address] [id number] Flight Attendant Ramp: Ji Vera PhD, Phone: [phone] Rohini Palacio DNP, JANE LAB BLOOD ORDERABL ES Final Result Performing Organization Address City/[facility]/ZIP Co de Phone Number [facility] [address] [place] [address], [place] [phone] * Sedimentation Rate (10/04/2024 11:20 AM EDT) Sed Rate 15 0 - 20 mm/hr 10/04/2024 6:41 PM EDT [facility] Blood Venipuncture / Unknown 10/04/2024 11:20 AM EDT 10/04/2024 11:20 AM EDT Rohini Palacio DNP, JANE LAB BLOOD ORDERABL ES Final Result Performing Organization Address [facility] Co de Phone Number [facility]
[address] [place] [address], [place] [phone] * Angiotensin Converting Enzyme (10/04/2024 11:20 AM EDT) Angiotensin Converting Enzyme 25 14 - 82 U/L 10/05/2024 3:10 PM EDT [facility] Blood Venipuncture / Unknown 10/04/2024 11:20 AM EDT 10/04/2024 11:20 AM EDT Narrative [facility] - 10/05/2024 3:10 PM EDT Performed at: [address] [id number] Flight Attendant Ramp: Ji Vera PhD, Phone: [phone] Rohini Palacio DNP, JANE LAB BLOOD ORDERABL ES Final Result Performing Organization Address City/[facility]/ZIP Co de Phone Number [facility] [address] [place] [address], * (ABNORMAL) KRISTY + PE (10/04/2024 11:20 [...] g/dL 10/06/2024 10:10 AM EDT [facility] Qpgkj-6-Sxhztywj 0.2 0.0 - 0.4 g/dL 10/06/2024 10:10 AM EDT [facility] Yvyau-5-Wiagizjs 0.8 0.4 - 1.0 g/dL 10/06/2024 10:10 [...] scan will follow via computer, mail, or mandarin teacher delivery. Blood Venipuncture / Unknown 10/04/2024 11:20 AM EDT 10/04/2024 11:20 AM EDT Narrative [facility] - 10/06/2024 10:10 AM EDT Performed at: - [facility] [address] [place], [place] [id number] Flight Attendant Ramp: Ji Vera PhD, Phone: [phone] Rohini Palacio DNP, APRN LAB BLOOD ORDERABL ES Final Result [facility] [address] [place] [address], [place] [phone] * Ferritin (10/04/2024 11:20 AM EDT) Ferritin 44.20 13.00 - 150.00 ng/mL 10/04/2024 7:19 PM EDT [facility] Blood Venipuncture / Unknown 10/04/2024 11:20 AM EDT 10/04/2024 11:20 AM EDT Narrative [facility] - 10/04/2024 7:19 PM EDT Results may be falsely decreased if patient taking Biotin. Rohini Palacio DNP, APRN LAB BLOOD ORDERABL ES Final Result Performing Organization Address [facility]/ZIP Co de Phone Number [facility]
[address] [place] [address], * CK (10/04/2024 11:20 AM EDT) Creatine Kinase 99 20 - 180 U/L 10/04/2024 7:09 PM EDT [facility] Blood Venipuncture / Unknown 10/04/2024 11:20 AM EDT 10/04/2024 11:20 AM EDT us Rohini Palacio DNP, APRN LAB BLOOD ORDERABL ES Final Result [facility]
[address] [place] [address], [place] [phone] * Methylmalonic Acid, Serum (08/30/2024 10:40 AM EDT) Methylmalonic Acid 144 0 - 378 nmol/L 09/04/2024 6:08 PM EDT [facility] Blood Structure of left upper limb / Unknown Venipuncture / Unknown 08/30/2024 10:40 AM EDT 08/30/2024 10:40 AM EDT Narrative [facility] - 09/04/2024 6:08 PM EDT Test(s) [id number]-Fzbmkymwfdrlo Acid, Serum was developed and its performance characteristics determined by [employer]. It has not been cleared or approved by the Food and Drug Administration. Performed at: - [address] [id number] Flight Attendant Ramp: Charity Ignacio MD, Phone: [phone] Oneyda Glover MD LAB BLOOD ORDERABLES Fin al Result [facility] [address] [place] [address], [place] [phone] * Microalbumin / Creatinine Urine Ratio - Urine, Clean Catch (08/30/2024 10:40 AM EDT) Only the most recent of2 resultswithin the time period is included. Microalbumin/C reatinine Ratio 08/31/2024 1:01 AM EDT [facility] Comment:Unable to calculate Creatinine, Urine 140.7 mg/dL 08/31/2024 1:01 AM EDT [facility] Microalbumin, Urine <1.2 mg/dL 08/31/2024 1:01 AM EDT [facility] Urine Urine specimen obtained by clean catch procedure / Unknown Collection / Unknown 08/30/2024 10:40 AM EDT 08/30/2024 10:40 AM EDT us Oneyda Glover MD URINE ORDERABLES Final R esult Performing Organization Address [facility] Co de Phone Number [facility]
[address] [place] [address], * TSH (08/30/2024 10:40 AM EDT) [facility] TSH 2.590 0.270 - 4.200 uIU/mL 08/30/2024 2:51 PM EDT [facility] Blood Venipuncture / Unknown 08/30/2024 10:40 AM EDT 08/30/2024 10:40 AM EDT us Oneyda Glover MD LAB BLOOD ORDERABLES Fin al Result Performing Organization Address [facility] Phone Number [facility]
[address] [place] [address], * T4, Free (08/30/2024 10:40 AM EDT) [facility] Free T4 1.06 0.92 - 1.68 ng/dL 08/30/2024 2:51 PM EDT [facility] Blood Venipuncture / Unknown 08/30/2024 10:40 AM EDT 08/30/2024 10:40 AM EDT us Oneyda Glover MD LAB BLOOD ORDERABLES Fin al Result Performing Organization Address City/[facility] Co de Phone Number [facility]
[address] [place] [address], * Homocysteine (08/30/2024 10:40 AM EDT) [facility] Homocysteine, Plasma (Quant) 9.3 0.0 - 15.0 umol/L 08/30/2024 2:49 PM EDT [facility] Blood Venipuncture / Unknown 08/30/2024 10:40 AM EDT 08/30/2024 10:40 AM EDT us Oneyda Glover MD LAB BLOOD ORDERABLES Fin al Result [facility]
[address] [place] [address], [place] [phone] * Folate (08/30/2024 10:40 AM EDT) Pathologist [facility] Folate 9.72 4.78 - 24.20 ng/mL 08/30/2024 3:08 PM EDT [facility] Blood Venipuncture / Unknown 08/30/2024 10:40 AM EDT 08/30/2024 10:40 AM EDT Narrative [facility] - 08/30/2024 3:08 PM EDT Results may be falsely increased if patient taking Biotin. us Oneyda Glover MD LAB BLOOD ORDERABLES Fin al Result Performing Organization Address [facility] Co de Phone Number [facility]
[address] [place] [address], * Vitamin B12 (08/30/2024 10:40 AM EDT) [facility] Vitamin B-12 449 211 - 946 pg/mL 08/30/2024 3:08 PM EDT [facility] Blood Venipuncture / Unknown 08/30/2024 10:40 AM EDT 08/30/2024 10:40 AM EDT Narrative [facility] - 08/30/2024 3:08 PM EDT Results may be falsely increased if patient taking Biotin. us Oneyda Glover MD LAB BLOOD ORDERABLES Fin al Result Performing Organization Address City/[facility]/ZIP Co de Phone Number [facility]
[address] [place] [address], * (ABNORMAL) Lipid Panel (08/30/2024 10:40 AM EDT) Total Cholesterol 178 0 - 200 mg/dL 08/30/2024 2:49 PM EDT [facility] Triglycerides 110 0 - 150 mg/dL 08/30/2024 2:49 PM EDT [facility] HDL Cholesterol 49 40 - 60 mg/dL 08/30/2024 2:49 PM EDT [facility] LDL Cholesterol 109(H) 0 - 100 mg/dL 08/30/2024 2:49 PM EDT [facility] VLDL Cholesterol 20 5 - 40 mg/dL 08/30/2024 2:49 PM EDT [facility] LDL/HDL Ratio 2.18 08/30/2024 2:49 PM EDT [facility] Blood Venipuncture / Unknown 08/30/2024 10:40 AM EDT 08/30/2024 10:40 AM EDT Narrative [facility] - 08/30/2024 2:49 PM EDT Cholesterol Reference Ranges (U.S. Department of Health and Human Services ATP III Classifications) Desirable <200 mg/dL Borderline High 200-239 mg/dL High Risk >240 mg/dL Triglyceride Reference Ranges (U.S. Department of Health and Human Services ATP III Classifications) Normal <150 mg/dL Borderline High 150-199 mg/dL High 200-499 mg/dL Very High >500 mg/dL HDL Reference Ranges (U.S. Department of Health and Human Services ATP III Classifications) Low <40 mg/dl (major risk factor for CHD) High >60 mg/dl ('negative' risk factor for CHD) LDL Reference Ranges (U.S. Department of Health and Human Services ATP III Classifications) Optimal <100 mg/dL Near Optimal 100-129 mg/dL Borderline High 130-159 mg/dL High 160-189 mg/dL Very High >189 mg/dL LDL is calculated using the NIH LDL-C calculation. us Oneyda Glover MD LAB BLOOD ORDERABLES Fin al Result [facility]
[address] [place] [address], * (ABNORMAL) Comprehensive Metabolic Panel (08/30/2024 10:40 AM EDT) Glucose 179(H) 65 - 99 mg/dL 08/30/2024 2:49 PM EDT [facility] BUN 9.0 6.0 - 20.0 mg/dL 08/30/2024 2:49 PM EDT [facility] Creatinine 0.87 0.57 - 1.00 mg/dL 08/30/2024 2:49 PM EDT [facility] Sodium 137 136 - 145 mmol/L 08/30/2024 2:49 PM EDT [facility] Potassium 3.9 3.5 - 5.2 mmol/L 08/30/2024 2:49 PM EDT [facility] Chloride 102 98 - 107 mmol/L 08/30/2024 2:49 PM EDT [facility] CO2 25.0 22.0 - 29.0 mmol/L 08/30/2024 2:49 PM EDT [facility] Calcium 9.5 8.6 - 10.5 mg/dL 08/30/2024 2:49 PM EDT [facility] Total Protein 7.1 6.0 - 8.5 g/dL 08/30/2024 2:49 PM EDT [facility] Albumin 4.2 3.5 - 5.2 g/dL 08/30/2024 2:49 PM EDT [facility] ALT (SGPT) 19 1 - 33 U/L 08/30/2024 2:49 PM EDT [facility] AST (SGOT) 20 1 - 32 U/L 08/30/2024 2:49 PM EDT [facility] Alkaline Phosphatase 89 39 - 117 U/L 08/30/2024 2:49 PM EDT [facility] Total Bilirubin 0.5 0.0 - 1.2 mg/dL 08/30/2024 2:[facility] Globulin 2.9 gm/dL 08/30/2024 2:49 PM EDT [facility] A/G Ratio 1.4 g/dL 08/30/2024 2:49 PM EDT [facility] BUN/Creatinine Ratio 10.3 7.0 - 25.0 08/30/2024 2:49 PM EDT [facility] Anion Gap 10.0 5.0 - 15.0 mmol/L 08/30/2024 2:49 PM EDT [facility] eGFR 90.3 >60.0 mL/min/1.7 3 08/30/2024 2:49 PM EDT [facility] Blood Venipuncture / Unknown 08/30/2024 10:40 AM EDT 08/30/2024 10:40 AM EDT Narrative [facility] - 08/30/2024 2:49 PM EDT GFR Categories in Chronic Kidney Disease (CKD) GFR Category GFR (mL/min/1.73) Interpretation G1 90 or greater Normal or high (1) G2 60-89 Mild decrease (1) G3a 45-59 Mild to moderate decrease G3b 30-44 Moderate to severe decrease G4 15-29 Severe decrease G5 14 or less Kidney failure (1)In the absence of evidence of kidney disease, neither GFR category G1 or G2 fulfill the criteria for CKD. eGFR calculation 2020 CKD-EPI creatinine equation, which does not include race as a factor us Oneyda Glover MD LAB BLOOD ORDERABLES Fin al Result [facility]
[address] [place] [address], * POC Glucose, Blood (08/30/2024 10:31 AM EDT) [facility] Signature Glucose 120 70 - 130 mg/dL Lot Number [id number] Expiration Date 11/05/2024 Blood 08/30/2024 10:3 1 AM EDT us Oneyda Glover MD POINT OF CARE TEST ORDER GEORGE Final Result * (ABNORMAL) POC Glycosylated Hemoglobin (Hb A1C) (08/30/2024 10:30 AM EDT) [facility] Hemoglobin A1C 6.6(A) 4.5 - 5.7 % [facility] Lot Number [id number] [facility] Expiration Date 01/12/2026 [facility] Blood 08/30/2024 10:3 0 AM EDT Oneyda Glover MD POINT OF CARE TEST ORDER GEORGE Final Result [facility]
[address] [place] [address], * Hepatitis panel, acute (11/12/2022 12:32 PM EDT) [facility] Hep A IgM Negative Negative [facility] Hepatitis B Surface Ag Negative Negative [facility] Hep B Core IgM Negative Negative [facility] Hepatitis C Ab Non Reactive Non Reactive [facility] Blood 11/12/2022 12:3 2 PM EDT 11/12/2022 Narrative [facility]) - 11/13/2022 4:11 PM EDT Performed at: - [address] [id number] Flight Attendant Ramp: Ji Vera PhD, Phone: [phone] Patient Fasting: N Chuck MANN LAB BLOOD ORDERABLES Final Res ult [facility]) [address] [place] [address], [facility] [address] [place] [address], [place] [phone] * LIQUID-BASED PAP SMEAR WITH HPV GENOTYPING REGARDLESS OF INTERPRETATION (CEDRIC,COR,MAD) (08/05/2022 12:05 PM EDT) Reference Lab Report [facility] [address] [place] [address] or [phone] Sid Gomez M.D., Pharmacist Aide PATIENT NAME [facility]. [id number] AGE SEX SSN CLIENT REF # [facility] 31 1990 F [id number] [facility] HETALAMI BAEZ REQUESTING Isidro ATTENDING [place] [address] BALDEV ZHU DATE COLLECTED DATE RECEIVED DATE REPORTED 08/05/2022 08/05/2022 08/07/2022 ThinPrep Pap with Cytyc Imaging DIAGNOSIS: Negative for intraepithelial lesion or malignancy Multiple factors can influence accuracy of Pap tests; therefore, screening at regular intervals is necessary for early cancer detection. SPECIMEN ADEQUACY: SATISFACTORY FOR EVALUATION Transformation zone is present. SOURCE OF SPECIMEN: CERVICAL/ENDOCERVI RAULITO SLIDES: 1 CLINICAL HISTORY: follow-up HPV HR-HPV POOL: Negative The Aptima HPV assay is an in vitro nucleic acid amplification test for the qualitative detection of E6/E7 viral messenger RNA from 14 high risk types of HPV in cervical specimens. The high risk HPV types detected include: 16, 18, 31, 33, 35, 39, 45, 51, 52, 56, 58, 59, 66, 68 PALLIATIVE CARE PHYSICIAN: ALEXANDRU VAZQUEZ (ASCP) CPT CODES: 59097, 53838 08/07/2022 9:33 AM EDT [facility] ThinPrep Vial Cervix uteri structure / Unknown Collection / Unknown 08/05/2022 12:05 PM EDT 08/05/2022 12:05 PM EDT Baldev Zhu MD PATHOLOGY/CYTOLOGY ORDER GEORGE Final Result [facility]
[address] [place] [address], * SCANNED - EYE EXAM (01/18/2020) Anatomical Region Laterality Modality Other Oneyda Glover MD CHART REVIEW TABS Fin al Result from Last 3 Months or Most Recently Relevant to Health Maintenance Insurance [facility] Advance Directives * CPR (Attempt to Resuscitate) (Latest Code Status on File) Date Activated Date Inactivated Comments 06/23/2022 12:56 PM 06/25/2022 3:33 PM Question Answer Comments Code Status (Patient has no pulse and is not breathing): CPR (Attempt to Resuscitate) Medical Interventions (Patie nt has pulse or is breathing): Full * CPR (Attempt to Resuscitate) Date Activated Date Inactivated Comments 06/22/2022 5:49 PM 06/23/2022 12:56 PM Question Answer Comments Code Status (Patient has no pulse and is not breathing): CPR (Attempt to Resuscitate) Medical Interventions (Patie nt has pulse or is breathing): Full Support Level Of Support Discussed With: Patient Release to patient: Routine Release * CPR (Attempt to Resuscitate) Date Activated Date Inactivated Comments 04/11/2020 11:59 AM 04/13/2020 3:55 PM Question Answer Comments Code Status (Patient has no pulse and is not breathing): CPR (Attempt to Resuscitate) Medical Interventions (Patie nt has pulse or is breathing): Full * CPR (Attempt to Resuscitate) Date Activated Date Inactivated Comments 04/09/2020 4:19 PM 04/11/2020 11:59 AM Question Answer Comments Code Status (Patient has no pulse and is not breathing): CPR (Attempt to Resuscitate) Medical Interventions (Patie nt has pulse or is breathing): Full * CPR (Attempt to Resuscitate) Date Activated Date Inactivated Comments 04/06/2020 5:07 PM 04/07/2020 12:08 PM Question Answer Comments Code Status (Patient has no pulse and is not breathing): CPR (Attempt to Resuscitate) Medical Interventions (Patie nt has pulse or is breathing): Full Care Teams Chalk Extruding Machine Operator Relationship Specialty Start Date End Date Maribel Melgar APRN [address] [place], [place] [id number] PCP - General Nurse Practitioner 09/06/24
--- OUTSIDE RECORDS SUMMARY | 2024-11-01 09:38 | XMS_ITS | Encounter Summary ---
Author Organization [facility] ystem Address [address] [place] [address] Care Team Providers Care Records And Tape Recordings Engineer Name Role Phone Maribel Melgar FILM MAKER Primary Care Provider [phone] Encounter Details Date Type Department Care Team (Late st Contact Info) Description 10/17/2024 Prior Authorization [facility] [address] [place] [address] Oneyda Glover MD [address] [place] [phone] Social History Tobacco Use Types Packs/Day Years [...] week 05/06/2022 How often do you attend sikhism or anabaptism serv ices? Never 05/06/2022 Do you belong to any clubs o r organizations such as sikhism groups, unions, fraternal or athletic groups, or [...] Brief Depression Severity Measure Score 7 07/30/2021 [facility] - Occupational Stress [...] place to sleep or slept in a [place] health care facility (including now)? 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 Not on file Not on jak e documented as of this encounter Miscellaneous Notes * Telephone Encounter - Vivien Soto MA - 10/17/2024 2:13 PM EDT PA started on CMM for Dexcom G6 Sensor * Telephone Encounter - Vivien Soto MA - 10/17/2024 2:10 PM EDT PA started on CMM for Dexcom G6 Transmitter documented in this encounter Plan of Treatment Upcoming Encounters Date Type Department Care Team (Late st Contact Info) Description 11/04/2024 9:00 AM EDT Appointment [facility] MRI AT [address] [phone] 11/04/2024 10:00 AM EDT Appointment [facility] MRI AT [address] [address] 12/12/2024 8:30 AM EDT Office Visit [facility]UR[facility] [address] [phone] Rohini Palacio, DNP, FILM MAKER [address] [facility] [address] [place] [address] 12/26/2024 12:15 PM EDT Telemedicine [facility] [address] [address] Oneyda Glover MD [address] [address] documented as of this encounter Visit Diagnoses Not on filedocumented in this encounter Additional Health Concerns Assessment Noted Time PHQ-2 Depression Total Score: 2 07/31/19 22 4:07 PM EDT documented as of this encounter Care Teams Records And Tape Recordings Engineer Relationship Specialty Start Date End Date Maribel Melgar APRN [address] [address] PCP - General Nurse Practitioner 09/06/24 documented as of this encounter
--- OUTSIDE RECORDS SUMMARY | 2024-11-01 09:38 | XMS_ITS | Patient Health Record ---
Author Organization [facility] Address [address] [place] [address] Care Team Providers Care Criminal Lawyer Name Role Phone Yvette Pretty Unavailable [phone] Allergies Allergen (clinical drug ingredient) Drug/Non Drug [...]
--- OUTSIDE RECORDS SUMMARY | 2024-11-01 09:38 | XMS_ITS | Clinical Summary ---
Author Organization Healthcare Address [address] [place] [address] Care Team Providers Care Caustic Room Operator Name Role Phone Chuck Castañeda Primary [...] 07/27/1995 [facility]-Cervical Cancer Screening 2021 [facility]-HPV/Cotest 2021 [id number] Vaccine ( - season) 2023 [facility]-Influenza Vaccine [...] <6.0% Children and Adolescents <7.5% . Source: [place] [employer]. Standards of medical care in diabetes, 2017. Diabetes Care.2017:40 (suppl 1):S1-S135. . HbA1c assay performed by an ion-exchange chromatography method that is certified traceable to the DCCT. 09/01/2017 4:21 PM EDT 09/01/2017 6:43 PM EDT Aide Medeiros APRN LAB BLOOD ORDERABLES Jess l Result SUNQUEST * Hepatitis C Antibody (06/09/2017 2:06 PM EDT) [facility] Hepatitis C Antibody NEGATIVE Reference Range: Negative SUNQUEST 06/09/2017 2:06 PM EDT 06/09/2017 2:19 PM EDT Aide Medeiros APRN LAB BLOOD ORDERABLES Jess l Result Performing Organization Address City/[facility]/ZIP Co de Phone Number SUNQUEST from Last 3 Months or Most Recently Relevant to Health Maintenance Insurance [facility] [place] [address] Care Teams Caustic Room Operator Relationship Specialty Start Date End Date Chuck Castañeda PA PCP - General 10/10/21
--- OUTSIDE RECORDS SUMMARY | 2024-11-01 09:38 | XMS_ITS | Encounter Summary ---
Author Organization [facility] ystem Address [address] [place] [address] Care Team Providers Care Treating Machine Operator Name Role Phone Maribel Melgar JAVA CORE DEVELOPER Primary Care Provider [phone] Encounter Details Date Type Department Care Team (Late st Contact Info) Description 10/31/2024 Prior Authorization [facility] [address] [place] [address] Oneyda Glover MD [address] [place] [phone] Social History Tobacco Use Types Packs/Day Years [...] week 05/06/2022 How often do you attend baptist or caodaism serv ices? Never 05/06/2022 Do you belong to any clubs o r organizations such as baptist groups, unions, fraternal or athletic groups, or [...] Brief Depression Severity Measure Score 7 07/30/2021 [facility] - Occupational [...] place to sleep or slept in a detention (including now)? 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 Call us at Outcome Approved on October 31 by [employer] 2016 The request has been approved. The authorization is effective from 10/31/2024 to 10/30/2025, as long as the member is enrolled in their current health plan. The request was approved as submitted. This request has been approved with a quantity limit of 3 sensors per 30 days.Prior authorization [id number] been entered for DEXCOM G7 SUPERVISOR BLASTING, this request is effective from 10/31/2024 and is valid until 10/30/2025 and is limited to 1 meter per 12 months. A written notification letter will follow with additional details. Effective Date: 10/31/2024 Authorization Expiration Date: 10/30/2025 Drug Dexcom G7 Sensor ePA cloud logo Form [employer] ePA Form 2017 NCPDP Original Claim Info [id number] * Telephone Encounter - Vivien Soto MA - 10/31/2024 9:29 AM EDT PA started on REPLACED BY [facility] for Dexcom G7 Sensor documented in this encounter Plan of Treatment Upcoming Encounters Date Type Department Care Team (Late st Contact Info) Description 11/04/2024 9:00 AM EDT Appointment [facility] MRI AT [facility] [address] [place] [phone] 11/04/2024 10:00 AM EDT Appointment [facility] MRI AT [address] [address] 12/12/2024 8:30 AM EDT Office Visit [facility] NEUROLOGY [address] [place] [address] Rohini Palacio, DNP, JAVA CORE DEVELOPER [address] [place] [address] 12/26/2024 12:15 PM EDT Telemedicine [facility] [address] [place] [phone] Oneyda Glover MD [address] [place] [phone] documented as of this encounter Visit Diagnoses Not on filedocumented in this encounter Additional Health Concerns Assessment Noted Time PHQ-2 Depression Total Score: 2 07/31/19 22 4:07 PM EDT documented as of this encounter Care Teams Treating Machine Operator Relationship Specialty Start Date End Date Maribel Melgar APRN [address] [address] PCP - General Nurse Practitioner 09/06/24 documented as of this encounter
--- OUTSIDE RECORDS SUMMARY | 2024-11-01 09:38 | XMS_ITS | Encounter Summary ---
Author Organization [facility] Address [address] [place] [address] Care Team Providers Care Tip Banding Machine Operator Name Role Phone Maribel Melgar JANE Primary Care Provider [phone] Encounter Details Date Type Department Care Team (Latest Contact Info) Description 10/04/2024 Travel Social History Tobacco Use Types Packs/Day Years [...] week 05/06/2022 How often do you attend sikh or nondenominational serv ices? Never 05/06/2022 Do you belong to any clubs o r organizations such as sikh groups, unions, fraternal or athletic groups, or [...] Brief Depression Severity Measure Score 7 07/30/2021 [facility] Occupat ional [facility] - Occupational Stress Questionnaire Answer Date [...] health care facility (including now)? 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 Not on file Not on jak e documented as of this encounter Plan of Treatment Upcoming Encounters Date Type Department Care Team (Late st Contact Info) Description 11/04/2024 9:00 AM EDT Appointment [facility] MRI AT [facility] [address] [place] [phone] 11/04/2024 10:00 AM EDT Appointment [facility] MRI AT [address] [phone] 12/12/2024 8:30 AM EDT Office Visit [facility] NEUROLOG[facility] [address] [place] [phone] Rohini Palacio, DNP, HOUSEMAID [address] [place] [address] 12/26/2024 12:15 PM EDT Telemedicine [facility] [address] [place] [address] Oneyda Glover MD [address] [place] [phone] documented as of this encounter Visit Diagnoses Not on filedocumented in this encounter Additional Health Concerns Assessment Noted Time PHQ-2 Depression Total Score: 2 07/31/19 22 4:07 PM EDT documented as of this encounter Care Teams Tip Banding Machine Operator Relationship Specialty Start Date End Date Maribel Melgar APRN [address] [address] PCP - General Nurse Practitioner 09/06/24 documented as of this encounter
--- OUTSIDE RECORDS SUMMARY | 2024-11-01 09:38 | XMS_ITS | Encounter Summary ---
Author Organization [facility] ystem Address [address] [place] [address] Care Team Providers Care Project Development Manager Name Role Phone MelgarMaribel dahl JANE Primary Care Provider [phone] Encounter Details Date Type Department Care Team (Late st Contact Info) Description 10/11/2024 Results Follow-Up [facility]UR[facility] [address] [facility] [address] [place] [address] Rohini Palacio, DNP, BROADCAST PRODUCER [address] [facility] [address] [place], [place] [phone] Social History Tobacco Use Types Packs/Day Years [...] week 05/06/2022 How often do you attend methodist or alevism serv ices? Never 05/06/2022 Do you belong to any clubs o r organizations such as methodist groups, unions, fraternal or athletic groups, or [...] Brief Depression Severity Measure Score 7 07/30/2021 [facility] of Occupat ional Health - Occupational Stress [...] in a jail (including now)? 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 Please notify pt immune labs show slightly elevated IgM which can indicate infection or inflammation. Labs for myasthenia gravis, heavy metal toxins, autoimmune diseases that mimic MS, cryoglobulins,lyme, sarcoidosis, ferritin, muscle breakdown, inflammatory markers are all normal. documented in this encounter Plan of Treatment Upcoming Encounters Date Type Department Care Team (Late st Contact Info) Description 11/04/2024 9:00 AM EDT Appointment [facility] MRI AT [address] [address] 11/04/2024 10:00 AM EDT Appointment [facility] MRI AT [address] [address] 12/12/2024 8:30 AM EDT Office Visit [facility] NEUROLOG[facility] [address] [address] Rohini Palacio, DNP, BROADCAST PRODUCER [address] [facility] [address] [place] [address] 12/26/2024 12:15 PM EDT Telemedicine [facility] [address] [address] Oneyda Glover MD [address] [phone] documented as of this encounter Visit Diagnoses Not on filedocumented in this encounter Additional Health Concerns Assessment Noted Time PHQ-2 Depression Total Score: 2 07/31/19 22 4:07 PM EDT documented as of this encounter Care Teams Project Development Manager Relationship Specialty Start Date End Date Maribel Melgar APRN [address] [address] PCP - General Nurse Practitioner 09/06/24 documented as of this encounter
[2024-11-01 09:50] LABS: COC Drug Screen Collection Only
[2024-11-02 09:12] LABS: Hep A Ab, Total Negative (Negative)
[2024-11-02 10:11] LABS: Measles Antibodies, IgG 83.5 AU/mL (Immune >16.4); Mumps Abs, IgG 58.6 AU/mL (Immune >10.9); Rubella Antibodies, IgG 1.70 index (Immune >0.99)
== END ==
LOC: LAB 09:35
CPT/HCPCS: 36415; 86480; 86706; 86708; 86735; 86762; 86765; 86787

== ENCOUNTER 2024-11-01 09:38 | Outpatient (CLI) | payer BC, MEDICAID, SELFPAY ==
[2024-11-01 08:12] VITALS: BMI 27.4
[2024-11-01 10:26] LABS: Hematocrit 36.0 % (37.0-47.0); Hemoglobin 11.7 g/dL (12.2-16.2); Mean Corpuscular HGB Conc 32.5 g/dL (31.8-35.4); Mean Corpuscular Hemoglobin 26.9 pg (27.0-31.2); Mean Corpuscular Volume 82.8 fl (81-99); Platelet Count 269 K/mm3 (142-424); Red Blood Count 4.35 M/mm3 (4.20-5.40); White Blood Count 5.3 K/mm3 (4.8-10.8)
[2024-11-01 10:30] LABS: HCG Qualitative, Serum Negative (Negative)
[2024-11-01 11:06] LABS: Hypochromasia 1+; Total Cells Counted 100
[2024-11-01 11:39] LABS: Chloride 105 mmol/L (98-107); Potassium 4.1 mmoL/L (3.5-5.1); Sodium 139 mmol/L (136-145)
[2024-11-01 11:42] LABS: Anion Gap 12.1 mEq/L (5-15); Blood Urea Nitrogen 10 mg/dl (7-17); Carbon Dioxide 26 mmol/L (22.0-30.0); Creatinine Clearance Estimated 131 mL/min (50-200); Creatinine,Serum 0.70 mg/dl (0.52-1.04); Estimated Glomerular Filt Rate 96 ml/min (>60); GFR (African American) 117 ML/MIN (>60)
[2024-11-01 11:43] LABS: Calcium 9.2 mg/dl (8.4-10.2); Glucose 182 mg/dl (74-100)
== END 2024-11-01 23:59 | disposition home or self-care (01) ==
LOC: PREOP 09:39
PROVIDERS: PCP Nurse Practitioner Family; Visit Provider Surgery
DX: Z01.812 Encounter for preprocedural laboratory examination (principal)
CPT/HCPCS: 80048; 84703; 85007; 85014; 85018; 85048; 85049

== ENCOUNTER 2024-11-25 15:32 | Outpatient (CLI) | payer MEDICAID, SELFPAY ==
--- OUTSIDE RECORDS SUMMARY | 2024-10-04 10:00 | XMS_ITS | Encounter Summary ---
[facility] Address [address] [place] [address] Care Team Providers Care Corporate Associate Name Role Phone Maribel Melgar APRN Primary Care Provider [phone] Reason for Referral * MRI/CAT/PET Scan (Routine) - Closed Specialty Diagnoses / Procedures Referred By Contac t Referred To Contact Radiology Diagnoses Neuropathic pain Ptosis of eyelid, unspecified laterality Dysphagia, unspecified type Neck pain Procedures MRI Cervical Spine With & Without Contrast Rohini Palacio DNP, APRN [address] [facility] [address] [place] [address] Phone: tel: fax: [address] [address] [place] [address] Phone: tel: Referral ID Status Reason Start Date Expiration Date Visits Re quested Visits Authorized [id number] Closed 10/04/2024 01/03/2026 1 1 * MRI/CAT/PET Scan (Routine) - Closed Specialty Diagnoses / Procedures Referred By Contac t Referred To Contact Radiology Diagnoses Neuropathic pain Ptosis of eyelid, unspecified laterality Dysphagia, unspecified type Procedures MRI Brain With & Without Contrast Rohini Palacio DNP, APRN [address] [place] [address] Phone: tel: fax: [address] [address] [place] [address] Phone: tel: Referral ID Status Reason Start Date Expiration Date Visits Re quested Visits Authorized [id number] Closed 10/04/2024 01/03/2026 1 1 Reason for Visit * Reason Comments Small fiber neuropathy * Consultation (Routine) - Closed Specialty Diagnoses / Procedures Referred By Contac t Referred To Contact Neurology Diagnoses Bilateral hand pain Small fiber neuropathy Procedures RI OFFICE/OUTPATIENT NEW MODERATE MDM 45 MINUTES Oneyda Glover MD [address] [facility] [address] [place] [address] Phone: tel: fax: [facility] [address] [facility] [address] [place] [address] Phone: tel: fax: Referral ID Status Reason Start Date Expiration Date V isits Requested Visits Authorized [id number] Closed Specialty Services Required 08/23/2024 11/22/2025 1 1 Encounter Details Date Type Department Care Team (Late st Contact Info) Description 10/04/2024 10:00 AM EDT Office Visit [facility] NEUROLOGY [address] [id number] Rohini Palacio DNP, STAND UP COMEDIAN [address] [facility] [address] [place] [address] Neuropathic pain (Primary Dx); Other fatigue; Ptosis [...] week 05/06/2022 How often do you attend jainism or zoroastrianism serv ices? Never 05/06/2022 Do you belong to any clubs o r organizations such as jainism groups, unions, fraternal or athletic groups, or [...] Brief Depression Severity Measure Score 7 07/30/2021 [facility] Occupat ional Health - Occupational Stress [...] in a fpc (including now)? 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 3. Constipation. She reports [...] other neurological symptoms. A referral to an assembler metal furniture will be made for further evaluation. Follow-up [...] [x] Records Requested [] Patient or patient b2b outside sales representative verbalized consent for the use of Ambient Listening during the visit with Rohini Palacio DNP, APRN for chart documentation. 10/05/2024 10:03 EDT Rohini Palacio DNP, APRN documented in this encounter Plan of Treatment Upcoming Encounters Date Type Department Care Team (Late st Contact Info) Description 12/12/2024 8:30 AM EDT Office Visit [facility] NEUROLOG[facility] [address] [place] [address] Rohini Palacio DNP, APRN [address] [place] [address] 12/26/2024 12:15 PM EDT Telemedicine [facility] [address] [facility] [address] [place] [address] Oneyda Glover MD [address] [facility] [address] [place] [address] documented as of this encounter Results * MRI Cervical Spine With & Without Contrast (11/04/2024 10:07 AM EDT) Anatomical Region Laterality Modality Spine, C-spine N/A Magnetic Resonan ce 11/04/2024 10:1 3 AM EDT Impressions 11/04/2024 10:26 AM EDT Impression: Normal contrast-enhanced MRI of the brain and cervical spine. There is no evidence of demyelinating lesion. Electronically Signed: Jw Reyes MD 11/04/2024 10:26 AM EDT Workstation ID: [id number] Narrative 11/04/2024 10:26 AM EDT MRI BRAIN W WO CONTRAST, MRI CERVICAL SPINE W WO CONTRAST Date of Exam: 11/04/2024 8:52 AM EDT Indication: diplopia, weakness, neuropathic pain. Comparison: None available. Technique: Routine multiplanar/multisequence sequence images of the brain and cervical spine were obtained before and after the uneventful administration of Multihance. Findings: MRI brain: No acute infarct is present on diffusion weighted sequences. Midline structures appear normal and the craniocervical junction is satisfactory. Starks- white differentiation is maintained and there is no evidence of intracranial hemorrhage, mass or mass effect. There is no evidence of white matter signal abnormality to suggest demyelinating process. There is no abnormal brain parenchymal enhancement. The ventricles are normal in size and configuration. The orbits are normal. The paranasal sinuses are clear. MRI cervical spine: T1 marrow signal is preserved, without evidence of fracture or suspicious marrow replacing lesion. Alignment is anatomic, without evidence of listhesis or subluxation. The cervical spinal cord demonstrates no focal areas of intramedullary signal abnormality. There is no abnormal enhancement. The paraspinal soft tissues demonstrate no acute or suspicious findings. There is no evidence of significant spondylosis change. Procedure Note Mati Reyes MD - 11/04/2024 MRI BRAIN W WO CONTRAST, MRI CERVICAL SPINE W WO CONTRAST Date of Exam: 11/04/2024 8:52 AM EDT Indication: diplopia, weakness, neuropathic pain. Comparison: None available. Technique: Routine multiplanar/multisequence sequence images of the brainand cervical spine were obtained before and after the uneventfuladministration of Multihance. Findings: MRI brain: No acute infarct is present on diffusion weighted sequences.Midline structures appear normal and the craniocervical junction issatisfactory. Starks- white differentiation is maintained and there is noevidence of intracranial hemorrhage, mass or mass effect. There is no evidence of white matter signal abnormality tosuggest demyelinating process. There is no abnormal brain parenchymalenhancement. The ventricles are normal in size and configuration. Theorbits are normal. The paranasal sinuses are clear. MRI cervical spine: T1 marrow signal is preserved, without evidence offracture or suspicious marrow replacing lesion. Alignment is anatomic,without evidence of listhesis or subluxation. The cervical spinal corddemonstrates no focal areas of intramedullary signal abnormality. There is no abnormal enhancement. Theparaspinal soft tissues demonstrate no acute or suspicious findings. Thereis no evidence of significant spondylosis change. IMPRESSION: Impression: Normal contrast-enhanced MRI of the brain and cervical spine. There is noevidence of demyelinating lesion. Electronically Signed: Jw Reyes MD 11/04/2024 10:26 AM EDT Workstation ID: [id number] Rohini Palacio DNP, STAND UP COMEDIAN IMG MRI ORDERABLES Final Result * MRI Brain With & Without Contrast (11/04/2024 10:07 AM EDT) Anatomical Region Laterality Modality Head, Neck N/A Magnetic Resonan ce 11/04/2024 10:1 3 AM EDT Impressions 11/04/2024 10:26 AM EDT Impression: Normal contrast-enhanced MRI of the brain and cervical spine. There is no evidence of demyelinating lesion. Electronically Signed: Jw Reyes MD 11/04/2024 10:26 AM EDT Workstation ID: [id number] Narrative 11/04/2024 10:26 AM EDT MRI BRAIN W WO CONTRAST, MRI CERVICAL SPINE W WO CONTRAST Date of Exam: 11/04/2024 8:52 AM EDT Indication: diplopia, weakness, neuropathic pain. Comparison: None available. Technique: Routine multiplanar/multisequence sequence images of the brain and cervical spine were obtained before and after the uneventful administration of Multihance. Findings: MRI brain: No acute infarct is present on diffusion weighted sequences. Midline structures appear normal and the craniocervical junction is satisfactory. Starks- white differentiation is maintained and there is no evidence of intracranial hemorrhage, mass or mass effect. There is no evidence of white matter signal abnormality to suggest demyelinating process. There is no abnormal brain parenchymal enhancement. The ventricles are normal in size and configuration. The orbits are normal. The paranasal sinuses are clear. MRI cervical spine: T1 marrow signal is preserved, without evidence of fracture or suspicious marrow replacing lesion. Alignment is anatomic, without evidence of listhesis or subluxation. The cervical spinal cord demonstrates no focal areas of intramedullary signal abnormality. There is no abnormal enhancement. The paraspinal soft tissues demonstrate no acute or suspicious findings. There is no evidence of significant spondylosis change. Procedure Note Mati Reyes MD - 11/04/2024 MRI BRAIN W WO CONTRAST, MRI CERVICAL SPINE W WO CONTRAST Date of Exam: 11/04/2024 8:52 AM EDT Indication: diplopia, weakness, neuropathic pain. Comparison: None available. Technique: Routine multiplanar/multisequence sequence images of the brainand cervical spine were obtained before and after the uneventfuladministration of Multihance. Findings: MRI brain: No acute infarct is present on diffusion weighted sequences.Midline structures appear normal and the craniocervical junction issatisfactory. Starks- white differentiation is maintained and there is noevidence of intracranial hemorrhage, mass or mass effect. There is no evidence of white matter signal abnormality tosuggest demyelinating process. There is no abnormal brain parenchymalenhancement. The ventricles are normal in size and configuration. Theorbits are normal. The paranasal sinuses are clear. MRI cervical spine: T1 marrow signal is preserved, without evidence offracture or suspicious marrow replacing lesion. Alignment is anatomic,without evidence of listhesis or subluxation. The cervical spinal corddemonstrates no focal areas of intramedullary signal abnormality. There is no abnormal enhancement. Theparaspinal soft tissues demonstrate no acute or suspicious findings. Thereis no evidence of significant spondylosis change. IMPRESSION: Impression: Normal contrast-enhanced MRI of the brain and cervical spine. There is noevidence of demyelinating lesion. Electronically Signed: Jw Reyes MD 11/04/2024 10:26 AM EDT Workstation ID: [id number] Rohini Palacio DNP, STAND UP COMEDIAN IMG MRI ORDERABLES Final Result * Lyme Disease, Line Blot (10/04/2024 11:20 [...] improve the sensitivity and specificity of testing. [facility] offers test code 102288 Lyme Disease Serology with Reflex to aid [...] - 10/07/2024 4:11 PM EDT Performed at: [address] [id number] Research Anthropologist: Charity Ignacio MD, Phone: [phone] us Rohini Palacio DNP, STAND UP COMEDIAN LAB BLOOD ORDERABL ES Final Result [facility] [address] [id number], * (ABNORMAL) KRISTY + PE (10/04/2024 11:20 AM EDT) IgG 983 586 - 1602 mg/dL 10/06/2024 10:10 AM EDT [facility] IgA 142 87 - 352 mg/dL 10/06/2024 10:10 AM EDT [facility] IgM 228(H) 26 - 217 mg/dL 10/06/2024 10:10 AM EDT [facility] Total Protein 6.9 6.0 - 8.5 g/dL 10/06/2024 10:10 AM EDT [facility] Albumin 3.7 2.9 - 4.4 g/dL 10/06/2024 10:10 AM EDT [facility] Rbyxp-7-Htpdhmwx 0.2 0.0 - 0.4 g/dL 10/06/2024 10:10 AM EDT [facility] Ocnjd-0-Tycnmeon 0.8 0.4 - 1.0 g/dL 10/06/2024 10:10 AM EDT [facility] Beta Globulin 1.1 0.7 - 1.3 g/dL 10/06/2024 10:10 AM EDT [facility] Gamma Globulin 1.1 0.4 - 1.8 g/dL 10/06/2024 10:10 AM EDT [facility] M-Ben Not Observed Not Observed g/dL 10/06/2024 10:10 AM EDT [facility] Globulin 3.2 2.2 - 3.9 g/dL 10/06/2024 10:10 AM EDT [facility] A/G Ratio 1.2 0.7 - 1.7 10/06/2024 10:10 AM EDT [facility] Immunofixation Reflex, Serum Comment 10/06/2024 10:10 AM EDT [facility] Comment:No monoclonality det ected. Please note Comment 10/06/2024 10:10 AM EDT [facility] Comment: Protein electrophoresis scan will follow via computer, mail, or plant utilities engineer delivery. Blood Venipuncture / Unknown 10/04/2024 11:20 AM EDT 10/04/2024 11:20 AM EDT Narrative [facility] - 10/06/2024 10:10 AM EDT Performed at: [address] [id number] Research Anthropologist: Ji Vera PhD, Phone: [phone] Rohini Palacio DNP, STAND UP COMEDIAN LAB BLOOD ORDERABL ES Final Result [place] [id number], * Cryoglobulin (10/04/2024 11:20 AM EDT) Cryoglobulin, Ql, Serum, Rflx Comment None detected 10/10/2024 3:09 PM EDT [facility] Comment:None Detected at 72 hours Blood Venipuncture / Unknown 10/04/2024 11:20 AM EDT 10/04/2024 11:20 AM EDT Narrative [facility] - 10/10/2024 3:09 PM EDT Test(s) 438319-Vfqfsptypsvt, Ql, Serum, Rflx was developed and its performance characteristics determined by [facility]. It has not been cleared or approved by the Food and Drug Administration. Performed at: - [facility] [address] [place], [place] [id number] Research Anthropologist: Ji Vera PhD, Phone: [phone] Rohini Palacio DNP, STAND UP COMEDIAN LAB BLOOD ORDERABL ES Final Result Performing Organization Address City/[facility]/ZIP Co de Phone Number [facility] [address] [place] [address], [place] [phone] * Ferritin (10/04/2024 11:20 AM EDT) Ferritin 44.20 13.00 - 150.00 ng/mL 10/04/2024 7:19 PM EDT [facility] Blood Venipuncture / Unknown 10/04/2024 11:20 AM EDT 10/04/2024 11:20 AM EDT Narrative [facility] - 10/04/2024 7:19 PM EDT Results may be falsely decreased if patient taking Biotin. Rohini Palacio DNP, JANE LAB BLOOD ORDERABL ES Final Result Performing Organization Address City/[facility]/ZIP Co de Phone Number [facility]
[address] [place] [address], [place] [phone] * Heavy Metals Profile II, Urine - Urine, Clean Catch (10/04/2024 11:20 AM EDT) Creatinine, Urine 2.66 0.30 - 3.00 g/L 10/11/2024 12:10 PM EDT [facility] Comment:Detection Limit = 0. 10 Arsenic Ur None Detected 0 - 9 ug/L 10/11/2024 12:10 PM EDT [facility] Comment:Detection Limit = 10 Lead, Urine None Detected 0 - 49 ug/L 10/11/2024 12:10 PM EDT [facility] Comment:Detection Limit = 1 Mercury, Urine None Detected 0 - 19 ug/L 10/11/2024 12:10 PM EDT [facility] Comment:Detection Limit = 1 Cadmium, Urine None Detected None detected ug/L 10/11/2024 12:10 PM EDT [facility] Comment:Detection Limit = 1. 0 Urine Urine specimen obtained by clean catch procedure / Unknown Collection / Unknown 10/04/2024 11:20 AM EDT 10/04/2024 11:20 AM EDT Narrative [facility] - 10/11/2024 12:10 PM EDT Test(s) 241938-Ayyomzo (Total),U; 988960-Awsp, Urine; 552095- Mercury, Urine; 920613-Vrytcst, Urine was developed and its performance characteristics determined by [facility]. It has not been cleared or approved by the Food and Drug Administration. Performed at: 01 - [address] [id number] Research Anthropologist: Charity Ignacio MD, Phone: [phone] Performed at: 02 - [employer] [address] [id number] Research Anthropologist: Masha Mims [facility], Phone: [phone] us Rohini Palacio DNP, JANE URINE ORDERABLES F inal Result Performing Organization Address City/[facility]/ZIP Co de Phone Number [facility] [address] [place] [address], [place] [phone] * CK (10/04/2024 11:20 AM EDT) [facility] Creatine Kinase 99 20 - 180 U/L 10/04/2024 7:09 PM EDT [facility] Blood Venipuncture / Unknown 10/04/2024 11:20 AM EDT 10/04/2024 11:20 AM EDT us Rohini Palacio DNP, APRN LAB BLOOD ORDERABL ES Final Result [facility]
[address] [place] [address], [place] [phone] * Acetylcholine Receptor Antibody Panel (10/04/2024 11:20 AM EDT) [facility] AChR Binding Ab <0.07 0.00 - 0.24 nmol/L 10/11/2024 2:10 PM EDT [facility] Comment: Negative: 0.00 - 0.24 Borderline: 0.25 - 0.40 Positive: >0.40 AChR Blocking Abs 17 0 - 25 % 025 2:10 PM EDT [facility] Comment: Negative: 0 - 25 Borderline: 26 - 30 Positive: >30 ACHR Receptor Modulating Ab 0 0 - 45 % 10/11/2024 2:10 PM EDT [facility] Comment: Interpretive Information: Negative: 0 - 45% Positive: > 45% No single value for AChR-modulating antibody should be used as a sole basis for diagnosis or response to therapy. Blood Venipuncture / Unknown 10/04/2024 11:20 AM EDT 10/04/2024 11:20 AM EDT Narrative [facility] - 10/11/2024 2:10 PM EDT Test(s) 403715-GIaP Blocking Abs, Serum This test was developed and its performance characteristics determined by [facility]. It has not been cleared or approved by the Food and Drug Administration. Test(s) 744181-GNuV-maudpmlhbf Ab was developed and its performance characteristics determined by [facility]. It has not been cleared or approved by the Food and Drug Administration. Performed at: [address] [id number] Research Anthropologist: Charity Ignacio MD, Phone: [phone] Rohini Palacio DNP, STAND UP COMEDIAN LAB BLOOD ORDERABL ES Final Result [facility] [address] [place] [address], * Sedimentation Rate (10/04/2024 11:20 AM EDT) Pathologist [facility] Sed Rate 15 0 - 20 mm/hr 10/04/2024 6:41 PM EDT [facility] Blood Venipuncture / Unknown 10/04/2024 11:20 AM EDT 10/04/2024 11:20 AM EDT Rohini Palacio DNP, APRN LAB BLOOD ORDERABL ES Final Result [facility]
[address] [place] [address], * Neuromyelitis Optica (NMO) Auto Antibody, IgG (10/04/2024 11:20 AM EDT) NMO/AQP4 FACS, S Negative Negative 10/11/19 8:09 PM EDT [facility] Comment: Recommend repeat testing in 6 months if clinical suspicion is high. Negative result can occur in the setting of immunosuppression. ADDITIONAL INFORMATION This test was developed and its performance characteristics determined by [facility] in a manner consistent with CLIA requirements. This test has not been cleared or approved by the [place].S. Food and Drug Administration. Blood Venipuncture / Unknown 10/04/2024 11:20 AM EDT 10/04/2024 11:20 AM EDT Narrative [facility] - 10/10/2024 8:09 PM EDT Performed at: 01 - [facility] [address] [id number] Research Anthropologist: Ramon Portillo PhD, Phone: [phone] Rohini Palacio DNP, APRN LAB BLOOD ORDERABL ES Final Result [facility] [address] [place] [address], [place] [phone] * Anti-Myelin Oligodendrocyte Glycoprotein (MOG), Serum (10/04/2024 11:20 AM EDT) MOG Antibody, Cell-based IFA Negative Negative 10/06/2024 11:08 PM EDT [facility] Blood Venipuncture / Unknown 10/04/2024 11:20 AM EDT 10/04/2024 11:20 AM EDT Narrative [facility] - 10/06/2024 11:08 PM EDT Test(s) 234029-DXB Antibody, Cell-based IFA was developed and its performance characteristics determined by [facility]. It has not been cleared or approved by the Food and Drug Administration. Performed at: [address] [place] [id number] Research Anthropologist: Charity Ignacio MD, Phone: [phone] Rohini Palacio DNP, JANE LAB BLOOD ORDERABL ES Final Result Performing Organization Address [facility] [place] [address], [place] [phone] * Angiotensin Converting Enzyme (10/04/2024 11:20 AM EDT) [facility] Angiotensin Converting Enzyme 25 14 - 82 U/L 10/05/2024 3:10 PM EDT [facility] Blood Venipuncture / Unknown 10/04/2024 11:20 AM EDT 10/04/2024 11:20 AM EDT Narrative [facility] - 10/05/2024 3:10 PM EDT Performed at: [address] [place] [id number] Research Anthropologist: Ji Vera PhD, Phone: [phone] Rohini Palacio DNP, APRN LAB BLOOD ORDERABL ES Final Result Performing Organization Address [facility] Co de Phone Number [facility] [address] [place], [place] [address], [place] [phone] documented in this encounter Visit Diagnoses Diagnosis Neuropathic pain- Primary Other fatigue Ptosis of eyelid, unspecified laterality Dysphagia, unspecified type Neck pain Cervicalgia Neuropathic pain Ptosis of eyelid, unspecified laterality Dysphagia, unspecified type Neuropathic pain Ptosis of eyelid, unspecified laterality Dysphagia, unspecified type Neck pain Cervicalgia documented in this encounter Additional Health Concerns Assessment Noted Time PHQ-2 Depression Total Score: 2 07/31/19 22 4:07 PM EDT documented as of this encounter Care Teams Corporate Associate Relationship Specialty Start Date End Date Melgar JANE López [address] [place] [address] PCP - General Nurse Practitioner 09/06/24 documented as of this encounter
--- OUTSIDE RECORDS SUMMARY | 2024-10-04 11:25 | XMS_ITS | Encounter Summary ---
Author Organization [facility] ystem Address [address] [place] [address] Care Team Providers Care Carrier Loader Name Role Phone Maribel Melgar FOOD COOKING MACHINE OPERATOR Primary Care Provider [phone] Encounter Details Date Type Department Care Team (Late st Contact Info) Description 10/04/2024 11:25 AM EDT Lab [facility] [address] [place] [address] Neuropathic pain; Ptosis of eyelid, [...] week 05/06/2022 How often do you attend yazidi or jainism serv ices? Never 05/06/2022 Do you belong to any clubs o r organizations such as yazidi groups, unions, fraternal or athletic groups, or [...] Brief Depression Severity Measure Score 7 07/30/2021 [facility] - [...] place to sleep or slept in a snf (including now)? 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 on file Not on jak e documented as of this encounter Plan of Treatment Upcoming Encounters Date Type Department Care Team (Late st Contact Info) Description 12/12/2024 8:30 AM EDT Office Visit [facility] [address] [place] [phone] Rohini Palacio, DNP, FOOD COOKING MACHINE OPERATOR [address] [place] [address] 12/26/2024 12:15 PM EDT Telemedicine [facility] END[facility]CR[facility] [address] [facility] [address] [place] [phone] Oneyda Glover MD [address] [facility] [address] [place] [phone] documented as of this encounter Procedures Procedure [...] improve the sensitivity and specificity of testing. [facility] offers test code 527374 Lyme Disease Serology with Reflex to aid [...] 4:11 PM EDT Performed at: 01 - [address] [id number] Loom Blower: Charity Ignacio MD, Phone: [phone] us Rohini Palacio DNP, FOOD COOKING MACHINE OPERATOR LAB BLOOD ORDERABL ES Final Result [facility] [address] [place] [address], * (ABNORMAL) KRISTY + PE (10/04/2024 11:20 [...] g/dL 10/06/2024 10:10 AM EDT [facility] Cxykq-0-Jisxofoz 0.2 0.0 - 0.4 g/dL 10/06/2024 10:10 AM EDT [facility] Fibrg-3-Bdvbeslf 0.8 0.4 - 1.0 g/dL 10/06/2024 10:10 [...] scan will follow via computer, mail, or supervisor game farm delivery. Blood Venipuncture / Unknown 10/04/2024 11:20 AM EDT 10/04/2024 11:20 AM EDT N[facility]ative [facility] - 10/06/2024 10:10 AM EDT Performed at: - [address] [id number] Loom Blower: Ji Vera PhD, Phone: [phone] us Rohini Palacio DNP, JANE LAB BLOOD ORDERABL ES Final Result [place] [id number], * Cryoglobulin (10/04/2024 11:20 AM EDT) Cryoglobulin, Ql, Serum, Rflx Comment None detected 10/10/2024 3:09 PM EDT [facility] Comment:None Detected at 72 hours Blood Venipuncture / Unknown 10/04/2024 11:20 AM EDT 10/04/2024 11:20 AM EDT Narrative [facility] - 10/10/2024 3:09 PM EDT Test(s) 832392-Ttwlctlatkrr, Ql, Serum, Rflx was developed and its performance characteristics determined by [facility] It has not been cleared or approved by the Food and Drug Administration. Performed at: [address] [place] [id number] Loom Blower: Ji Vera PhD, Phone: [phone] us Rohini Palacio DNP, FOOD COOKING MACHINE OPERATOR LAB BLOOD ORDERABL ES Final Result [facility] [address] [place] [address], [place] [phone] * Ferritin (10/04/2024 11:20 AM EDT) Ferritin 44.20 13.00 - 150.00 ng/mL 10/04/2024 7:19 PM EDT [facility] Blood Venipuncture / Unknown 10/04/2024 11:20 AM EDT 10/04/2024 11:20 AM EDT Narrative [facility] - 10/04/2024 7:19 PM EDT Results may be falsely decreased if patient taking Biotin. Rohini Palacio DNP, FOOD COOKING MACHINE OPERATOR LAB BLOOD ORDERABL ES Final Result Performing Organization Address City/[facility]/ZIP Co de Phone Number [facility]
[address] [place] [address], * Heavy Metals Profile II, Urine - [...] None detected ug/L 10/11/2024 12:10 PM EDT [facility] Comment:Detection Limit = 1. 0 Urine Urine specimen obtained by clean catch procedure / Unknown Collection / Unknown 10/04/2024 11:20 AM EDT 10/04/2024 11:20 AM EDT Narrative [facility] - 10/11/2024 12:10 PM EDT Test(s) 476218-Iymkpmf (Total),U; 171296-Aqks, Urine; 398681- Mercury, Urine; 022396-Jiweqwa, Urine was developed and its performance characteristics determined by [facility] It has not been cleared or approved by the Food and Drug Administration. Performed at: 01 - [address] [id number] Loom Blower: Charity Ignacio MD, Phone: [phone] Performed at: 02 - [facility] [address] [place] [id number] Loom Blower: Masha Mims [facility], Phone: [phone] Rohini Palacio DNP, JANE URINE ORDERABLES F inal Result Performing Organization Address [facility]/ZIP Co de Phone Number [facility] [address] [place] [address], [place] [phone] * CK (10/04/2024 11:20 AM EDT) [facility] Creatine Kinase 99 20 - 180 U/L 10/04/2024 7:09 PM EDT [facility] Blood Venipuncture / Unknown 10/04/2024 11:20 AM EDT 10/04/2024 11:20 AM EDT Rohini Palacio DNP, JANE LAB BLOOD ORDERABL ES Final Result [facility]
[address] [place] [address], [place] [phone] * Acetylcholine Receptor Antibody Panel (10/04/2024 11:20 AM EDT) Pathologist [facility] AChR Binding Ab <0.07 0.00 - 0.24 nmol/L 10/11/2024 2:10 PM EDT [facility] Comment: Negative: 0.00 - 0.24 Borderline: 0.25 - 0.40 Positive: >0.40 AChR Blocking Abs 17 0 - 25 % 025 2:10 PM EDT [facility] Comment: Negative: 0 - 25 Borderline: 26 - 30 Positive: >30 ACHR Receptor Modulating Ab 0 0 - 45 % 10/11/2024 2:10 PM EDT [facility] Comment: Interpretive Information: Negative: 0 - 45% Positive: > 45% No single value for AChR-modulating antibody should be used as a sole basis for diagnosis or response to therapy. Blood Venipuncture / Unknown 10/04/2024 11:20 AM EDT 10/04/2024 11:20 AM EDT Narrative [facility] - 10/11/2024 2:10 PM EDT Test(s) [id number]-MFnA Blocking Abs, Serum This test was developed and its performance characteristics determined by [facility] It has not been cleared or approved by the Food and Drug Administration. Test(s) 273951-SOwZ-pyqxagolph Ab was developed and its performance characteristics determined by [facility]. It has not been cleared or approved by the Food and Drug Administration. Performed at: 01 - [address] [id number] Loom Blower: Charity Ignacio MD, Phone: [phone] Rohini Palacio DNP, APRN LAB BLOOD ORDERABL ES Final Result Performing Organization Address City/[facility] Co de Phone Number [facility] [address] [place] [address], [place] [phone] * Sedimentation Rate (10/04/2024 11:20 AM EDT) Sed Rate 15 0 - 20 mm/hr 10/04/2024 6:41 PM EDT [facility] Blood Venipuncture / Unknown 10/04/2024 11:20 AM EDT 10/04/2024 11:20 AM EDT Rohini Palacio DNP, APRN LAB BLOOD ORDERABL ES Final Result Performing Organization Address City/[facility]/ZIP Co de Phone Number [facility]
[address] [facility] [place] [address], [place] [phone] * Neuromyelitis Optica (NMO) Auto Antibody, IgG (10/04/2024 11:20 AM EDT) NMO/AQP4 FACS, S Negative Negative 10/11/19 8:09 PM EDT [facility] Comment: Recommend repeat testing in 6 months if clinical suspicion is high. Negative result can occur in the setting of immunosuppression. ADDITIONAL INFORMATION This test was developed and its performance characteristics determined by [facility] in a manner consistent with CLIA requirements. This test has not been cleared or approved by the U.S. Food and Drug Administration. Blood Venipuncture / Unknown 10/04/2024 11:20 AM EDT 10/04/2024 11:20 AM EDT Narrative [facility] - 10/10/2024 8:09 PM EDT Performed at: 01 - [facility] Labs [facility] Main [address] [id number] Loom Blower: Ramon Portillo PhD, Phone: [phone] Rohini Palacio DNP, FOOD COOKING MACHINE OPERATOR LAB BLOOD ORDERABL ES Final Result [facility] [address] [place] [address], [place] [phone] * Anti-Myelin Oligodendrocyte Glycoprotein (MOG), Serum (10/04/2024 11:20 AM EDT) MOG Antibody, Cell-based IFA Negative Negative 10/06/2024 11:08 PM EDT [facility] Blood Venipuncture / Unknown 10/04/2024 11:20 AM EDT 10/04/2024 11:20 AM EDT Narrative [facility] - 10/06/2024 11:08 PM EDT Test(s) [id number]-EKV Antibody, Cell-based IFA was developed and its performance characteristics determined by [facility]. It has not been cleared or approved by the Food and Drug Administration. Performed at: - [address] [id number] Loom Blower: Charity Ignacio MD, Phone: [phone] Rohini Palacio DNP, JANE LAB BLOOD ORDERABL ES Final Result Performing Organization Address [facility] Co de Phone Number [facility] [address] [place] [address], [place] [phone] * Angiotensin Converting Enzyme (10/04/2024 11:20 AM EDT) [facility] Angiotensin Converting Enzyme 25 14 - 82 U/L 10/05/2024 3:10 PM EDT [facility] Blood Venipuncture / Unknown 10/04/2024 11:20 AM EDT 10/04/2024 11:20 AM EDT Narrative [facility] - 10/05/2024 3:10 PM EDT Performed at: - [address] [id number] Loom Blower: Ji Vera PhD, Phone: [phone] Rohini Palacio DNP, APRN LAB BLOOD ORDERABL ES Final Result Performing Organization Address [facility] de Phone Number [facility] [address] [place] [address], [place] [phone] documented in this encounter Visit Diagnoses Diagnosis Neuropathic pain Ptosis of eyelid, unspecified laterality Dysphagia, unspecified type Other fatigue documented in this encounter Additional Health Concerns Assessment Noted Time PHQ-2 Depression Total Score: 2 07/31/19 22 4:07 PM EDT documented as of this encounter Care Teams Carrier Loader Relationship Specialty Start Date End Date Maribel Melgar APRN [address] [place] [address] PCP - General Nurse Practitioner 09/06/24 documented as of this encounter
--- OUTSIDE RECORDS SUMMARY | 2024-11-04 08:38 | XMS_ITS | Encounter Summary ---
[facility] Address [address] [place] [address] Care Team Providers Care Dehydrogenation Operator Name Role Phone Maribel Melgar APRN Primary Care Provider [phone] Reason for Referral * MRI/CAT/PET Scan (Routine) - Closed Specialty Diagnoses / Procedures Referred By Contac t Referred To Contact Radiology Diagnoses Neuropathic pain Ptosis of eyelid, unspecified laterality Dysphagia, unspecified type Neck pain Procedures MRI Cervical Spine With & Without Contrast Rohini Palacio DNP, APRN [address] [place] [address] Phone: tel: fax: [address] [address] Phone: tel: Referral ID Status Reason Start Date Expiration Date Visits Re quested Visits Authorized [id number] Closed 10/04/2024 01/03/2026 1 1 Reason for Visit * MRI/CAT/PET Scan (Routine) - Closed Specialty Diagnoses / Procedures Referred By Contac t Referred To Contact Radiology Diagnoses Neuropathic pain Ptosis of eyelid, unspecified laterality Dysphagia, unspecified type Neck pain Procedures MRI Cervical Spine With & Without Contrast Rohini Palacio DNP, APRN [address] [place] [address] Phone: tel: fax: [place] [address] [place] [address] Phone: tel: Referral ID Status Reason Start Date Expiration Date Visits Re quested Visits Authorized [id number] Closed 10/04/2024 01/03/2026 1 1 Encounter Details Date Type Department Care Team (Latest Contact Info) Description 11/04/2024 8:38 AM EDT - 11/04/2024 11:59 PM EDT Hospital Encounter [facility] MRI AT [facility] [address] [place] [address] Neuropathic pain; Ptosis of eyelid, unspecified laterality; Dysphagia, unspecified type; Neck pain Discharge Disposition: Home or Self Care Social History Tobacco Use Types Packs/Day Years [...] week 05/06/2022 How often do you attend orthodoxy or yarsanism serv ices? Never 05/06/2022 Do you belong to any clubs o r organizations such as orthodoxy groups, unions, fraternal or athletic groups, or [...] Brief Depression Severity Measure Score 7 07/30/2021 [facility] of Occupat ional [facility] - Occupational Stress Questionnaire Answer Date Recorded [...] place to sleep or slept in a mcc (including now)? 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 100 each 1 06/22/2023 azithromycin (Zithromax Z-Jeison) 250 MG tablet Take 2 tablets by mouth on day 1, then 1 tablet daily on days 2-5 6 tablet 04/03/2024 Blood Glucose Monitoring Suppl w/Device kit Use daily to test blood sugars Dx: E10.9 1 each 06/23/2023 Continuous Glucose Sensor (Dexcom G7 Sensor) misc Use 1 Units Every 10 (Ten) Days. 9 each 1 10/26/2024 Gabapentin 10 % creamIndications:N umbness and tingling of foot Apply 1 Units topically 2 (Two) Times a Day. Twice daily - gabapentin 10%,, ketoprofen 20% and lidocaine 5% 60 g 3 08/30/2024 Insulin Disposable Pump (Omnipod 5 [id number] Pods Gen 5) miscIndications:Ty pe 1 diabetes mellitus without complication Inject 1 Units under the skin into the appropriate area as directed Every Other Day. E10.65 45 each 1 05/12/2024 Glucose Blood (Blood Glucose Test) strip Test blood sugars daily DX; E10.9 100 each 1 06/23/2023 5 HumaLOG 100 UNIT/ML injectionIndicatio ns:Type 1 diabetes mellitus without complication USE UP TO 100 UNITS DAILY IN CONTINUOUS INSULIN PUMP 90 mL 1 05/12/2024 5 documented as of this encounter Plan of Treatment Upcoming Encounters Date Type Department Care Team (Late st Contact Info) Description 12/12/2024 8:30 AM EDT Office Visit [facility] NE[facility] [address] [place] [address] Rohini Palacio, DNP, MAKEUP ARTISTRY INSTRUCTOR [address] [place] [address] 12/26/2024 12:15 PM EDT Telemedicine [facility] [address] [facility] [address] [place] [address] Oneyda Glover MD [address] [facility] [address] [place] [address] documented as of this encounter Procedures Procedure Name Priority Date/Time Associated Diagnosis Comments MRI CERVICAL SPINE W WO CONTRAST Routine 11/04/2024 10:07 AM EDT Neuropathic pain Ptosis of eyelid, unspecified laterality Dysphagia, unspecified type Neck pain documented in this encounter Results * MRI Cervical Spine With & Without Contrast (11/04/2024 10:07 AM EDT) Anatomical Region Laterality Modality Spine, C-spine N/A Magnetic Resonan ce 11/04/2024 10:1 3 AM EDT Impressions 11/04/2024 10:26 AM EDT Impression: Normal contrast-enhanced MRI of the brain and cervical spine. There is no evidence of demyelinating lesion. Electronically Signed: Jw Reyes MD 11/04/2024 10:26 AM EDT Workstation ID: [id number] Narrative 11/04/2024 10:26 AM EDT MRI BRAIN [...] MD 11/04/2024 10:26 AM EDT Workstation ID: [id number] Rohini Palacio DNP, MAKEUP ARTISTRY INSTRUCTOR IMG MRI ORDERABLES Final Result documented in this encounter Visit Diagnoses Diagnosis Neuropathic pain Ptosis of eyelid, unspecified laterality Dysphagia, unspecified type Neck pain Cervicalgia documented in this encounter Additional Health Concerns Assessment Noted Time PHQ-2 Depression Total Score: 2 07/31/19 22 4:07 PM EDT documented as of this encounter Care Teams Dehydrogenation Operator Relationship Specialty Start Date End Date Maribel Melgar APRN [address] [place] [address] PCP - General Nurse Practitioner 09/06/24 documented as of this encounter
--- OUTSIDE RECORDS SUMMARY | 2024-11-04 08:38 | XMS_ITS | Encounter Summary ---
[facility] Address [address] [place] [address] Care Team Providers Care Application Development Specialist Name Role Phone Maribel Melgar APRN Primary Care Provider [phone] Reason for Referral * MRI/CAT/PET Scan (Routine) - Closed Specialty Diagnoses / Procedures Referred By Contac t Referred To Contact Radiology Diagnoses Neuropathic pain Ptosis of eyelid, unspecified laterality Dysphagia, unspecified type Procedures MRI Brain With & Without Contrast Rohini Palacio DNP, APRN [address] [place] [address] Phone: tel: fax: [address] [place] [address] Phone: tel: Referral ID Status Reason Start Date Expiration Date Visits Re quested Visits Authorized [id number] Closed 10/04/2024 01/03/2026 1 1 Reason for Visit * MRI/CAT/PET Scan (Routine) - Closed Specialty Diagnoses / Procedures Referred By Contac t Referred To Contact Radiology Diagnoses Neuropathic pain Ptosis of eyelid, unspecified laterality Dysphagia, unspecified type Procedures MRI Brain With & Without Contrast Rohini Palacio DNP, APRN [address] [place] [address] Phone: tel: fax: [facility] [address] [place] [address] Phone: tel: Referral ID Status Reason Start Date Expiration Date Visits Re quested Visits Authorized [id number] Closed 10/04/2024 01/03/2026 1 1 Encounter Details Date Type Department Care Team (Latest Contact Info) Description 11/04/2024 8:38 AM EDT - 11/04/2024 11:59 PM EDT Hospital Encounter [facility] MRI AT [address] [address] Neuropathic pain; Ptosis of eyelid, unspecified laterality; Dysphagia, unspecified type Discharge Disposition: Home or Self Care Social [...] week 05/06/2022 How often do you attend protestant or mandaeism serv ices? Never 05/06/2022 Do you belong to any clubs o r organizations such as protestant groups, unions, fraternal or athletic groups, or [...] Brief Depression Severity Measure Score 7 07/30/2021 [facility] - Occupational Stress Questionnaire Answer [...] in a detention (including now)? 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 Not on file Not [...] 3 08/30/2024 Insulin Disposable Pump (Omnipod 5 [id number] Pods Gen 5) miscIndications:Ty pe 1 diabetes [...] Description 12/12/2024 8:30 AM EDT Office Visit [facility] NE[facility] [address] [facility] [address] [place] [address] Rohini Palacio, DNP, DOCK GUARD [address] [facility] [address] [place] [address] 12/26/2024 12:15 PM EDT Telemedicine [facility] END[facility] [address] [place] [address] Oneyda Glover MD [address] [facility] [address] [place] [address] documented as of this encounter Procedures Procedure Name Priority Date/Time Associated Diagnosis Comments MRI BRAIN W WO CONTRAST Routine 11/04/2024 10:07 AM EDT Neuropathic pain Ptosis of eyelid, unspecified laterality Dysphagia, unspecified type documented in this encounter Results * MRI Brain With & Without Contrast (11/04/2024 10:07 AM EDT) Anatomical Region Laterality Modality Head, Neck N/A Magnetic Resonan ce 11/04/2024 10:1 3 AM EDT Impressions 11/04/2024 10:26 AM EDT Impression: Normal contrast-enhanced MRI of the brain and cervical spine. There is no evidence of demyelinating lesion. Electronically Signed: Jw Reyes MD 11/04/2024 10:26 AM EDT Workstation ID: [id number] Narrative 11/04/2024 10:26 AM EDT MRI BRAIN [...] MD 11/04/2024 10:26 AM EDT Workstation ID: [id number] Rohini Palacio DNP, DOCK GUARD IMG MRI ORDERABLES Final Result documented in this encounter Visit Diagnoses Diagnosis Neuropathic pain Ptosis of eyelid, unspecified laterality Dysphagia, unspecified type documented in this encounter Administered Medications Inactive Administered Medications - up to 3 most recent administrations Medication Order MAR Action Action Date Dose Rate Site gadobenate dimeglumine (MULTIHANCE) injection 15 mL 15 mL, Intravenous, Once in Imaging, On Thu11/04/24 at 1009, For 1 dose, Vesicant; admin as rapid bolus; flush with 5 mL NS after admin or 20 mL for renal or aortoiliofemoral vasculature Given 11/04/2024 10:07 AM EDT 15 mL documented in this encounter Additional Health Concerns Assessment Noted Time PHQ-2 Depression Total Score: 2 07/31/19 22 4:07 PM EDT documented as of this encounter Care Teams Application Development Specialist Relationship Specialty Start Date End Date Maribel Melgar APRN [address] [place] [address] PCP - General Nurse Practitioner 09/06/24 documented as of this encounter
[2024-11-25 15:04] LABS: Coronavirus 19, PCR Not Detected (NotDetected); Influenza A, PCR Not Detected (NotDetected); Influenza B, PCR Not Detected (NotDetected)
--- OUTSIDE RECORDS SUMMARY | 2024-11-25 15:34 | XMS_ITS | Encounter Summary ---
Author Organization [facility] Address [address] [place] [address] Care Team Providers Care Publication Specialist Name Role Phone MelgarMaribel dahl JANE Primary Care Provider [phone] Encounter Details Date Type Department Care Team (Late st Contact Info) Description 10/11/2024 Results Follow-Up [facility] [address] [facility] [address] [place] [address] Rohini Palacio, DNP, WOOL HAT FLANGER [address] [facility] [address] [place], [place] [id number] Social History Tobacco Use Types Packs/Day Years [...] week 05/06/2022 How often do you attend restoration or restorationist serv ices? Never 05/06/2022 Do you belong to any clubs o r organizations such as restoration groups, unions, fraternal or athletic groups, or [...] Brief Depression Severity Measure Score 7 07/30/2021 [facility] of Occupat ional Health - Occupational [...] in a mcc (including now)? 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 Not on file Not [...] Description 12/12/2024 8:30 AM EDT Office Visit [facility]UR[facility] [address] [facility] [address] [place] [address] Rohini Palacio, DNP, WOOL HAT FLANGER [address] [facility] [address] [place] [address] 12/26/2024 12:15 PM EDT Telemedicine [facility] [address] [facility] [address] [place] [address] Oneyda Glover MD [address] [facility] [address] [place] [phone] documented as of this encounter Visit Diagnoses Not on filedocumented in this encounter Additional Health Concerns Assessment Noted Time PHQ-2 Depression Total Score: 2 07/31/19 22 4:07 PM EDT documented as of this encounter Care Teams Publication Specialist Relationship Specialty Start Date End Date Maribel Melgar APRN [address] [place] [address] PCP - General Nurse Practitioner 09/06/24 documented as of this encounter
--- OUTSIDE RECORDS SUMMARY | 2024-11-25 15:34 | XMS_ITS | Encounter Summary ---
Author Organization [facility] Address [address] [place] [address] Care Team Providers Care Commercial Roofing Estimator Name Role Phone Maribel Melgar JANE Primary Care Provider [phone] Encounter Details Date Type Department Care Team (Latest Contact Info) Description 11/04/2024 Travel Social History Tobacco Use Types Packs/Day [...] week 05/06/2022 How often do you attend voodoo or taoist serv ices? Never 05/06/2022 Do you belong to any clubs o r organizations such as voodoo groups, unions, fraternal or athletic groups, or [...] Brief Depression Severity Measure Score 7 07/30/2021 [facility] of Occupat ional [facility] - Occupational Stress Questionnaire Answer Date Recorded [...] place to sleep or slept in a long term (including now)? 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 Not on file Not on jak e documented as of this encounter Plan of Treatment Upcoming Encounters Date Type Department Care Team (Late st Contact Info) Description 12/12/2024 8:30 AM EDT Office Visit [facility] NEUR[facility] [address] [place] [address] Rohini Palacio, DNP, DATABASE ADMINISTRATION MANAGER [address] [place] [address] 12/26/2024 12:15 PM EDT Telemedicine [facility] ENDOCR[facility]Y [address] [facility] [address] [place] [address] Oneyda Glover MD [address] [facility] [address] [place] [address] documented as of this encounter Visit Diagnoses Not on filedocumented in this encounter Additional Health Concerns Assessment Noted Time PHQ-2 Depression Total Score: 2 07/31/19 22 4:07 PM EDT documented as of this encounter Care Teams Commercial Roofing Estimator Relationship Specialty Start Date End Date Maribel Melgar, DATABASE ADMINISTRATION MANAGER [address] [address] PCP - General Nurse Practitioner 09/06/24 documented as of this encounter
--- OUTSIDE RECORDS SUMMARY | 2024-11-25 15:34 | XMS_ITS | Encounter Summary ---
Author Organization [facility] Address [address] [place] [address] Care Team Providers Care Tape Maker Name Role Phone Maribel Melgar DISABILITY COUNSELOR Primary Care Provider [phone] Encounter Details Date Type Department Care Team (Late st Contact Info) Description 10/31/2024 Prior Authorization [facility] ENDOCRINOLOGY [address] [place] [address] Oneyda Glover MD [address] [place] [phone] Social History Tobacco Use Types Packs/Day Years [...] How often do you attend hindu or adventism serv ices? Never 05/06/2022 Do you belong [...] Brief Depression Severity Measure Score 7 07/30/2021 [facility] of Occupat ional Health - Occupational [...] place to sleep or slept in a nursing home (including now)? 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 Call us at Outcome Approved on October 31 by [employer] 2016 The request has been approved. The authorization is effective from 10/31/2024 to 10/30/2025, as long as the member is enrolled in their current health plan. The request was approved as submitted. This request has been approved with a quantity limit of 3 sensors per 30 days.Prior authorization [id number] been entered for DEXCOM G7 INFORMATION SECURITY RISK ANALYST, this request is effective from 10/31/2024 and is valid until 10/30/2025 and is limited to 1 meter per 12 months. A written notification letter will follow with additional details. Effective Date: 10/31/2024 Authorization Expiration Date: 10/30/2025 Drug Dexcom G7 Sensor ePA cloud logo Form [employer] ePA Form 2017 N[employer] Original Claim Info [id number] * Telephone Encounter - Vivien Soto MA - 10/31/2024 9:29 AM EDT PA started on [facility] for Dexcom G7 Sensor documented in this encounter Plan of Treatment Upcoming Encounters Date Type Department Care Team (Late st Contact Info) Description 12/12/2024 8:30 AM EDT Office Visit [facility] NEUROLOGY [address] [place] [phone] Rohini Palacio, DNP, DISABILITY COUNSELOR [address] [place] [address] 12/26/2024 12:15 PM EDT Telemedicine [facility] END[facility]CRINOLOGY [address] [facility] [address] [place] [address] Oneyda Glover MD [address] [facility] [address] [place] [phone] documented as of this encounter Visit Diagnoses Not on filedocumented in this encounter Additional Health Concerns Assessment Noted Time PHQ-2 Depression Total Score: 2 07/31/19 22 4:07 PM EDT documented as of this encounter Care Teams Tape Maker Relationship Specialty Start Date End Date Ramón Maribel, DISABILITY COUNSELOR [address] [address] PCP - General Nurse Practitioner 09/06/24 documented as of this encounter
--- OUTSIDE RECORDS SUMMARY | 2024-11-25 15:34 | XMS_ITS | Encounter Summary ---
Author Organization [facility] ystem Address [address] [place] [address] Care Team Providers Care Kettle Girl Name Role Phone Maribel Melgar HOSPITAL PLAN ADMINISTRATOR Primary Care Provider [phone] Encounter Details Date Type Department Care Team (Late st Contact Info) Description 10/17/2024 Prior Authorization [facility]CR[facility] [address] [place] [address] Oneyda Glover MD [address] [place] [address] Social History Tobacco Use Types Packs/Day Years [...] week 05/06/2022 How often do you attend pentecostal or hoahaoism serv ices? Never 05/06/2022 Do you belong to any clubs o r organizations such as pentecostal groups, unions, fraternal or athletic groups, or [...] Brief Depression Severity Measure Score 7 07/30/2021 [facility] of Occupat ional Health - Occupational [...] a nursing home (including now)? 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 [facility] [address] [place] [phone] Rohini Palacio, DNP, HOSPITAL PLAN ADMINISTRATOR [address] [place] [address] 12/26/2024 12:15 PM EDT Telemedicine [facility] [address] [facility] [address] [place] [address] Oneyda Glover MD [address] [facility] [address] [place] [address] documented as of this encounter Visit Diagnoses Not on filedocumented in this encounter Additional Health Concerns Assessment Noted Time PHQ-2 Depression Total Score: 2 07/31/19 22 4:07 PM EDT documented as of this encounter Care Teams Kettle Girl Relationship Specialty Start Date End Date Maribel Melgar APRN [address] [place] [address] PCP - General Nurse Practitioner 09/06/24 documented as of this encounter
--- OUTSIDE RECORDS SUMMARY | 2024-11-25 15:34 | XMS_ITS | Encounter Summary ---
[facility] Address [address] [place] [address] Care Team Providers Care Metal Welder Name Role Phone Maribel Melgar LEASE PICKER Primary Care Provider [phone] Reason for Visit * Reason Comments Med Refill Encounter Details Date Type Department Care Team (Late st Contact Info) Description 11/16/2024 Refill [facility] ENDOCRINOLOGY [address] [place] [address] Oneyda Glover MD [address] [place] [phone] Social History Tobacco Use Types Packs/Day Years [...] week 05/06/2022 How often do you attend baptism or temple serv ices? Never 05/06/2022 Do you belong to any clubs o r organizations such as baptism groups, unions, fraternal or athletic groups, or [...] Brief Depression Severity Measure Score 7 07/30/2021 [facility] [place] - Occupational Stress Questionnaire Answer Date Recorded [...] place to sleep or slept in a chcf (including now)? 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 file Not on jak e documented as of this encounter Miscellaneous Notes * Telephone Encounter - Aide Olsen - 11/16/2024 10:57 AM EDT Rx Refill Note Requested Prescriptions Pending Prescriptions Disp Refills FREESTYLE LITE test strip [Pharmacy Med Name: FreeStyle Lite Test In Vitro Strip] 100 each 0 Sig: USE 1 STRIP TO CHECK GLUCOSE ONCE DAILY Last office visit with prescribing clinician: 08/30/2024 Next office visit with prescribing clinician: 12/26/2024 documented in this encounter Plan of Treatment Upcoming Encounters Date Type Department Care Team (Late st Contact Info) Description 12/12/2024 8:30 AM EDT Office Visit [facility] NEUROLOGY [address] [place] [address] Rohini Palacio, DNP, LEASE PICKER [address] [place] [address] 12/26/2024 12:15 PM EDT Telemedicine [facility] ENDOCR[facility]Y [address] [facility] [address] [place] [phone] Oneyda Glover MD [address] [place] [address] documented as of this encounter Visit Diagnoses Not on filedocumented in this encounter Additional Health Concerns Assessment Noted Time PHQ-2 Depression Total Score: 2 07/31/19 22 4:07 PM EDT documented as of this encounter Care Teams Metal Welder Relationship Specialty Start Date End Date Maribel Melgar APRN [address] [place] [address] PCP - General Nurse Practitioner 09/06/24 documented as of this encounter
--- OUTSIDE RECORDS SUMMARY | 2024-11-25 15:34 | XMS_ITS | Encounter Summary ---
Author Organization [facility] Address [address] [place] [address] Care Team Providers Care Senior Account Representative Name Role Phone Maribel Melgar JANE Primary Care Provider [phone] Encounter Details Date Type Department Care Team (Late st Contact Info) Description 10/26/2024 Telephone [facility] [address] [place] [address] Oneyda Glover MD [address] [place] [phone] Social History Tobacco Use Types Packs/Day Years [...] week 05/06/2022 How often do you attend jain or denominational serv ices? Never 05/06/2022 Do you belong to any clubs o r organizations such as jain groups, unions, fraternal or athletic groups, or [...] Brief Depression Severity Measure Score 7 07/30/2021 [facility] - Occupational Stress Questionnaire Answer Date [...] place to sleep or slept in a mcfp (including now)? 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 Not on [...] PA and likes it better than G6 [facility] [place] documented in this encounter Plan of Treatment Upcoming Encounters Date Type Department Care Team (Late st Contact Info) Description 12/12/2024 8:30 AM EDT Office Visit [facility] NEUROLOGY [address] [facility] [address] [place] [address] Rohini Palacio, DNP, TRANSCRIPTIONIST [address] [place] [address] 12/26/2024 12:15 PM EDT Telemedicine [facility] END[facility]CR[facility] [address] [facility] [address] [place] [address] Oneyda Glover MD [address] [facility] [address] [place] [phone] documented as of this encounter Visit Diagnoses Not on filedocumented in this encounter Additional Health Concerns Assessment Noted Time PHQ-2 Depression Total Score: 2 07/31/19 22 4:07 PM EDT documented as of this encounter Care Teams Senior Account Representative Relationship Specialty Start Date End Date Maribel Melgar APRN [address] [place] [address] PCP - General Nurse Practitioner 09/06/24 documented as of this encounter
--- OUTSIDE RECORDS SUMMARY | 2024-11-25 15:34 | XMS_ITS | Encounter Summary ---
[facility] Address [address] [place] [address] Care Team Providers Care Department Editor Name Role Phone Maribel Melgar JANE Primary Care Provider [phone] Encounter Details Date Type Department Care Team [...] week 05/06/2022 How often do you attend adventism or bahai serv ices? Never 05/06/2022 Do you belong to any clubs o r organizations such as adventism groups, unions, fraternal or athletic groups, or [...] Brief Depression Severity Measure Score 7 07/30/2021 [facility] - Occupational Stress Questionnaire Answer Date [...] place to sleep or slept in a prison (including now)? 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 on file Not on jak e documented as of this encounter Plan of Treatment Upcoming Encounters Date Type Department Care Team (Late st Contact Info) Description 12/12/2024 8:30 AM EDT [facility] [address] [place] [address] Rohini Palacio, DNP, ACCOUNTING INSTRUCTOR [address] [place] [address] 12/26/2024 12:15 PM EDT Telemedicine [facility] [address] [facility] [address] [place] [address] Oneyda Glover MD [address] [facility] [address] [place] [phone] documented as of this encounter Visit Diagnoses Not on filedocumented in this encounter Additional Health Concerns Assessment Noted Time PHQ-2 Depression Total Score: 2 07/31/19 22 4:07 PM EDT documented as of this encounter Care Teams Department Editor Relationship Specialty Start Date End Date Maribel Melgar, ACCOUNTING INSTRUCTOR [address] [address] PCP - General Nurse Practitioner 09/06/24 documented as of this encounter
--- OUTSIDE RECORDS SUMMARY | 2024-11-25 15:34 | XMS_ITS | Encounter Summary ---
[facility] Address [address] [place] [address] Care Team Providers Care Property Staff Accountant Name Role Phone Maribel Melgar LIFESTYLE CONSULTANT Primary Care Provider [phone] Reason for Visit * Reason Comments Med Refill Encounter Details Date Type Department Care Team (Late st Contact Info) Description 11/22/[address] [facility] ENDOCRINOLOGY [address] [place] [address] Oneyda Glover MD [address] [place] [phone] Type 1 diabetes mellitus without complication Social History Tobacco Use Types Packs/Day Years [...] How often do you attend presybeterian or roman catholic serv ices? Never 05/06/2022 Do you belong [...] Brief Depression Severity Measure Score 7 07/30/2021 [facility] - Occupational Stress Questionnaire Answer Date [...] in a m[facility] (including now)? 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 Not on jak e documented as of this encounter Miscellaneous Notes * Telephone Encounter - Georgiana Beaver - 11/22/2024 11:49 AM EDT Rx Refill Note Requested Prescriptions Pending Prescriptions Disp Refills HumaLOG 100 UNIT/ML injection [Pharmacy Med Name: HumaLOG 100 UNIT/ML Subcutaneous Solution] 90 mL 0 Sig: USE UP TO 100 UNITS DAILY IN CONTINUOUS INSULIN PUMP Last office visit with prescribing clinician: 08/30/2024 Next office visit with prescribing clinician: 12/26/2024 Georgiana Beaver 11/22/24, 11:49 EDT documented in this encounter Plan of Treatment Upcoming Encounters Date Type Department Care Team (Late st Contact Info) Description 12/12/2024 8:30 AM EDT Office Visit [facility] NEUROLOGY [address] [place] [phone] Rohini Palacio, DNP, LIFESTYLE CONSULTANT [address] [place] [address] 12/26/2024 12:15 PM EDT Telemedicine [facility] [address] [facility] [address] [place] [address] Oneyda Glover MD [address] [facility] [address] [place] [address] documented as of this encounter Visit Diagnoses Diagnosis Type 1 diabetes mellitus without complication Type I (juvenile type) diabetes mellitus without mention of complication, not stated as uncontrolled documented in this encounter Additional Health Concerns Assessment Noted Time PHQ-2 Depression Total Score: 2 07/31/19 22 4:07 PM EDT documented as of this encounter Care Teams Property Staff Accountant Relationship Specialty Start Date End Date Maribel Melgar APRN [address] [place] [address] PCP - General Nurse Practitioner 09/06/24 documented as of this encounter
--- OUTSIDE RECORDS SUMMARY | 2024-11-25 15:35 | XMS_ITS | Encounter Summary ---
Author Organization [facility] Address [address] [place] [address] Care Team Providers Care Central Office Inspector Name Role Phone Rao Olson MD Primary Care Provider [phone] Chuck Castañeda Primary Care Provider [phone] Reason for Referral * Consultation (Routine) - Closed Specialty Diagnoses / Procedures Referred By Dayron [email or web address] Referred To Contact Hand Surgery Diagnoses Ganglion cyst of dorsum of left wrist Chuck Castañeda PA [address] [place] [address] Phone: tel: fax: [facility] [address] [place] [address] Phone: tel: fax: Referral ID Status Reason Start Date Expiration Date Visits Re quested Visits Authorized [id number] Closed 10/04/2021 04/05/2023 1 1 Encounter Details Date Type Department Care Team (Late st Contact Info) Description 10/04/2021 [facility] [address] [place] [address] Chuck Castañeda PA [address] [place] [address] Ganglion cyst of dorsum of [...] Primary documented in this encounter Care Teams Central Office Inspector Relationship Specialty Start Date End Date Rao Olson MD [address] [place] [address] PCP - General 07/20/20 10/09/21 Chuck Castañeda PA [address] [place] [address] PCP - General 10/10/21 documented as of this encounter
--- OUTSIDE RECORDS SUMMARY | 2024-11-25 15:35 | XMS_ITS | Clinical Summary ---
[facility] Organization [facility] Address [address] [place] [address] Care Team Providers Care Inserter Operator Name Role Phone Maribel Melgar APRN Primary Care Provider [phone] Allergies Active Allergy Reactions Criticality Noted Date Comments Codeine Hives,Shortness Of Breath,Rash High 11/15/2013 Latex Rash,Hives Medium 01/14/2014 Penicillins Hives Medium 10/27/2017 Sulfamethoxazole-Trimet hoprim GI Intolerance,Other (See Comments) Medium 06/24/2021 Leg cramping Leg cramping Medications Accu-Chek FastClix Lancets miscIndications :Type 1 diabetes mellitus without complication Use 1 Units Daily. 100 each 1 06/22/19 24 Active Blood Glucose Monitoring Suppl w/Device kit Use daily to test blood sugars Dx: E10.9 1 each 06/23/19 24 Active azithromycin (Zithromax Z-Jeison) 250 MG tablet Take 2 tablets by mouth on day 1, then 1 tablet daily on days 2-5 6 tablet 04/03/19 25 Active Insulin Disposable Pump (Omnipod 5 [id number] Pods Gen 5) miscIndications :Type 1 diabetes mellitus without complication Inject 1 Units under the skin into the appropriate area as directed Every Other Day. E10.65 45 each 1 05/13/19 25 Active Gabapentin 10 % creamIndication s:Numbness and tingling of foot Apply 1 Units topically 2 (Two) Times a Day. Twice daily - gabapentin 10%,, ketoprofen 20% and lidocaine 5% 60 g 3 08/31/19 25 Active Continuous Glucose Sensor (Dexcom G7 Sensor) misc Use 1 Units Every 10 (Ten) Days. 9 each 1 10/27/19 25 Active Continuous Glucose Transmitter (Dexcom G6 Transmitter) miscIndications :Type 1 diabetes mellitus without complication Use 1 Units Every 3 (Three) Months. 1 each 11/16/19 25 Active glucose blood (FREESTYLE LITE) test strip USE 1 STRIP TO CHECK GLUCOSE ONCE DAILY 100 each 11/17/19 25 Active HumaLOG 100 UNIT/ML injectionIndica tions:Type 1 diabetes mellitus without complication USE UP TO 100 UNITS DAILY IN CONTINUOUS INSULIN PUMP 90 mL 11/23/19 25 Active Glucose Blood (Blood Glucose Test) strip Test blood sugars daily DX; E10.9 100 each 06/23/19 24 025 Discontinued HumaLOG 100 UNIT/ML injectionIndica tions:Type 1 diabetes mellitus without complication USE UP TO 100 UNITS DAILY IN CONTINUOUS INSULIN PUMP 90 mL 1 05/13/19 025 Discontinued Active Problems Problem Noted Date Diagnosed [...] (A) 70 - 130 mg/dL Lot Number [id number] Expiration Date 12/27/2023 Average sugar is good, [...] for insulin gtt to optimize glycemic control very likely to require NICU Recommend decreasing [...] and 13.5% of sugars are high 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 sugars were noted and we discussed adjusting [...] 6.8 % Lot Number [id number] Expiration Date ,142,022 Average sugar is higher at 140 Raised [...] weekly reporting and strategy discussed over and fdc Anemia 10/27/2017 Protein S deficiency affecting , [...] PM EST): Now post Requests referral to [facility] due to insurance change Referral created Is on anticoagulation Assessment & Plan (10/27/2017 9:12 PM EDT): On lovenox currently along with low dose asa H/o 4 losses prior to dx Recurrent UTI 10/27/2017 Assessment & Plan (08/14/2021 8:40 AM EDT): Update UA Consider stone as source for recurrent uti Resolved Problems Problem Noted Date Diagnosed Date Resolved Date Single liveborn, born in [facility] delivered by section 04/11/2020 03/05/2022 Hx of [...] protein S deficiency Single liveborn, born in [facility] delivered by section 03/26/2018 01/13/2020 36 weeks gestation of 03/22/2018 03/26/2018 Decreased movement aff ecting management of in third trimester 03/07/2018 01/13/20 20 Nausea & vomiting 03/03/2018 04/11/2020 and insulin-depend ent diabetes mellitus in third trimester 02/19/2018 11/04/2019 Headache in , antep artum, second trimester 12/11/2017 04/11/2020 12/10/2017 06/25/2022 Assessment & Plan (02/06/2022 2:39 PM EST): Has [facility] appt Seeing OB in [place] F/u scheduled She would like [facility] Gastroesophageal reflux dise ase without esophagitis 10/27/2017 04/11/2020 Cholelithiasis 10/27/2017 04/11/2020 Bilateral ovarian cysts 10/27/2017 02/0 05/2020 Assessment & Plan (06/09/2019 4:09 PM EDT): Hospitalized with cyst rupture now improved Continue monitoring and follow up with soyfreeze operator Encounters Date Type Department Care Team Description 11/22/2024 Refill [facility]CR[facility] [address] [address] [place] [address] Oneyda Glover MD Type 1 diabetes mellitus without complication 11/16/2024 Refill [facility] [address] [facility] [address] [place] [phone] Oneyda Glover MD 11/04/2024 8:38 AM EDT - 11/04/2024 11:59 PM EDT Hospital Encounter MRI AT [address] [address] Neuropathic pain; Ptosis of eyelid, unspecified laterality; Dysphagia, unspecified type; Neck pain Discharge Disposition: Home or Self Care 11/04/2024 8:38 AM EDT - 11/04/2024 11:59 PM EDT Hospital Encounter MRI AT [address] [address] Neuropathic pain; Ptosis of eyelid, unspecified laterality; Dysphagia, unspecified type Discharge Disposition: Home or Self Care 11/04/2024 Travel 10/31/2024 Prior Authorization [facility] [address] [facility] [address] [place] [phone] Oneyda Glover MD 10/26/2024 Telephone [facility] [address] [facility] [address] [place] [phone] Oneyda Glover MD 10/17/2024 Prior Authorization [facility] [address] [facility] [address] [place] [phone] Oneyda Glover MD 10/11/2024 Results Follow-Up [facility] NEUROLOGY [address] [place] [address] Rohini Palacio, DNP, [employer] 10/04/2024 11:25 AM EDT Lab [facility] [address] [place] [address] Neuropathic pain; Ptosis of eyelid, unspecified laterality; Dysphagia, unspecified type; Other fatigue 10/04/2024 10:00 AM EDT Office Visit [facility] NEUR[facility] [address] [facility] [address] [place] [phone] Rohini Palacio, DNP, SUPERVISOR [employer] Neuropathic pain (Primary Dx); Other fatigue; Ptosis of eyelid, unspecified laterality; Dysphagia, unspecified type; Neck pain 10/04/2024 Travel 08/31/2024 Results Follow-Up [facility] ENDOCR[facility] [address] [place] [address] Oneyda Glover MD 08/30/2024 10:00 AM EDT Office Visit [facility] END[facility] [address] [place] [address] Oneyda Glover MD Numbness and tingling of foot (Primary Dx); Type 1 diabetes mellitus without complication 08/30/2024 9:30 AM EDT Procedure visit [facility] [address] [facility] [address] [place] [phone] Satinder Levine MD Pain in both feet (Primary Dx) 08/30/2024 Travel from Last 3 Months Immunizations Immunization [...] week 05/06/2022 How often do you attend tenriism or congregational serv ices? Never 05/06/2022 Do you belong to any clubs o r organizations such as tenriism groups, unions, fraternal or athletic groups, or [...] Depression Severity Measure Score 7 07/30/2021 [facility] - [...] place to sleep or slept in a senior living (including now)? 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 on file [...] Description 12/12/2024 8:30 AM EDT Office Visit [facility] NEUROLOGY [address] [place] [phone] Rohini Palacio, DNP, SUPER[employer]OR [employer] [address] [place] [address] 12/26/2024 12:15 PM EDT Telemedicine [facility] ENDOCR[facility] [address] [place] [address] Oneyda Glover MD [address] [place] [address] Health Maintenance Due Date Last Done Comments Annual Gynecologic Pelvic an d Breast Exam 1991 Pneumococcal Vaccine 0-49 (1 of 2 - PCV) 2010 DIABETIC FOOT EXAM 09/07/2020 09/08/2019, 0 09/08/2019, 09/08/2019, Additional history exists DIABETIC EYE EXAM 01/17/2021 01/18/2020 ANNUAL PHYSICAL 11/13/2023 11/12/2022 INFLUENZA VACCINE 10/07/2024 04/22/2024, , 01/09/2018, Additional history exists HEMOGLOBIN [...] unspecified laterality Dysphagia, unspecified type Neck pain MRI BRAIN W WO CONTRAST Routine 11/05/19 10:07 AM EDT Neuropathic pain Ptosis of [...] Recently Relevant to Health Maintenance Results * MRI Cervical Spine With & Without Contrast (11/04/2024 10:07 AM EDT) Anatomical Region Laterality Modality Spine, C-spine N/A Magnetic Resonan ce 11/04/2024 10:1 3 AM EDT Impressions 11/04/2024 10:26 AM EDT Impression: Normal contrast-enhanced MRI of the brain and cervical spine. There is no evidence of demyelinating lesion. Electronically Signed: Jw Reyes MD 11/04/2024 10:26 AM EDT Workstation ID: [id number] Narrative 11/04/2024 10:26 AM EDT MRI BRAIN [...] MD 11/04/2024 10:26 AM EDT Workstation ID: [id number] Rohini Palacio DNP, SUPER[employer]OR [employer] IMG MRI ORDERABLES Final Result * MRI [...] MD 11/04/2024 10:26 AM EDT Workstation ID: [id number] Narrative 11/04/2024 10:26 AM EDT MRI BRAIN [...] MD 11/04/2024 10:26 AM EDT Workstation ID: [id number] Rohini Palacio DNP, SUPERVISOR [employer] IMG MRI ORDERABLES Final Result * Acetylcholine Receptor Antibody Panel (10/04/2024 11:20 [...] LAB - 10/11/2024 2:10 PM EDT Test(s) 290196-ZOsJ Blocking Abs, Serum This test was developed and its performance characteristics determined by [facility]. It has not been cleared or approved by the Food and Drug Administration. Test(s) 507532-KTlH-drfismsbyn Ab was developed and its performance characteristics determined by [facility]. It has not been cleared or approved by the Food and Drug Administration. Performed at: [address] [id number] Manager Spanish: Charity Ignacio MD, Phone: [phone] us Rohini Palacio DNP, JANE LAB BLOOD ORDERABL ES Final Result Performing Organization Address [facility] de Phone Number [facility] [address] [place] [address], [place] [phone] * Anti-Myelin Oligodendrocyte Glycoprotein (MOG), Serum (10/04/2024 11:20 AM EDT) MOG Antibody, Cell-based IFA Negative Negative 10/06/2024 11:08 PM EDT [facility] Blood Venipuncture / Unknown 10/04/2024 11:20 AM EDT 10/04/2024 11:20 AM EDT Narrative [facility] - 10/06/2024 11:08 PM EDT Test(s) 801531-ULA Antibody, Cell-based IFA was developed and its performance characteristics determined by [facility]. It has not been cleared or approved by the Food and Drug Administration. Performed at: [address] [id number] Manager Spanish: Charity Ignacio MD, Phone: [phone] us Rohini Palacio DNP, SUPER[employer] LAB BLOOD ORDERABL ES Final Result Performing Organization Address [facility] de Phone Number [facility] [address] [place] [address], [place] [phone] * Heavy Metals Profile II, Urine - [...] AM EDT 10/04/2024 11:20 AM EDT [facility]ative [facility] - 10/11/2024 12:10 PM EDT Test(s) 121670-Vsgehpc (Total),U; 010227-Hrxc, Urine; 227817- Mercury, Urine; 329941-Bvlwzhp, Urine was developed and its performance characteristics determined by [facility]. It has not been cleared or approved by the Food and Drug Administration. Performed at: 01 - [address] [id number] Manager Spanish: Charity Ignacio MD, Phone: [phone] Performed at: 02 - [employer] [address] [id number] Manager Spanish: Masha Mims [facility], Phone: [phone] Rohini Palacio DNP, SUPERVISOR [employer] URINE ORDERABLES F inal Result [facility] [address] [place] [address], * Neuromyelitis Optica (NMO) Auto Antibody, IgG (10/04/2024 11:20 AM EDT) NMO/AQP4 FACS, S Negative Negative 10/11/19 8:09 PM EDT [facility] Comment: Recommend repeat testing in 6 months if clinical suspicion is high. Negative result can occur in the setting of immunosuppression. ADDITIONAL INFORMATION This test was developed and its performance characteristics determined by [facility] in a manner consistent with CLIA requirements. This test has not been cleared or approved by the U.S. Food and Drug Administration. Blood Venipuncture / Unknown 10/04/2024 11:20 AM EDT 10/04/2024 11:20 AM EDT Narrative [facility] - 10/10/2024 8:09 PM EDT Performed at: 01 - [address] [id number] Manager Spanish: Ramon Portillo PhD, Phone: [phone] Rohini Palacio DNP, SUPERVISOR [employer] LAB BLOOD ORDERABL ES Final Result [facility] [address] [place] [address], * Lyme Disease, Line Blot (10/04/2024 11:20 AM EDT) [facility] Lyme IgG Western Blot Interpretation Negative Negative [...] improve the sensitivity and specificity of testing. [facility] offers test code 339075 Lyme Disease Serology with Reflex to aid [...] AM EDT 10/04/2024 11:20 AM EDT Narrative [facility] - 10/07/2024 4:11 PM EDT Performed at: [address] [id number] Manager Spanish: Charity Ignacio MD, Phone: [phone] Rohini Palacio DNP, SUPERVISOR [employer] LAB BLOOD ORDERABL ES Final Result [facility] [address] [place] [address], [place] [phone] * Cryoglobulin (10/04/2024 11:20 AM EDT) Cryoglobulin, Ql, Serum, Rflx Comment None detected 10/10/2024 3:09 PM EDT [facility] Comment:None Detected at 72 hours Blood Venipuncture / Unknown 10/04/2024 11:20 AM EDT 10/04/2024 11:20 AM EDT Narrative [facility] - 10/10/2024 3:09 PM EDT Test(s) 374641-Zbjocjzjuzjd, Ql, Serum, Rflx was developed and its performance characteristics determined by [employer]. It has not been cleared or approved by the Food and Drug Administration. Performed at: - [address] [id number] Manager Spanish: Ji Vera PhD, Phone: [phone] us Rohini Palacio DNP, APRN LAB BLOOD ORDERABL ES Final Result Performing Organization Address [facility] de Phone Number [facility] [address] [place] [address], [place] [phone] * Sedimentation Rate (10/04/2024 11:20 AM EDT) Sed Rate 15 0 - 20 mm/hr 10/04/2024 6:41 PM EDT [facility] Blood Venipuncture / Unknown 10/04/2024 11:20 AM EDT 10/04/2024 11:20 AM EDT Rohini Palacio DNP, JANE LAB BLOOD ORDERABL ES Final Result Performing Organization Address [facility] Co de Phone Number [facility]
[address] [place] [address], [place] [phone] * Angiotensin Converting Enzyme (10/04/2024 11:20 AM EDT) Angiotensin Converting Enzyme 25 14 - 82 U/L 10/05/2024 3:10 PM EDT [facility] Blood Venipuncture / Unknown 10/04/2024 11:20 AM EDT 10/04/2024 11:20 AM EDT Narrative [facility] - 10/05/2024 3:10 PM EDT Performed at: - [address] [id number] Manager Spanish: Ji Vera PhD, Phone: [phone] us Rohini Palacio DNP, SUPERVISOR [employer] LAB BLOOD ORDERABL ES Final Result [facility] [address], * (ABNORMAL) KRISTY + PE (10/04/2024 11:20 [...] g/dL 10/06/2024 10:10 AM EDT [facility] Aerpx-3-Voikhgez 0.2 0.0 - 0.4 g/dL 10/06/2024 10:10 AM EDT [facility] Anpll-0-Bxhzqngs 0.8 0.4 - 1.0 g/dL 10/06/2024 10:10 [...] scan will follow via computer, mail, or clinical research assistant delivery. Blood Venipuncture / Unknown 10/04/2024 11:20 AM EDT 10/04/2024 11:20 AM EDT Narrative [facility] - 10/06/2024 10:10 AM EDT Performed at: 01 - [address] [id number] Manager Spanish: Ji Vera PhD, Phone: [phone] Rohini Palacio DNP, APRN LAB BLOOD ORDERABL ES Final Result [address] [address], [place] [phone] * Ferritin (10/04/2024 11:20 AM EDT) Ferritin 44.20 13.00 - 150.00 ng/mL 10/04/2024 7:19 PM EDT [facility] Blood Venipuncture / Unknown 10/04/2024 11:20 AM EDT 10/04/2024 11:20 AM EDT Narrative [facility] - 10/04/2024 7:19 PM EDT Results may be falsely decreased if patient taking Biotin. us Juawanna L Pia DNP, SUPERVISOR [employer] LAB BLOOD ORDERABL ES Final Result Performing Organization Address [facility]/ZIP Co de Phone Number [facility]
[address] [place] [address], * CK (10/04/2024 11:20 AM EDT) Creatine Kinase 99 20 - 180 U/L 10/04/2024 7:09 PM EDT [facility] Blood Venipuncture / Unknown 10/04/2024 11:20 AM EDT 10/04/2024 11:20 AM EDT Rohini Palacio DNP, SUPERVISOR [employer] LAB BLOOD ORDERABL ES Final Result Performing Organization Address [facility] Co de Phone Number [facility]
[address] [place] [address], * Methylmalonic Acid, Serum (08/30/2024 10:40 AM EDT) Methylmalonic Acid 144 0 - 378 nmol/L 09/04/2024 6:08 PM EDT [facility] Blood Structure of left upper limb / Unknown Venipuncture / Unknown 08/30/2024 10:40 AM EDT 08/30/2024 10:40 AM EDT Narrative [facility] - 09/04/2024 6:08 PM EDT Test(s) 620359-Yfixikanlhjne Acid, Serum was developed and its performance characteristics determined by [facility]. It has not been cleared or approved by the Food and Drug Administration. Performed at: 01 - [address] [id number] Manager Spanish: Charity Ignacio MD, Phone: [phone] Oneyda Glover MD LAB BLOOD ORDERABLES Fin al Result Performing Organization Address City/[facility]/ZIP Co de Phone Number [facility] [address] [place] [id number], [place] [phone] * Microalbumin / Creatinine Urine Ratio - Urine, Clean Catch (08/30/2024 10:40 AM EDT) Only the most recent of2 resultswithin the time period is included. Microalbumin/C reatinine Ratio 08/31/2024 1:01 AM EDT [facility] Comment:Unable to calculate Creatinine, Urine 140.7 mg/dL 08/31/2024 1:01 AM EDT [facility] Microalbumin, Urine <1.2 mg/dL 08/31/2024 1:01 AM EDT [facility] Urine Urine specimen obtained by clean catch procedure / Unknown Collection / Unknown 08/30/2024 10:40 AM EDT 08/30/2024 10:40 AM EDT us Oneyda Glover MD URINE ORDERABLES Final R esult Performing Organization Address City/[facility]/ZIP Co de Phone Number [facility]
[address] [place] [address], * TSH (08/30/2024 10:40 AM EDT) Pathologist [facility] TSH 2.590 0.270 - 4.200 uIU/mL 08/30/2024 2:51 PM EDT [facility] Blood Venipuncture / Unknown 08/30/2024 10:40 AM EDT 08/30/2024 10:40 AM EDT us Oneyda Glover MD LAB BLOOD ORDERABLES Fin al Result Performing Organization Address City/[facility]/ZIP Co de Phone Number [facility]
[address] [place] [address], * T4, Free (08/30/2024 10:40 AM EDT) Free T4 1.06 0.92 - 1.68 ng/dL 08/30/2024 2:51 PM EDT [facility] Blood Venipuncture / Unknown 08/30/2024 10:40 AM EDT 08/30/2024 10:40 AM EDT Oneyda Glover MD LAB BLOOD ORDERABLES Fin al Result [facility]
[address] [place] [address], * Homocysteine (08/30/2024 10:40 AM EDT) [facility] Homocysteine, Plasma (Quant) 9.3 0.0 - 15.0 umol/L 08/30/2024 2:49 PM EDT [facility] Blood Venipuncture / Unknown 08/30/2024 10:40 AM EDT 08/30/2024 10:40 AM EDT Oneyda Glover MD LAB BLOOD ORDERABLES Fin al Result Performing Organization Address [facility]/ZIP Co de Phone Number [facility]
[address] [place] [address], * Folate (08/30/2024 10:40 AM EDT) [facility] Folate 9.72 4.78 - 24.20 ng/mL 08/30/2024 3:08 PM EDT [facility] Blood Venipuncture / Unknown 08/30/2024 10:40 AM EDT 08/30/2024 10:40 AM EDT Narrative [facility] - 08/30/2024 3:08 PM EDT Results may be falsely increased if patient taking Biotin. us Oneyda Glover MD LAB BLOOD ORDERABLES Fin al Result Performing Organization Address City/[facility]/ZIP Co de Phone Number [facility]
[address] [place] [address], * Vitamin B12 (08/30/2024 10:40 AM EDT) Pathologist [facility] Vitamin B-12 449 211 - 946 pg/mL 08/30/2024 3:08 PM EDT [facility] Blood Venipuncture / Unknown 08/30/2024 10:40 AM EDT 08/30/2024 10:40 AM EDT [facility] - 08/30/2024 3:08 PM EDT Results may be falsely increased if patient taking Biotin. Oneyda Glover MD LAB BLOOD ORDERABLES Fin al Result [facility]
[address] [place] [address], * (ABNORMAL) Lipid Panel (08/30/2024 10:40 AM EDT) [facility] Total Cholesterol 178 0 - 200 mg/dL 08/30/2024 2:49 PM EDT [facility] Triglycerides 110 0 - 150 mg/dL 08/30/2024 2:49 PM EDT [facility] HDL Cholesterol 49 40 - 60 mg/dL 08/30/2024 2:49 PM EDT [facility] LDL Cholesterol 109(H) 0 - 100 mg/dL 08/30/2024 2:49 PM EDT [facility] VLDL Cholesterol 20 5 - 40 mg/dL 08/30/2024 2:49 PM EDT [facility] LDL/HDL Ratio 2.18 08/30/2024 2:49 PM EDT [facility] Blood Venipuncture / Unknown 08/30/2024 10:40 AM EDT 08/30/2024 10:40 AM EDT [facility] - 08/30/2024 2:49 PM EDT Cholesterol [...] MD LAB BLOOD ORDERABLES Fin al Result [facility]
[address] [place] [address], * (ABNORMAL) Comprehensive Metabolic Panel (08/30/2024 10:40 AM EDT) Glucose 179(H) 65 - 99 mg/dL 08/30/2024 2:49 PM EDT [facility] BUN 9.0 6.0 - 20.0 mg/dL 08/30/2024 2:49 PM EDT [facility] Creatinine 0.87 0.57 - 1.00 mg/dL 08/30/2024 2:49 PM EDT [facility] Sodium 137 136 - 145 mmol/L 08/30/2024 2:49 PM EDT [facility] Potassium 3.9 3.5 - 5.2 mmol/L 08/30/2024 2:49 PM EDT [facility] Chloride 102 98 - 107 mmol/L 08/30/2024 2:49 PM EDT [facility] CO2 25.0 22.0 - 29.0 mmol/L 08/30/2024 2:49 PM EDT [facility] Calcium 9.5 8.6 - 10.5 mg/dL 08/30/2024 2:49 PM EDT [facility] Total Protein 7.1 6.0 - 8.5 g/dL 08/30/2024 2:49 PM [facility] Albumin 4.2 3.5 - 5.2 g/dL 08/30/2024 2:49 PM [facility] ALT (SGPT) 19 1 - 33 U/L 08/30/2024 2:49 PM [facility] AST (SGOT) 20 1 - 32 U/L 08/30/2024 2:49 PM T [facility] Alkaline Phosphatase 89 39 - 117 U/L 08/30/2024 2:49 PM [facility] Total Bilirubin 0.5 0.0 - 1.2 mg/dL 08/30/2024 2:49 PM [facility] Globulin 2.9 gm/dL 08/30/2024 2:49 PM [facility] A/G Ratio 1.4 g/dL 08/30/2024 2:49 PM [facility] BUN/Creatinine Ratio 10.3 7.0 - 25.0 08/30/2024 2:49 PM [facility] Anion Gap 10.0 5.0 - 15.0 mmol/L 08/30/2024 2:49 PM [facility] LABORATORY eGFR 90.3 >60.0 mL/min/1.7 3 08/30/2024 2:49 PM [facility] Blood Venipuncture / Unknown 08/30/2024 10:40 AM EDT 08/30/2024 10:40 AM [facility] LABORATORY - 08/30/2024 2:49 PM EDT GFR [...] MD LAB BLOOD ORDERABLES Fin al Result [facility]
[address] [place] [address], [place] [phone] * POC Glucose, Blood (08/30/2024 10:31 AM EDT) Glucose 120 70 - 130 mg/dL Lot Number [id number] Expiration Date 11/05/2024 Blood 08/30/2024 10:3 1 AM EDT us Oneyda Glover MD POINT OF CARE TEST ORDER GEORGE Final Result * (ABNORMAL) POC Glycosylated Hemoglobin (Hb A1C) (08/30/2024 10:30 AM EDT) Pathologist [facility] Hemoglobin A1C 6.6(A) 4.5 - 5.7 % [facility] Lot Number [id number] [facility] Expiration Date 01/12/2026 [facility] Blood 08/30/2024 10:3 0 AM EDT us Oneyda Glover MD POINT OF CARE TEST ORDER GEORGE Final Result Performing Organization Address City/[facility]/ZIP Co de Phone Number [facility]
[address] [place] [address], [place] [phone] * Hepatitis panel, acute (11/12/2022 12:32 PM EDT) Hep A IgM Negative Negative [facility] Hepatitis B Surface Ag Negative Negative [facility] Hep B Core IgM Negative Negative [facility] Hepatitis C Ab Non Reactive Non Reactive [facility] Blood 11/12/2022 12:3 2 PM EDT 11/12/2022 Narrative [facility] ([facility]BULATORY) - 11/13/2022 4:11 PM EDT Performed at: - [facility] [address] [facility], [place], [place] [id number] Manager Spanish: Ji Vera PhD, Phone: [phone] Patient Fasting: N Chuck MANN LAB BLOOD ORDERABLES Final Res ult [facility] (AMBULATORY) [address] [place] [address], [facility] [address] [place] [address], * LIQUID-BASED PAP SMEAR WITH HPV GENOTYPING REGARDLESS OF INTERPRETATION (CEDRIC,COR,MAD) (08/05/2022 12:05 PM EDT) Pathologist [facility] Reference Lab Report [facility] [address] [place] [address] or [phone] Sid Gomez M.D., Radiology Interventional Physician PATIENT NAME LABORATORY NO. [address]. [id number] AGE SEX SSN CLIENT REF # [facility] 31 1990 F [id number] [facility] HETAL BAEZ REQUESTING Isidro [place] [address] BALDEV ZHU DATE COLLECTED DATE RECEIVED DATE [...] 51, 52, 56, 58, 59, 66, 68 SQL DATA ARCHITECT: ALEXANDRU VAZQUEZ (ASCP) CPT CODES: [id number], [id number] 08/07/2022 9:33 AM EDT [facility] ThinPrep Vial Cervix uteri structure / Unknown Collection / Unknown 08/05/2022 12:05 PM EDT 08/05/2022 12:05 PM EDT Baldev Zhu MD PATHOLOGY/CYTOLOGY ORDER GEORGE Final Result [facility]
[address] [place] [address], * SCANNED - EYE EXAM (01/18/2020) Anatomical Region Laterality Modality Other Oneyda Glover MD CHART REVIEW TABS Fin al Result from Last 3 Months or Most Recently Relevant to Health Maintenance Insurance [facility] [place]ICA[place] [address] [address] Advance Directives * CPR (Attempt to Resuscitate) [...] pulse or is breathing): Full Care Teams Inserter Operator Relationship Specialty Start Date End Date Maribel Melgar APRN [address] [place] [address] PCP - General Nurse Practitioner 09/06/24
--- OUTSIDE RECORDS SUMMARY | 2024-11-25 15:35 | XMS_ITS | Clinical Summary ---
Author Organization Healthcare Address [address] [place] [address] Care Team Providers Care Thermometer Production Worker Name Role Phone Chuck Castañeda Primary Care [...] of 3 - 4-dose series) 08/24/1995 07/27/1995 [facility]-Varicella Vaccines (1 of 2 - 13+ 2-dose series) 2004 HPV Vaccines (2 - 3-dose series) 06/17/2007 05/20/2007 [facility]- SDOH Screenings 2009 [facility]-Adult SDOH Screenings 2009 [facility]-Pap Smear 2012 [facility]-DTaP,Tdap,and Td Vaccines (3 - Td or Tdap) 04/06/2016 04/06/2006, 07/27/1995 [facility]-Cervical Cancer Screening 2021 [facility]-HPV/Cotest 2021 [id number] Vaccine ( - season) 2024 [facility]-Influenza Vaccine (#1) 11/07/202401/09, 01/24/2017, 12/29/2014 [facility]-Zoster Vaccines (1 of 2) 2041 [facility]-Hepatitis B Vaccines Completed 002, 02/05/2001, 12/14/2000 [facility]-Diabetes: Hemoglobin A1C Discontinued , 09/01/2017, 06/09/2017 [...] Procedure Name Priority Date/Time Associated Diagnosis Comments HEMOGLOBIN A1C Routine 09/01/2017 4:21 PM EDT from Last 3 Months or Most Recently Relevant to Health Maintenance Results * Hemoglobin A1c (09/01/2017 4:21 PM EDT) [...] <6.0% Children and Adolescents <7.5% . Source: [place] [employer]. Standards of medical care in diabetes, 2017. Diabetes Care.2017:40 (suppl 1):S1-S135. . HbA1c assay performed by an ion-exchange chromatography method that is certified traceable to the DCCT. 09/01/2017 4:21 PM EDT 09/01/2017 6:43 PM EDT Aide Medeiros APRN LAB BLOOD ORDERABLES Jess dill Result SUNQUEST from Last 3 Months or Most Recently Relevant to Health Maintenance Insurance [facility] MEDICAID Care Teams Thermometer Production Worker Relationship Specialty Start Date End Date Chuck Castañeda PA PCP - General 10/10/21
== END 2024-11-25 23:59 | disposition home or self-care (01) ==
LOC: LAB.DROPOF 15:32
PROVIDERS: PCP Student in an Organized Health Care Education/Training Program; Visit Provider Student in an Organized Health Care Education/Training Program
DX: J06.9 Acute upper respiratory infection, unspecified (principal)
CPT/HCPCS: 87636

== ENCOUNTER 2025-02-10 04:31 | Emergency (ER) | payer SELFPAY ==
[2025-02-10 04:38] VITALS: BP 129/92; PULSE 101; RESP 16; TEMP 36.9; O2SAT 98; BMI 27.8
--- OUTSIDE RECORDS SUMMARY | 2025-02-10 04:38 | XMS_ITS | Encounter Summary ---
Author Organization [facility] Address [address] [place] [address] Care Team Providers Care Wood Milling Machine Tender Name Role Phone Rao Olson MD Primary Care Provider + [phone] Chuck Castañeda Primary Care Provider + [phone] Reason for Referral * Consultation (Routine) - Closed Specialty Diagnoses / Procedures Referred By Dayron [email or web address] Referred To Contact Hand Surgery Diagnoses Ganglion cyst of dorsum of left wrist Chuck Castañeda PA [address] [place] [address] Phone: tel: fax: [facility] [address] [place] [address] Phone: tel: fax: Referral ID Status Reason Start Date Expiration Date Visits Re quested Visits Authorized [id number] Closed 10/04/2021 04/05/2023 1 1 Encounter Details Date Type Department Care Team (Late st Contact Info) Description 10/04/2021 [facility] [address] [place] [address] Chuck Castañeda PA [address] [place] [address] Ganglion cyst of dorsum of [...] Primary documented in this encounter Care Teams Wood Milling Machine Tender Relationship Specialty Start Date End Date Rao Olson MD [address] [place] [address] PCP - General 07/20/20 10/09/21 Chuck Castañeda PA [address] [place] [address] PCP - General 10/10/21 documented as of this encounter
--- OUTSIDE RECORDS SUMMARY | 2025-02-10 04:38 | XMS_ITS | Clinical Summary ---
Author Organization Healthcare Address [address] [place] [address] Care Team Providers Care Before And After School Daycare Worker Name Role Phone Chuck Castañeda Primary [...] 07/27/1995 [facility]-Cervical Cancer Screening 2021 [facility]-HPV/Cotest 2021 [id number] Vaccine ( - 2024- season) 2024 [facility]-Influenza Vaccine (#1) 11/07/202401/09, 01/24/2017, [...] <6.0% Children and Adolescents <7.5% . Source: [place] [employer]. Standards of medical care in diabetes, 2017. Diabetes Care.2017:40 (suppl 1):S1-S135. . HbA1c assay performed by an ion-exchange chromatography method that is certified traceable to the DCCT. 09/01/2017 4:21 PM EDT 09/01/2017 6:43 PM EDT Aide Medeiros APRN LAB BLOOD ORDERABLES Jess dill Result SUNQUEST from Last 3 Months or Most Recently Relevant to Health Maintenance Insurance [facility] MEDICAID Care Teams Before And After School Daycare Worker Relationship Specialty Start Date End Date Chuck Castañeda PA PCP - General 10/10/21
--- OUTSIDE RECORDS SUMMARY | 2025-02-10 04:38 | XMS_ITS | Patient Health Record ---
Author Organization [facility] Address [address] [place] [address] Care Team Providers Care Soft Iron Inspector Name Role Phone Yvette Pretty Unavailable [phone] Allergies Allergen (clinical drug ingredient) Drug/Non Drug [...] Problem Status W/U Status Risk Notes Problem History and physical examination , follow-up ([id number]) *Follow-up for Non-Malignant conditions (code also - [...]
--- NOTE | 2025-02-10 04:46 | HMH.EDGENADL ---
Discharge Plan Disposition Patient Disposition: Home, Self-Care Prescriptions Prescriptions: New levofloxacin 750 mg tablet 750 mg PO DAILY 7 Days Qty: 7 0RF No Action ammonium lactate 12 % cream 1 applic topical BID 30 Days Qty: 385 2RF njtfkzzpyspfzel-lxjukktvb-BE [Bromfed DM] 2-30-10 mg/5 mL syrup 7.5 ml PO Q4-6H PRN (Reason: cough/sinus) Qty: 120 0RF (DME) FreeStyle Lite Strips Strip See Rx Instructions .ROUTE .MEDSUPPLY Qty: 10 Patient Comments: USE 1 STRIP TO CHECK GLUCOSE ONCE DAILY Rx Instructions: As directed (DME) Dexcom G6 Sensor Device See Rx Instructions .ROUTE .MEDSUPPLY Qty: 1 Patient Comments: USE EVERY 10 DAYS Rx Instructions: As directed ([facility]) Dexcom G6 Transmitter Device See Rx Instructions .ROUTE .MEDSUPPLY Qty: 1 Patient Comments: USE AND REPLACE EVERY THREE MONTHS Rx Instructions: As directed ([facility] [place]) Omnipod 5 G6-G7 Pods (Gen 5) Cartridge See Rx Instructions .ROUTE .MEDSUPPLY Qty: 5 Patient Comments: CHANGE POD EVERY OTHER DAY DIRECTED Rx Instructions: As directed ketoconazole 2 % shampoo topical Patient Comments: USE ON THE SCALP AND FACE 3 TIMES A WEEK OR NEEDED WITH FLARES. LATHER FOR 5 MINUTES THEN RINSE OFF hydrocortisone 2.5 % cream topical Patient Comments: APPLY CREAM TO AFFECTED AREA TO AFFECTED AREA TWICE DAILY FOR 14 DAYS NEEDED WITH FLARES APPLY TO THE FACE,EARS, AND TRUNK ketoconazole 2 % cream topical Patient Comments: APPLY 2 GRAMS OF CREAM TOPICALLY TO AFFECTED AREA TWICE DAILY ON THE BACK 2-4 WEEKS NEEDED clobetasol 0.05 % solution topical Patient Comments: APPLY TWICE DAILY NEEDED TO THICK SCALY AREAS ON SCALP WHEN ITCHING USE FOR 2 WEEKS THEN TAKE A WEEK BREAK BEFORE REPEATING AVOID FACE, ARMPITS AND GROIN fluticasone propionate 50 mcg/actuation spray,suspension 1 spray intranasal DAILY Qty: 16 0RF Rx Instructions: administer into each nostril (DME) [facility] See Rx Instructions .ROUTE .MEDSUPPLY Qty: 1 0RF Rx Instructions: [facility] Please dispense ONE (1) pair of Diabetic Shoes with inserts Referrals Follow up/Referrals: Cinthia Norton DO [Primary Care Provider, Pediatrics] - See instructions Activity Restrictions/Add. Instructions Additional Instructions/Restrictions: Please take antibiotics as prescribed for treatment of urinary tract infection. Please follow-up with your primary care provider. Please return to the emergency department if you develop any new or worsening symptoms or become concerned for your health. Clinical Impressions Clinical Impression: UTI (urinary tract infection) Qualifiers: Urinary tract infection type: acute cystitis Instructions Patient Instructions: DI for Acute Abdominal Pain Print Language Print Language: Romanian Discharge ED Provider: Saeed Ibarra General Adult HPI General Chief complaint: Abdominal Pain Stated complaint: pain when urinating, aches, chills, fever,abd pain Time Seen by Provider: 02/10/25 04:35 Mode of Arrival: Ambulatory Source of Information: Patient Description of Symptoms (Recalled from ER Triage Doc. by RN): Pt reports pain after urination, lower abdominal pain and chills ongoing for approx 4-5 days. LMP: 01/23/2025 History of Present Illness HPI narrative: 34-year-old female with history of type 1 diabetes presents for dysuria, lower abdominal pain and chills going on for the last several days. She took a couple days of Bactrim that she had leftover. She also took some fluconazole. She reports that she gets frequent yeast infections. Her blood sugar has been higher than average. She reports that her ketones have been negative. Related Data Home Medications ?Medication ?Instructions ?Recorded ?Confirmed blood sugar diagnostic (FreeStyle #10 ea 09/05/24 12/20/24 Lite Strips) blood-glucose sensor (Dexcom G6 #1 ea 09/05/24 12/20/24 Sensor device) blood-glucose transmitter (Dexcom #1 ea 09/05/24 12/20/24 G6 Transmitter device) insulin pump cart,auto,BT,G6/7 #5 ea 09/05/24 12/20/24 (Omnipod 5 G6-G7 Pods (Gen 5) subcutaneous cartridge) clobetasol 0.05 % scalp solution topical 11/25/24 12/20/24 hydrocortisone 2.5 % topical cream applic topical 11/25/24 12/20/24 ketoconazole 2 % shampoo topical 11/25/24 12/20/24 ketoconazole 2 % topical cream applic topical 11/25/24 12/20/24 Previous Rx's ?Medication ?Instructions ?Recorded ammonium lactate 12 % topical cream 1 applic topical BID dry skin, 09/06/24 callus care 30 days #385 grams Diabetic Shoes (DME) #1 ea 09/27/24 fluticasone propionate 50 1 spray intranasal DAILY #16 grams 11/25/24 mcg/actuation nasal spray,suspension vgpybwcgmspwdlh-olrywldwtlioltu-TB 7.5 ml PO Q4-6H PRN cough/sinus 12/20/24 2 mg-30 mg-10 mg/5 mL oral syrup #120 mL (Bromfed DM) levofloxacin 750 mg tablet 750 mg PO DAILY 7 days #7 tabs 02/10/25 Allergies Allergy/AdvReac Type Severity Reaction Status Date / Time codeine (CODEINE) Allergy Unknown I-HIVES Verified 11/25/24 11:24 latex (LATEX) Allergy Unknown I-RASH Verified 11/25/24 11:24 Penicillins (PENICILLINS) Allergy Unknown I-HIVES Verified 11/25/24 11:24 PFSH PFS Disclaimer: The information contained in this section may have been updated after the patient was seen, as this information can be updated by other users. Medical History Dyspareunia Pelvic pressure in female Anticoagulated on heparin Protein S deficiency Protein C deficiency Type 1 diabetes Diabetes Diabetes type 1, controlled Deep venous thrombosis of left upper extremity Surgical History History of foot surgery H/O tubal ligation History of delivery x3 History of esophagogastroduodenoscopy (EGD) Family History Other Family history of cancer Social History Smoking Status: Never smoker second hand exposure: No alcohol intake: never substance use type: denies use current occupational status: employed Travel in the last 8 weeks?: None household members: significant other and children housing: house 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 caffeine: Yes Have you lived/traveled outside US in past 30 days?: No Contact w/someone who lives/traveled outside US past 30 days?: No Exposure to someone with infectious disease in past 14 days?: No Do you have a fever (greater than 100.4 F or 38 C)?: Yes Have you tested positive for COVID-19?: No Exposed to someone with COVID-19 in past 14 days?: No Do you have a sore throat?: No Do you have a cough?: No Do you have any weakness?: No Do you have any diarrhea?: No Are you experiencing any unusual bleeding?: No Do you have any muscle aches/pain?: Yes Do you have any abdominal pain?: Yes Are you experiencing loss of taste or smell?: No Other Medical History Have you received the Flu Vaccine for this season: Yes Have you received the Pneumonia Vaccine: No ROS Obtained: Yes All systems reviewed & no additional complaints except as documented Physical Exam General General appearance: alert and in no apparent distress Head Head exam: atraumatic and normocephalic Eye Eye exam: Present normal appearance, PERRL and EOMI ENT ENT exam: Present normal oropharynx and normal external ear exam Neck Neck exam: Present normal inspection and full ROM Chest Chest inspection: Present normal inspection and symmetric chest wall rise; Absent tenderness Respiratory Respiratory exam: Present normal lung sounds bilaterally; Absent respiratory distress Cardiovascular Cardiovascular exam: Present regular rate and normal rhythm Abdominal Exam Abdominal exam: Present soft; Absent distention, tenderness or guarding Extremities Exam Extremities exam: Present normal inspection; Absent edema or joint swelling Back Exam Back exam: Present normal inspection; Absent tenderness Neurological Exam Neurological exam: Present alert and oriented X3; Absent motor sensory deficit Psychiatric Psychiatric exam: Present normal affect and normal mood Skin Skin exam: Present warm, dry and normal color Lymphatic Lymphatic Findings: no adenopathy Medical Decision Making Medical Records Medical records reviewed: Yes I reviewed the patient's medical records. Screening: Per USPSTF and CDC recommendations, given the prevalence of disease in our region, it is our hospital?s policy to screen for HIV and viral Hepatitis for all patients aged 18 and over and those with ongoing risk factors. Raz Inquiry Pt receiving controlled substance: No Raz was queried for this patient: No Vital Signs: 02/10/25 04:38 02/10/25 05:42 Temperature 98.5 F 98.6 F Temperature Source Oral Oral Pulse Rate 102 H Pulse Rate [Left] 101 H Respiratory Rate 16 18 Blood Pressure 129/92 H Blood Pressure [Right Arm] 129/92 H Blood Pressure Mean [Right Arm] 104 Blood Pressure Source [Right Arm] Automatic Cuff Blood Pressure Position [Right Arm] Sitting 02 Sat by Pulse Oximetry 98 Oxygen Delivery Method Room Air Room Air Lab Data Lab results reviewed: Yes I reviewed the patient's lab results. Lab Results 02/10/25 04:40: Urine Color Yellow, Urine Appearance Cloudy, Urine pH 8.5, Ur Specific [place] 1.015, Urine Protein 1+ A, Urine Glucose (UA) Negative, Urine Ketones Negative, Urine Blood 1+ A, Urine Nitrate Negative, Urine Bilirubin Negative, Urine Urobilinogen 0.2, Ur Leukocyte Esterase 2+ A, Urine RBC 5-10, Urine WBC 20-50, Ur Squamous Epith Cells 3-5, Urine Bacteria 1+, Urine HCG, Qual Negative Orders (Tests/Meds): ED MEDICATIONS Discontinued Medications Generic Name Dose Route Start Last Admin Trade Name Freq PRN Reason Stop Dose Admin Ceftriaxone Sodium 1 gm 02/10/25 05:30 02/10/25 05:40 Ceftriaxone 1gm Vial IM 02/10/25 05:31 1 gm ONCE ONE Administration Lidocaine HCl 0 ml 02/10/25 05:30 02/10/25 05:42 Lidocaine 1% 5ml Pf Vial IM 02/10/25 05:31 5 ml ONCE ONE Administration ORDERS Category Date Time Status UA [Urinalysis and Microscopic] Stat Lab 02/10/25 04:40 Completed Urine Chlam/Gono/Trich ([facility]) Stat Lab 02/10/25 04:40 Received Urine , HCG Qual. Stat Lab 02/10/25 04:40 Completed Urine Culture Stat Micro 02/10/25 04:40 Received Medical Decision Narrative: 34-year-old female with history of type 1 diabetes presents for a few days of dysuria and lower abdominal pain. History was obtained via interactive discussion with patient. On arrival, patient is [afebrile, hemodynamically stable, satting appropriately, alert, oriented x4, GCS 15], moving all extremities spontaneously. Full physical exam performed and significant for no significant physical exam abnormalities. Patient blood sugar 220 on home monitor. Reports she used her ketone test strips and they were negative. Differential includes but is not limited to UTI, kidney stone, yeast infection. Urinalysis obtained and is consistent with urinary tract infection. She was given a dose of IM ceftriaxone and discharged prescription for Levaquin. Return precautions given for signs of DKA, worsening infection etc. Procedures Risk/Benefits of Procedure(s) Were Explained: Yes Critical Care Critical Care Time Critical Care Time: No
[2025-02-10 05:01] LABS: Microscopic, Urine URINE MICROSCOPIC (MICROSCOPIC)
[2025-02-10 05:03] LABS: Bilirubin,Urine Negative (Negative); Color,Urine YELLOW (Yellow); Glucose,Urine (UA) Negative (Negative); Ketones,Urine Negative (Negative); Leukocyte Esterase,Urine 2+ (Negative); PH,Urine 8.5 (5.0-8.5); Protein,Urine 1+ (Negative); Specific Gravity, Urine 1.015 (1.005-1.030); Urobilinogen,Urine 0.2 EU/dl (0.2)
[2025-02-10 05:07] LABS: Urine Pregnancy, HCG Qual. Negative (Negative)
[2025-02-10 05:26] LABS: WBC,Urine 20-50 #/hpf (0-3)
[2025-02-10 05:27] LABS: Bacteria,Urine 1+ /lpf
[2025-02-10] MEDS: cefTRIAXone 1GM VIAL 1 GM IM (05:40)
[2025-02-10 05:42] VITALS: BP 129/92; PULSE 102; RESP 18; TEMP 37; O2SAT 98
[2025-02-10] MEDS: LIDOCAINE 1% 5ML PF VIAL IM (05:42)
--- NOTE | 2025-02-13 18:53 | PC.NURSE ---
URINE CULTURE DISCUSSED WITH DR VIRAMONTES, NO NEW ORDERS. ON APPROPRIATE ABX
[2025-02-13 21:56] LABS: Neisseria gonorrhoeae, NAA Negative (Negative)
[2025-02-14 20:11] LABS: Trichomonas Vaginalis, NAA Negative (Negative)
== END 2025-02-10 05:50 | disposition home or self-care (01) ==
PROVIDERS: Emergency Provider Emergency Medicine; PCP Pediatrics
DX: N39.0 Urinary tract infection, site not specified (principal); R10.30 Lower abdominal pain, unspecified; R30.0 Dysuria; E10.9 Type 1 diabetes mellitus without complications; B96.20 Unspecified Escherichia coli [E. coli] as the cause of diseases classified elsewhere
CPT/HCPCS: 81001; 81025; 87086; 87088; 87186; 87491; 87591; 87661; 96372; 99283; 99285; J0696; J2003